=== PATIENT | female | born 1935 | race Caucasian/White ===

== ENCOUNTER 2022-03-03 18:57 | Observation (INO) | payer MEDICARE, SELFPAY ==
[2022-03-03 18:59] VITALS: BP 127/86; PULSE 115; RESP 20; TEMP 36.6; O2SAT 90; BMI 29.0
--- NOTE | 2022-03-03 19:19 | XRR_ITS ---
PROCEDURE INFORMATION: Exam: XR Chest Exam date and time: 03/03/2022 7:25 PM Age: 86 years old Clinical indication: Shortness of breath; Prior surgery; Surgery date: 6+ months; Surgery type: Open heart; Additional info: SOB TECHNIQUE: Imaging protocol: Radiologic exam of the chest. Views: 1 view. COMPARISON: No relevant prior studies available. FINDINGS: Lungs: Mild left basilar atelectasis and/or pneumonia which could be atelectasis from left eventration.. Mildly hyperaerated lungs consistent with deep inspiratory effort vs reactive airway disease vs mild COPD . Pleural spaces: Unremarkable. No pleural effusion. No pneumothorax. Heart/Mediastinum: Unremarkable. No cardiomegaly. Vasculature: Calcification of the thoracic aorta and/or great vessels consistent with atherosclerotic vessel disease. Diaphragm: Elevation of the left hemidiaphragm consistent with eventration. Bones/joints: Previous sternotomy. Other findings: Patient rotation to the left. XR/XR chest 1V portable [id number] IMPRESSION: 1. Previous sternotomy. 2. Elevation of the left hemidiaphragm consistent with eventration. 3. Mild left basilar atelectasis and/or pneumonia which could be atelectasis from left eventration.. 4. Mildly hyperaerated lungs consistent with deep inspiratory effort vs reactive airway disease vs mild COPD .
--- NOTE | 2022-03-03 19:19 | CTR_ITS ---
PROCEDURE INFORMATION: Exam: CT Head Without Contrast Exam date and time: 03/03/2022 7:43 PM Age: 86 years old Clinical indication: Other: Confusion secondary to UTI; Additional info: AMS TECHNIQUE: Imaging protocol: Computed tomography of the head without contrast. Radiation optimization: All CT scans at this facility use at least one of these dose optimization techniques: automated exposure control; mA and/or kV adjustment per patient size (includes targeted exams where dose is matched to clinical indication); or iterative reconstruction. COMPARISON: No relevant prior studies available. RADIATION DOSE METRICS: Total DLP (mGy-cm): 995.38 FINDINGS: Brain: Severe calcified intracranial atherosclerotic vessel disease. Mild to moderate cerebral atrophy and ischemic leukoencephalopathy. Cerebral ventricles: No ventriculomegaly. Paranasal sinuses: Moderate right maxillary sinus disease. Mastoid air cells: Visualized mastoid air cells are well aerated. Bones/joints: Unremarkable. No acute fracture. Soft tissues: Unremarkable. CT/CT head wo con* [id number] IMPRESSION: 1. Moderate right maxillary sinus disease. 2. No acute intracranial findings.
--- NOTE | 2022-03-03 19:20 | ECG_ITS ---
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 Measurements Intervals [place] Rate: 115 P: 33 [place]: 167 QRS: 14 QRSD: 90 T: 88 QT: 272 QTc: 377 Interpretive Statements SINUS TACHYCARDIA POSSIBLE LEFT ATRIAL ENLARGEMENT [-0.1mV P-WAVE IN V1/V2] SEPTAL MYOCARDIAL INFARCTION , PROBABLY OLD [40+ ms Q WAVE IN V1/V2] No previous ECG available for comparison Electronically Signed On 03-04-2022 19:03:50 LEACH TANK TENDER by Hailey Gilbert M.D. [id number]
--- NOTE | 2022-03-03 19:38 | ED_ITS ---
HPI - Altered Mental Status General: Chief Complaint: Altered Mental Status Stated Complaint: AMS Time Seen by Provider: 03/03/22 19:21 Source: EMS Mode of arrival: EMS Limitations: altered mental status History of Present Illness: 86-year-old female is here by EMS history is from EMS and daughter as she is altered here per daughter patient lives alone usually takes care of her self but states that over the last 2 days she has had some cough congestion and increasing confusion she states that today she has been very confused does not know where she is at patient's here able to answer minimal questions due to her confusion daughter states she is got like this in the past when she has infections. Review of Systems General: Reports: ROS unobtainable due to mental status PFSH ED PFSH: Social History (Updated 03/03/22 @ 19:39 by Lashaun Burnett MD) Substance/Drug Use: never Physical Exam Const: COMMON NORMALS: negative for patient oriented x3 EXAM LIMITATIONS: altered mental status HENMT: COMMON NORMALS: normocephalic and atraumatic HEAD & SCALP: normocephalic and atraumatic Eye: COMMON NORMALS: conjunctivae normal CONJUNCTIVA: Yes conjunctivae normal Neck/C-Spine: COMMON NORMALS: supple Chest: COMMONS NORMALS: normal inspection of the chest Resp: COMMON NORMALS: normal respiratory effort and clear to auscultation bilaterally AUSCULTATION: clear to auscultation bilaterally Cardio: COMMON NORMALS: regular rate and regular rhythm RATE: regular rate RHYTHM: regular rhythm GI: COMMON NORMALS: Normal to inspection, nondistended, normoactive bowel sounds present and non-tender INSPECTION: Yes normal to inspection Extremity: COMMON NORMALS: normal to inspection Neuro: COMMON NORMALS: negative for patient oriented x3 Psych: COMMON NORMALS: negative for mental status grossly normal Skin: COMMON NORMALS: no rashes or lesions noted GENERAL SKIN EXAM: no rashes or lesions noted Course Vital Signs: Vital signs: Vital Signs Temperature 97.8 F 03/03/22 18:59 Pulse Rate 113 H 03/03/22 20:18 Respiratory Rate 16 03/03/22 20:18 Blood Pressure 114/69 03/03/22 20:18 Pulse Oximetry 97 03/03/22 20:18 Oxygen Delivery Me thod 03/03/22 20:18 MDM - Altered Mental Status Medical Decision Making Patient presents with altered mental status along with generalized weakness her blood work here is normal she is no signs of infection she has had cough and congestion which could be viral in origin we will admit her for observation due to her altered no status and weakness Lab Data 03/03/22 20:15 03/03/22 20:15 Radiology Impressions Chest X-Ray 03/03/22 19:19 IMPRESSION: 1. Previous sternotomy. 2. Elevation of the left hemidiaphragm consistent with eventration. 3. Mild left basilar atelectasis and/or pneumonia which could be atelectasis from left eventration.. 4. Mildly hyperaerated lungs consistent with deep inspiratory effort vs reactive airway disease vs mild COPD . Head CT 03/03/22 19:19 IMPRESSION: 1. Moderate right maxillary sinus disease. 2. No acute intracranial findings. Laboratory Results WBC 8.7 10^3/uL (4.0-10.0) 03/03/22 20:15 RBC 4.24 10^6/uL (4.1-5.3) 03/03/22 20:15 Hgb 12.6 g/dL (11.5-15.3) 03/03/22 20:15 Hct 40.3 % (37.0-47.0) 03/03/22 20:15 MCV 95.0 fl (81-99) 03/03/22 20:15 MCH 29.7 pg (28.0-34.0) 03/03/22 20:15 MCHC 31.3 g/dL (30.0-36.0) 03/03/22 20:15 RDW 12.4 % (12.1-15.1) 03/03/22 20:15 Plt Count 177 10^3/cmm (130-400) 03/03/22 20:15 MPV 10.1 fL (7.4-10.4) 03/03/22 20:15 Neut % (Auto) 88.7 % 03/03/22 20:15 Lymph % (Auto) 3.7 % 03/03/22 20:15 [place] % (Auto) 6.7 % 03/03/22 20:15 Eos % (Auto) 0.1 % 03/03/22 20:15 Baso % (Auto) 0.5 % 03/03/22 20:15 Neut # (Auto) 7.69 10^3/uL (1.8-7.7) 03/03/22 20:15 Lymph # (Auto) 0.3 10^3/uL (0.8-4.8) L 03/03/22 20:15 [place] # (Auto) 0.6 10^3/uL (0.2-0.9) 03/03/22 20:15 Eos # (Auto) 0.0 10^3/uL (0.0-0.8) 03/03/22 20:15 Baso # (Auto) 0.0 10^3/uL (0.0-0.1) 03/03/22 20:15 Nucleated RBC % (auto) 0 % 03/03/22 20:15 Nucleated RBCs # 0.0 /100WBC 03/03/22 20:15 PT 14.10 SECONDS (12.1-14.9) 03/03/22 20:15 INR 1.06 (0.8-1.2) 03/03/22 20:15 Sodium 137 mmol/L (136-145) 03/03/22 20:15 Potassium 4.0 mmol/L (3.5-5.1) 03/03/22 20:15 Chloride 98 mmol/L (98-107) 03/03/22 20:15 Carbon Dioxide 29 mmol/L (22-29) 03/03/22 20:15 Anion Gap 14.0 (5-19) 03/03/22 20:15 BUN 16 mg/dL (8-23) 03/03/22 20:15 Creatinine 1.1 mg/dL (0.5-0.9) H 03/03/22 20:15 GFR Calculation Not Reportable 03/03/22 20:15 Glucose 117 mg/dL (65-115) H 03/03/22 20:15 Calculated Osmolality 286 mOsm/kg (285-295) 03/03/22 20:15 Calcium 10.1 mg/dL (8.5-10.5) 03/03/22 20:15 Magnesium 1.7 mg/dL (1.7-2.3) 03/03/22 20:15 Total Bilirubin 0.2 mg/dL (0.15-1.2) 03/03/22 20:15 AST 15 U/L (0-32) 03/03/22 20:15 ALT 10 U/L (0-33) 03/03/22 20:15 Alkaline Phosphatase 84 U/L (35-105) 03/03/22 20:15 Troponin T Baseline 42 ng/L (0-10) H 03/03/22 20:15 Troponin T 120 Minute 37.46 ng/L (0-10) H 03/03/22 22:15 Delta Troponin T -4.54 ABS# (0-10) L 03/03/22 22:15 Total Protein 7.1 g/dL (6.6-8.7) 03/03/22 20:15 Albumin 3.8 g/dL (3.5-5.2) 03/03/22 20:15 Globulin 3.3 g/dL (1.3-4.6) 03/03/22 20:15 Lipase 8 U/L (13-60) L 03/03/22 20:15 Urine Color Yellow (Yellow) 03/03/22 22:23 Urine Appearance Clear (CLEAR) 03/03/22 22:23 Urine pH 5 (5-7) 03/03/22 22:23 Ur Specific [place] 1.020 (1.005-1.030) 03/03/22 22:23 Urine Protein Neg (Negative) 03/03/22 22:23 Urine Glucose (UA) Norm (Normal) 03/03/22 22:23 Urine Ketones Negative (Negative) 03/03/22 22:23 Urine Blood Neg (Negative) 03/03/22 22:23 Urine Nitrate Negative (Negative) 03/03/22 22:23 Urine Bilirubin Neg (Negative) 03/03/22 22:23 Urine Urobilinogen Norm mg/dL (Negative) 03/03/22 22:23 Ur Leukocyte Esterase Negative (Negative) 03/03/22 22:23 Influenza Type A Ag negative (Negative) 03/03/22 20:21 Influenza Type B Ag negative (Negative) 03/03/22 20:21 SARS-CoV-2 Ag (Rapid) negative (Negative) 03/03/22 20:21 Discharge Plan Discharge Patient Disposition: Admitted As Inpatient Clinical Impression: Altered mental status, Weakness Coding Level of Care Code ED Certified Histologic Technician for Chg Fwd Exam Comprehensive
[2022-03-03 20:18] VITALS: BP 114/69; PULSE 113; RESP 16; O2SAT 97
[2022-03-03] MEDS: sodium chloride 0.9% 500 ML 999 ML IV (20:18)
[2022-03-03 20:22] LABS: Basophils % 0.5 %; Eosinophils % 0.1 %; Hematocrit 40.3 % (37.0-47.0); Hemoglobin 12.6 g/dL (11.5-15.3); Lymphocytes # 0.3 10^3/uL (0.8-4.8); Lymphocytes % 3.7 %; Mean Corpuscular HGB Conc 31.3 g/dL (30.0-36.0); Mean Corpuscular Hemoglobin 29.7 pg (28.0-34.0); Mean Platelet Volume 10.1 fL (7.4-10.4); Monocytes # 0.6 10^3/uL (0.2-0.9); Monocytes % 6.7 %; Neutrophils # 7.69 10^3/uL (1.8-7.7); Neutrophils % 88.7 %; Nucleated Red Blood Cells % 0 %; Platelet Count 177 10^3/cmm (130-400); Red Blood Count 4.24 10^6/uL (4.1-5.3); Red Cell Distribution Width 12.4 % (12.1-15.1); White Blood Count 8.7 10^3/uL (4.0-10.0)
[2022-03-03 20:39] LABS: INR 1.06 (0.8-1.2)
[2022-03-03 20:48] LABS: Alanine Aminotransferase 10 U/L (0-33); Albumin Level 3.8 g/dL (3.5-5.2); Alkaline Phosphatase 84 U/L (35-105); Aspartate Amino Transferase 15 U/L (0-32); Blood Urea Nitrogen 16 mg/dL (8-23); Calcium 10.1 mg/dL (8.5-10.5); Carbon Dioxide 29 mmol/L (22-29); Chloride 98 mmol/L (98-107); Globulin 3.3 g/dL (1.3-4.6); Glucose 117 mg/dL (65-115); Lipase 8 U/L (13-60); Magnesium 1.7 mg/dL (1.7-2.3); Osmolality Calculated 286 mOsm/kg (285-295); Sodium 137 mmol/L (136-145); Total Bilirubin 0.2 mg/dL (0.15-1.2); Total Protein 7.1 g/dL (6.6-8.7); Troponin(5th) Baseline 42 ng/L (0-10)
[2022-03-03 20:48] LABS: Influenza A by IFA negative (Negative); Influenza B by IFA negative (Negative); SARS Covid-2 Antigen negative (Negative)
--- NOTE | 2022-03-03 21:20 | ECG_ITS ---
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 Measurements Intervals [place] Rate: 115 P: 47 [place]: 158 QRS: 20 QRSD: 92 T: 88 QT: 244 QTc: 339 Interpretive Statements SINUS TACHYCARDIA POSSIBLE LEFT ATRIAL ENLARGEMENT [-0.1mV P-WAVE IN V1/V2] LOW QRS VOLTAGE IN PRECORDIAL LEADS [QRS DEFLECTION < 1.0 mV IN CHEST LEADS] NONSPECIFIC ST & T-WAVE ABNORMALITY ABNORMAL RHYTHM ECG Compared to ECG 03/03/2022 20:00:09 Low QRS voltage now present T-wave abnormality now present Myocardial infarct finding no longer present Electronically Signed On 03-04-2022 19:20:52 EXAM PROCTOR by Hailey Gilbert M.D. [id number]
[2022-03-03 22:37] LABS: Add Urine Microscopic? NO; Charge for UA Resulting for Rev
[2022-03-03 22:39] LABS: Bilirubin Urine Neg (Negative); Blood Urine Neg (Negative); Glucose Urine UA Norm (Normal); Ketones Urine Negative (Negative); Leukocyte Esterase Urine Negative (Negative); Nitrate Urine Negative (Negative); Protein Urine Neg (Negative); Urine Appearance Clear (CLEAR); Urine Color Yellow (Yellow); Urobilinogen Urine Norm (Negative); pH Urine 5 (5-7)
[2022-03-03 22:43] LABS: Troponin 5 2HR 37.46 ng/L (0-10)
[2022-03-03 22:44] LABS: Troponin 5 2HR Delta -4.54 ABS# (0-10)
--- NOTE | 2022-03-03 23:39 | P.HP_ITS ---
Providers/Chief Complaint Chief Complaint: AMS History of Present Illness Wicho Bermeo is a 86 year old female with history of TAVR 2 years ago, dementia, lives with her sister presented with chief complaint of lethargy fatigue and altered mental status. Her daughter brought her here because of extreme fatigue which she noticed around 4 PM. Daughter stating that she was with her today and left her around afternoon after lunch and when she came back to check on her around 4 PM she was doing lethargic and fatigued, she was not able to open her eyes she thought she probably has UTI and brought her to the ER. No fever, nausea, vomiting or diarrhea. Daughter stating that for last few days she has been experiencing dry hacking cough to the point where she would gag sometimes because of excessive coughing bouts. Runny nose and runny eyes. Nonproductive cough. Daughter stating that recently her levothyroxine dose has been increased to 88 mics, she is not sure about all of her medications. In the ER COVID-negative influenza negative, looks slightly dehydrated, heart rate improved with IV fluid hydration, patient is able to answer simple questions No signs of stroke CT head, chest x-ray unremarkable Review of Systems Const: Reports: chills and fatigue Eyes: Denies: change in vision ENMT: Denies: throat pain Card: Denies: chest pain Resp: Reports: dyspnea GI: Denies: abdominal pain : Denies: flank pain or oliguria Musc: Denies: neck pain Skin/Breast: Denies: rash Neuro: Denies: headache(s) Psych: Reports: anxiety Endo: Denies: polyuria Alex/Lymph: Denies: easy bruising All/Imm: Denies: urticaria Medications/Allergies Allergies Allergy/AdvReac Type Severity Reaction Status Date / Time No Known Allergies Allergy Verified 03/03/22 19:04 PFSH Acute PFSH: Medical History Aortic stenosis Hypertension Hypothyroidism Surgical History History of hip surgery S/P TAVR (transcatheter aortic valve replacement) Family History Denies family history of CAD (coronary artery disease) Social History Substance/Drug Use: never Vitals/I&O/Wt Last Vital Signs Temp 97.8 F 03/03/22 18:59 Pulse 113 H 03/03/22 20:18 Resp 16 03/03/22 20:18 BP 114/69 03/03/22 20:18 Pulse Ox 97 03/03/22 20:18 O2 Del Method 03/03/22 20:18 03/03/22 03/03/22 03/04/22 14:59 22:59 06:59 Intake Total 500 / 500 Balance 500 / 500 Weight last 48 hrs Weight 81.647 kg Physical Exam Narrative: Patient is laying supine No signs of stroke Clinically looks dehydrated Sinus tachycardia Blood pressure stable Able to answer simple questions Able to move her extremities Able to follow commands Oriented to place and person but not time Currently doing well on 2 L of nasal cannula Abdomen soft S1, S2 loud S2 Clinically weak and dehydrated, lethargic Data 03/03/22 20:15 03/03/22 20:15 A&P Assessment and plan (1) Altered mental status: (2) Weakness: Plan Metabolic encephalopathy Acute delirium likely related to dehydration Continue IV fluids Check TSH B12 mag and phosphorus level Patient seems to have dementia I will start her on IV fluids We will give her azithromycin for upper airway infection For sinus tachycardia we will request D-dimer to rule out PE 2 years ago she had TAVR done, lives with her sister, recently her levothyroxine dose has been increased to 88 mics, We will request records from [facility] Please follow-up with her pharmacy in the morning to get all of her medications Patient is DNR/DNI as per her daughter Cardiac diet Attestations Medical Necessity Statement*: Anticipating discharge within 48 hours Time Spent in Patient Care: 40 Coding Level of Care Code Acute Research Associate Quality Control Qc for Chg Fwd Diagnoses Altered mental status R41.82 Weakness R53.1
[2022-03-04] VITALS (7 sets, daily range): BP systolic 120–148; BP diastolic 61–79; PULSE 84–110; RESP 16–24; TEMP 36.3–36.9; O2SAT 94–96
[2022-03-04 00:22] LABS: Procalcitonin 0.12 ng/mL (0-0.5)
[2022-03-04] MEDS: sodium chloride 0.9% 500 ML 999 ML IV (01:04)
[2022-03-04 01:09] LABS: D Dimer 5.23 ug/mIFEU (0-0.59)
[2022-03-04 02:07] LABS: Basophils % 0.3 %; Hematocrit 36.3 % (37.0-47.0); Hemoglobin 11.3 g/dL (11.5-15.3); Lymphocytes # 0.3 10^3/uL (0.8-4.8); Lymphocytes % 5.3 %; Mean Corpuscular HGB Conc 31.1 g/dL (30.0-36.0); Mean Corpuscular Hemoglobin 29.9 pg (28.0-34.0); Mean Platelet Volume 10.5 fL (7.4-10.4); Monocytes # 0.4 10^3/uL (0.2-0.9); Monocytes % 5.9 %; Neutrophils # 5.67 10^3/uL (1.8-7.7); Nucleated Red Blood Cells % 0 %; Platelet Count 150 10^3/cmm (130-400); Red Blood Count 3.78 10^6/uL (4.1-5.3); Red Cell Distribution Width 12.5 % (12.1-15.1); White Blood Count 6.4 10^3/uL (4.0-10.0)
[2022-03-04] MEDS: sodium chloride 0.9% 1,000 ML 75 ML IV (02:12)
[2022-03-04 02:28] LABS: Anion Gap 11.7 (5-19); Blood Urea Nitrogen 15 mg/dL (8-23); C Reactive Protein 106.4 mg/L (0.0-4.9); Calcium 8.9 mg/dL (8.5-10.5); Carbon Dioxide 29 mmol/L (22-29); Chloride 101 mmol/L (98-107); Glucose 110 mg/dL (65-115); Magnesium 1.7 mg/dL (1.7-2.3); Osmolality Calculated 287 mOsm/kg (285-295); Phosphorus 3.4 mg/dL (2.5-4.5); Potassium 3.7 mmol/L (3.5-5.1); Sodium 138 mmol/L (136-145)
[2022-03-04 02:31] LABS: Troponin 5 6HR 45.47 ng/L (0-10)
[2022-03-04 02:33] LABS: Troponin 5 6HR Delta 3.47 ng/L (0-12)
[2022-03-04 02:34] LABS: Thyroid Stimulating Hormone 2.52 uIU/mL (0.27-4.20)
[2022-03-04 02:37] LABS: Estmated Average Glucose 85; Hemoglobin A1C 4.6 % (4.0-6.0)
[2022-03-04 03:12] LABS: Vitamin B12 304 pg/mL (232-1245)
[2022-03-04] MEDS: enoxaparin 40 mg/0.4 mL Syringe SUBCUT (05:00)
--- NOTE | 2022-03-04 05:50 | ECG_ITS ---
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 Measurements Intervals [place] Rate: 104 P: 31 [place]: 156 QRS: 43 QRSD: 89 T: 90 QT: 247 QTc: 325 Interpretive Statements SINUS TACHYCARDIA LOW QRS VOLTAGE IN PRECORDIAL LEADS [QRS DEFLECTION < 1.0 mV IN CHEST LEADS] SEPTAL MYOCARDIAL INFARCTION , PROBABLY OLD [40+ ms Q WAVE IN V1/V2] Compared to ECG 03/03/2022 21:15:59 Myocardial infarct finding now present T-wave abnormality no longer present Electronically Signed On 03-04-2022 19:12:50 SHEET WRITER by Hailey Gilbert M.D. [email or web address].[employer]/store/OM/[id number]/[id number]
--- NOTE | 2022-03-04 07:47 | PC.PHAR ---
called pts sister raffy [phone] no answer-medications entered are meds that ext med history shows has been filled at [facility]-notes are made in the pharmacy comments with last fill dates
[2022-03-04] MEDS: sennosides-docusate Tablet 1 TAB PO (09:08)
[2022-03-04] MEDS: ipratropium-albuterol 3 mL Neb INHALATION (09:16)
[2022-03-04] MEDS: azithromycin 250 mg Tablet 500 MG PO (10:35)
--- NOTE | 2022-03-04 11:12 | PM.DCS ---
Discharge Providers Date of Admission: 03/04/22 00:00 Date of Discharge: March 04, 2022 Attending Provider at Admission: Ruel Galvez MD Attending Provider at Discharge: Abner Shultz MD Diagnoses at Discharge Discharge Diagnosis (1) Altered mental status: Status: Acute (2) Weakness: Status: Acute Reason for Visit Reason for Visit: [facility] Hospital Course Hospital Course 86 year old female with history of TAVR 2 years ago, dementia, lives with her sister presented with chief complaint of lethargy fatigue, dry hacking cough for few day , and altered mental status since yesterday, she was admitted for the management of acute metabolic encephalopathy secondary to recent upper respiratory tract infection as well as dehydration, she was kept on IV hydration, azithromycin, CT head without contrast was negative, x-ray chest: Showed no infiltrates, UA was clean, serum B12 was normal, TSH was normal, At the time of discharge, patient was progressing to her baseline mentation she was alert awake oriented, knew her name place, denied any chest pain shortness of breath abdominal pain nausea vomiting, she was afebrile hemodynamically stable, influenza and COVID was negative.She was discharged home in stable condition, she will continue to follow her PCP as outpatient. Physical Exam Narrative: Alert awake,not in acute distress Resp: COMMON NORMALS: normal respiratory effort, No retractions, No use of accessory muscles and clear to auscultation bilaterally EFFORT & INSPECTION: Yes symmetric chest movement AUSCULTATION: clear to auscultation bilaterally Cardio: COMMON NORMALS: regular rate, regular rhythm, S1 normal heart sound present, S2 normal heart sound present, No gallops present (Cardio), No murmurs present (Cardio), No rub (Cardio) and Peripheral pulses 2+ throughout RATE: regular rate RHYTHM: regular rhythm HEART SOUNDS: S1 normal heart sound present and S2 normal heart sound present PERIPHERAL PULSES: Peripheral pulses 2+ throughout GI: COMMON NORMALS: Normal to inspection, nondistended, normoactive bowel sounds present, Soft to palpation, non-tender, No hepatosplenomegaly present and no masses AUSCULTATION: Yes normoactive bowel sounds PALPATION: Yes Soft to palpation and Yes No hepatosplenomegaly present RECTAL EXAM: deferred Extremity: COMMON NORMALS: no clubbing, cyanosis or edema and no pedal edema Discharge Data Studies Completed and Pending Completed Studies During Hospitalization Category Date Time Status CT head wo con* [id number] Stat Cat Scan 03/03/22 19:19 Completed XR chest 1V portable [id number] Stat Exams 03/03/22 19:19 Completed Pending at discharge Category Date Time Status Blood Culture Stat Lab 03/03/22 00:06 Results Radiology Impressions Chest X-Ray 03/03/22 19:19 IMPRESSION: 1. Previous sternotomy. 2. Elevation of the left hemidiaphragm consistent with eventration. 3. Mild left basilar atelectasis and/or pneumonia which could be atelectasis from left eventration.. 4. Mildly hyperaerated lungs consistent with deep inspiratory effort vs reactive airway disease vs mild COPD . Head CT 03/03/22 19:19 IMPRESSION: 1. Moderate right maxillary sinus disease. 2. No acute intracranial findings. Laboratory Results WBC 6.4 10^3/uL (4.0-10.0) 03/04/22 01:48 RBC 3.78 10^6/uL (4.1-5.3) L 03/04/22 01:48 Hgb 11.3 g/dL (11.5-15.3) L 03/04/22 01:48 Hct 36.3 % (37.0-47.0) L 03/04/22 01:48 MCV 96.0 fl (81-99) 03/04/22 01:48 MCH 29.9 pg (28.0-34.0) 03/04/22 01:48 MCHC 31.1 g/dL (30.0-36.0) 03/04/22 01:48 RDW 12.5 % (12.1-15.1) 03/04/22 01:48 Plt Count 150 10^3/cmm (130-400) 03/04/22 01:48 MPV 10.5 fL (7.4-10.4) H 03/04/22 01:48 Neut % (Auto) 88.0 % 03/04/22 01:48 Lymph % (Auto) 5.3 % 03/04/22 01:48 [place] % (Auto) 5.9 % 03/04/22 01:48 Eos % (Auto) 0.0 % 03/04/22 01:48 Baso % (Auto) 0.3 % 03/04/22 01:48 Neut # (Auto) 5.67 10^3/uL (1.8-7.7) 03/04/22 01:48 Lymph # (Auto) 0.3 10^3/uL (0.8-4.8) L 03/04/22 01:48 [place] # (Auto) 0.4 10^3/uL (0.2-0.9) 03/04/22 01:48 Eos # (Auto) 0.0 10^3/uL (0.0-0.8) 03/04/22 01:48 Baso # (Auto) 0.0 10^3/uL (0.0-0.1) 03/04/22 01:48 Nucleated RBC % (auto) 0 % 03/04/22 01:48 Nucleated RBCs # 0.0 /100WBC 03/04/22 01:48 PT 14.10 SECONDS (12.1-14.9) 03/03/22 20:15 INR 1.06 (0.8-1.2) 03/03/22 20:15 D-Dimer 5.23 ug/mIFEU (0-0.59) H 03/03/22 20:15 Sodium 138 mmol/L (136-145) 03/04/22 01:48 Potassium 3.7 mmol/L (3.5-5.1) 03/04/22 01:48 Chloride 101 mmol/L (98-107) 03/04/22 01:48 Carbon Dioxide 29 mmol/L (22-29) 03/04/22 01:48 Anion Gap 11.7 (5-19) 03/04/22 01:48 BUN 15 mg/dL (8-23) 03/04/22 01:48 Creatinine 1.0 mg/dL (0.5-0.9) H 03/04/22 01:48 GFR Calculation Not Reportable 03/04/22 01:48 Glucose 110 mg/dL (65-115) 03/04/22 01:48 Estimat Average Glucose 85 03/04/22 01:48 Hemoglobin A1c 4.6 % (4.0-6.0) 03/04/22 01:48 Calculated Osmolality 287 mOsm/kg (285-295) 03/04/22 01:48 Calcium 8.9 mg/dL (8.5-10.5) 03/04/22 01:48 Phosphorus 3.4 mg/dL (2.5-4.5) 03/04/22 01:48 Magnesium 1.7 mg/dL (1.7-2.3) 03/04/22 01:48 Total Bilirubin 0.2 mg/dL (0.15-1.2) 03/03/22 20:15 AST 15 U/L (0-32) 03/03/22 20:15 ALT 10 U/L (0-33) 03/03/22 20:15 Alkaline Phosphatase 84 U/L (35-105) 03/03/22 20:15 Troponin T Baseline 42 ng/L (0-10) H 03/03/22 20:15 Troponin T 120 Minute 37.46 ng/L (0-10) H 03/03/22 22:15 Delta Troponin T -4.54 ABS# (0-10) L 03/03/22 22:15 Troponin T Hi Sens 6Hr 45.47 ng/L (0-10) H 03/04/22 01:48 Troponin T Hi Sens 6Hr Delta 3.47 ng/L (0-12) 03/04/22 01:48 C-Reactive Protein 106.4 mg/L (0.0-4.9) H 03/04/22 01:48 Total Protein 7.1 g/dL (6.6-8.7) 03/03/22 20:15 Albumin 3.8 g/dL (3.5-5.2) 03/03/22 20:15 Globulin 3.3 g/dL (1.3-4.6) 03/03/22 20:15 Lipase 8 U/L (13-60) L 03/03/22 20:15 Vitamin B12 304 pg/mL (232-1245) 03/04/22 01:48 Procalcitonin 0.12 ng/mL (0-0.5) 03/03/22 20:15 TSH 2.52 uIU/mL (0.27-4.20) 03/04/22 01:48 Urine Color Yellow (Yellow) 03/03/22 22:23 Urine Appearance Clear (CLEAR) 03/03/22 22:23 Urine pH 5 (5-7) 03/03/22 22:23 Ur Specific [place] 1.020 (1.005-1.030) 03/03/22 22:23 Urine Protein Neg (Negative) 03/03/22 22:23 Urine Glucose (UA) Norm (Normal) 03/03/22 22:23 Urine Ketones Negative (Negative) 03/03/22 22:23 Urine Blood Neg (Negative) 03/03/22 22:23 Urine Nitrate Negative (Negative) 03/03/22 22:23 Urine Bilirubin Neg (Negative) 03/03/22 22:23 Urine Urobilinogen Norm mg/dL (Negative) 03/03/22 22:23 Ur Leukocyte Esterase Negative (Negative) 03/03/22 22:23 Influenza Type A Ag negative (Negative) 03/03/22 20:21 Influenza Type B Ag negative (Negative) 03/03/22 20:21 SARS-CoV-2 Ag (Rapid) negative (Negative) 03/03/22 20:21 Vitals Last Vital Signs Temp 97.3 F L 03/04/22 08:00 Pulse 92 03/04/22 09:16 Resp 18 03/04/22 09:16 BP 124/61 03/04/22 08:00 Pulse Ox 95 03/04/22 09:16 O2 Del Method 03/04/22 09:16 O2 Flow Rate 2 03/04/22 09:16 Discharge Plan Discharge Patient Disposition: Home Condition: Stable Prescriptions: New azithromycin 250 mg tablet 250 mg PO DAILY 5 Days Qty: 5 0RF Continued furosemide 40 mg tablet 40 mg PO BID Rx Instructions: take 7 hours apart ropinirole 1 mg tablet 1 mg PO BEDTIME hydrocodone-acetaminophen 5-325 mg tablet 1 tab PO Q4H MDD 6 tabs PRN (Reason: Pain) clopidogrel 75 mg tablet 75 mg PO DAILY amitriptyline 50 mg tablet 50 mg PO BEDTIME Euthyrox 88 mcg tablet 88 mcg PO QAM citalopram 20 mg tablet 20 mg PO BEDTIME Nitrostat 0.4 mg Tablet, Sublingual 0.4 mg SUBLINGUAL Q5M PRN (Reason: Chest Pain) Rx Instructions: do not exceed 3 doses per episode gabapentin 300 mg capsule 300 mg PO QPM buspirone 7.5 mg tablet 7.5 mg PO BID albuterol sulfate 90 mcg/actuation HFA aerosol inhaler 2 puff INHALATION Q6H PRN (Reason: Shortness Of Breath) ondansetron 4 mg tablet,disintegrating 4 mg PO Q8H PRN (Reason: Nausea And Vomiting) ibandronate 150 mg tablet 150 mg PO Q30D Myrbetriq 25 mg tablet extended release 24 hr 25 mg PO DAILY Nurtec ODT 75 mg tablet,disintegrating 75 mg PO DAILY PRN (Reason: Migraine Headache) Klor-Con M20 20 mEq tablet,ER particles/crystals 20 meq PO QAM Discharge Orders: Discharge Order (Routine); Ordered 03/04/22 Ordered By: Abner Shultz Patient Instructions: Opioid Safety Discharge Attestations Time Spent in Discharge Care*: less than 30 min Quality Metrics Clinical Quality Measures [ No reported AMI, CVA or VTE this stay] Coding Level of Care Code Acute Chg FW DC note Diagnoses Altered mental status R41.82 Weakness R53.1
== END 2022-03-04 12:25 | disposition home or self-care (01) ==
LOC: ER 23:49 → MEDSURG 03-04 00:09
PROVIDERS: Admitting Provider Internal Medicine; Emergency Provider Emergency Medicine; Visit Provider Internal Medicine
DX: R41.82 Altered mental status, unspecified (principal); R53.1 Weakness; F03.90 Unspecified dementia, unspecified severity, without behavioral disturbance, psychotic disturbance, mood disturbance, and anxiety; G93.41 Metabolic encephalopathy; J22 Unspecified acute lower respiratory infection; E86.0 Dehydration; E03.9 Hypothyroidism, unspecified; I10 Essential (primary) hypertension; R00.0 Tachycardia, unspecified
CPT/HCPCS: 36415; 70450; 71045; 80048; 80053; 81003; 82607; 83036; 83690; 83735; 84100; 84145; 84443; 84484; 85025; 85378; 85610; 86140; 87040; 87426; 87804; 93005; 94640; 96372; 99285; G0378; J1650; J7030; J7040; Q0144

== ENCOUNTER 2024-08-11 15:55 | Inpatient (IN) | payer MEDICARE, SELFPAY ==
--- NOTE | 2024-08-11 15:58 | XRR_ITS ---
PROCEDURE INFORMATION: Exam: XR Left Hip Exam date and time: 08/11/2024 4:11 PM Age: 88 years old Clinical indication: Injury or trauma; Fall; Blunt trauma (contusions or hematomas); Left; Prior surgery; Surgery date: 6+ months; Surgery type: RT hip TECHNIQUE: Imaging protocol: Radiologic exam of the left hip. Views: 2 or 3 views hip with pelvis when performed. COMPARISON: No relevant prior studies available. FINDINGS: Bones/joints: Impacted and angulated left femoral neck fracture. 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 There is no sacroiliac or pubic symphyseal widening. No dislocation. Moderate degenerative changes of the left hip joint. Soft tissues: Unremarkable. Intraperitoneal space: The visualized pelvis appears intact. XR/XR hip LT 2-3V wo/w pel* [id number] IMPRESSION: As above.
--- NOTE | 2024-08-11 15:58 | XRR_ITS ---
PROCEDURE INFORMATION: Exam: XR Chest Exam date and time: 08/11/2024 4:11 PM Age: 88 years old Clinical indication: Injury or trauma; Fall; Blunt trauma (contusions or hematomas) TECHNIQUE: Imaging protocol: Radiologic exam of the chest. Views: 1 view. COMPARISON: CR XR chest 1V portable [id number] 03/03/2022 7:25 PM FINDINGS: Lungs: Nonspecific prominence of the pulmonary interstitium bilaterally. Left basilar lung atelectasis and/or scarring. Remaining lungs are clear. Pleural spaces: No sizable pleural effusion or pneumothorax. Heart/Mediastinum: Unremarkable. No cardiomegaly. Diaphragm: Eventration of the left hemidiaphragm. Bones/joints: Median sternotomy wires. XR/XR chest 1V portable [id number] IMPRESSION: As above.
[2024-08-11 16:01] VITALS: BP 170/86; PULSE 94; RESP 16; TEMP 36.3; O2SAT 90
--- NOTE | 2024-08-11 16:07 | W.ED.EXTPRO ---
HPI - Extremity Problem General: Chief complaint: Extremity Injury, Lower Stated complaint: left hip pain s/p fall Time Seen by Provider: 08/11/24 15:58 Source: patient and EMS Mode of arrival: EMS Limitations: no limitations History of Present Illness: 88-year-old female is here with EMS after a fall she states she had slipped and fell at home and has left hip pain. She states to me she does not believe she hit her head denies any headache denies any neck pain all of her pain is in her left hip. Denies any other injuries Associated symptoms: Deny chest pain, fever(s) or rash Related Data Home Medications ?Medication ?Instructions ?Recorded ?Confirmed albuterol sulfate 90 mcg/actuation 2 puff inhalation Q6H PRN 03/04/22 08/11/24 aerosol inhaler Shortness Of Breath amitriptyline 50 mg tablet 50 mg PO BEDTIME 03/04/22 08/11/24 buspirone 7.5 mg tablet 7.5 mg PO BID 03/04/22 08/11/24 citalopram 20 mg tablet 20 mg PO BEDTIME 03/04/22 08/11/24 clopidogrel 75 mg tablet 75 mg PO DAILY 03/04/22 08/11/24 furosemide 40 mg tablet 40 mg PO BID 03/04/22 08/11/24 gabapentin 300 mg capsule 300 mg PO QPM 03/04/22 08/11/24 hydrocodone 5 mg-acetaminophen 325 1 tab PO Q4H PRN Pain 03/04/22 08/11/24 mg tablet ibandronate 150 mg tablet 150 mg PO Q30D 03/04/22 08/11/24 levothyroxine 88 mcg tablet 88 mcg PO QAM 03/04/22 08/11/24 (Euthyrox) mirabegron 25 mg tablet,extended 25 mg PO QPM 03/04/22 08/11/24 release 24 hr (Myrbetriq) nitroglycerin 0.4 mg sublingual 0.4 mg sublingual Q5M PRN Chest 03/04/22 08/11/24 tablet (Nitrostat) Pain ondansetron 4 mg disintegrating 4 mg PO Q8H PRN Nausea And Vomiting 03/04/22 08/11/24 tablet potassium chloride 20 mEq 20 meq PO QAM 03/04/22 08/11/24 tablet,extended release(part/cryst) (Klor-Con M) rimegepant 75 mg disintegrating 75 mg PO DAILY PRN Migraine 03/04/22 08/11/24 tablet (Nurtec ODT) Headache ropinirole 1 mg tablet 1 mg PO BEDTIME PRN nerve pain 03/04/22 08/11/24 Lactobacillus acidophilus 100 mg PO DAILY 08/11/24 08/11/24 (Acidophilus capsule) cholecalciferol (vitamin D3) 1,250 50,000 unit PO Q7D 08/11/24 08/11/24 mcg (50,000 unit) capsule donepezil 5 mg tablet 5 mg PO BEDTIME 08/11/24 08/11/24 erenumab-aooe 140 mg/mL 140 mg SUBCUT .Q30D 08/11/24 08/11/24 subcutaneous auto-injector (Aimovig Autoinjector) ferrous sulfate 325 mg (65 mg 325 mg PO BEDTIME 08/11/24 08/11/24 iron) tablet fexofenadine 180 mg tablet 180 mg PO DAILY 08/11/24 08/11/24 magnesium 250 mg tablet 250 mg PO DAILY 08/11/24 08/11/24 selenium 200 mcg tablet 200 mcg PO DAILY 08/11/24 08/11/24 thiamine HCl (vitamin B1) 50 mg 50 mg PO DAILY 08/11/24 08/11/24 tablet (Vitamin B-1) tizanidine 2 mg tablet 2 mg PO Q12H PRN Muscle Spasm 08/11/24 08/11/24 zinc sulfate 50 mg zinc (220 mg) 50 mg PO BEDTIME 08/11/24 08/11/24 tablet Allergies Allergy/AdvReac Type Severity Reaction Status Date / Time No Known Allergies Allergy Verified 03/03/22 19:04 Review of Systems Const: Denies: fever(s), chills, body aches or change in appetite ENMT: Denies: throat pain or dental pain Card: Denies: chest pain Resp: Denies: dyspnea GI: Denies: abdominal pain, nausea, vomiting or diarrhea Musc: Reports: extremity pain; Denies: neck pain or back pain Skin/Breast: Denies: rash Neuro: Denies: headache(s) PFSH ED PFSH: Medical History Hypothyroidism Hypertension Aortic stenosis Surgical History History of hip surgery S/P TAVR (transcatheter aortic valve replacement) Family History Denies family history of CAD (coronary artery disease) Social History Substance/Drug Use: never Physical Exam Const: COMMON NORMALS: no acute distress, patient oriented x3 and healthy appearing HENMT: COMMON NORMALS: normocephalic and atraumatic HEAD & SCALP: normocephalic and atraumatic Eye: COMMON NORMALS: conjunctivae normal CONJUNCTIVA: Yes conjunctivae normal Neck/C-Spine: COMMON NORMALS: full ROM and supple Chest: COMMONS NORMALS: normal inspection of the chest Resp: COMMON NORMALS: normal respiratory effort Cardio: COMMON NORMALS: regular rate, regular rhythm and No murmurs present (Cardio) RATE: regular rate RHYTHM: regular rhythm Extremity: NARRATIVE EXTREMITY EXAM: Tenderness noted to left hip distal pulses sensation intact Neuro: COMMON NORMALS: patient oriented x3, moves all extremities and no focal motor deficits Psych: COMMON NORMALS: mental status grossly normal, Normal thought process present and cooperative THOUGHT PROCESS: Normal thought process present Skin: COMMON NORMALS: no rashes or lesions noted and no wounds GENERAL SKIN EXAM: no rashes or lesions noted Course Vital Signs: Vital signs: Vital Signs Temperature 97.4 F L 08/11/24 16:01 Pulse Rate 88 08/11/24 17:29 Respiratory Rate 16 08/11/24 16:01 Blood Pressure 178/88 08/11/24 17:29 Pulse Oximetry 95 08/11/24 17:29 Oxygen Delivery Me thod Nasal Cannula 08/11/24 17:29 Oxygen Flow Rate 2 08/11/24 17:29 MDM - Extremity (Nontraumatic) Medical Decision Making Patient presents here with left hip fracture from a fall no other injuries noted spoke to orthopedist on the hospitalist will admit Medical Records I reviewed the patient's medical records. Lab Data I reviewed the patient's lab results. 08/11/24 17:09 08/11/24 17:09 Radiology Impressions Chest X-Ray 08/11/24 15:58 IMPRESSION: As above. Hip/Pelvis X-Ray 08/11/24 15:58 IMPRESSION: As above. Laboratory Results WBC 16.22 10^3/uL (3.29-11.43) H 08/11/24 17:09 RBC 4.64 10^6/uL (3.85-5.65) 08/11/24 17:09 Hgb 14.40 g/dL (11.27-16.99) 08/11/24 17:09 Hct 46.7 % (36-47) 08/11/24 17:09 MCV 100.6 fl (85-98) H 08/11/24 17:09 MCH 31.0 pg (27-33) 08/11/24 17:09 MCHC 30.8 g/dL (30-55) 08/11/24 17:09 RDW 14.1 % (12.1-15.1) 08/11/24 17:09 Plt Count 224 10^3/cmm (157-399) 08/11/24 17:09 MPV 9.3 fL (7.4-10.4) 08/11/24 17:09 Neut % (Auto) 88.6 % 08/11/24 17:09 Lymph % (Auto) 4.1 % 08/11/24 17:09 [place] % (Auto) 5.9 % 08/11/24 17:09 Eos % (Auto) 0.4 % 08/11/24 17:09 Baso % (Auto) 0.3 % 08/11/24 17:09 Neut # (Auto) 14.36 10^3/uL (1.8-7.7) H 08/11/24 17:09 Lymph # (Auto) 0.7 10^3/uL (0.8-4.8) L 08/11/24 17:09 [place] # (Auto) 1.0 10^3/uL (0.2-0.9) H 08/11/24 17:09 Eos # (Auto) 0.1 10^3/uL (0.0-0.8) 08/11/24 17:09 Baso # (Auto) 0.1 10^3/uL (0.0-0.1) 08/11/24 17:09 Nucleated RBC % (auto) 0 % 08/11/24 17:09 Nucleated RBCs # 0.0 /100WBC 08/11/24 17:09 PT 13.20 SECONDS (12.1-14.9) 08/11/24 17:09 INR 0.94 (0.8-1.2) 08/11/24 17:09 Sodium 138 mmol/L (136-145) 08/11/24 17:09 Potassium 4.0 mmol/L (3.5-5.1) 08/11/24 17:09 Chloride 100 mmol/L (98-107) 08/11/24 17:09 Carbon Dioxide 24 mmol/L (22-29) 08/11/24 17:09 Anion Gap 18.0 (5-19) 08/11/24 17:09 BUN 18 mg/dL (8-23) 08/11/24 17:09 Creatinine 1.0 mg/dL (0.5-0.9) H 08/11/24 17:09 GFR Calculation Not Reportable 08/11/24 17:09 Glucose 110 mg/dL (65-115) 08/11/24 17:09 Calculated Osmolality 289 mOsm/kg (285-295) 08/11/24 17:09 Calcium 9.5 mg/dL (8.5-10.5) 08/11/24 17:09 Total Bilirubin 0.6 mg/dL (0.15-1.2) 08/11/24 17:09 AST 32 U/L (0-32) 08/11/24 17:09 ALT 43 U/L (0-33) H 08/11/24 17:09 Alkaline Phosphatase 92 U/L (35-105) 08/11/24 17:09 Total Protein 7.1 g/dL (6.6-8.7) 08/11/24 17:09 Albumin 4.0 g/dL (3.5-5.2) 08/11/24 17:09 Globulin 3.1 g/dL (1.3-4.6) 08/11/24 17:09 All radiology interpretation(s) finalized by discharge ED provider radiology interpretation(s): nsr hr [address] or t wave abnormalities qrs 93 qtc 410 Discharge Plan Discharge Condition: Stable Prescriptions: No Action furosemide 40 mg tablet 40 mg PO BID Rx Instructions: take 7 hours apart ropinirole 1 mg tablet 1 mg PO BEDTIME PRN (Reason: nerve pain) hydrocodone-acetaminophen 5-325 mg tablet 1 tab PO Q4H MDD 6 tabs PRN (Reason: Pain) clopidogrel 75 mg tablet 75 mg PO DAILY amitriptyline 50 mg tablet 50 mg PO BEDTIME levothyroxine [Euthyrox] 88 mcg tablet 88 mcg PO QAM citalopram 20 mg tablet 20 mg PO BEDTIME nitroglycerin [Nitrostat] 0.4 mg Tablet, Sublingual 0.4 mg SUBLINGUAL Q5M PRN (Reason: Chest Pain) Rx Instructions: do not exceed 3 doses per episode gabapentin 300 mg capsule 300 mg PO QPM buspirone 7.5 mg tablet 7.5 mg PO BID albuterol sulfate 90 mcg/actuation HFA aerosol inhaler 2 puff INHALATION Q6H PRN (Reason: Shortness Of Breath) ondansetron 4 mg tablet,disintegrating 4 mg PO Q8H PRN (Reason: Nausea And Vomiting) ibandronate 150 mg tablet 150 mg PO Q30D mirabegron [Myrbetriq] 25 mg tablet extended release 24 hr 25 mg PO QPM Nurtec ODT 75 mg tablet,disintegrating 75 mg PO DAILY PRN (Reason: Migraine Headache) potassium chloride [Klor-Con M20] 20 mEq tablet,ER particles/crystals 20 meq PO QAM donepezil 5 mg tablet 5 mg PO BEDTIME tizanidine 2 mg tablet 2 mg PO Q12H PRN (Reason: Muscle Spasm) fexofenadine 180 mg tablet 180 mg PO DAILY cholecalciferol (vitamin D3) 1,250 mcg (50,000 unit) capsule 50,000 unit PO Q7D Aimovig Autoinjector 140 mg/mL auto-injector 140 mg SUBCUT .Q30D selenium 200 mcg Tablet 200 mcg PO DAILY zinc sulfate 50 mg zinc (220 mg) Tablet 50 mg PO BEDTIME ferrous sulfate 325 mg (65 mg iron) Tablet 325 mg PO BEDTIME magnesium 250 mg Tablet 250 mg PO DAILY Acidophilus Capsule 100 mg PO DAILY thiamine HCl (vitamin B1) [Vitamin B-1] 50 mg Tablet 50 mg PO DAILY Print Language: Cymro Coding Level of Care Code 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
--- NOTE | 2024-08-11 16:08 | ECG_ITS ---
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
[2024-08-11 17:14] LABS: Basophils # 0.1 10^3/uL (0.0-0.1); Basophils % 0.3 %; Eosinophils # 0.1 10^3/uL (0.0-0.8); Eosinophils % 0.4 %; Hematocrit 46.7 % (36-47); Lymphocytes # 0.7 10^3/uL (0.8-4.8); Lymphocytes % 4.1 %; Mean Corpuscular HGB Conc 30.8 g/dL (30-55); Mean Corpuscular Volume 100.6 fl (85-98); Mean Platelet Volume 9.3 fL (7.4-10.4); Monocytes % 5.9 %; Neutrophils # 14.36 10^3/uL (1.8-7.7); Neutrophils % 88.6 %; Nucleated Red Blood Cells % 0 %; Platelet Count 224 10^3/cmm (157-399); Red Blood Count 4.64 10^6/uL (3.85-5.65); Red Cell Distribution Width 14.1 % (12.1-15.1); White Blood Count 16.22 10^3/uL (3.29-11.43)
[2024-08-11 17:27] LABS: INR 0.94 (0.8-1.2)
--- NOTE | 2024-08-11 17:27 | PC.NURSE ---
upon pt arrival to ER room, pt O2 sat was 87% on RA. Pt placed on 2 L NC.
[2024-08-11 17:29] VITALS: BP 178/88; PULSE 88; O2SAT 95
[2024-08-11 17:38] LABS: Alanine Aminotransferase 43 U/L (0-33); Alkaline Phosphatase 92 U/L (35-105); Aspartate Amino Transferase 32 U/L (0-32); Blood Urea Nitrogen 18 mg/dL (8-23); Calcium 9.5 mg/dL (8.5-10.5); Carbon Dioxide 24 mmol/L (22-29); Chloride 100 mmol/L (98-107); Globulin 3.1 g/dL (1.3-4.6); Glucose 110 mg/dL (65-115); Osmolality Calculated 289 mOsm/kg (285-295); Sodium 138 mmol/L (136-145); Total Bilirubin 0.6 mg/dL (0.15-1.2); Total Protein 7.1 g/dL (6.6-8.7)
--- NOTE | 2024-08-11 17:58 | PM.HP ---
Providers/Chief Complaint Chief Complaint: left hip pain s/p fall History of Present Illness Wicho Bermeo is a 88 year old female with a past medical history of TAVR, hypertension, hypothyroidism, hyperlipidemia, who presents [facility] for follow-up. Patient tells me that she lives at home with her daughter, she was trying to get into her wheelchair when she bent forward and fell forward, falling towards the ground, she did hit her head, denies passing out, no preceding chest pain or palpitations or lightheadedness or dizziness, or strokelike symptoms or seizure-like symptoms, no focal weakness, no visual deficits, she did take her Plavix this morning she is not on any blood other thinners, denies any chest pain, no history of CAD, no history of stroke Review of Systems Const: Denies: fever(s) or chills Card: Denies: chest pain Resp: Denies: dyspnea Medications/Allergies Home Medications ?Medication ?Instructions ?Recorded ?Confirmed ?Last Taken ?Type albuterol sulfate 90 mcg/actuation 2 puff inhalation Q6H PRN 03/04/22 08/11/24 Unknown History aerosol inhaler Shortness Of Breath amitriptyline 50 mg tablet 50 mg PO BEDTIME 03/04/22 08/11/24 08/10/24 History buspirone 7.5 mg tablet 7.5 mg PO BID 03/04/22 08/11/24 08/11/24 History citalopram 20 mg tablet 20 mg PO BEDTIME 03/04/22 08/11/24 08/10/24 History clopidogrel 75 mg tablet 75 mg PO DAILY 03/04/22 08/11/24 08/11/24 History furosemide 40 mg tablet 40 mg PO BID 03/04/22 08/11/24 08/11/24 History gabapentin 300 mg capsule 300 mg PO QPM 03/04/22 08/11/24 08/10/24 History hydrocodone 5 mg-acetaminophen 325 1 tab PO Q4H PRN Pain 03/04/22 08/11/24 Unknown History mg tablet ibandronate 150 mg tablet 150 mg PO Q30D 03/04/22 08/11/24 08/02/24 History levothyroxine 88 mcg tablet 88 mcg PO QAM 03/04/22 08/11/24 08/11/24 History (Euthyrox) mirabegron 25 mg tablet,extended 25 mg PO QPM 03/04/22 08/11/24 08/10/24 History release 24 hr (Myrbetriq) nitroglycerin 0.4 mg sublingual 0.4 mg sublingual Q5M PRN Chest 03/04/22 08/11/24 Unknown History tablet (Nitrostat) Pain ondansetron 4 mg disintegrating 4 mg PO Q8H PRN Nausea And Vomiting 03/04/22 08/11/24 Unknown History tablet potassium chloride 20 mEq 20 meq PO QAM 03/04/22 08/11/24 08/11/24 History tablet,extended release(part/cryst) (Klor-Con M) rimegepant 75 mg disintegrating 75 mg PO DAILY PRN Migraine 03/04/22 08/11/24 Unknown History tablet (Nurtec ODT) Headache ropinirole 1 mg tablet 1 mg PO BEDTIME PRN nerve pain 03/04/22 08/11/24 Unknown History Lactobacillus acidophilus 100 mg PO DAILY 08/11/24 08/11/24 08/11/24 History (Acidophilus capsule) cholecalciferol (vitamin D3) 1,250 50,000 unit PO Q7D 08/11/24 08/11/24 08/07/24 History mcg (50,000 unit) capsule donepezil 5 mg tablet 5 mg PO BEDTIME 08/11/24 08/11/24 08/10/24 History erenumab-aooe 140 mg/mL 140 mg SUBCUT .Q30D 08/11/24 08/11/24 08/01/24 History subcutaneous auto-injector (Aimovig Autoinjector) ferrous sulfate 325 mg (65 mg 325 mg PO BEDTIME 08/11/24 08/11/24 08/10/24 History iron) tablet fexofenadine 180 mg tablet 180 mg PO DAILY 08/11/24 08/11/24 08/11/24 History magnesium 250 mg tablet 250 mg PO DAILY 08/11/24 08/11/24 08/11/24 History selenium 200 mcg tablet 200 mcg PO DAILY 08/11/24 08/11/24 08/11/24 History thiamine HCl (vitamin B1) 50 mg 50 mg PO DAILY 08/11/24 08/11/24 08/11/24 History tablet (Vitamin B-1) tizanidine 2 mg tablet 2 mg PO Q12H PRN Muscle Spasm 08/11/24 08/11/24 Unknown History zinc sulfate 50 mg zinc (220 mg) 50 mg PO BEDTIME 08/11/24 08/11/24 08/10/24 History tablet Allergies Allergy/AdvReac Type Severity Reaction Status Date / Time No Known Allergies Allergy Verified 03/03/22 19:04 PFSH Acute PFSH: Medical History Hypothyroidism Hypertension Aortic stenosis Surgical History History of hip surgery S/P TAVR (transcatheter aortic valve replacement) Family History Denies family history of CAD (coronary artery disease) Social History Substance/Drug Use: never Vitals/I&O/Wt Last Vital Signs Temp 97.4 F L 08/11/24 16:01 Pulse 88 08/11/24 17:29 Resp 16 08/11/24 16:01 BP 178/88 08/11/24 17:29 Pulse Ox 95 08/11/24 17:29 O2 Del Method Nasal Cannula 08/11/24 17:29 O2 Flow Rate 2 08/11/24 17:29 Weight last 48 hrs Weight 62.142 kg Physical Exam Const: COMMON NORMALS: no acute distress and patient oriented x3 OTHER: Head atraumatic HENMT: COMMON NORMALS: normocephalic HEAD & SCALP: normocephalic Eye: COMMON NORMALS: Equal, round and reactive pupils present Lymph: LYMPHATIC: no lymphadenopathy noted Resp: COMMON NORMALS: normal respiratory effort, No retractions, No use of accessory muscles and clear to auscultation bilaterally AUSCULTATION: clear to auscultation bilaterally Cardio: COMMON NORMALS: regular rate, regular rhythm, S1 normal heart sound present and S2 normal heart sound present RATE: regular rate RHYTHM: regular rhythm HEART SOUNDS: S1 normal heart sound present and S2 normal heart sound present GI: COMMON NORMALS: Normal to inspection, nondistended, normoactive bowel sounds present, Soft to palpation and non-tender Extremity: COMMON NORMALS: no calf tenderness and no pedal edema Neuro: COMMON NORMALS: patient oriented x3, CN's II-XII intact bilaterally and moves all extremities OTHER: Left hip pain with any motion, left hip shortening, externally rotated Psych: COMMON NORMALS: mental status grossly normal Data 08/11/24 17:09 08/11/24 17:09 A&P Assessment and plan (1) Closed left hip fracture: Plan Left hip fracture - Will hold Plavix in preparation for surgical intervention - Hold Lovenox for DVT prophylaxis as plans on surgery's SCDs for now - Morphine for pain control - Zofran for nausea - Orthopedic service has been consulted Will do a head CT as she reports that she did hit her head, did not lose consciousness Leukocytosis, will await urinalysis PDMP PDMP Reviewed: Not Reviewed Attestations Medical Necessity Statement*: Patient requires hospitalization, inpatient, greater than 2 midnights for left hip fracture Diagnoses Closed left hip fracture S72.002A
--- NOTE | 2024-08-11 17:59 | CTR_ITS ---
PROCEDURE INFORMATION: Exam: CT Head Without Contrast Exam date and time: 08/11/2024 6:21 PM Age: 88 years old Clinical indication: Injury or trauma; Blunt trauma (contusions or hematomas); EMS arrival for fall. Patient unsure if hitting head. Denies head pain. Not anticoagulated. TECHNIQUE: Imaging protocol: Computed tomography of the head without contrast. Radiation optimization: All CT scans at this facility use at least one of these dose optimization techniques: automated exposure control; mA and/or kV adjustment per patient size (includes targeted exams where dose is matched to clinical indication); or iterative reconstruction. COMPARISON: CT head wo con* [id number] 03/03/2022 7:43 PM RADIATION DOSE METRICS: Total DLP (mGy-cm): 1046.1 FINDINGS: Brain: There is moderate cerebral atrophy. There are [id number] deep white matter microangiopathic ischemic changes. No acute hemorrhage is identified. No mass or mass effect is identified. Cerebral ventricles: Moderately dilated ventricles secondary to atrophy. Paranasal sinuses: The paranasal sinuses are clear. Mastoid air cells: The mastoid air cells are clear. Bones: No acute osseous abnormalities are seen. Soft tissues: The soft tissues are within normal limits. CT/CT head wo con* [id number] IMPRESSION: 1. No acute intracranial pathology. 2. Senescent changes.
[2024-08-11] MEDS: ondansetron 2 mg/ML SDV 2 mL 4 MG IVP (18:06)
[2024-08-11 18:09] VITALS: RESP 16; O2SAT 96
[2024-08-11] MEDS: morphine 4 mg/mL SDV 1 mL IVP (18:09)
[2024-08-11] MEDS: pantoprazole 40 mg SDV IVP (18:10)
[2024-08-11] MEDS: enoxaparin 40 mg/0.4 mL Syringe SUBCUT (18:10)
[2024-08-11 18:15] LABS: Lactic Sepsis W/Reflex 1.1 mmol/L (0.5-2.2)
[2024-08-11 18:23] LABS: Bilirubin Urine Negative (Negative); Blood Urine Negative (Negative); Glucose Urine UA Negative (Normal); Ketones Urine Negative (Negative); Leukocyte Esterase Urine Negative (Negative); Nitrate Urine Negative (Negative); Protein Urine Negative (Negative); Specific Gravity, Urine 1.011 (1.005-1.030); Urine Appearance Clear (CLEAR); Urine Color Yellow (Yellow); Urobilinogen Urine 0.2 mg/dL (Negative); pH Urine 5.5 (5-7)
[2024-08-11 18:25] LABS: Cholesterol 168 mg/dL (0-200); HDL Cholesterol 70 mg/dL (60-100); LDL Cholesterol Calculated 82 mg/dL (50-129); LDL HDL Ratio 1.17 RATIO (0.00-3.22); Thyroid Stimulating Hormone 13.71 uIU/mL (0.27-4.20); Triglycerides 80 mg/dL (0-150)
[2024-08-11 18:31] LABS: Add Urine Microscopic? YES; Bacteria Urine None Seen /hpf; RBC Urine 0-2 /hpf (0-2); Squamous Epithelial Cell Urine 0-5 /hpf (0-5); WBC Urine 0-5 /hpf (0-5)
[2024-08-11 18:38] LABS: UA Slide Review UA Slide Review Perf
[2024-08-11 19:17] VITALS: BP 171/89; PULSE 87; RESP 18; O2SAT 99
[2024-08-11 20:50] LABS: Estmated Average Glucose 94; Hemoglobin A1C 4.9 % (4.0-6.0)
[2024-08-11 21:00] VITALS: BP 165/84; PULSE 76; RESP 18; O2SAT 96
--- NOTE | 2024-08-11 21:38 | PM.CONSULT ---
Providers/Reason For Consult Consulting Physician/Specialty*: Jay Rubin DO/orthopedic surgery Reason for Consult*: Left hip femoral neck fracture displaced Requesting Physician: Dr. Burnett?emergency department Attending Physician: Rodo Mendoza MD History of Present Illness History of Present Illness Wicho Bermeo is a 88 year old female who sustained a ground-level fall today landing onto her left hip. She was trying to get out of her wheelchair for transfer as she utilizes wheelchair and walker at baseline and subsequently sustained a fall onto her left hip was found to have displaced left hip femoral neck fracture emergency department hospitalist admitted patient orthopedics was consulted for treatment recommendations denies any preceding events denies any loss of consciousness. She does take Plavix and took it this morning denies being on any other blood thinners denies any chest pain. Patient lives with her daughter at baseline. According to daughter at bedside she did have history of a right hip hemiarthroplasty on the right side as well as a long plate and screw ORIF of the femur due to distal femur fracture in the past. H&P from hospitalist listed below for detailed medical history: Wicho Bermeo is a 88 year old female with a past medical history of TAVR, hypertension, hypothyroidism, hyperlipidemia, who presents [facility] for follow-up. Patient tells me that she lives at home with her daughter, she was trying to get into her wheelchair when she bent forward and fell forward, falling towards the ground, she did hit her head, denies passing out, no preceding chest pain or palpitations or lightheadedness or dizziness, or strokelike symptoms or seizure-like symptoms, no focal weakness, no visual deficits, she did take her Plavix this morning she is not on any blood other thinners, denies any chest pain, no history of CAD, no history of stroke Review of Systems General: Reports: 10 or more systems reviewed and unremarkable except in HPI and below Medications/Allergies Home Medications ?Medication ?Instructions ?Recorded ?Confirmed ?Last Taken ?Type albuterol sulfate 90 mcg/actuation 2 puff inhalation Q6H PRN 03/04/22 08/11/24 Unknown History aerosol inhaler Shortness Of Breath amitriptyline 50 mg tablet 50 mg PO BEDTIME 03/04/22 08/11/24 08/10/24 History buspirone 7.5 mg tablet 7.5 mg PO BID 03/04/22 08/11/24 08/11/24 History citalopram 20 mg tablet 20 mg PO BEDTIME 03/04/22 08/11/24 08/10/24 History clopidogrel 75 mg tablet 75 mg PO DAILY 03/04/22 08/11/24 08/11/24 07:30 History furosemide 40 mg tablet 40 mg PO BID 03/04/22 08/11/24 08/11/24 History gabapentin 300 mg capsule 300 mg PO QPM 03/04/22 08/11/24 08/10/24 History hydrocodone 5 mg-acetaminophen 325 1 tab PO Q4H PRN Pain 03/04/22 08/11/24 Unknown History mg tablet ibandronate 150 mg tablet 150 mg PO Q30D 03/04/22 08/11/24 08/02/24 History levothyroxine 88 mcg tablet 88 mcg PO QAM 03/04/22 08/11/24 08/11/24 History (Euthyrox) mirabegron 25 mg tablet,extended 25 mg PO QPM 03/04/22 08/11/24 08/10/24 History release 24 hr (Myrbetriq) nitroglycerin 0.4 mg sublingual 0.4 mg sublingual Q5M PRN Chest 03/04/22 08/11/24 Unknown History tablet (Nitrostat) Pain ondansetron 4 mg disintegrating 4 mg PO Q8H PRN Nausea And Vomiting 03/04/22 08/11/24 Unknown History tablet potassium chloride 20 mEq 20 meq PO QAM 03/04/22 08/11/24 08/11/24 History tablet,extended release(part/cryst) (Klor-Con M) rimegepant 75 mg disintegrating 75 mg PO DAILY PRN Migraine 03/04/22 08/11/24 Unknown History tablet (Nurtec ODT) Headache ropinirole 1 mg tablet 1 mg PO BEDTIME PRN nerve pain 03/04/22 08/11/24 Unknown History Lactobacillus acidophilus 100 mg PO DAILY 08/11/24 08/11/24 08/11/24 History (Acidophilus capsule) cholecalciferol (vitamin D3) 1,250 50,000 unit PO Q7D 08/11/24 08/11/24 08/07/24 History mcg (50,000 unit) capsule donepezil 5 mg tablet 5 mg PO BEDTIME 08/11/24 08/11/24 08/10/24 History erenumab-aooe 140 mg/mL 140 mg SUBCUT .Q30D 08/11/24 08/11/24 08/01/24 History subcutaneous auto-injector (Aimovig Autoinjector) ferrous sulfate 325 mg (65 mg 325 mg PO BEDTIME 08/11/24 08/11/24 08/10/24 History iron) tablet fexofenadine 180 mg tablet 180 mg PO DAILY 08/11/24 08/11/24 08/11/24 History magnesium 250 mg tablet 250 mg PO DAILY 08/11/24 08/11/24 08/11/24 History selenium 200 mcg tablet 200 mcg PO DAILY 08/11/24 08/11/24 08/11/24 History thiamine HCl (vitamin B1) 50 mg 50 mg PO DAILY 08/11/24 08/11/24 08/11/24 History tablet (Vitamin B-1) tizanidine 2 mg tablet 2 mg PO Q12H PRN Muscle Spasm 08/11/24 08/11/24 Unknown History zinc sulfate 50 mg zinc (220 mg) 50 mg PO BEDTIME 08/11/24 08/11/24 08/10/24 History tablet Allergies Allergy/AdvReac Type Severity Reaction Status Date / Time Penicillins Allergy Intermediate ADR-Confusi Verified 08/11/24 21:31 on codeine Allergy ADR-Nausea Verified 08/11/24 21:31 tramadol Allergy ADR-Nausea Verified 08/11/24 21:31 Current Medications Generic Name Dose Route Start Last Admin Trade Name Freq PRN Reason Stop Dose Admin Enoxaparin Sodium 40 mg 08/11/24 18:00 08/11/24 18:10 Enoxaparin 40 Mg/0.4 Ml Syringe SUBCUT 40 mg Q24H TARYN Administration Pantoprazole Sodium 40 mg 08/11/24 18:00 08/11/24 18:10 Pantoprazole 40 Mg Sdv IVP 40 mg Q24H TARYN Administration PFSH Acute PFSH: Medical History Hypothyroidism Hypertension Aortic stenosis Surgical History History of hip surgery S/P TAVR (transcatheter aortic valve replacement) Family History Denies family history of CAD (coronary artery disease) Social History Substance/Drug Use: never Vitals/I&O/Wt Last Vital Signs Temp 97.4 F L 08/11/24 16:01 Pulse 76 08/11/24 21:00 Resp 18 08/11/24 21:00 BP 165/84 08/11/24 21:00 Pulse Ox 96 08/11/24 21:00 O2 Del Method Nasal Cannula 08/11/24 21:13 O2 Flow Rate 2 08/11/24 19:17 Weight last 48 hrs Weight 137 lb Physical Exam Narrative: Patient is able to to follow commands and perform a standard examination.?? Examination left lower extremity: Examination of the left lower extremity demonstrates patient has tenderness palpation of the left?hip?as well as the left lower extremity is shortened and externally rotated pt has positive logroll on examination unable to perform Stinchfield's secondary to pain and discomfort.? Patient is able to wiggle toes plantarflex and dorsiflex ankle sensations intact to light touch distally.? Distal pulses are palpable left lower extremity is warm and well-perfused.? Mild swelling noted about the left?hip.?? Secondary survey examination unremarkable For any acute pathology to the bilateral upper extremities or contralateral lower extremity.? pt? has no tenderness to palpation to the bilateral upper extremities joints and no noticeable deformities.? ?gross motor and sensory is intact to the bilateral upper extremities.? Contralateral lower extremity has tenderness to the?hip?knee or ankle with no appreciable deformities and is able to plantarflex and dorsiflex ankle sensations intact to light touch distally as well as wiggle toes.? Distal pulses palpable.? Negative pelvic compression test, no tenderness palpation of the spine. Urinary Catheter Management: Calvo: Cath Placed During This Visit: yes Urinary Catheter Date of Insertion: 08/11/24 Data 08/11/24 17:09 08/11/24 17:09 Xray Ortho: Radiologist's impression: Ordering Provider/Ordering MD: Lashaun Burnett MD Date of Service: 08/11/24 Procedure(s): XR hip LT 2-3V wo/w pel* [id number] Accession Number(s): [id number] Report Number: [id number] PROCEDURE INFORMATION: Exam: XR Left Hip Exam date and time: 08/11/2024 4:11 PM Age: 88 years old Clinical indication: Injury or trauma; Fall; Blunt trauma (contusions or hematomas); Left; Prior surgery; Surgery date: 6+ months; Surgery type: RT hip TECHNIQUE: Imaging protocol: Radiologic exam of the left hip. Views: 2 or 3 views hip with pelvis when performed. COMPARISON: No relevant prior studies available. FINDINGS: Bones/joints: Impacted and angulated left femoral neck fracture. 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 There is no sacroiliac or pubic symphyseal widening. No dislocation. Moderate degenerative changes of the left hip joint. Soft tissues: Unremarkable. Intraperitoneal space: The visualized pelvis appears intact. XR/XR hip LT 2-3V wo/w pel* [id number] IMPRESSION: As above. A&P Assessment and plan (1) Closed left hip fracture: Plan Orthopedics consulted Hospitalist admitted patient is primary Imaging reviewed?displaced left?hip?femoral neck fracture Labs reviewed Pain control Nonweightbearing left lower extremity May have a diet today Hold anticoagulation N.p.o. at midnight Plan to add on for surgery tomorrow for a left?hip?hemiarthroplasty, cemented posterior approach MDM: Patient sedated 88-year-old female who sustained a ground-level fall and has a displaced left?hip?femoral neck fracture.? She was seen eval in the emergency department admitted and found to have this fracture.? Orthopedics was consulted.? Patient utilizes walker as well as wheelchair for mobility at baseline lives at home with her daughter. Was transferring today and sustained a fall and has displaced left hip femoral neck fracture. At this point time she is accompanied with her daughters today in the emergency department I explained patient's diagnosis which they are familiar with as she has had a right hip hemiarthroplasty on the right side as well as a distal femur fracture in the past as well. At this point in time given the displacement of the fracture I would recommend surgical intervention for left hip hemiarthroplasty plan would be to have the benefits of this being for pain control as well as earlier mobilization. We did review that she did take her Plavix this morning we talked about goals of timing and treatment I do feel as though given her current hemoglobin and coagulation numbers she would benefit from weight for 24 hours which would be tomorrow morning with goals of also get this fixed before 48 hours to better optimize her treatment and early mobilization she is willing to receive blood products if necessary which they do understand she could be at risk of postoperative anemia just due to her being on thinners but I do feel as though this would be greene to wait for 5 days to get Plavix out of her system as this will I think definitely have effects on her if she lays in her bed for longer than that time. At this point in time we did review the risk benefits complication alternatives with nonoperative versus operative intervention. Operative intervention would be for left hip hemiarthroplasty cemented through posterior approach. Understanding the ins and outs of the procedure the risk benefits complication alternatives with surgery. ? Risk of surgery include but are not limited to make it better make it worse injury to nerves vessels or tendons blood clot, heart attack, stroke, on the table, infection,?hip?instability, periprosthetic fracture.? Understanding risk of surgery patient and family understands and agrees with current plan.? All questions have been answered at this time.? Through shared decision-making elects to proceed with surgical intervention for a left?hip?hemiarthroplasty tomorrow. All questions asked at this time. PDMP PDMP Reviewed: Not Reviewed Coding Level of Care Code Acute Code for Chg Fwd Diagnoses Closed left hip fracture S72.002A Time Spent (min) 45
--- NOTE | 2024-08-11 21:45 | XRR_ITS ---
PROCEDURE INFORMATION: Exam: XR Left Femur Exam date and time: 08/11/2024 11:13 PM Age: 88 years old Clinical indication: Injury or trauma; Fall; Fracture, traumatic; Displaced; Femur; Pre op planning for left femoral neck fracture. ; Additional info: Left hip femoral neck fracture, preop planning TECHNIQUE: Imaging protocol: Radiologic exam of the left femur. Views: 2 views. COMPARISON: CR (PELVIS, ) 08/11/2024 4:11 PM FINDINGS: Bones/joints: Subcapital impacted displaced hip fracture. Soft tissues: Unremarkable. XR/XR femur LT min 2V* [id number] IMPRESSION: Subcapital impacted displaced hip fracture. Consider further evaluation with a CT.
[2024-08-11] MEDS: amitriptyline 25 mg Tablet 50 MG PO (22:08)
[2024-08-11] MEDS: citalopram 20 mg Tablet PO (22:08)
[2024-08-11] MEDS: donepezil 5 MG Tablet PO (22:08)
[2024-08-11] MEDS: gabapentin 300 mg Capsule PO (22:08)
[2024-08-11] MEDS: ferrous sulfate EC 325 mg Tablet PO (22:09)
[2024-08-11] MEDS: HYDROcodone-acetaminophen 5-325 mg Tablet 1 TAB PO (22:09)
[2024-08-11] MEDS: dextrose 5%-sod chloride 0.9% 1,000 ML 75 ML IV (22:10)
[2024-08-12] VITALS (23 sets, daily range): BP systolic 85–127; BP diastolic 45–79; PULSE 90–108; RESP 14–18; TEMP 36.4–37.5; O2SAT 91–100
[2024-08-12 01:58] LABS: Basophils # 0.1 10^3/uL (0.0-0.1); Basophils % 0.4 %; Eosinophils # 0.1 10^3/uL (0.0-0.8); Eosinophils % 0.4 %; Hematocrit 39.6 % (36-47); Lymphocytes # 0.4 10^3/uL (0.8-4.8); Lymphocytes % 3.1 %; Mean Corpuscular HGB Conc 31.6 g/dL (30-55); Mean Corpuscular Hemoglobin 30.7 pg (27-33); Mean Corpuscular Volume 97.3 fl (85-98); Mean Platelet Volume 9.6 fL (7.4-10.4); Monocytes # 0.7 10^3/uL (0.2-0.9); Monocytes % 4.9 %; Neutrophils # 12.49 10^3/uL (1.8-7.7); Neutrophils % 90.8 %; Nucleated Red Blood Cells % 0 %; Platelet Count 217 10^3/cmm (157-399); Red Blood Count 4.07 10^6/uL (3.85-5.65); White Blood Count 13.74 10^3/uL (3.29-11.43)
[2024-08-12 02:18] LABS: Alanine Aminotransferase 53 U/L (0-33); Albumin Level 3.6 g/dL (3.5-5.2); Alkaline Phosphatase 88 U/L (35-105); Anion Gap 11.8 (5-19); Aspartate Amino Transferase 53 U/L (0-32); Blood Urea Nitrogen 18 mg/dL (8-23); Calcium 8.9 mg/dL (8.5-10.5); Carbon Dioxide 31 mmol/L (22-29); Chloride 101 mmol/L (98-107); Creatinine Clr Calc Pharmacy 34.3772; Globulin 2.7 g/dL (1.3-4.6); Glucose 144 mg/dL (65-115); Osmolality Calculated 292 mOsm/kg (285-295); Phosphorus 3.6 mg/dL (2.5-4.5); Potassium 4.8 mmol/L (3.5-5.1); Sodium 139 mmol/L (136-145); Total Bilirubin 0.7 mg/dL (0.15-1.2); Total Protein 6.3 g/dL (6.6-8.7)
--- NOTE | 2024-08-12 09:11 | P.HPUD_ITS ---
Surgery/Procedure H&P Update DATE OF PROCEDURE: August 12, 2024 DATE H&P PERFORMED: 08/11/24 H&P UPDATE INFORMATION: I have reviewed H&P completed within last 30 days, I have examined patient prior to procedure and No changes to prior documentation CHANGES TO PREVIOUS DOCUMENTATION: Consent was reviewed and did a verbal consent with the patient's daughter over the phone as she had confusion this morning. Patient daughter understands the i ns outs of procedure the risk benefits complication alternatives surgery and through shared decision make elects proceed with surgical invention. All questions at this time. Will proceed with a left hip hemiarthroplasty cemented through posterior approach. All questions answered. PREOP DIAGNOSIS: Left hip femoral neck fracture PRIMARY INDICATION FOR PROCEDURE: Left hip displaced femoral neck fracture. PLANNED PROCEDURE: Operation Date: 08/12/24 09:35 Proposed Procedures p Cemented(Left) - Jay Rubin DO
[2024-08-12] MEDS: clindamycin 600 MG/50 ML PREMIX 100 MG IV (09:16)
--- NOTE | 2024-08-12 09:22 | P.PN_ITS ---
Subjective 2 Subjective: Patient was seen this morning, currently alert oriented x 3, no commands, denies any fevers, chills, no cough Vitals/I&O/Wt Last Vital Signs Temp 99.5 F 08/12/24 07:23 Pulse 108 H 08/12/24 08:40 Resp 18 08/12/24 08:40 BP 112/48 08/12/24 08:40 Pulse Ox 95 08/12/24 08:40 O2 Del Method Nasal Cannula 08/12/24 08:40 O2 Flow Rate 3 08/12/24 08:40 08/11/24 08/12/24 08/12/24 22:59 06:59 14:59 Intake Total 480 / 480 Balance 480 / 480 Weight last 48 hrs Weight 62.142 kg Weight 62.142 kg Physical Exam 2 Const: COMMON NORMALS: no acute distress and patient oriented x3 Resp: COMMON NORMALS: normal respiratory effort, No retractions, No use of accessory muscles and clear to auscultation bilaterally AUSCULTATION: clear to auscultation bilaterally Cardio: COMMON NORMALS: regular rate, regular rhythm, S1 normal heart sound present and S2 normal heart sound present RATE: regular rate RHYTHM: r egular rhythm HEART SOUNDS: S1 normal heart sound present and S2 normal heart sound present GI: COMMON NORMALS: Normal to inspection, nondistended, normoactive bowel sounds present and non-tender Extremity: COMMON NORMALS: no pedal edema Neuro: COMMON NORMALS: patient oriented x3 Psych: COMMON NORMALS: mental status grossly normal Urinary Catheter Management: Calvo: Cath Placed During This Visit: yes Urinary Catheter Date of Insertion: 08/11/24 Data 08/12/24 01:37 08/12/24 01:37 A&P Assessment and plan (1) Closed left hip fracture: Plan Left hip fracture - Will hold Plavix in preparation for surgical intervention, depending on surgery today we will decide if we should resume it tonight or tomorrow morning based on clinical progress - Hold Lovenox for DVT prophylaxis as plans on surgery's SCDs for now - Morphine for pain control - Zofran for nausea - Orthopedic service has been consulted, n.p.o., plan on surgical intervention today Head CT within normal limits Leukocytosis, urinalysis within normal limits Elevated TSH, check T3, check T4, is on levothyroxine 88 mcg daily PDMP PDMP Reviewed: Not Reviewed Attestations 2 Medical Necessity Statement*: Patient requires hospitalization for left hip fracture Diagnoses Closed left hip fracture S72.002A
[2024-08-12] MEDS: tranexamic acid 1,000 mg/10mL SDV 1000 MG (09:40)
[2024-08-12] MEDS: VANCOMYCIN ADD-Vantage 1,000 MG VIAL 1000 MG INTRA-ARTI (10:05)
[2024-08-12 10:12] LABS: Free T4 Free Thyroxine 1.06 ng/dL (0.82-1.77); T3 Free 1.9 PG/ML (2.0-4.4)
--- NOTE | 2024-08-12 11:02 | W.PM.BPON ---
Date of Procedure: 08/12/2024 Surgeon: Jay Rubin DO Journal Entry Audit Clerk(s): Valerio Rubin PA-C Procedure(s) performed: Left hip hemiarthroplasty, cemented (posterior approach) Findings of the procedure(s): Patient found to have a displaced left hip femoral neck fracture underwent procedure as planned without issues or complications. Estimated blood loss: 150 mL Specimen(s) removed: Femoral head removed Post-operative diagnosis: Left hip displaced femoral neck fracture
--- NOTE | 2024-08-12 11:03 | P.OP_ITS ---
Operative Report Date of procedure: August 12, 2024 Surgeon: Jay Rubin DO Cost Control Specialist: Valerio Rubin PA-C: PA was necessary for assistance in this case with leg positioning, hip reductions, retraction and protection of neurovascular structures as well as assistance in implantation wound closure and dressing application. Procedure: Post-op diagnosis: Same Procedure done: Left?hip?hemiarthroplasty, cemented Implants: Silverio Accolade C 132 degree femoral stem size 2 Bipolar head 46 mm Femoral head +0 mm offset 8mm distal cement spacer Surgeon: Jay Rubin DO Estimated blood loss: 150 mL IV fluids: See anesthesia record Urine output: See anesthesia record Complications: None Findings: See operative report Condition: stable Disposition: floor Brief History: Patient was seen in the emergency department and subsequently admitted after fall.? Patient sustained a Left displaced femoral neck fracture.? Patient was subsequently admitted by the hospitalist team for medical management and medical optimization and the orthopedic surgery team was consulted for evaluation and treatment recommendations.? At that point time discussed with patient and family treatment options.? We talked about nonoperative versus operative intervention talked about the risk benefits complication alternatives to surgical nonsurgical treatment options.? Risks of surgery were discussed and patient/family understands and agrees to proceed with procedure.? At this point time would recommend a Left?hip?hemiarthroplasty.? This will offer patient pain control as well as early weightbearing.? Patient was medically optimized by the primary team she was then taken to the OR.? Patient understands risk benefits complication alternatives with surgical nonsurgical treatment options.? At this point time elects to proceed with Left?hip?hemiarthroplasty.? All questions answered.? Patient and family understands agrees with current plan.? All questions answered. Consent was reviewed and verbally signed over the phone with patient's daughter due to her confusion. Procedure: Patient seen evaluated the preoperative holding area.? Consent was reviewed and signed with patient daughter over the phone with nurse witness.? ?Pt was seen evaluated by the anesthesia department.? Once cleared for surgery patient patient was taken back to the operative suite.? Patient was then transported onto the OR table.? pt underwent anesthesia per the anesthesia department.? Once appropriately anesthetized patient was then positioned in lateral decubitus position with the Left?hip?up.? Patient was placed on a pegboard appropriately secured to the bed all bony prominences well-padded.? Next the Left lower extremity was then prepped and draped in sterile orthopedic fashion.? Final timeout performed.? Patient received appropriate preoperative antibiotics. A standard posterolateral approach was then made over the lateral aspect of the?hip.? Sharp scalpel incision was made through skin and subcutaneous tissue I then utilized a Matamoros elevator to mobilize over the fascia.? The fascia was then split longitudinally with electrocautery.? Next a bursectomy was then performed .? I then placed Hohmann underneath the abductors.? The?hip?was placed under tension with internal rotation.? I then utilizing electrocautery performed a full-thickness release of the short external rotators and capsule in 1 full thick sleeve for lateral repair.? This was then taken down to the lesser trochanter.? Immediately on capsulotomy hematoma was noticed and displaced femoral neck fracture appreciated.? I then placed a Hohmann above and below the neck.? I then utilized an oscillating saw to freshen the cut this was roughly half of a fingerbreadth above the lesser as patient did fracture slightly lower on the neck.? Once this was performed this access was removed with rongeur.? ?I then utilized a corkscrew to remove the head.? This was then subsequently sized and measured to be a 46 mm head size.? I then thoroughly irrigated the acetabulum.? A Hohmann was placed anteriorly and thorough inspection of the acetabulum no significant arthritic changes were noted.? I then utilized a rongeur and Bovie to remove the pulvinar.? Once this was performed I then subsequently took my trial 46 mm head and trialed this which had excellent fit and appropriate suction fit noted.? This was then subsequently removed. Once this was performed I irrigated the socket and then turned my attention towards the femoral preparation. Patient had extremely thin cortices and plan was for cementation.? I utilized Bovie and rongeur to remove the soft tissue off of the saddle.? Once this was done a box osteotome followed by a canal finder and? lateralizing rattail rasp was used to appropriately lateralized in the canal.? Next I then subsequently broached to a size 2 Accolade C. [place] femoral stem which had appropriate fixation.? Given her thin bone there was no fixation with a size 2 stem and the size 3 was too tight as a result unable to trial plan will be to cement and trial off of the cemented stem. subsequently proceeded with standard cementation technique.? Cement was mixed on the back table the final implant was opened and appropriately measurement on distal cement plug to accommodate the cement mantle and femoral stem.? The initial impactor device did have some residual cement from previous case this did touch the original implant both of these were removed and discarded. At this point in time we utilized a new impactor as well as opened a new final size 2 Accolade C stem. This was set and impacted in place to appropriate depth.? Next I utilized the cement brush thoroughly irrigated the canal and then dry the canal tampon.? Once cement was appropriately mixed and ready for cementation informed anesthesia and they optimize patient's oxygenation cement was then impacted using cement gun and then was subsequently pressurized.?? The femoral stem size 2 was then impacted in place with appropriate anteversion and held into place and all excess cement was removed and allowed to cure once cured I then trialed a standard size head which at that point there was which had excellent leg lengths as well as appropriate shuck, and excellent stability in all planes of motion with no evidence of instability.? At this point this was determined to being my final femoral head size.? This was subsequently dislocated the trial head was then removed the final implant of bipolar head 46 mm with a +0 mm offset was then opened.? The trunnion was then cleaned and dried and this was impacted in place with excellent fixation.? I then reduced the?hip?this had excellent stability and appropriate leg lengths.? The wound bed was then thoroughly irrigated.? I then utilizing #5 Ethibond suture performed my repair of the capsule and short external rotators through bone tunnels.? ?Wound bed was then thoroughly irrigated,1 gram vanco powder placed in wound bed.? IT band was closed with strata fix suture and the deep subcutaneous and subcutaneous layers were closed with 0 strata fix and 2-0 strata fix.? Skin was then closed reapproximated with abigail.? Silverlon dressing applied.? Patient placed in abduction pillow posterior?hip?precautions.? pt? was awakened from anesthesia and taken to PACU in stable condition Disposition: Patient taken to PACU in stable condition will receive appropriate discharge directions as well as pain medication DVT prophylaxis postoperatively.? Patient? will return to the floor postoperatively.? Patient will be weightbearing as tolerated to the Left lower extremity.? Posterior?hip?precautions. Abduction pillow in place.? DVT prophylaxis, pain medication, postoperative antibiotics and TXA.? Patient will work with PT/OT and discharge services for discharge planning.? Patient understands agrees with current plan.? All questions answered.? ?patient will? see me in the office in 2 weeks.
--- NOTE | 2024-08-12 11:11 | XRR_ITS ---
PROCEDURE INFORMATION: Exam: XR Left Hip Exam date and time: 08/12/2024 11:20 AM Age: 88 years old Clinical indication: Hip pain; Left hip; Prior surgery; Surgery date: Post-operative (0-2 days); Surgery type: Post op; Additional info: Post op left hip lynda, do in pacu TECHNIQUE: Imaging protocol: Radiologic exam of the left hip. Views: 2 or 3 views hip with pelvis when performed. COMPARISON: CR (PELVIS, ) 08/11/2024 4:11 PM FINDINGS: Bones/joints: A left hip prosthesis is well seated and well aligned. Soft tissues: Soft tissue air is noted along with overlying skin abigail. XR/XR hip LT 2-3V wo/w pel* [id number] IMPRESSION: Intact postoperative hip prosthesis
[2024-08-12] MEDS: albuterol 2.5 MG/0.5 ML NEB (11:18)
--- NOTE | 2024-08-12 11:40 | SUR.PHASEI ---
Pt taken back to [facility] with stable v/s per Dr. Hopson.
[2024-08-12] MEDS: albuterol 2.5 mg/3 mL Neb INHALATION ×3 (11:58→12:31)
--- NOTE | 2024-08-12 12:31 | ANES.PREANE2 ---
Pre-Anesthetic Assessment Height/Weight: Height 1.68 m Weight 62.142 kg Temp Pulse Resp BP Pulse Ox O2 Del Method O2 Flow Rate 97.5 F L 102 H 18 96/52 92 Nasal Cannula 2 08/12/24 11:46 08/12/24 12:26 08/12/24 12:26 08/12/24 11:46 08/12/24 12:26 08/12/24 12:26 08/12/24 12:26 Preop Diagnosis: Left hip femoral neck fracture Operation Date: 08/12/24 09:35 Proposed Procedures p Cemented(Left) - Jay Caryn, DO Last intake: Intake Last Liquid Date 08/11/24 Last Liquid Time 23:59 Last Solid Date 08/11/24 Last Solid Time 17:00 Social Tobacco (previous) and No alcohol Exam alert, oriented x 3, clear to auscultation bilaterally and regular rate & rhythm (rapid (90-110/min)) Airway Submandibular: within normal limits Cervical ROM: within normal limits Mallampati: Class II Pulmonary Asthma and Chronic Obstructive Pulmonary Disease CV/HEM Coronary Artery Disease and Congestive Heart Failure Metabolic Thyroid Disease Neuropsych Cerebrovascular Accident (left hemiparesis ) and Dementia Anesthetic Plan ASA status: 3E Anesthesia: General Medications/Allergies Home Medications ?Medication ?Instructions ?Recorded ?Confirmed ?Last Taken ?Type albuterol sulfate 90 mcg/actuation 2 puff inhalation Q6H PRN 03/04/22 08/11/24 Unknown History aerosol inhaler Shortness Of Breath amitriptyline 50 mg tablet 50 mg PO BEDTIME 03/04/22 08/11/24 08/10/24 History buspirone 7.5 mg tablet 7.5 mg PO BID 03/04/22 08/11/24 08/11/24 History citalopram 20 mg tablet 20 mg PO BEDTIME 03/04/22 08/11/24 08/10/24 History clopidogrel 75 mg tablet 75 mg PO DAILY 03/04/22 08/11/24 08/11/24 07:30 History furosemide 40 mg tablet 40 mg PO BID 03/04/22 08/11/24 08/11/24 History gabapentin 300 mg capsule 300 mg PO QPM 03/04/22 08/11/24 08/10/24 History hydrocodone 5 mg-acetaminophen 325 1 tab PO Q4H PRN Pain 03/04/22 08/11/24 Unknown History mg tablet ibandronate 150 mg tablet 150 mg PO Q30D 03/04/22 08/11/24 08/02/24 History levothyroxine 88 mcg tablet 88 mcg PO QAM 03/04/22 08/11/24 08/11/24 History (Euthyrox) mirabegron 25 mg tablet,extended 25 mg PO QPM 03/04/22 08/11/24 08/10/24 History release 24 hr (Myrbetriq) nitroglycerin 0.4 mg sublingual 0.4 mg sublingual Q5M PRN Chest 03/04/22 08/11/24 Unknown History tablet (Nitrostat) Pain ondansetron 4 mg disintegrating 4 mg PO Q8H PRN Nausea And Vomiting 03/04/22 08/11/24 Unknown History tablet potassium chloride 20 mEq 20 meq PO QAM 03/04/22 08/11/24 08/11/24 History tablet,extended release(part/cryst) (Klor-Con M) rimegepant 75 mg disintegrating 75 mg PO DAILY PRN Migraine 03/04/22 08/11/24 Unknown History tablet (Nurtec ODT) Headache ropinirole 1 mg tablet 1 mg PO BEDTIME PRN nerve pain 03/04/22 08/11/24 Unknown History Lactobacillus acidophilus 100 mg PO DAILY 08/11/24 08/11/24 08/11/24 History (Acidophilus capsule) cholecalciferol (vitamin D3) 1,250 50,000 unit PO Q7D 08/11/24 08/11/24 08/07/24 History mcg (50,000 unit) capsule donepezil 5 mg tablet 5 mg PO BEDTIME 08/11/24 08/11/24 08/10/24 History erenumab-aooe 140 mg/mL 140 mg SUBCUT .Q30D 08/11/24 08/11/24 08/01/24 History subcutaneous auto-injector (Aimovig Autoinjector) ferrous sulfate 325 mg (65 mg 325 mg PO BEDTIME 08/11/24 08/11/24 08/10/24 History iron) tablet fexofenadine 180 mg tablet 180 mg PO DAILY 08/11/24 08/11/24 08/11/24 History magnesium 250 mg tablet 250 mg PO DAILY 08/11/24 08/11/24 08/11/24 History selenium 200 mcg tablet 200 mcg PO DAILY 08/11/24 08/11/24 08/11/24 History thiamine HCl (vitamin B1) 50 mg 50 mg PO DAILY 08/11/24 08/11/24 08/11/24 History tablet (Vitamin B-1) tizanidine 2 mg tablet 2 mg PO Q12H PRN Muscle Spasm 08/11/24 08/11/24 Unknown History zinc sulfate 50 mg zinc (220 mg) 50 mg PO BEDTIME 08/11/24 08/11/24 08/10/24 History tablet Allergies Allergy/AdvReac Type Severity Reaction Status Date / Time Penicillins Allergy Intermediate ADR-Confusi Verified 08/11/24 21:31 on codeine Allergy ADR-Nausea Verified 08/11/24 21:31 tramadol Allergy ADR-Nausea Verified 08/11/24 21:31 Current Medications Generic Name Dose Route Start Last Admin Trade Name Freq PRN Reason Stop Dose Admin Hydrocodone Bitart/Acetaminophen 1 tab 08/11/24 21:12 08/11/24 22:09 Hydrocodone-Acetaminophen 5-325 Mg Tablet PO 1 tab Q4H PRN Administration PAIN Amitriptyline HCl 50 mg 08/11/24 21:30 08/11/24 22:08 Amitriptyline 25 Mg Tablet PO 50 mg BEDTIME TARYN Administration Citalopram Hydrobromide 20 mg 08/11/24 21:30 08/11/24 22:08 Citalopram 20 Mg Tablet PO 20 mg BEDTIME TARYN Administration Donepezil HCl 5 mg 08/11/24 21:30 08/11/24 22:08 Donepezil 5 Mg Tablet PO 5 mg BEDTIME TARYN Administration Enoxaparin Sodium 40 mg 08/11/24 18:00 08/11/24 18:10 Enoxaparin 40 Mg/0.4 Ml Syringe SUBCUT 40 mg Q24H TARYN Administration Ferrous Sulfate 325 mg 08/11/24 21:30 08/11/24 22:09 Ferrous Sulfate Ec 325 Mg Tablet PO 325 mg BEDTIME TARYN Administration Gabapentin 300 mg 08/11/24 21:30 08/11/24 22:08 Gabapentin 300 Mg Capsule PO 300 mg QPM TARYN Administration Dextrose/Sodium Chloride 1,000 mls @ 75 mls/hr 08/11/24 18:00 08/11/24 22:10 Dextrose 5%-Sod Chloride 0.9% IV 75 mls/hr .[id number] TARYN Administration Levothyroxine Sodium 88 mcg 08/12/24 06:00 08/12/24 05:18 Levothyroxine 88 Mcg Tablet PO Not Given QAM TARYN Pantoprazole Sodium 40 mg 08/11/24 18:00 08/11/24 18:10 Pantoprazole 40 Mg Sdv IVP 40 mg Q24H TARYN Administration PFSH Anesthesia Medical History Hypothyroidism Hypertension Aortic stenosis Surgical History History of hip surgery S/P TAVR (transcatheter aortic valve replacement) Family History Denies family history of CAD (coronary artery disease) Social History Substance/Drug Use: never Data Anesthesia 08/12/24 01:37 08/12/24 01:37 Short CBC 08/11/24 08/12/24 Range/Units 17:09 01:37 WBC 16.22 H 13.74 H (3.29-11.43) 10^3/uL Hgb 14.40 12.50 (11.27-16.99) g/dL Hct 46.7 39.6 (36-47) % MCV 100.6 H 97.3 (85-98) fl Plt Count 224 217 (157-399) 10^3/cmm Neut % (Auto) 88.6 90.8 % Neut # (Auto) 14.36 H 12.49 H (1.8-7.7) 10^3/uL BMP 08/11/24 08/12/24 17:09 01:37 Sodium 138 139 Potassium 4.0 4.8 Chloride 100 101 Carbon Dioxide 24 31 H BUN 18 18 Creatinine 1.0 H 1.1 H Glucose 110 144 H Calcium 9.5 8.9 Liver Function 08/11/24 08/12/24 Range/Units 17:09 01:37 Total Bilirubin 0.6 0.7 (0.15-1.2) mg/dL AST 32 53 H (0-32) U/L ALT 43 H 53 H (0-33) U/L Alkaline Phosphatase 92 88 (35-105) U/L Albumin 4.0 3.6 (3.5-5.2) g/dL Urine 08/11/24 Range/Units 17:25 Urine Color Yellow (Yellow) Urine Appearance Clear (CLEAR) Urine pH 5.5 (5-7) Ur Specific [place] 1.011 (1.005-1.030) Urine Protein Negative (Negative) Urine Glucose (UA) Negative (Normal) Urine Ketones Negative (Negative) Urine Nitrate Negative (Negative) Urine Bilirubin Negative (Negative) Ur Leukocyte Esterase Negative (Negative) Urine RBC 0-2 (0-2) /hpf Urine WBC 0-5 (0-5) /hpf Blood Bank 08/12/24 01:37 Blood Type O Positive Rho(D) Type Rh positive Antibody Screen Negative Coa 08/11/24 17:09 PT 13.20 INR 0.94
--- NOTE | 2024-08-12 12:33 | ANE.PACU2 ---
Inpatient post-anesthesia follow up: Airway intact: Yes Vital signs: Temperature 97.5 F Pulse Rate 102 Respiratory Rate 18 Blood Pressure 96/52 Pulse Oximetry 92 Oxygen Delivery Me thod Nasal Cannula Oxygen Flow Rate 2 Fraction of Inspir ed Oxygen Hydration adequate: Yes Nausea and vomiting: No Pain level: controlled Mental status: Baseline
[2024-08-12] MEDS: sodium chloride 0.9% 250 ML IV (13:17)
[2024-08-12] MEDS: dextrose 5%-sod chloride 0.9% 1,000 ML 75 ML IV (14:12)
[2024-08-12] MEDS: cyclobenzaprine 10 mg Tablet 5 MG PO (15:13)
[2024-08-12] MEDS: sodium chloride 0.9% 500 ML IV (15:18)
[2024-08-12 15:48] LABS: Basophils # 0.1 10^3/uL (0.0-0.1); Basophils % 0.2 %; Hematocrit 34.5 % (36-47); Lymphocytes # 0.2 10^3/uL (0.8-4.8); Mean Corpuscular HGB Conc 30.4 g/dL (30-55); Mean Corpuscular Hemoglobin 30.9 pg (27-33); Mean Corpuscular Volume 101.5 fl (85-98); Mean Platelet Volume 9.6 fL (7.4-10.4); Monocytes # 0.8 10^3/uL (0.2-0.9); Monocytes % 3.8 %; Neutrophils # 19.73 10^3/uL (1.8-7.7); Neutrophils % 94.1 %; Nucleated Red Blood Cells % 0 %; Platelet Count 211 10^3/cmm (157-399); Red Cell Distribution Width 14.3 % (12.1-15.1); White Blood Count 20.97 10^3/uL (3.29-11.43)
[2024-08-12 16:05] LABS: Lactate (Lactic Acid level) 3.9 mmol/L (0.5-2.2)
[2024-08-12] MEDS: acetaminophen 325 mg Tablet 650 MG PO (17:37)
[2024-08-12] MEDS: calcium carb-vit d 600mg/400unit 1 Tablet 1 EACH PO (17:37)
[2024-08-12] MEDS: sennosides-docusate Tablet 2 TAB PO (17:37)
[2024-08-12] MEDS: gabapentin 300 mg Capsule PO (17:37)
[2024-08-12] MEDS: clindamycin 900 MG/50 ML PREMIX 100 MG IV (17:38)
[2024-08-12] MEDS: pantoprazole 40 mg SDV IVP (17:39)
[2024-08-12] MEDS: enoxaparin 40 mg/0.4 mL Syringe SUBCUT (17:39)
[2024-08-12] MEDS: chlorhexidine gluconate 0.12% Btl 473 mL 30 ML MUCOUS MEM ×2 (17:51→20:29)
--- NOTE | 2024-08-12 18:11 | CTR_ITS ---
PROCEDURE INFORMATION: Exam: CT Chest Without Contrast; Diagnostic Exam date and time: 08/13/2024 4:30 AM Age: 88 years old Clinical indication: Abnormal findings; Abnormal lab test; Elevated liver enzymes and elevated wbc; Other: Hypotension/anemia; Prior surgery; Surgery date: Post-operative (0-2 days); Surgery type: Left marely 08/12/2024. Tavr. Kyphoplasty. Right marely. Hypotension with anemia. Elevated wbc and liver enzymes. Patient one day post op for left marely. ; Additional info: Possible aspiration pneumonia, no iv TECHNIQUE: Imaging protocol: Diagnostic computed tomography of the chest without contrast. Radiation optimization: All CT scans at this facility use at least one of these dose optimization techniques: automated exposure control; mA and/or kV adjustment per patient size (includes targeted exams where dose is matched to clinical indication); or iterative reconstruction. COMPARISON: CR (CHEST, ) 08/12/2024 7:59 PM RADIATION DOSE METRICS: Total DLP (mGy-cm): 621.6 FINDINGS: Lungs: Unremarkable. No consolidation. No masses. Pleural spaces: Small right pleural effusion. Heart: Severe mitral valve calcifications. Coronary arteries: stents are present in the coronary arteries. Lymph nodes: Unremarkable. No enlarged lymph nodes. Vasculature: There is severe atherosclerotic disease. Bones/joints: There has been a median sternotomy. Soft tissues: Unremarkable. PROCEDURE INFORMATION: Exam: CT Abdomen And Pelvis Without Contrast Exam date and time: 08/13/2024 4:30 AM Age: 88 years old Clinical indication: Abnormal findings; Abnormal lab test; Elevated liver enzymes and elevated wbc; Other: Hypotension/anemia; Prior surgery; Surgery date: Post-operative (0-2 days); Surgery type: Left marely 08/12/2024. Tavr. Kyphoplasty. Right marely. Hypotension with anemia. Elevated wbc and liver enzymes. Patient one day post op for left marely. ; Additional info: Possible aspiration pneumonia, no iv TECHNIQUE: Imaging protocol: Computed tomography of the abdomen and pelvis without contrast. Radiation optimization: All CT scans at this facility use at least one of these dose optimization techniques: automated exposure control; mA and/or kV adjustment per patient size (includes targeted exams where dose is matched to clinical indication); or iterative reconstruction. COMPARISON: CR (PELVIS, ) 08/12/2024 11:20 AM RADIATION DOSE METRICS: Total DLP (mGy-cm): 621.6 FINDINGS: Tubes, catheters and devices: There is a Calvo catheter with the balloon present in the urinary bladder. Lungs: See concurrent chest CT for lung findings. Liver: 18 mm left lobe hepatic cyst. Gallbladder and biliary ducts: There has been a cholecystectomy. Pancreas: Normal. No ductal dilation. Spleen: Normal. No splenomegaly. Adrenal glands: Normal. No mass. Kidneys and ureters: Normal. No hydronephrosis. Stomach and bowel: Unremarkable. No obstruction. No mucosal thickening. Appendix: No evidence of appendicitis. Intraperitoneal space: Unremarkable. No free air. No significant fluid collection. Vasculature: Unremarkable. No abdominal aortic aneurysm. Lymph nodes: Unremarkable. No enlarged lymph nodes. Urinary bladder: Unremarkable as visualized. Reproductive: Unremarkable as visualized. Bones/joints: Right hip arthroplasty is in place. No evidence of loosening. There are changes of recent right total hip arthroplasty with soft tissue gas present. Soft tissues: Skin abigail overlie the left hip. CT/[place] [id number] IMPRESSION: 1. No evidence of aspiration pneumonia. 2. Small right pleural effusion. IMPRESSION: No cause for acute pain is identified.
--- NOTE | 2024-08-12 18:14 | XRR_ITS ---
PROCEDURE INFORMATION: Exam: XR Chest Exam date and time: 08/12/2024 7:59 PM Age: 88 years old Clinical indication: Fever; Additional info: Aspiration pneumonia TECHNIQUE: Imaging protocol: Radiologic exam of the chest. Views: 1 view. COMPARISON: CR (CHEST, ) 08/11/2024 4:11 PM FINDINGS: Tubes, catheters and devices: Overlying monitor leads and oxygen tubing. Lungs: Minimal chronic left basilar atelectasis/scarring. No infiltrate or consolidation. Pleural spaces: No pleural effusion or pneumothorax is seen. Heart/Mediastinum: No cardiomegaly. Aortic valve replacement. Diaphragm: Mild chronic eventration left hemidiaphragm with prior exam. Bones/joints: Postsurgical changes of sternotomy. Soft tissues: Soft tissue fold overlies a portion of the lateral right chest. XR/XR chest 1V portable [id number] IMPRESSION: No infiltrate identified.
[2024-08-12] MEDS: midodrine 5 mg TABLET 10 MG PO (19:24)
[2024-08-12] MEDS: mupirocin oint 22 gm 1 APPLIC NASAL (19:24)
[2024-08-12] MEDS: sodium chloride 0.9% 1,000 ML 100 ML IV (19:24)
[2024-08-12] MEDS: cefTRIAXone 1,000 mg SDV 1000 MG IVP (19:24)
[2024-08-12] MEDS: donepezil 5 MG Tablet PO (20:28)
[2024-08-12] MEDS: citalopram 20 mg Tablet PO (20:28)
[2024-08-12] MEDS: ferrous sulfate EC 325 mg Tablet PO (20:29)
[2024-08-13] VITALS (10 sets, daily range): BP systolic 93–133; BP diastolic 49–66; PULSE 94–123; RESP 15–19; TEMP 36.3–36.8; O2SAT 92–100
[2024-08-13] MEDS: clindamycin 900 MG/50 ML PREMIX 100 MG IV ×2 (00:24→10:29)
[2024-08-13 03:42] LABS: Basophils % 0.4 %; Eosinophils % 0.1 %; Hematocrit 27.7 % (36-47); Lymphocytes # 0.4 10^3/uL (0.8-4.8); Lymphocytes % 3.1 %; Mean Corpuscular HGB Conc 28.5 g/dL (30-55); Mean Corpuscular Hemoglobin 31.3 pg (27-33); Mean Corpuscular Volume 109.9 fl (85-98); Monocytes % 8.5 %; Neutrophils # 9.76 10^3/uL (1.8-7.7); Neutrophils % 87.5 %; Nucleated Red Blood Cells % 0 %; Platelet Count 142 10^3/cmm (157-399); Red Blood Count 2.52 10^6/uL (3.85-5.65); Red Cell Distribution Width 14.2 % (12.1-15.1); White Blood Count 11.16 10^3/uL (3.29-11.43)
[2024-08-13] MEDS: sodium chloride 0.9% 1,000 ML 100 ML IV (05:30)
[2024-08-13] MEDS: midodrine 5 mg TABLET 10 MG PO (05:32)
[2024-08-13] MEDS: levothyroxine 88 mcg Tablet PO (05:32)
[2024-08-13] MEDS: acetaminophen 325 mg Tablet 650 MG PO (08:09)
[2024-08-13] MEDS: sennosides-docusate Tablet 2 TAB PO ×2 (08:09→17:39)
[2024-08-13] MEDS: calcium carb-vit d 600mg/400unit 1 Tablet 1 EACH PO ×2 (08:09→17:39)
[2024-08-13] MEDS: cyclobenzaprine 10 mg Tablet 5 MG PO (08:09)
[2024-08-13] MEDS: thiamine 100 mg Tablet 50 MG PO (08:09)
[2024-08-13] MEDS: multivitamin therapeutic Tablet 1 TAB PO (08:09)
[2024-08-13] MEDS: lactobacillus 1 Tablet 1 TAB PO (08:09)
[2024-08-13] MEDS: mupirocin oint 22 gm 1 APPLIC NASAL (08:10)
[2024-08-13 08:20] LABS: Albumin Level 2.9 g/dL (3.5-5.2); Alkaline Phosphatase 62 U/L (35-105); Blood Urea Nitrogen 19 mg/dL (8-23); Carbon Dioxide 22 mmol/L (22-29); Chloride 105 mmol/L (98-107); Creatinine Clr Calc Pharmacy 38.6552; Globulin 2.6 g/dL (1.3-4.6); Glucose 105 mg/dL (65-115); Magnesium 1.7 mg/dL (1.7-2.3); Osmolality Calculated 289 mOsm/kg (285-295); Phosphorus 2.9 mg/dL (2.5-4.5); Sodium 138 mmol/L (136-145); Total Bilirubin 0.4 mg/dL (0.15-1.2); Total Protein 5.5 g/dL (6.6-8.7)
[2024-08-13 08:28] LABS: Alanine Aminotransferase 38 U/L (0-33); Anion Gap 15.7 (5-19); Aspartate Amino Transferase 40 U/L (0-32); Potassium 4.7 mmol/L (3.5-5.1)
--- NOTE | 2024-08-13 09:11 | PC.CHAP ---
Pastoral Care Encounter/Spiritual Assessment Type of Contact [] Declined practice or student teacher visit [] Patient/Family/Request visit [] Outpatient visit [] Follow-up visit [] Physician referral [] Code/Alert [x] Routine visit [] Staff referral [] Actively dying [] Patient sleeping [] Family support [] [] Out of room [] Palliative care [] [x] Receiving care in room [] Pre-surgical visit [] Trauma [] Long length of stay [] ICU visit [] Other: Relational/Emotional Strength [] Patient feels connected with others/family/visitors/staff [] Distress [] Loneliness/isolation [] Abandonment Spirituality of Patient [] Person of [place] [] Attends Yazdanism of their [place] [] Believes in Prayer [] Reads Bible or Restoration materials [] There are Spiritual issues to be addressed Outbound Telemarketer Interventions [x] Prayer [] Active listening [] Non-anxious presence [] Spiritual/emotional support [] Crisis/trauma care [] Spiritual counseling [] Bereavement support [] Provided bereavement packet [] Provided Bible/devotional materials [] Provided toy/stuffed animal, coloring book to patient or family member [] Provided Communion [] Anointing/[place] [] Salvation [] Completed spiritual assessment [] Other: Impact on Illness or Injury [] Angry [] Fearful [] Anxious [] Often cries [] Exhaustion [] Unable to work [] Unable to attend sikhism [] Unable to walk/stand [] Unable to read [] Unable to drive [] Unable to eat/drink [] Unable to sleep [] Unable to be with family [] Patient intubated [] Other: Summary Time spent with patient
[2024-08-13] MEDS: midodrine 5 mg TABLET PO ×2 (12:45→17:40)
[2024-08-13] MEDS: chlorhexidine gluconate 0.12% Btl 473 mL 30 ML MUCOUS MEM (13:00)
[2024-08-13] MEDS: AUTO INJECTOR SUBCUT (13:10)
[2024-08-13] MEDS: ERENUMAB AOOE 140 MG/ML SUBCUT (13:10)
--- NOTE | 2024-08-13 13:14 | PC.SOCIAL ---
IMM Update pg 2 of IMM Updated and reviewed w/ patients daughter. Copy provided and copy dated, initialed and placed in chart.
[2024-08-13 13:23] LABS: Iron 89 ug/dL (37-145); Percent Saturation 26.7 % (20-50); Total Iron Binding Capacity 333 mcg/dl; Unsaturated Iron Binding 244 ug/dL (112-347)
[2024-08-13 13:39] LABS: Vitamin B12 437 pg/mL (232-1245)
[2024-08-13 14:21] LABS: Estmated Average Glucose 88; Hemoglobin A1C 4.7 % (4.0-6.0)
--- NOTE | 2024-08-13 14:26 | P.PN_ITS ---
Subjective 2 Subjective: Hospital course, labs appreciated. Underwent ORIF yesterday. Postoperatively patient was hypotensive requiring fluid and was started on oral midodrine. Seen with daughter at bedside. Patient awake but slightly confused. Alert to self, being in the hospital. Systolic blood pressure maintained in mid 90s, heart rate trending up to 100 210 bpm. Patient on 2 L of oxygen supplementation. Vitals/I&O/Wt Last Vital Signs Temp 97.4 F L 08/13/24 14:17 Pulse 114 H 08/13/24 14:17 Resp 18 08/13/24 12:00 BP 96/66 08/13/24 14:17 Pulse Ox 96 08/13/24 14:17 O2 Del Method Nasal Cannula 08/13/24 10:20 O2 Flow Rate 2 08/13/24 10:20 08/12/24 08/13/24 08/13/24 22:59 06:59 14:59 Intake Total 1130 / 2430 1753.75 / 4183.75 520 / 520 Output Total 200 / 425 0 / 425 Balance / 2004 1753.75 / 3758.75 520 / 520 Weight last 48 hrs Weight 65.499 kg Weight 62.142 kg Weight 62.142 kg Physical Exam 2 Const: COMMON NORMALS: no acute distress and patient oriented x3 OTHER: Head atraumatic HENMT: COMMON NORMALS: normocephalic HEAD & SCALP: normocephalic Eye: COMMON NORMALS: Equal, round and reactive pupils present PUPIL: Yes Equal, round and reactive pupils present Lymph: LYMPHATIC: no lymphadenopathy noted Resp: COMMON NORMALS: normal respiratory effort, No retractions, No use of accessory muscles and clear to auscultation bilaterally AUSCULTATION: clear to auscultation bilaterally Cardio: COMMON NORMALS: regular rate, regular rhythm, S1 normal heart sound present and S2 normal heart sound present RATE: regular rate RHYTHM: r egular rhythm HEART SOUNDS: S1 normal heart sound present and S2 normal heart sound present GI: COMMON NORMALS: Normal to inspection, nondistended, normoactive bowel sounds present, Soft to palpation and non-tender PALPATION: Yes Soft to palpation Extremity: COMMON NORMALS: no calf tenderness and no pedal edema Neuro: COMMON NORMALS: patient oriented x3, CN's II-XII intact bilaterally and moves all extremities Psych: COMMON NORMALS: mental status grossly normal Urinary Catheter Management: Calvo: Cath Placed During This Visit: yes Urinary Catheter Date of Insertion: 08/11/24 Data 08/13/24 02:59 08/13/24 07:47 A&P Assessment and plan (1) Postoperative hemorrhagic shock: Hemoglobin down to 7.9 from 14 preoperatively. Patient systolic blood pressure mostly in mid 90s on 10 mg of oral midodrine started on 08/12 postoperatively. High concerns of postoperative hemorrhagic shock. Maintain mean artery pressure 65. For now continue with midodrine but decrease dose to 5 mg 3 times daily. 2 unit of blood transfusion. (2) Anemia: Target hemoglobin more than 8 or hemodynamic stability. 2 unit of blood transfusion as above. Check iron panel, vitamin B12 and folate levels. Patient does have a history of lower GI bleed recently for which she underwent colonoscopy recently with the last 6 months at [facility]. Will request documents. (3) Closed left hip fracture: Post-ORIF. For now keep Calvo catheter given hypotension to monitor urine output. Hold off on cyclobenzaprine given history of recent GI bleed. Physical therapy. (4) History of lower GI bleeding: Protonix 40 twice daily. If hemoglobin continues to trend down will plan for stool for occult blood. (5) Dementia: Continue recently at home medications including Celexa, Aricept Plan Leukocytosis: Most likely postoperatively. Resolved today. For now continue with IV ceftriaxone. Hold off on vancomycin. Check MRSA swab. If spikes fever will check blood culture. Elevated TSH, check T3, check T4, is on levothyroxine 88 mcg daily. Full code Regular diet Protonix will be sufficient to PUD prophylaxis SCD for DVT prophylaxis. Discontinue Lovenox. PDMP PDMP Reviewed: Not Reviewed Attestations 2 Medical Necessity Statement*: Requires further hospitalization for management of postoperative hemorrhagic shock requiring blood transfusion, post-ORIF Diagnoses Postoperative hemorrhagic shock T81.19XA Anemia D64.9 Closed left hip fracture S72.002A History of lower GI bleeding Z87.19 Dementia F03.90
--- NOTE | 2024-08-13 14:40 | P.PN_ITS ---
Subjective 2 Subjective: Patient seen and examined this afternoon. Dressings on in place clean dry and intact to the left hip. Daughter at bedside. Patient confused today. Is responsive for some simple commands. Vitals/I&O/Wt Last Vital Signs Temp 97.4 F L 08/13/24 14:17 Pulse 114 H 08/13/24 14:17 Resp 18 08/13/24 12:00 BP 96/66 08/13/24 14:17 Pulse Ox 96 08/13/24 14:17 O2 Del Method Nasal Cannula 08/13/24 10:20 O2 Flow Rate 2 08/13/24 10:20 08/12/24 08/13/24 08/13/24 22:59 06:59 14:59 Intake Total 1130 / 2430 1753.75 / 4183.75 520 / 520 Output Total 200 / 425 0 / 425 Balance 930 / 2004 1753.75 / 3758.75 520 / 520 Weight last 48 hrs Weight 144 lb 6.4 oz Weight 137 lb Weight 137 lb Physical Exam 2 Narrative: Left hip examination: Examination limited secondary to patient's baseline dementia, patient can follow simple commands Dressing on in place, clean dry and intact. No evidence of saturation. Patient has normal postoperative swelling and tenderness to palpation to the hip. Compartments are soft compressible,'s calf soft and nontender. Sensations intact to light touch distally. Distal pulses are palpable. Patient is able to wiggle toes as well as plantarflex and dorsiflex ankle. Urinary Catheter Management: Calvo: Cath Placed During This Visit: yes Urinary Catheter Date of Insertion: 08/11/24 Data 08/13/24 02:59 08/13/24 07:47 Xray Ortho: Radiologist's impression: Ordering Provider/Ordering MD: Jay Rubin Date of Service: 08/12/24 Procedure(s): XR hip LT 2-3V wo/w pel* [id number] Accession Number(s): [id number] Report Number: [id number] PROCEDURE INFORMATION: Exam: XR Left Hip Exam date and time: 08/12/2024 11:20 AM Age: 88 years old Clinical indication: Hip pain; Left hip; Prior surgery; Surgery date: Post-operative (0-2 days); Surgery type: Post op; Additional info: Post op left hip lynda, do in pacu TECHNIQUE: Imaging protocol: Radiologic exam of the left hip. Views: 2 or 3 views hip with pelvis when performed. COMPARISON: CR (PELVIS, ) 08/11/2024 4:11 PM FINDINGS: Bones/joints: A left hip prosthesis is well seated and well aligned. Soft tissues: Soft tissue air is noted along with overlying skin abigail. XR/XR hip LT 2-3V wo/w pel* [id number] IMPRESSION: Intact postoperative hip prosthesis A&P Assessment and plan (1) Status post hemiarthroplasty of left hip: Plan Postop day 1 left hip hemiarthroplasty Internal medicine on board as primary weight-bear as tolerated left lower extremity X-rays reviewed Labs reviewed 7.9 hemoglobin receiving 1 unit PRBC today Posterior precautions PT/OT Resume diet DVT prophylaxis Complete postoperative antibiotics Pain control Change dressing as needed Orthopedics will continue to follow PDMP PDMP Reviewed: Not Reviewed Attestations 2 Medical Necessity Statement*: Ongoing care status post left hip hemiarthroplasty Coding Level of Care Code Acute Code for Chg Fwd Diagnoses Status post hemiarthroplasty of left hip Z96.642 Time Spent (min) 10
--- NOTE | 2024-08-13 14:48 | USCV_ITS ---
Wicho Bermeo Age: 88 Gender: F : 1935 Exam Date: 08/13/2024 23:21 Ordering Phys: Homero Felix MD Technologist: AGUSTO [place] [facility] [place]: shock following LT hip ORIF BP: 98 / 55 HR: 101 Rhythm: Sinus Technical Quality: Adequate MEASUREMENTS (Male / Female) Normal Values 2D ECHO LV Diastolic Diameter PLAX 3.5 cm 4.2 - 5.9 / 3.9 - 5.3 cm IVS Diastolic Thickness 1.5 cm 0.6 - 1.0 / 0.6 - 0.9 cm IVS Systolic Thickness 1.5 cm LVPW Diastolic Thickness 1.2 cm 0.6 - 1.0 / 0.6 - 0.9 cm LVPW Systolic Thickness 1.2 cm LVOT Diameter 1.7 cm LV Ejection Fraction 2D Teich 57.6 % LV Ejection Fraction MOD 4C 71.9 % LV Ejection Fraction MOD 2C 66.8 % LV Ejection Fraction 2C AL 71.5 % LA Diameter 4.1 cm Aorta at Sinotubular Diameter 1.8 cm IVC Diameter 0.9 cm M-MODE LA Ao Ratio MM 2.0 AV Cusp Separation MM 1.4 cm DOPPLER AV Peak Velocity 146.0 cm/s LVOT Peak Velocity 79.0 cm/s AV Area Cont Eq vti 1.5 cm squared AV Area Cont Eq pk 1.2 cm squared MV Peak Velocity 201.0 cm/s MV Area PHT 3.6 cm squared Mitral E to A Ratio 0.7 TV Peak Velocity 266.7 cm/s TR Peak Velocity 296.0 cm/s TR Peak Gradient 35.0 mmHg TV Peak E Velocity 42.0 cm/s PV Peak Velocity 92.0 cm/s FINDINGS Left Ventricle Normal left ventricular size, systolic function and wall thickness, with no regional wall motion abnormalities. Left ventricular ejection fraction is estimated at 60 %. Grade I/IV diastolic dysfunction (abnormal relaxation filling pattern), normal to mildly elevated filling pressures. Right Ventricle The right ventricle is normal in size and function. Right Atrium The right atrium is normal in size. Left Atrium Mildly increased left atrial size. Mitral Valve Moderately thickened mitral valve. Moderate mitral annular calcification. No mitral valve stenosis. Moderate mitral valve regurgitation. Aortic Valve Bioprosthetic aortic valve sitting in a normal position without any stenosis or regurgitation Tricuspid Valve Mild tricuspid valve regurgitation. Pulmonic Valve Mild pulmonary valve regurgitation. Pericardium Normal pericardium without effusion. Aorta Normal ascending aorta dimension. IVC The inferior vena cava appears normal. CONCLUSIONS Normal left ventricular size, systolic function and wall thickness, with no regional wall motion abnormalities. Left ventricular ejection fraction is estimated at 60 %. Grade I/IV diastolic dysfunction (abnormal relaxation filling pattern), normal to mildly elevated filling pressures. Mildly increased left atrial size. Moderately thickened mitral valve. Moderate mitral annular calcification. No mitral valve stenosis. Moderate mitral valve regurgitation. Bioprosthetic aortic valve sitting in a normal position without any stenosis or regurgitation Mild tricuspid valve regurgitation. Mild pulmonary valve regurgitation. There is no pericardial effusion. Right atrial pressure is around 10 mm of mercury. Ruel Hay MD (Electronically Signed) Final Date: 14 Aug 2024 18:34 S
[2024-08-13] MEDS: BuSPIRONE 10 mg Tablet 7.5 MG PO (17:39)
[2024-08-13] MEDS: gabapentin 300 mg Capsule PO (17:40)
--- NOTE | 2024-08-13 17:40 | PC.NURSE ---
pt is getting more and more confused as afternoon goes down removed her IV catheter, IVP protonix on hold until IV access is started, awaiting for a sitter 1:[address] notified on her confusion.
[2024-08-13 19:57] LABS: MRSA PCR OZH (swab) NOT DETECTED (Not Detecte)
[2024-08-13] MEDS: HYDROcodone-acetaminophen 5-325 mg Tablet 1 TAB PO (20:21)
[2024-08-13] MEDS: amitriptyline 25 mg Tablet 50 MG PO (20:21)
[2024-08-13] MEDS: donepezil 5 MG Tablet PO (20:21)
[2024-08-13] MEDS: ferrous sulfate EC 325 mg Tablet PO (20:21)
[2024-08-13] MEDS: cefTRIAXone 1,000 mg SDV 1000 MG IVP (21:38)
[2024-08-14] VITALS (10 sets, daily range): BP systolic 98–133; BP diastolic 61–80; PULSE 79–113; RESP 15–18; TEMP 36.4–37; O2SAT 91–99
[2024-08-14] MEDS: morphine 4 mg/mL SDV 1 mL 2 MG IVP (03:41)
[2024-08-14] MEDS: pantoprazole 40 mg SDV IVP ×2 (05:36→16:34)
[2024-08-14] MEDS: midodrine 5 mg TABLET PO ×2 (05:36→16:43)
[2024-08-14] MEDS: levothyroxine 88 mcg Tablet PO (05:36)
[2024-08-14] MEDS: BuSPIRONE 10 mg Tablet 7.5 MG PO ×2 (08:36→17:23)
[2024-08-14] MEDS: multivitamin therapeutic Tablet 1 TAB PO (08:36)
[2024-08-14] MEDS: lactobacillus 1 Tablet 1 TAB PO (08:36)
[2024-08-14] MEDS: calcium carb-vit d 600mg/400unit 1 Tablet 1 EACH PO ×2 (08:37→17:23)
[2024-08-14] MEDS: magnesium oxide 400 mg tablet 200 MG PO (08:37)
[2024-08-14] MEDS: thiamine 100 mg Tablet 50 MG PO (08:37)
[2024-08-14] MEDS: sennosides-docusate Tablet 2 TAB PO ×2 (08:38→17:22)
[2024-08-14] MEDS: chlorhexidine gluconate 0.12% Btl 473 mL 30 ML MUCOUS MEM ×4 (08:38→22:03)
[2024-08-14] MEDS: mupirocin oint 22 gm 1 APPLIC NASAL ×2 (08:38→17:23)
[2024-08-14] MEDS: citalopram 20 mg Tablet PO (08:38)
[2024-08-14] MEDS: HYDROcodone-acetaminophen 5-325 mg Tablet 1 TAB PO ×2 (08:45→13:31)
[2024-08-14 10:12] LABS: Basophils % 0.4 %; Eosinophils # 0.2 10^3/uL (0.0-0.8); Eosinophils % 2.3 %; Hematocrit 33.4 % (36-47); Lymphocytes # 0.3 10^3/uL (0.8-4.8); Lymphocytes % 2.7 %; Mean Corpuscular HGB Conc 31.4 g/dL (30-55); Mean Corpuscular Hemoglobin 30.3 pg (27-33); Mean Corpuscular Volume 96.3 fl (85-98); Mean Platelet Volume 10.4 fL (7.4-10.4); Monocytes # 0.7 10^3/uL (0.2-0.9); Monocytes % 7.8 %; Neutrophils % 86.3 %; Nucleated Red Blood Cells % 0 %; Platelet Count 135 10^3/cmm (157-399); Red Blood Count 3.47 10^6/uL (3.85-5.65); White Blood Count 9.16 10^3/uL (3.29-11.43)
[2024-08-14 10:34] LABS: Alanine Aminotransferase 29 U/L (0-33); Albumin Level 3.1 g/dL (3.5-5.2); Alkaline Phosphatase 77 U/L (35-105); Anion Gap 13.6 (5-19); Aspartate Amino Transferase 24 U/L (0-32); Blood Urea Nitrogen 15 mg/dL (8-23); Calcium 9.1 mg/dL (8.5-10.5); Carbon Dioxide 24 mmol/L (22-29); Chloride 104 mmol/L (98-107); Globulin 2.6 g/dL (1.3-4.6); Glucose 116 mg/dL (65-115); Magnesium 1.7 mg/dL (1.7-2.3); Osmolality Calculated 286 mOsm/kg (285-295); Potassium 4.6 mmol/L (3.5-5.1); Sodium 137 mmol/L (136-145); Total Bilirubin 0.4 mg/dL (0.15-1.2); Total Protein 5.7 g/dL (6.6-8.7)
[2024-08-14 10:53] LABS: Folate Level > 20.0 ng/mL (4.8-37.3)
--- NOTE | 2024-08-14 11:46 | PC.CHAP ---
Pastoral Care Encounter/Spiritual Assessment Type of Contact [] Declined crisis therapist visit [] Patient/Family/Request visit [] Outpatient visit [] Follow-up visit [] Physician referral [] Code/Alert [x] Routine visit [] Staff referral [] Actively dying [] Patient sleeping [x] Family support [] [] Out of room [] Palliative care [] [] Receiving care in room [] Pre-surgical visit [] Trauma [] Long length of stay [] ICU visit [] Other: Relational/Emotional Strength [x] Patient feels connected with others/family/visitors/staff [] Distress [] Loneliness/isolation [] Abandonment Spirituality of Patient [x] Person of Marly [x] Attends Buddhism of their [place] [x] Believes in Prayer [x] Reads Bible or Rastafari materials [] There are Spiritual issues to be addressed Edi Specialist Interventions [x] Prayer [x] Active listening [x] Non-anxious presence [x] Spiritual/emotional support [] Crisis/trauma care [] Spiritual counseling [] Bereavement support [] Provided bereavement packet [x] Provided Bible/devotional materials [] Provided toy/stuffed animal, coloring book to patient or family member [] Provided Communion [] Anointing/[place] [] Salvation [x] Completed spiritual assessment [] Other: Impact on Illness or Injury [] Angry [] Fearful [] Anxious [] Often cries [] Exhaustion [] Unable to work [] Unable to attend judaism [] Unable to walk/stand [] Unable to read [] Unable to drive [] Unable to eat/drink [] Unable to sleep [] Unable to be with family [] Patient intubated [] Other: Summary Time spent with patient 15 min
--- NOTE | 2024-08-14 12:33 | P.PN_ITS ---
Subjective 2 Subjective: Patient seen and examined today, daughter at bedside. Planning on discharge to rehab facility. Vitals/I&O/Wt Last Vital Signs Temp 98.1 F 08/14/24 11:39 Pulse 106 H 08/14/24 11:39 Resp 18 08/14/24 11:39 BP 113/61 08/14/24 11:39 Pulse Ox 96 08/14/24 11:39 O2 Del Method Nasal Cannula 08/14/24 11:39 O2 Flow Rate 2 08/14/24 11:39 08/13/24 08/14/24 08/14/24 22:59 06:59 14:59 Intake Total 400 / 1920 240 / 2160 40 / 40 Output Total 300 / 300 2400 / 2700 Balance 100 / 1620 -2160 / -540 40 / 40 Weight last 48 hrs Weight 144 lb Weight 144 lb 6.4 oz Physical Exam 2 Narrative: Left hip examination: Examination limited secondary to patient's baseline dementia, patient can follow simple commands Dressing on in place, clean dry and intact. No evidence of saturation. Patient has normal postoperative swelling and tenderness to palpation to the hip. Compartments are soft compressible,'s calf soft and nontender. Sensations intact to light touch distally. Distal pulses are palpable. Patient is able to wiggle toes as well as plantarflex and dorsiflex ankle. Urinary Catheter Management: Calvo: Cath Placed During This Visit: yes Urinary Catheter Date of Insertion: 08/11/24 Data 08/15/24 08:39 08/15/24 03:53 Other Labs: AM labs 08/14/2024 WBC 9.16 Hemoglobin 10.5 Creatinine 0.7 A&P Assessment and plan (1) Status post hemiarthroplasty of left hip: Plan Postop day 2 left hip hemiarthroplasty Internal medicine on board as primary weight-bear as tolerated left lower extremity X-rays reviewed Labs reviewed 10.5 hemoglobin receiving 1 unit PRBC yesterday Posterior precautions PT/OT Resume diet DVT prophylaxis-per primary Pain control Change dressing as needed Patient stable at this point in time from orthopedic standpoint orthopedic surgery team will sign off patient at this time follow peripherally. If there is any questions pertaining patient's care feel free to contact orthopedist on- call appropriate discharge instructions will be in placed in patient's chart will defer to primary team for DVT prophylaxis as patient does have a recent history of a GI bleed this has been educated to the patients daughter. At this point time orthopedics will follow up with patient in 2 weeks all questions have been answered at this time. PDMP PDMP Reviewed: Not Reviewed Attestations 2 Medical Necessity Statement*: Ongoing care status post left hip hemiarthroplasty requiring 1 unit PRBC stable hemoglobin today planning on discharge to rehab facility Coding Level of Care Code Acute Code for Chg Fwd Diagnoses Status post hemiarthroplasty of left hip Z96.642 Time Spent (min) 15
--- NOTE | 2024-08-14 13:31 | P.PN_ITS ---
Subjective 2 Subjective: No acute events overnight. Patient has remained hemodynamically stable and afebrile. Seen sitting comfortably in chair today. Daughter at bedside. Patient is awake and alert but still slightly confused. As per daughter patient is more irritable than usual. Vitals/I&O/Wt Last Vital Signs Temp 98.1 F 08/14/24 11:39 Pulse 106 H 08/14/24 11:39 Resp 18 08/14/24 11:39 BP 113/61 08/14/24 11:39 Pulse Ox 96 08/14/24 11:39 O2 Del Method Nasal Cannula 08/14/24 11:39 O2 Flow Rate 2 08/14/24 11:39 08/13/24 08/14/24 08/14/24 22:59 06:59 14:59 Intake Total 400 / 1920 240 / 2160 40 / 40 Output Total 300 / 300 2400 / 2700 Balance 100 / 1620 -2160 / -540 40 / 40 Weight last 48 hrs Weight 65.317 kg Weight 65.499 kg Physical Exam 2 Const: COMMON NORMALS: no acute distress and patient oriented x3 OTHER: Head atraumatic HENMT: COMMON NORMALS: normocephalic HEAD & SCALP: normocephalic Eye: COMMON NORMALS: Equal, round and reactive pupils present PUPIL: Yes Equal, round and reactive pupils present Lymph: LYMPHATIC: no lymphadenopathy noted Resp: COMMON NORMALS: normal respiratory effort, No retractions, No use of accessory muscles and clear to auscultation bilaterally AUSCULTATION: clear to auscultation bilaterally Cardio: COMMON NORMALS: regular rate, regular rhythm, S1 normal heart sound present and S2 normal heart sound present RATE: regular rate RHYTHM: r egular rhythm HEART SOUNDS: S1 normal heart sound present and S2 normal heart sound present GI: COMMON NORMALS: Normal to inspection, nondistended, normoactive bowel sounds present, Soft to palpation and non-tender PALPATION: Yes Soft to palpation Extremity: COMMON NORMALS: no calf tenderness and no pedal edema Neuro: COMMON NORMALS: patient oriented x3, CN's II-XII intact bilaterally and moves all extremities Psych: COMMON NORMALS: mental status grossly normal Urinary Catheter Management: Calvo: Cath Placed During This Visit: yes Urinary Catheter Date of Insertion: 08/11/24 Data 08/14/24 09:57 08/14/24 09:57 A&P Assessment and plan (1) Postoperative hemorrhagic shock: Hemoglobin down to 7.9 from 14 preoperatively. Patient systolic blood pressure mostly in mid 90s on 10 mg of oral midodrine started on 08/12 postoperatively. High concerns of postoperative hemorrhagic shock. Maintain mean artery pressure 65. For now continue with midodrine but decrease dose to 5 mg 3 times daily. 2 unit of blood transfusion. (2) Anemia: Target hemoglobin more than 8 or hemodynamic stability. 2 unit of blood transfusion as above. Check iron panel, vitamin B12 and folate levels. Patient does have a history of lower GI bleed recently for which she underwent colonoscopy recently with the last 6 months at [facility]. Will request documents. (3) Closed left hip fracture: Post-ORIF. For now keep Calvo catheter given hypotension to monitor urine output. Hold off on cyclobenzaprine given history of recent GI bleed. Physical therapy. (4) History of lower GI bleeding: Protonix 40 twice daily. If hemoglobin continues to trend down will plan for stool for occult blood. (5) Dementia: Continue recently at home medications including Celexa, Aricept Plan Leukocytosis: Most likely postoperatively. Resolved today. For now continue with IV ceftriaxone. Hold off on vancomycin. Check MRSA swab. If spikes fever will check blood culture. Elevated TSH, check T3, check T4, is on levothyroxine 88 mcg daily. Full code Regular diet Protonix will be sufficient to PUD prophylaxis SCD for DVT prophylaxis. Discontinue Lovenox. Plan for the day: Post 2 unit of blood transfusion on 08/13. Hemoglobin stable. Continue to monitor daily for now. Blood pressures improving. Change midodrine to as needed for systolic of less than 100 mmHg. Continue with Protonix twice daily, if needed will add Carafate. Out of bed to chair. Physical therapy. Continue with current medications for dementia. Celexa changed to a.m. Low concerns for infection. Continue with IV ceftriaxone 1 g daily for now. Continue the chronic medication. Discharge plan: Plan to discharge to SNF once accepted for the next 24 to 48 hours if hemoglobin remained stable. PDMP PDMP Reviewed: Not Reviewed Attestations 2 Medical Necessity Statement*: Requires further hospitalization for management of post ORIF hemorrhagic shock requiring blood transfusion while safe discharge planning is sought Diagnoses Postoperative hemorrhagic shock T81.19XA Anemia D64.9 Closed left hip fracture S72.002A History of lower GI bleeding Z87.19 Dementia F03.90
[2024-08-14] MEDS: acetaminophen 325 mg Tablet 650 MG PO (16:43)
[2024-08-14] MEDS: gabapentin 300 mg Capsule PO (17:22)
[2024-08-14] MEDS: cefTRIAXone 1,000 mg SDV 1000 MG IVP (18:37)
[2024-08-14] MEDS: donepezil 5 MG Tablet PO (22:02)
[2024-08-14] MEDS: amitriptyline 25 mg Tablet 50 MG PO (22:02)
[2024-08-14] MEDS: ferrous sulfate EC 325 mg Tablet PO (22:02)
[2024-08-15] VITALS (11 sets, daily range): BP systolic 114–143; BP diastolic 64–87; PULSE 78–121; RESP 15–98; TEMP 36.5–36.8; O2SAT 90–98
[2024-08-15] MEDS: HYDROcodone-acetaminophen 5-325 mg Tablet 1 TAB PO ×3 (01:29→15:15)
[2024-08-15 04:19] LABS: Basophils % 0.3 %; Eosinophils # 0.3 10^3/uL (0.0-0.8); Eosinophils % 4.5 %; Hematocrit 29.3 % (36-47); Lymphocytes # 0.4 10^3/uL (0.8-4.8); Mean Corpuscular HGB Conc 31.7 g/dL (30-55); Mean Corpuscular Hemoglobin 30.2 pg (27-33); Mean Corpuscular Volume 95.1 fl (85-98); Mean Platelet Volume 10.3 fL (7.4-10.4); Monocytes # 0.6 10^3/uL (0.2-0.9); Neutrophils # 6.06 10^3/uL (1.8-7.7); Neutrophils % 81.7 %; Nucleated Red Blood Cells % 0 %; Platelet Count 143 10^3/cmm (157-399); Red Blood Count 3.08 10^6/uL (3.85-5.65); Red Cell Distribution Width 15.3 % (12.1-15.1); White Blood Count 7.41 10^3/uL (3.29-11.43)
[2024-08-15 04:35] LABS: Alanine Aminotransferase 22 U/L (0-33); Albumin Level 2.7 g/dL (3.5-5.2); Alkaline Phosphatase 76 U/L (35-105); Anion Gap 12.6 (5-19); Aspartate Amino Transferase 18 U/L (0-32); Blood Urea Nitrogen 13 mg/dL (8-23); Calcium 8.7 mg/dL (8.5-10.5); Carbon Dioxide 26 mmol/L (22-29); Chloride 104 mmol/L (98-107); Globulin 2.6 g/dL (1.3-4.6); Glucose 109 mg/dL (65-115); Osmolality Calculated 287 mOsm/kg (285-295); Potassium 4.6 mmol/L (3.5-5.1); Sodium 138 mmol/L (136-145); Total Bilirubin 0.4 mg/dL (0.15-1.2); Total Protein 5.3 g/dL (6.6-8.7)
[2024-08-15 04:37] LABS: Magnesium 1.7 mg/dL (1.7-2.3)
[2024-08-15] MEDS: pantoprazole 40 mg SDV IVP (05:55)
[2024-08-15] MEDS: levothyroxine 88 mcg Tablet PO (05:55)
[2024-08-15 08:48] LABS: Hematocrit 32.5 % (36-47)
[2024-08-15] MEDS: magnesium oxide 400 mg tablet 200 MG PO (08:51)
[2024-08-15] MEDS: lactobacillus 1 Tablet 1 TAB PO (08:51)
[2024-08-15] MEDS: thiamine 100 mg Tablet 50 MG PO (08:51)
--- NOTE | 2024-08-15 08:51 | P.DS_ITS ---
Discharge Providers Date of Admission: 08/11/24 16:43 Date of Discharge: August 15, 2024 Attending Provider at Admission: Rodo Mendoza MD Attending Provider at Discharge: Homero Felix MD Consults: Orthopedics: Dr. Rubin Diagnoses at Discharge Discharge Diagnosis (1) Postoperative hemorrhagic shock: Status: Acute (2) Anemia: Status: Acute (3) Closed left hip fracture: Status: Acute (4) History of lower GI bleeding: Status: Acute (5) Dementia: Status: Acute Reason for Visit Reason for Visit: left hip pain s/p fall Brief History: Wicho Bermeo is a 88 year old female with a past medical history of TAVR, hypertension, hypothyroidism, hyperlipidemia, recent history of lower GI bleed requiring colonoscopy and intervention who presents [facility] for follow-up. Patient tells me that she lives at home with her daughter, she was trying to get into her wheelchair when she bent forward and fell forward, falling towards the ground, she did hit her head, denies passing out, no preceding chest pain or palpitations or lightheadedness or dizziness, or strokelike symptoms or seizure-like symptoms, no focal weakness, no visual deficits, she did take her Plavix this morning she is not on any blood other thinners, denies any chest pain, no history of CAD, no history of stroke. Hospital Course Hospital Course She was admitted to the hospital further evaluation and management of left closed hip fracture. Orthopedics was consulted and she underwent ORIF on 08/12. Her postoperative stay was complicated by her developing hemorrhagic postoperative shock for which she required 2 units of blood transfusion. Post- transfusion her hemoglobin has been stable and her vitals are stabilized. She is able to work with physical therapy. Her hospital stay was also complicated by her developing mild confusion given her baseline dementia. Patient continues to work with physical therapy. She has been discharged in medically stable condition on oral iron supplementation. Her dose of Lasix has been made as needed. She is to hold her Plavix for next 1 week. Safe discharge planning for definitive with the patient and patient daughter at bedside and they both requested patient to be transition to SNF for further rehabitation. She has been discharged in medically stable condition. Physical Exam Const: COMMON NORMALS: no acute distress and patient oriented x3 OTHER: Head atraumatic HENMT: COMMON NORMALS: normocephalic HEAD & SCALP: normocephalic Eye: COMMON NORMALS: Equal, round and reactive pupils present PUPIL: Yes Equal, round and reactive pupils present Lymph: LYMPHATIC: no lymphadenopathy noted Resp: COMMON NORMALS: normal respiratory effort, No retractions, No use of accessory muscles and clear to auscultation bilaterally AUSCULTATION: clear to auscultation bilaterally Cardio: COMMON NORMALS: regular rate, regular rhythm, S1 normal heart sound present and S2 normal heart sound present RATE: regular rate RHYTHM: regular rhythm HEART SOUNDS: S1 normal heart sound present and S2 normal heart sound present GI: COMMON NORMALS: Normal to inspection, nondistended, normoactive bowel sounds present, Soft to palpation and non-tender PALPATION: Yes Soft to palpation Extremity: COMMON NORMALS: no calf tenderness and no pedal edema Neuro: COMMON NORMALS: patient oriented x3, CN's II-XII intact bilaterally and moves all extremities Psych: COMMON NORMALS: mental status grossly normal Urinary Catheter Management: [place]: Cath Placed During This Visit: yes, but has since been removed by the nurse Reason for Continuing Indwelling Catheter: Decision to DC Catheter Urinary Catheter Date of Insertion: 08/11/24 Date Urinary Catheter Removed: 08/14/24 Time Urinary Catheter Discontinued: 16:52 Discharge Data Studies Completed and Pending Completed Studies During Hospitalization Category Date Time Status CT chest abdomen pelvis [[place] [id number] Cat Scan 08/12/24 18:11 Completed ] Urgent CT head wo con* [id number] Stat Cat Scan 08/11/24 17:59 Completed CXRP [XR chest 1V portable [id number]] Stat Exams 08/11/24 15:58 Completed XR chest 1V portable [id number] Stat Exams 08/12/24 18:14 Completed XR femur LT min 2V* [id number] Routine Exams 08/11/24 21:45 Completed XR hip LT 2-3V wo/w pel* [id number] Routine Exams 08/12/24 11:11 Completed XR hip LT 2-3V wo/w pel* [id number] Stat Exams 08/11/24 15:58 Completed CV. echo complete* [id number] Routine Ultrasound 08/13/24 14:48 Completed Pending at discharge Category Date Time Status MAG [Magnesium] AM LABS Lab 08/16/24 04:00 Ordered Radiology Impressions Head CT 08/11/24 17:59 IMPRESSION: 1. No acute intracranial pathology. 2. Senescent changes. Femur X-Ray 08/11/24 21:45 IMPRESSION: Subcapital impacted displaced hip fracture. Consider further evaluation with a CT. Hip/Pelvis X-Ray 08/12/24 11:11 IMPRESSION: Intact postoperative hip prosthesis Chest/Abdomen/Pelvis CT 08/12/24 18:11 IMPRESSION: 1. No evidence of aspiration pneumonia. 2. Small right pleural effusion. IMPRESSION: No cause for acute pain is identified. Chest X-Ray 08/12/24 18:14 IMPRESSION: No infiltrate identified. Laboratory Results WBC 7.41 10^3/uL (3.29-11.43) 08/15/24 03:53 RBC 3.08 10^6/uL (3.85-5.65) L 08/15/24 03:53 Hgb 10.30 g/dL (11.27-16.99) L 08/15/24 08:39 Hct 32.5 % (36-47) L 08/15/24 08:39 MCV 95.1 fl (85-98) 08/15/24 03:53 MCH 30.2 pg (27-33) 08/15/24 03:53 MCHC 31.7 g/dL (30-55) 08/15/24 03:53 RDW 15.3 % (12.1-15.1) H 08/15/24 03:53 Plt Count 143 10^3/cmm (157-399) L 08/15/24 03:53 MPV 10.3 fL (7.4-10.4) 08/15/24 03:53 Neut % (Auto) 81.7 % 08/15/24 03:53 Lymph % (Auto) 5.0 % 08/15/24 03:53 [place] % (Auto) 8.0 % 08/15/24 03:53 Eos % (Auto) 4.5 % 08/15/24 03:53 Baso % (Auto) 0.3 % 08/15/24 03:53 Neut # (Auto) 6.06 10^3/uL (1.8-7.7) 08/15/24 03:53 Lymph # (Auto) 0.4 10^3/uL (0.8-4.8) L 08/15/24 03:53 [place] # (Auto) 0.6 10^3/uL (0.2-0.9) 08/15/24 03:53 Eos # (Auto) 0.3 10^3/uL (0.0-0.8) 08/15/24 03:53 Baso # (Auto) 0.0 10^3/uL (0.0-0.1) 08/15/24 03:53 Nucleated RBC % (auto) 0 % 08/15/24 03:53 Nucleated RBCs # 0.0 /100WBC 08/15/24 03:53 PT 13.20 SECONDS (12.1-14.9) 08/11/24 17:09 INR 0.94 (0.8-1.2) 08/11/24 17:09 Sodium 138 mmol/L (136-145) 08/15/24 03:53 Potassium 4.6 mmol/L (3.5-5.1) 08/15/24 03:53 Chloride 104 mmol/L (98-107) 08/15/24 03:53 Carbon Dioxide 26 mmol/L (22-29) 08/15/24 03:53 Anion Gap 12.6 (5-19) 08/15/24 03:53 BUN 13 mg/dL (8-23) 08/15/24 03:53 Creatinine 0.6 mg/dL (0.5-0.9) 08/15/24 03:53 GFR Calculation Not Reportable 08/15/24 03:53 Glucose 109 mg/dL (65-115) 08/15/24 03:53 Estimat Average Glucose 88 08/13/24 10:18 Hemoglobin A1c 4.7 % (4.0-6.0) 08/13/24 10:18 Calculated Osmolality 287 mOsm/kg (285-295) 08/15/24 03:53 Lactic Acid 1.1 mmol/L (0.5-2.2) 08/11/24 17:09 Lactate 3.9 mmol/L (0.5-2.2) H 08/12/24 15:27 Calcium 8.7 mg/dL (8.5-10.5) 08/15/24 03:53 Phosphorus 2.0 mg/dL (2.5-4.5) L 08/14/24 09:57 Magnesium 1.7 mg/dL (1.7-2.3) 08/15/24 03:53 Iron Cancelled 08/13/24 02:59 TIBC Cancelled 08/13/24 02:59 % Saturation Cancelled 08/13/24 02:59 Unsat Iron Binding Cancelled 08/13/24 02:59 Total Bilirubin 0.4 mg/dL (0.15-1.2) 08/15/24 03:53 AST 18 U/L (0-32) 08/15/24 03:53 ALT 22 U/L (0-33) 08/15/24 03:53 Alkaline Phosphatase 76 U/L (35-105) 08/15/24 03:53 Total Protein 5.3 g/dL (6.6-8.7) L 08/15/24 03:53 Albumin 2.7 g/dL (3.5-5.2) L 08/15/24 03:53 Globulin 2.6 g/dL (1.3-4.6) 08/15/24 03:53 Triglycerides 80 mg/dL (0-150) 08/11/24 17:09 Cholesterol 168 mg/dL (0-200) 08/11/24 17:09 LDL Cholesterol, Calc 82 mg/dL (50-129) 08/11/24 17:09 HDL Cholesterol 70 mg/dL (60-100) 08/11/24 17:09 LDL/HDL Ratio 1.17 RATIO (0.00-3.22) 08/11/24 17:09 Cholesterol/HDL Ratio 2.40 mg/dL (0.0-4.40) 08/11/24 17:09 Vitamin B12 Cancelled 08/13/24 02:59 Folate > 20.0 ng/mL (4.8-37.3) 08/14/24 09:57 TSH 13.71 uIU/mL (0.27-4.20) H 08/11/24 17:09 Free T4 1.06 ng/dL (0.82-1.77) 08/12/24 01:37 Free T3 1.9 PG/ML (2.0-4.4) L 08/12/24 01:37 Urine Color Yellow (Yellow) 08/11/24 17:25 Urine Appearance Clear (CLEAR) 08/11/24 17:25 Urine pH 5.5 (5-7) 08/11/24 17:25 Ur Specific [place] 1.011 (1.005-1.030) 08/11/24 17:25 Urine Protein Negative (Negative) 08/11/24 17:25 Urine Glucose (UA) Negative (Normal) 08/11/24 17:25 Urine Ketones Negative (Negative) 08/11/24 17: Urine Blood Negative (Negative) 08/11/24 17: Urine Nitrate Negative (Negative) 08/11/24 17: Urine Bilirubin Negative (Negative) 08/11/24 17: Urine Urobilinogen 0.2 mg/dL (Negative) 08/11/24 17:25 Ur Leukocyte Esterase Negative (Negative) 08/11/24 17: Urine RBC 0-2 /hpf (0-2) 08/11/24 17:25 Urine WBC 0-5 /hpf (0-5) 08/11/24 17:25 Ur Squamous Epith Cells 0-5 /hpf (0-5) 08/11/24 17: Amorphous Sediment Not Reportable 08/11/24 17:25 Urine Bacteria None seen /hpf (NONE) 08/11/24 17: Hyaline Casts 3-5 /lpf 08/11/24 17:25 Nasal MRSA (PCR) Not detected (Not Detecte) 08/13/24 18:30 Blood Type O Positive 08/12/24 01:37 Rho(D) Type Rh positive 08/12/24 01:37 Antibody Screen Negative 08/12/24 01:37 Crossmatch See Detail 08/12/24 01:37 Vitals Last Vital Signs Temp 97.8 F 08/15/24 07:32 Pulse 103 H 08/15/24 08:20 Resp 18 08/15/24 08:20 BP 129/71 08/15/24 07:32 Pulse Ox 95 08/15/24 08:20 O2 Del Method Room Air 08/15/24 08:20 O2 Flow Rate 2 08/15/24 07:32 Discharge Plan Discharge Patient Disposition: Home Condition: Stable Prescriptions: New enoxaparin 30 mg/0.3 mL syringe 30 mg SUBCUT DAILY 35 Days Qty: 10.5 0RF ondansetron 4 mg tablet,disintegrating 4 mg PO Q8H PRN (Reason: nausea and vomiting) 3 Days Qty: 9 0RF pantoprazole [Protonix] 40 mg tablet,delayed release (DR/EC) 40 mg PO QAM Qty: 60 0RF Rx Instructions: Twice daily for next 2 weeks followed by once daily Continued ropinirole 1 mg tablet 1 mg PO BEDTIME PRN (Reason: nerve pain) hydrocodone-acetaminophen 5-325 mg tablet 1 tab PO Q4H MDD 6 tabs PRN (Reason: Pain) amitriptyline 50 mg tablet 50 mg PO BEDTIME levothyroxine [Euthyrox] 88 mcg tablet 88 mcg PO QAM nitroglycerin [Nitrostat] 0.4 mg Tablet, Sublingual 0.4 mg SUBLINGUAL Q5M PRN (Reason: Chest Pain) Rx Instructions: do not exceed 3 doses per episode gabapentin 300 mg capsule 300 mg PO QPM buspirone 7.5 mg tablet 7.5 mg PO BID albuterol sulfate 90 mcg/actuation HFA aerosol inhaler 2 puff INHALATION Q6H PRN (Reason: Shortness Of Breath) ondansetron 4 mg tablet,disintegrating 4 mg PO Q8H PRN (Reason: Nausea And Vomiting) ibandronate 150 mg tablet 150 mg PO Q30D mirabegron [Myrbetriq] 25 mg tablet extended release 24 hr 25 mg PO QPM Nurtec ODT 75 mg tablet,disintegrating 75 mg PO DAILY PRN (Reason: Migraine Headache) potassium chloride [Klor-Con M20] 20 mEq tablet,ER particles/crystals 20 meq PO QAM donepezil 5 mg tablet 5 mg PO BEDTIME tizanidine 2 mg tablet 2 mg PO Q12H PRN (Reason: Muscle Spasm) fexofenadine 180 mg tablet 180 mg PO DAILY cholecalciferol (vitamin D3) 1,250 mcg (50,000 unit) capsule 50,000 unit PO Q7D Aimovig Autoinjector 140 mg/mL auto-injector 140 mg SUBCUT .Q30D selenium 200 mcg Tablet 200 mcg PO DAILY zinc sulfate 50 mg zinc (220 mg) Tablet 50 mg PO BEDTIME ferrous sulfate 325 mg (65 mg iron) Tablet 325 mg PO BEDTIME magnesium 250 mg Tablet 250 mg PO DAILY Acidophilus Capsule 100 mg PO DAILY thiamine HCl (vitamin B1) [Vitamin B-1] 50 mg Tablet 50 mg PO DAILY Aimovig Autoinjector 140 mg/mL auto-injector 140 mg SUBCUT PRN PRN (Reason: Migraine Headache) Changed citalopram 20 mg tablet 20 mg PO QAM Qty: 2 0RF furosemide 40 mg tablet 40 mg PO BID PRN (Reason: Swelling) Qty: 2 0RF Rx Instructions: take 7 hours apart Held clopidogrel 75 mg tablet 75 mg PO DAILY Hold Instructions: Resume on 08/22/24. Discharge Orders: Discharge Order (Routine); Ordered 08/15/24 Ordered By: Homero Felix Referrals: Valerio Rubin PA [Physician [facility], Orthopedics] - 08/29/24 8:30 am Charles Cartwright DO [Referring] - 7-10 days Discharge Diet: Regular Discharge Activity: Limit activity as instructed Patient Instructions: Acute Wound Care (DC), Opioid Safety, Post Anesthesia Care Activity Restrictions/Additional Instructions: Orthopedic discharge instructions: Patient may weight-bear as tolerated to the operative lower extremity Posterior hip precautions (avoid excess excessive hip flexion past 90 degrees and internal rotation) Take DVT prophylaxis (blood thinner) as prescribed ) Take pain medication as prescribed Take antinausea medication as needed Supplement with Citracal vitamin D for bone health and healing Ice as needed for pain and swelling Leave Silverlon bandage dressing on for 7 days after that may remove, rinse incision with warm soapy water/shower pat dry keep clean dry and intact and redress with a clean dry dressing. No baths or soap May supplement for pain with Tylenol [id number] as needed(1000 mg every 8 hours-do not exceed more than 3000mg in 24-hour period) Follow-up in the orthopedic office in 2 weeks from date of surgery Contact the office for any questions or concerns per (fevers, increased drainage or redness around the incision site etc.) Should have a repeat CBC in 1 week. Continue Protonix twice daily for next 1 week. Restart Plavix in 1 week. Discharge Attestations Time Spent in Discharge Care*: greater than 30 min Specific Discharge Activities: educating patient, educating and/or supporting family/caregiver, discussing with pcp/other providers, discussing with continuous pillowcase cutter/social workers/dc planners, documenting/other paperwork and evaluating patient/reviewing data Status at Discharge: Cognitive status at discharge: mildly impaired cognition , Behavioral status at discharge: cooperative , Functional status at discharge: uses cane/walker , Overall status at discharge: patient is progressing back to baseline Quality Metrics Clinical Quality Measures [ No reported AMI, CVA or VTE this stay] Coding Level of Care Code 75081 Total time (in minutes) for Discharge: 60 Diagnoses Postoperative hemorrhagic shock T81.19XA Anemia D64.9 Closed left hip fracture S72.002A History of lower GI bleeding Z87.19 Dementia F03.90
[2024-08-15] MEDS: BuSPIRONE 10 mg Tablet 7.5 MG PO ×2 (08:52→17:36)
[2024-08-15] MEDS: citalopram 20 mg Tablet PO (08:52)
[2024-08-15] MEDS: sennosides-docusate Tablet 2 TAB PO ×2 (08:52→17:37)
[2024-08-15] MEDS: calcium carb-vit d 600mg/400unit 1 Tablet 1 EACH PO ×2 (08:52→17:36)
[2024-08-15] MEDS: multivitamin therapeutic Tablet 1 TAB PO (08:52)
[2024-08-15] MEDS: chlorhexidine gluconate 0.12% Btl 473 mL 30 ML MUCOUS MEM ×2 (08:52→12:21)
[2024-08-15] MEDS: mupirocin oint 22 gm 1 APPLIC NASAL ×2 (08:53→17:36)
--- NOTE | 2024-08-15 12:03 | PC.SOCIAL ---
IMM Update pg 2 of IMM Updated and reviewed w/ patients daughter. Copy dated and initialed and copy placed in chart.
[2024-08-15] MEDS: acetaminophen 325 mg Tablet 650 MG PO ×2 (12:20→19:24)
[2024-08-15] MEDS: ropinirole 1 mg Tablet PO (12:22)
[2024-08-15 13:13] LABS: SARS Covid-2 Antigen Negative (Negative)
--- NOTE | 2024-08-15 15:07 | PC.NURSE ---
Report called to Melody at [facility]
[2024-08-15] MEDS: gabapentin 300 mg Capsule PO (17:36)
--- NOTE | 2024-08-15 20:25 | PC.NURSE ---
Patient left for [facility] via EMS at 2014.
== END 2024-08-15 20:27 | disposition skilled nursing facility (03) | DRG 521 ==
LOC: ER 19:15 → MEDSURG 19:55
PROVIDERS: Student in an Organized Health Care Education/Training Program; Admitting Provider Family Medicine; Emergency Provider Emergency Medicine; Visit Provider Student in an Organized Health Care Education/Training Program
DX: S72.002A Fracture of unspecified part of neck of left femur, initial encounter for closed fracture (principal); T81.19XA Other postprocedural shock, initial encounter; W19.XXXA Unspecified fall, initial encounter; Z79.899 Other long term (current) drug therapy; Z79.890 Hormone replacement therapy; E03.9 Hypothyroidism, unspecified; I10 Essential (primary) hypertension; E78.5 Hyperlipidemia, unspecified; Z95.2 Presence of prosthetic heart valve; F03.90 Unspecified dementia, unspecified severity, without behavioral disturbance, psychotic disturbance, mood disturbance, and anxiety
CPT/HCPCS: 36415; 36430; 51702; 70450; 71045; 71250; 73502; 73552; 74176; 80053; 80061; 81001; 82607; 82746; 83036; 83540; 83550; 83605; 83735; 84100; 84439; 84443; 84481; 85014; 85018; 85025; 85610; 86850; 86900; 86920; 87426; 93005; 93306; 94640; 96372; 96374; 96375; 97110; 97161; 97167; 97530; 97535; 99285; C1713; C1776; J0330; J0696; J1100; J1650; J2270; J2371; J2405; J2470; J2704; J3010; J3370; J3490; J7030; J7040; J7042; J7050; J7611; J7613; J9999; L8699; P9016

== ENCOUNTER 2024-08-23 22:34 | Emergency (ER) | payer MEDICARE, SELFPAY ==
[2024-08-23 22:50] VITALS: BP 100/59; PULSE 87; RESP 18; TEMP 36.6; BMI 26.2
[2024-08-23 23:30] VITALS: BP 100/59; PULSE 76; RESP 18; O2SAT 99
[2024-08-24 00:07] LABS: Basophils % 0.6 %; Eosinophils # 0.3 10^3/uL (0.0-0.8); Eosinophils % 3.9 %; Hematocrit 36.7 % (36-47); Lymphocytes # 0.8 10^3/uL (0.8-4.8); Lymphocytes % 11.7 %; Mean Corpuscular HGB Conc 30.5 g/dL (30-55); Mean Corpuscular Hemoglobin 29.9 pg (27-33); Mean Corpuscular Volume 97.9 fl (85-98); Mean Platelet Volume 9.3 fL (7.4-10.4); Monocytes # 0.6 10^3/uL (0.2-0.9); Monocytes % 9.1 %; Neutrophils # 5.18 10^3/uL (1.8-7.7); Nucleated Red Blood Cells % 0 %; Platelet Count 365 10^3/cmm (157-399); Red Blood Count 3.75 10^6/uL (3.85-5.65); Red Cell Distribution Width 14.9 % (12.1-15.1)
[2024-08-24 00:21] LABS: Anion Gap 10.2 (5-19); Blood Urea Nitrogen 21 mg/dL (8-23); Calcium 8.8 mg/dL (8.5-10.5); Carbon Dioxide 35 mmol/L (22-29); Chloride 98 mmol/L (98-107); Creatinine Clr Calc Pharmacy 38.2584; Glucose 100 mg/dL (65-115); Osmolality Calculated 291 mOsm/kg (285-295); Potassium 4.2 mmol/L (3.5-5.1); Sodium 139 mmol/L (136-145)
--- NOTE | 2024-08-24 00:44 | W.ED.SYNCOPE ---
HPI - Syncope General: Chief Complaint: Syncope Stated Complaint: Unresponsive Time Seen by Provider: 08/23/24 22:37 History of Present Illness: The patient, an elderly female with a recent hip surgery, presents with ongoing headaches described as migraines and post-surgical hip pain. She recently underwent hip surgery, which involved the placement of 24 abigail. The patient reports persistent headaches, which she or her daughter refers to as migraines. No further details about the headache characteristics are provided. Regarding her recent hip surgery, the patient expresses dissatisfaction with the outcome, stating, It's supposed to be fixed and It hurts. She mentions having 24 abigail placed during the procedure. The patient is currently taking hydrocodone for pain management. The patient appears to be experiencing some confusion, which may be related to her recent surgery, pain medication, or change in environment. Her daughter reports that the patient has been more confused since the surgery and change in surroundings. Related Data Home Medications ?Medication ?Instructions ?Recorded ?Confirmed albuterol sulfate 90 mcg/actuation 2 puff inhalation Q6H PRN 03/04/22 08/11/24 aerosol inhaler Shortness Of Breath amitriptyline 50 mg tablet 50 mg PO BEDTIME 03/04/22 08/11/24 buspirone 7.5 mg tablet 7.5 mg PO BID 03/04/22 08/11/24 clopidogrel 75 mg tablet 75 mg PO DAILY 03/04/22 08/11/24 Held on 08/15/24. Instructions: Resume on 08/22/24. gabapentin 300 mg capsule 300 mg PO QPM 03/04/22 08/11/24 hydrocodone 5 mg-acetaminophen 325 1 tab PO Q4H PRN Pain 03/04/22 08/11/24 mg tablet ibandronate 150 mg tablet 150 mg PO Q30D 03/04/22 08/11/24 levothyroxine 88 mcg tablet 88 mcg PO QAM 03/04/22 08/11/24 (Euthyrox) mirabegron 25 mg tablet,extended 25 mg PO QPM 03/04/22 08/11/24 release 24 hr (Myrbetriq) nitroglycerin 0.4 mg sublingual 0.4 mg sublingual Q5M PRN Chest 03/04/22 08/11/24 tablet (Nitrostat) Pain ondansetron 4 mg disintegrating 4 mg PO Q8H PRN Nausea And Vomiting 03/04/22 08/11/24 tablet potassium chloride 20 mEq 20 meq PO QAM 03/04/22 08/11/24 tablet,extended release(part/cryst) (Klor-Con M) rimegepant 75 mg disintegrating 75 mg PO DAILY PRN Migraine 03/04/22 08/11/24 tablet (Nurtec ODT) Headache ropinirole 1 mg tablet 1 mg PO BEDTIME PRN nerve pain 03/04/22 08/11/24 Lactobacillus acidophilus 100 mg PO DAILY 08/11/24 08/11/24 (Acidophilus capsule) cholecalciferol (vitamin D3) 1,250 50,000 unit PO Q7D 08/11/24 08/11/24 mcg (50,000 unit) capsule donepezil 5 mg tablet 5 mg PO BEDTIME 08/11/24 08/11/24 erenumab-aooe 140 mg/mL 140 mg SUBCUT .Q30D 08/11/24 08/11/24 subcutaneous auto-injector (Aimovig Autoinjector) ferrous sulfate 325 mg (65 mg 325 mg PO BEDTIME 08/11/24 08/11/24 iron) tablet fexofenadine 180 mg tablet 180 mg PO DAILY 08/11/24 08/11/24 magnesium 250 mg tablet 250 mg PO DAILY 08/11/24 08/11/24 selenium 200 mcg tablet 200 mcg PO DAILY 08/11/24 08/11/24 thiamine HCl (vitamin B1) 50 mg 50 mg PO DAILY 08/11/24 08/11/24 tablet (Vitamin B-1) tizanidine 2 mg tablet 2 mg PO Q12H PRN Muscle Spasm 08/11/24 08/11/24 zinc sulfate 50 mg zinc (220 mg) 50 mg PO BEDTIME 08/11/24 08/11/24 tablet erenumab-aooe 140 mg/mL 140 mg SUBCUT PRN PRN Migraine 08/13/24 08/13/24 subcutaneous auto-injector Headache (Aimovig Autoinjector) Previous Rx's ?Medication ?Instructions ?Recorded citalopram 20 mg tablet 20 mg PO QAM #2 tabs 08/15/24 furosemide 40 mg tablet 40 mg PO BID PRN Swelling #2 tabs 08/15/24 pantoprazole 40 mg tablet,delayed 40 mg PO QAM #60 tabs 08/15/24 release (Protonix) Allergies Allergy/AdvReac Type Severity Reaction Status Date / Time Penicillins Allergy Intermediate ADR-Confusi Verified 08/11/24 21:31 on codeine Allergy ADR-Nausea Verified 08/11/24 21:31 tramadol Allergy ADR-Nausea Verified 08/11/24 21:31 Review of Systems General: Reports: 10 or more systems reviewed and unremarkable except in HPI and below PFSH ED PFSH: Medical History (Updated 08/24/24 @ 00:45 by Mode Agrawal DO) Dementia History of lower GI bleeding Hypothyroidism Hypertension Aortic stenosis Surgical History (Updated 08/13/24 @ 14:42 by Jay Rubin DO) History of hip surgery S/P TAVR (transcatheter aortic valve replacement) Family History Denies family history of CAD (coronary artery disease) Social History Substance/Drug Use: never Physical Exam Const: COMMON NORMALS: no acute distress, patient oriented x3, healthy appearing, alert and well nourished HENMT: COMMON NORMALS: normocephalic HEAD & SCALP: normocephalic Eye: COMMON NORMALS: EOMs intact bilaterally Neck/C-Spine: COMMON NORMALS: full ROM and supple Resp: COMMON NORMALS: normal respiratory effort, No retractions and clear to auscultation bilaterally AUSCULTATION: clear to auscultation bilaterally Cardio: COMMON NORMALS: regular rate, regular rhythm, No gallops present (Cardio) and No murmurs present (Cardio) RATE: regular rate RHYTHM: regular rhythm GI: COMMON NORMALS: Soft to palpation and non-tender PALPATION: Yes Soft to palpation Extremity: GENERAL: Yes normal exam except as noted Neuro: COMMON NORMALS: patient oriented x3 SENSORIUM/ORIENTATION: Yes alert CRANIAL NERVES: Yes CN normal except as noted COORDINATION/BALANCE: [id number] test normal SPEECH: speech normal MOTOR EXAM: 5/5 motor strength present throughout COORDINATION: [id number] test normal PUPIL EXAM: Normal pupillary reactivity/response: bilateral Skin: COMMON NORMALS: no rashes or lesions noted GENERAL SKIN EXAM: no rashes or lesions noted Course Vital Signs: Vital signs: Vital Signs Temperature 98 F 08/23/24 22:50 Pulse Rate 78 08/24/24 02:16 Respiratory Rate 16 08/24/24 02:16 Blood Pressure 100/59 08/24/24 02:16 Pulse Oximetry 98 08/24/24 02:16 Oxygen Delivery Me thod Room Air 08/23/24 23:30 MDM - Syncope Medical Decision Making 88-year-old female presents to the emergency department for evaluation of altered mental status. Patient's daughter and son-in-law are in the room. They report that she is back at her baseline. Patient has had a recent surgery and is on narcotic pain medication. She does not have an elevated white count, her anemia is baseline, electrolytes are within normal limits, increase in creatinine(chart review demonstrates a history of a creatinine of 1), patient did not provide a urine. Discussed with the patient and family about discharge back to the retirement and all were in agreement with this plan. Return precautions were discussed. Lab Data 08/23/24 23:50 08/23/24 23:50 Laboratory Results WBC 7.00 10^3/uL (3.29-11.43) 08/23/24 23:50 RBC 3.75 10^6/uL (3.85-5.65) L 08/23/24 23:50 Hgb 11.20 g/dL (11.27-16.99) L 08/23/24 23:50 Hct 36.7 % (36-47) 08/23/24 23:50 MCV 97.9 fl (85-98) 08/23/24 23:50 MCH 29.9 pg (27-33) 08/23/24 23:50 MCHC 30.5 g/dL (30-55) 08/23/24 23:50 RDW 14.9 % (12.1-15.1) 08/23/24 23:50 Plt Count 365 10^3/cmm (157-399) 08/23/24 23:50 MPV 9.3 fL (7.4-10.4) 08/23/24 23:50 Neut % (Auto) 74.0 % 08/23/24 23:50 Lymph % (Auto) 11.7 % 08/23/24 23:50 Mcpherson % (Auto) 9.1 % 08/23/24 23:50 Eos % (Auto) 3.9 % 08/23/24 23:50 Baso % (Auto) 0.6 % 08/23/24 23:50 Neut # (Auto) 5.18 10^3/uL (1.8-7.7) 08/23/24 23:50 Lymph # (Auto) 0.8 10^3/uL (0.8-4.8) 08/23/24 23:50 Mcpherson # (Auto) 0.6 10^3/uL (0.2-0.9) 08/23/24 23:50 Eos # (Auto) 0.3 10^3/uL (0.0-0.8) 08/23/24 23:50 Baso # (Auto) 0.0 10^3/uL (0.0-0.1) 08/23/24 23:50 Nucleated RBC % (auto) 0 % 08/23/24 23:50 Nucleated RBCs # 0.0 /100WBC 08/23/24 23:50 Sodium 139 mmol/L (136-145) 08/23/24 23:50 Potassium 4.2 mmol/L (3.5-5.1) 08/23/24 23:50 Chloride 98 mmol/L (98-107) 08/23/24 23:50 Carbon Dioxide 35 mmol/L (22-29) H 08/23/24 23:50 Anion Gap 10.2 (5-19) 08/23/24 23:50 BUN 21 mg/dL (8-23) 08/23/24 23:50 Creatinine 1.1 mg/dL (0.5-0.9) H 08/23/24 23:50 GFR Calculation Not Reportable 08/23/24 23:50 Glucose 100 mg/dL (65-115) 08/23/24 23:50 Calculated Osmolality 291 mOsm/kg (285-295) 08/23/24 23:50 Calcium 8.8 mg/dL (8.5-10.5) 08/23/24 23:50 No radiology studies performed this visit Discharge Plan Discharge Patient Disposition: Home Clinical Impression: Dementia Qualifiers: Dementia type: unspecified type Dementia severity: unspecified severity Dementia behavioral or psychological symptom: without behavioral, psychotic, or mood disturbance or anxiety Qualified Code(s): F03.90 - Unspecified dementia, unspecified severity, without behavioral disturbance, psychotic disturbance, mood disturbance, and anxiety Condition: Stable Prescriptions: No Action ropinirole 1 mg tablet 1 mg PO BEDTIME PRN (Reason: nerve pain) hydrocodone-acetaminophen 5-325 mg tablet 1 tab PO Q4H MDD 6 tabs PRN (Reason: Pain) clopidogrel 75 mg tablet 75 mg PO DAILY amitriptyline 50 mg tablet 50 mg PO BEDTIME levothyroxine [Euthyrox] 88 mcg tablet 88 mcg PO QAM nitroglycerin [Nitrostat] 0.4 mg Tablet, Sublingual 0.4 mg SUBLINGUAL Q5M PRN (Reason: Chest Pain) Rx Instructions: do not exceed 3 doses per episode gabapentin 300 mg capsule 300 mg PO QPM buspirone 7.5 mg tablet 7.5 mg PO BID albuterol sulfate 90 mcg/actuation HFA aerosol inhaler 2 puff INHALATION Q6H PRN (Reason: Shortness Of Breath) ondansetron 4 mg tablet,disintegrating 4 mg PO Q8H PRN (Reason: Nausea And Vomiting) ibandronate 150 mg tablet 150 mg PO Q30D mirabegron [Myrbetriq] 25 mg tablet extended release 24 hr 25 mg PO QPM Nurtec ODT 75 mg tablet,disintegrating 75 mg PO DAILY PRN (Reason: Migraine Headache) potassium chloride [Klor-Con M20] 20 mEq tablet,ER particles/crystals 20 meq PO QAM donepezil 5 mg tablet 5 mg PO BEDTIME tizanidine 2 mg tablet 2 mg PO Q12H PRN (Reason: Muscle Spasm) fexofenadine 180 mg tablet 180 mg PO DAILY cholecalciferol (vitamin D3) 1,250 mcg (50,000 unit) capsule 50,000 unit PO Q7D Aimovig Autoinjector 140 mg/mL auto-injector 140 mg SUBCUT .Q30D selenium 200 mcg Tablet 200 mcg PO DAILY zinc sulfate 50 mg zinc (220 mg) Tablet 50 mg PO BEDTIME ferrous sulfate 325 mg (65 mg iron) Tablet 325 mg PO BEDTIME magnesium 250 mg Tablet 250 mg PO DAILY Acidophilus Capsule 100 mg PO DAILY thiamine HCl (vitamin B1) [Vitamin B-1] 50 mg Tablet 50 mg PO DAILY Aimovig Autoinjector 140 mg/mL auto-injector 140 mg SUBCUT PRN PRN (Reason: Migraine Headache) pantoprazole [Protonix] 40 mg tablet,delayed release (DR/EC) 40 mg PO QAM Qty: 60 0RF Rx Instructions: Twice daily for next 2 weeks followed by once daily furosemide 40 mg tablet 40 mg PO BID PRN (Reason: Swelling) Qty: 2 0RF Rx Instructions: take 7 hours apart citalopram 20 mg tablet 20 mg PO QAM Qty: 2 0RF Discharge Orders: Discharge ED (Routine); Ordered 08/24/24 Ordered By: Mode Law Discharge Diet: Advance as tolerated Discharge Activity: Resume usual activity Patient Instructions: Opioid Safety, Pain Management Activity Restrictions/Additional Instructions: Your confusion is likely secondary to delirium from a combination of surgery, opiates, and change in environment. Monitor for signs of worsening confusion. Please return to the emergency department with any new or worsening symptoms Print Language: Setswana Coding Level of Care Code ED [employer] Inspector for Clark Shepherd
[2024-08-24 02:16] VITALS: BP 100/59; PULSE 78; RESP 16; O2SAT 98
== END 2024-08-24 02:20 | disposition home or self-care (01) ==
PROVIDERS: Emergency Provider General Practice
DX: R41.82 Altered mental status, unspecified (principal); F03.90 Unspecified dementia, unspecified severity, without behavioral disturbance, psychotic disturbance, mood disturbance, and anxiety; R55 Syncope and collapse; G43.909 Migraine, unspecified, not intractable, without status migrainosus; I10 Essential (primary) hypertension; E03.9 Hypothyroidism, unspecified; G89.18 Other acute postprocedural pain; Z79.899 Other long term (current) drug therapy; Z79.02 Long term (current) use of antithrombotics/antiplatelets; Z79.890 Hormone replacement therapy; Z88.5 Allergy status to narcotic agent; Z88.0 Allergy status to penicillin
CPT/HCPCS: 36415; 80048; 85025; 99283

== ENCOUNTER → 2024-08-29 08:55 | Outpatient (BNVA) | payer MEDICARE, SELFPAY | PROVIDERS: Visit Provider Physician Assistant | DX: Z98.890 Other specified postprocedural states (principal); Z96.642 Presence of left artificial hip joint | CPT/HCPCS: 73502; 99024 ==

== ENCOUNTER 2024-08-30 15:05 | Emergency (ER) | payer MEDICARE, SELFPAY ==
[2024-08-30 15:05] VITALS: BP 150/85; PULSE 124; RESP 16; TEMP 36.6; O2SAT 98; BMI 24.5
[2024-08-30 15:20] VITALS: BP 150/85; PULSE 116; O2SAT 98
[2024-08-30] MEDS: ondansetron hcl ODT 4 mg Tab PO (16:18)
[2024-08-30 16:22] LABS: Basophils % 0.4 %; Eosinophils % 0.3 %; Hematocrit 37.1 % (36-47); Lymphocytes # 0.7 10^3/uL (0.8-4.8); Lymphocytes % 6.1 %; Mean Corpuscular HGB Conc 30.5 g/dL (30-55); Mean Corpuscular Hemoglobin 29.5 pg (27-33); Mean Corpuscular Volume 96.9 fl (85-98); Mean Platelet Volume 9.2 fL (7.4-10.4); Monocytes # 0.8 10^3/uL (0.2-0.9); Monocytes % 6.8 %; Neutrophils # 9.54 10^3/uL (1.8-7.7); Neutrophils % 85.9 %; Nucleated Red Blood Cells % 0 %; Platelet Count 503 10^3/cmm (157-399); Red Blood Count 3.83 10^6/uL (3.85-5.65); Red Cell Distribution Width 14.9 % (12.1-15.1); White Blood Count 11.11 10^3/uL (3.29-11.43)
[2024-08-30] MEDS: tranexamic acid 1,000 mg/10mL SDV 1000 MG XX (17:05)
--- NOTE | 2024-08-30 17:36 | W.ED.EPISTAX ---
HPI - Epistaxis General: Chief complaint: Epistaxis Stated complaint: epitaxis x 3 hours Time Seen by Provider: 08/30/24 15:21 Source: patient and family Mode of arrival: ambulatory Limitations: no limitations History of Present Illness: 88yo female presents via EMS for evaluation of a nosebleed that has been ongoing since 0930 this morning. States they thought it had stopped, but it had been running down the back of her throat. Reports that she does take Plavix and has had several episodes of nosebleeding recently. Family does report the patient had to have a blood transfusion after her hip surgery. Associated symptoms: Deny fever(s), headache(s) or vomiting Related Data Home Medications ?Medication ?Instructions ?Recorded ?Confirmed albuterol sulfate 90 mcg/actuation 2 puff inhalation Q6H PRN 03/04/22 08/29/24 aerosol inhaler Shortness Of Breath amitriptyline 50 mg tablet 50 mg PO BEDTIME 03/04/22 08/29/24 buspirone 7.5 mg tablet 7.5 mg PO BID 03/04/22 08/29/24 clopidogrel 75 mg tablet 75 mg PO DAILY 03/04/22 08/29/24 Held on 08/15/24. Instructions: Resume on 08/22/24. gabapentin 300 mg capsule 300 mg PO QPM 03/04/22 08/29/24 hydrocodone 5 mg-acetaminophen 325 1 tab PO Q4H PRN Pain 03/04/22 08/29/24 mg tablet ibandronate 150 mg tablet 150 mg PO Q30D 03/04/22 08/29/24 levothyroxine 88 mcg tablet 88 mcg PO QAM 03/04/22 08/29/24 (Euthyrox) mirabegron 25 mg tablet,extended 25 mg PO QPM 03/04/22 08/29/24 release 24 hr (Myrbetriq) nitroglycerin 0.4 mg sublingual 0.4 mg sublingual Q5M PRN Chest 03/04/22 08/29/24 tablet (Nitrostat) Pain ondansetron 4 mg disintegrating 4 mg PO Q8H PRN Nausea And Vomiting 03/04/22 08/29/24 tablet potassium chloride 20 mEq 20 meq PO QAM 03/04/22 08/29/24 tablet,extended release(part/cryst) (Klor-Con M) rimegepant 75 mg disintegrating 75 mg PO DAILY PRN Migraine 03/04/22 08/29/24 tablet (Nurtec ODT) Headache ropinirole 1 mg tablet 1 mg PO BEDTIME PRN nerve pain 03/04/22 08/29/24 Lactobacillus acidophilus 100 mg PO DAILY 08/11/24 08/29/24 (Acidophilus capsule) cholecalciferol (vitamin D3) 1,250 50,000 unit PO Q7D 08/11/24 08/29/24 mcg (50,000 unit) capsule donepezil 5 mg tablet 5 mg PO BEDTIME 08/11/24 08/29/24 erenumab-aooe 140 mg/mL 140 mg SUBCUT .Q30D 08/11/24 08/29/24 subcutaneous auto-injector (Aimovig Autoinjector) ferrous sulfate 325 mg (65 mg 325 mg PO BEDTIME 08/11/24 08/29/24 iron) tablet fexofenadine 180 mg tablet 180 mg PO DAILY 08/11/24 08/29/24 magnesium 250 mg tablet 250 mg PO DAILY 08/11/24 08/29/24 selenium 200 mcg tablet 200 mcg PO DAILY 08/11/24 08/29/24 thiamine HCl (vitamin B1) 50 mg 50 mg PO DAILY 08/11/24 08/29/24 tablet (Vitamin B-1) tizanidine 2 mg tablet 2 mg PO Q12H PRN Muscle Spasm 08/11/24 08/29/24 zinc sulfate 50 mg zinc (220 mg) 50 mg PO BEDTIME 08/11/24 08/29/24 tablet erenumab-aooe 140 mg/mL 140 mg SUBCUT PRN PRN Migraine 08/13/24 08/29/24 subcutaneous auto-injector Headache (Aimovig Autoinjector) Previous Rx's ?Medication ?Instructions ?Recorded citalopram 20 mg tablet 20 mg PO QAM #2 tabs 08/15/24 furosemide 40 mg tablet 40 mg PO BID PRN Swelling #2 tabs 08/15/24 pantoprazole 40 mg tablet,delayed 40 mg PO QAM #60 tabs 08/15/24 release (Protonix) Allergies Allergy/AdvReac Type Severity Reaction Status Date / Time Penicillins Allergy Intermediate ADR-Confusi Verified 08/29/24 08:24 on codeine Allergy ADR-Nausea Verified 08/29/24 08:24 tramadol Allergy ADR-Nausea Verified 08/29/24 08:24 Review of Systems Const: Denies: fever(s) or chills ENMT: Reports: epistaxis Card: Denies: chest pain Resp: Denies: dyspnea GI: Denies: vomiting Neuro: Denies: headache(s) PFSH ED PFSH: Medical History Dementia History of lower GI bleeding Hypothyroidism Hypertension Aortic stenosis Surgical History History of hip surgery S/P TAVR (transcatheter aortic valve replacement) Family History Denies family history of CAD (coronary artery disease) Social History Smoking and tobacco/nicotine status: never used tobacco/nicotine Substance/Drug Use: never Physical Exam Const: COMMON NORMALS: no acute distress, patient oriented x3, healthy appearing and alert GENERAL APPEARANCE: cooperative OTHER: Patient is sitting upright on the stretcher with a nasal clamp in place in no acute distress. She is able to give history with assistance from family member. She is interactive with exam appropriately. Daughter is at bedside HENMT: COMMON NORMALS: normocephalic and atraumatic HEAD & SCALP: normocephalic and atraumatic NOSE: Epistaxis present on the left active bleeding and source not visualized Neck/C-Spine: COMMON NORMALS: full ROM Chest: CHEST: Yes Symmetrical chest wall rise Resp: COMMON NORMALS: normal respiratory effort EFFORT & INSPECTION: Yes able to speak in complete sentences Neuro: COMMON NORMALS: patient oriented x3 SENSORIUM/ORIENTATION: Yes alert Psych: COMMON NORMALS: cooperative Procedures Epistaxis Control Nostril: left Nose Prepped With: other Direct Inspection: unable to visualize Clots Removed by: suction Device Inserted: hemostatic balloon Device Size: 8 Patient Tolerated Procedure: well Course Vital Signs: Vital signs: Vital Signs Temperature 97.9 F 08/30/24 15:05 Pulse Rate 110 H 08/30/24 19:17 Respiratory Rate 16 08/30/24 19:17 Blood Pressure 118/73 08/30/24 19:17 Pulse Oximetry 92 08/30/24 19:17 Oxygen Delivery Me thod Room Air 08/30/24 17:37 MDM - Epistaxis Medical Decision Making 88yo female presents via EMS for evaluation of a nosebleed that has been ongoing since 09 this morning. Patient does take Plavix. She has had nosebleeds recently. She denies any other injury or concern at this time. Patient is nontoxic in appearance. Vital signs are stable. Labs obtained due to length of time of bleeding. Hemoglobin is noted to be 11.3. Platelet are 503. Clot noted to the posterior oropharynx, patient was able to remove by coughing. Unsuccessful Merocel placements, successful Rhino Rocket placement. Patient was observed for greater than 30 minutes with no further bleeding. Advised that the packing would need to stay in place for minimum of 48 hours. A referral was placed to ENT. Advised to follow-up with primary care by calling tomorrow with an update and to discuss a recheck. Return precautions provided. Patient and family state understanding and have no further questions or concerns at this time. Medical Records I reviewed the patient's medical records. Lab Data I reviewed the patient's lab results. 08/30/24 16:13 Laboratory Results WBC 11.11 10^3/uL (3.29-11.43) 08/30/24 16:13 RBC 3.83 10^6/uL (3.85-5.65) L 08/30/24 16:13 Hgb 11.30 g/dL (11.27-16.99) 08/30/24 16:13 Hct 37.1 % (36-47) 08/30/24 16:13 MCV 96.9 fl (85-98) 08/30/24 16:13 MCH 29.5 pg (27-33) 08/30/24 16:13 MCHC 30.5 g/dL (30-55) 08/30/24 16:13 RDW 14.9 % (12.1-15.1) 08/30/24 16:13 Plt Count 503 10^3/cmm (157-399) H 08/30/24 16:13 MPV 9.2 fL (7.4-10.4) 08/30/24 16:13 Neut % (Auto) 85.9 % 08/30/24 16:13 Lymph % (Auto) 6.1 % 08/30/24 16:13 Grant % (Auto) 6.8 % 08/30/24 16:13 Eos % (Auto) 0.3 % 08/30/24 16:13 Baso % (Auto) 0.4 % 08/30/24 16:13 Neut # (Auto) 9.54 10^3/uL (1.8-7.7) H 08/30/24 16:13 Lymph # (Auto) 0.7 10^3/uL (0.8-4.8) L 08/30/24 16:13 Grant # (Auto) 0.8 10^3/uL (0.2-0.9) 08/30/24 16:13 Eos # (Auto) 0.0 10^3/uL (0.0-0.8) 08/30/24 16:13 Baso # (Auto) 0.0 10^3/uL (0.0-0.1) 08/30/24 16:13 Nucleated RBC % (auto) 0 % 08/30/24 16:13 Nucleated RBCs # 0.0 /100WBC 08/30/24 16:13 Blood Type O Positive 08/30/24 16:13 Rho(D) Type Rh positive 08/30/24 16:13 Antibody Screen Negative 08/30/24 16:13 No radiology studies performed this visit Discharge Plan Discharge Patient Disposition: Home Clinical Impression: Epistaxis Condition: Stable Prescriptions: No Action ropinirole 1 mg tablet 1 mg PO BEDTIME PRN (Reason: nerve pain) hydrocodone-acetaminophen 5-325 mg tablet 1 tab PO Q4H MDD 6 tabs PRN (Reason: Pain) clopidogrel 75 mg tablet 75 mg PO DAILY amitriptyline 50 mg tablet 50 mg PO BEDTIME levothyroxine [Euthyrox] 88 mcg tablet 88 mcg PO QAM nitroglycerin [Nitrostat] 0.4 mg Tablet, Sublingual 0.4 mg SUBLINGUAL Q5M PRN (Reason: Chest Pain) Rx Instructions: do not exceed 3 doses per episode gabapentin 300 mg capsule 300 mg PO QPM buspirone 7.5 mg tablet 7.5 mg PO BID albuterol sulfate 90 mcg/actuation HFA aerosol inhaler 2 puff INHALATION Q6H PRN (Reason: Shortness Of Breath) ondansetron 4 mg tablet,disintegrating 4 mg PO Q8H PRN (Reason: Nausea And Vomiting) ibandronate 150 mg tablet 150 mg PO Q30D mirabegron [Myrbetriq] 25 mg tablet extended release 24 hr 25 mg PO QPM Nurtec ODT 75 mg tablet,disintegrating 75 mg PO DAILY PRN (Reason: Migraine Headache) potassium chloride [Klor-Con M20] 20 mEq tablet,ER particles/crystals 20 meq PO QAM donepezil 5 mg tablet 5 mg PO BEDTIME tizanidine 2 mg tablet 2 mg PO Q12H PRN (Reason: Muscle Spasm) fexofenadine 180 mg tablet 180 mg PO DAILY cholecalciferol (vitamin D3) 1,250 mcg (50,000 unit) capsule 50,000 unit PO Q7D Aimovig Autoinjector 140 mg/mL auto-injector 140 mg SUBCUT .Q30D selenium 200 mcg Tablet 200 mcg PO DAILY zinc sulfate 50 mg zinc (220 mg) Tablet 50 mg PO BEDTIME ferrous sulfate 325 mg (65 mg iron) Tablet 325 mg PO BEDTIME magnesium 250 mg Tablet 250 mg PO DAILY Acidophilus Capsule 100 mg PO DAILY thiamine HCl (vitamin B1) [Vitamin B-1] 50 mg Tablet 50 mg PO DAILY Aimovig Autoinjector 140 mg/mL auto-injector 140 mg SUBCUT PRN PRN (Reason: Migraine Headache) pantoprazole [Protonix] 40 mg tablet,delayed release (DR/EC) 40 mg PO QAM Qty: 60 0RF Rx Instructions: Twice daily for next 2 weeks followed by once daily furosemide 40 mg tablet 40 mg PO BID PRN (Reason: Swelling) Qty: 2 0RF Rx Instructions: take 7 hours apart citalopram 20 mg tablet 20 mg PO QAM Qty: 2 0RF Discharge Orders: Discharge ED (Routine); Ordered 08/30/24 Ordered By: Sukhwinder Dunn Discharge Diet: Usual diet Discharge Activity: Resume usual activity Patient Instructions: Epistaxis - Adult, Pain Management Activity Restrictions/Additional Instructions: A Rhino Rocket was placed in the left naris to control the nosebleed. Please leave the packing in place for at least 48 hours. There is a possibility of rebleeding after packing is removed Please see provided handout with information about nosebleeds Follow-up with primary care, call tomorrow with an update of packing basement and to discuss recheck Return to the emergency department if any rapid worsening symptoms and as needed Print Language: Romanian Coding Level of Care Code ED Education Paraprofessional for Clark Shepherd
[2024-08-30 17:37] VITALS: BP 131/74; PULSE 113; O2SAT 90
[2024-08-30 19:17] VITALS: BP 118/73; PULSE 110; RESP 16; O2SAT 92
--- NOTE | 2024-08-31 07:05 | DCPLANNER ---
faxed ent referral to yunior cee
== END 2024-08-30 19:18 | disposition home or self-care (01) ==
PROVIDERS: Emergency Provider Nurse Practitioner
DX: R04.0 Epistaxis (principal); Z79.02 Long term (current) use of antithrombotics/antiplatelets; I10 Essential (primary) hypertension
CPT/HCPCS: 36415; 85025; 86850; 86900; 99284; J9999; Q0162

== ENCOUNTER → 2024-10-10 10:41 | Outpatient (BNVA) | payer MEDICARE, SELFPAY | PROVIDERS: PCP Family Medicine; Visit Provider Student in an Organized Health Care Education/Training Program | DX: Z96.642 Presence of left artificial hip joint (principal) | CPT/HCPCS: 73502; 99024 ==

== ENCOUNTER → 2024-10-31 14:50 | Outpatient (BNVA) | payer MEDICARE, SELFPAY | PROVIDERS: PCP Family Medicine; Visit Provider Physician Assistant | DX: M17.12 Unilateral primary osteoarthritis, left knee (principal); Z46.89 Encounter for fitting and adjustment of other specified devices | CPT/HCPCS: 73560; 73565 ==

== ENCOUNTER 2024-10-31 15:54 | Outpatient (CLI) | payer MEDICARE, SELFPAY | END 2024-10-31 15:55 | disposition home or self-care (01) | LOC: SPT 15:55 | PROVIDERS: PCP Family Medicine; Visit Provider Physician Assistant | DX: Z46.89 Encounter for fitting and adjustment of other specified devices (principal); M17.12 Unilateral primary osteoarthritis, left knee | CPT/HCPCS: L1851 ==

== ENCOUNTER → 2024-12-05 11:10 | Outpatient (BNVA) | payer MEDICARE, SELFPAY | PROVIDERS: PCP Family Medicine; Visit Provider Physician Assistant | DX: M17.12 Unilateral primary osteoarthritis, left knee (principal) | CPT/HCPCS: 20610; 99213; J7318 ==

== ENCOUNTER 2024-12-15 22:42 | Emergency (ER) | payer MEDICARE, SELFPAY ==
--- OUTSIDE RECORDS SUMMARY | 2024-12-15 22:50 | XMS_ITS | Encounter Summary ---
Author Organization [facility] Address [address] [place] [address] Care Team Providers Care Pipe Assembly Worker Name Role Phone Yvan Cartwright MD Primary Care Provider [phone] Encounter Details Date Type Department Care Team (Latest Contact Info) Description 05/14/2002 Outpatient Historical HIS [facility] Cornelius Presley MD NO ADDRESS ON FILE Enthesopathy of hip (Primary Dx) Social History Tobacco Use Types Packs/Day Years Used Date Smoking Tobacco: Never Assessed Comments Unknown Sex and Gender Information Value Date Recorded Sex Assigned at Not on file 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
--- OUTSIDE RECORDS SUMMARY | 2024-12-15 22:50 | XMS_ITS | Encounter Summary ---
Author Organization [facility] Address [address] [place] [address] Care Team Providers Care Manager Transfer Name Role Phone Yvan Cartwright MD Primary Care Provider [phone] Encounter Details Date Type Department Care Team (Latest Contact Info) Description 02/27/2008 Outpatient [facility] [address] [id number] Denis Baer Postlaminectomy Syndrome, Lumbar Region Social History Tobacco Use Types Packs/Day Years Used Date Smoking Tobacco: Never Assessed Comments No Sex and Gender Information Value Date Recorded Sex Assigned at Not on file 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
--- OUTSIDE RECORDS SUMMARY | 2024-12-15 22:50 | XMS_ITS | Encounter Summary ---
Author Organization [facility] Address [address] [place] [address] Care Team Providers Care Plumber Pipe Fitting Name Role Phone Yvan Cartwright MD Primary Care Provider [phone] Encounter Details Date Type Department Care Team (Latest Contact Info) Description 08/12/2000 Outpatient Historical [facility] Medicine [place] [address] [place] [address] Tim Garcia MD [address] [place] [address] Pneumonia, organism unspecified(486) (Primary Dx); Headache(784.0) Social History Tobacco Use Types Packs/Day Years Used Date Smoking Tobacco: Never Assessed Comments Unknown Sex and Gender Information Value Date Recorded Sex Assigned at Not on file 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
--- OUTSIDE RECORDS SUMMARY | 2024-12-15 22:50 | XMS_ITS | Encounter Summary ---
Author Organization [facility] Address [address] [place] [address] Care Team Providers Care Construction Executive Name Role Phone Yvan Cartwright MD Primary Care Provider [phone] Encounter Details Date Type Department Care Team (Late st Contact Info) Description 03/12/2008 Outpatient Historical [facility] [address] [place] [phone] Denis Baer Social History Tobacco Use Types Packs/Day Years Used Date Smoking Tobacco: Never Assessed Comments No Sex and Gender Information Value Date Recorded Sex Assigned at Not on file Legal Sex Female 3:51 AM SHINGLE SAWYER Gender Identity Not on file Sexual Orientation Not on file documented as of this encounter Plan of Treatment Not on file documented as of this encounter Visit Diagnoses Not on filedocumented in this encounter Care Teams Construction Executive Relationship Specialty Start Date End Date Yvan Cartwright MD [address] [address] PCP - General Family Practice 09/25/14 documented as of this encounter
--- OUTSIDE RECORDS SUMMARY | 2024-12-15 22:50 | XMS_ITS | Encounter Summary ---
Author Organization [facility] Address [address] [place] [address] Care Team Providers Care Perfect Binder Feeder Offbearer Name Role Phone Yvan Cartwright MD Primary Care Provider [phone] Encounter Details Date Type Department Care Team (Late st Contact Info) Description 02/12/2008 Outpatient Historical [facility] Pain Management Procedures [address] [place] [phone] Denis Baer Social History Tobacco Use Types Packs/Day Years Used Date Smoking Tobacco: Never Assessed Comments No Sex and Gender Information Value Date Recorded Sex Assigned at Not on file Legal Sex Female 3:51 AM TELEPHONE DIRECTORY DELIVERER Gender Identity Not on file Sexual Orientation Not on file documented as of this encounter Plan of Treatment Not on file documented as of this encounter Procedures Procedure Name Priority Date/Time Associated Diagnosis Comments XR FLUORO GREATER THAN 1 HOUR Routine 02/14/2008 12:45 PM TELEPHONE DIRECTORY DELIVERER documented in this encounter Results * XR FLUORO > 1 HOUR (02/14/2008 12:45 PM TELEPHONE DIRECTORY DELIVERER) Anatomical Region Laterality Modality Other 02/14/2008 12:4 5 PM TELEPHONE DIRECTORY DELIVERER Narrative 02/14/2008 12:46 PM TELEPHONE DIRECTORY DELIVERER Finalized by interface [employer] utility. No report expected. Procedure Note 04/14/2008 Finalized by interface [employer] utility. No report expected. us Denis Baer DIAGNOSTIC IMAGING ORDERABLES Fi nal Result documented in this encounter Visit Diagnoses Not on filedocumented in this encounter Care Teams Perfect Binder Feeder Offbearer Relationship Specialty Start Date End Date Yvan Cartwright MD [address] [place] [address] PCP - General Family Practice 09/25/14 documented as of this encounter
--- OUTSIDE RECORDS SUMMARY | 2024-12-15 22:50 | XMS_ITS | Encounter Summary ---
Author Organization [facility] Address [address] [place] [address] Care Team Providers Care End Finder Twisting Department Name Role Phone Yvan Cartwright MD Primary Care Provider [phone] Encounter Details Date Type Department Care Team (Latest Contact Info) Description 05/07/2002 Outpatient Historical [facility] Medicine [place] [address] [place] [address] Tim Garcia MD [address] [place] [address] FX NECK OF FEMUR NOS-OPEN (CMS/HCC) (Primary Dx) Social History Tobacco Use Types Packs/Day Years Used Date Smoking Tobacco: Never Assessed Comments Unknown Sex and Gender Information Value Date Recorded Sex Assigned at Not on file 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
--- OUTSIDE RECORDS SUMMARY | 2024-12-15 22:50 | XMS_ITS | Encounter Summary ---
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
--- OUTSIDE RECORDS SUMMARY | 2024-12-15 22:50 | XMS_ITS | Encounter Summary ---
Author Organization [facility] Address [address] [place] [address] Care Team Providers Care Manager Employee Relations Name Role Phone Yvan Cartwright MD Primary Care Provider Encounter Details Date Type Department Care Team (Latest Contact Info) Description 02/16/2002 Outpatient Historical [facility] Urology- [address]trance [address], 3rd [place] [address] Theodore Narayan MD NO ADDRESS ON FILE URGE & STRESS MIXED INCONTINENCE (Primary Dx) Social History Tobacco Use Types Packs/Day Years Used Date Smoking Tobacco: Never Assessed Comments Unknown Sex and Gender Information Value Date Recorded Sex Assigned at Not on file 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
--- OUTSIDE RECORDS SUMMARY | 2024-12-15 22:50 | XMS_ITS | Encounter Summary ---
Author Organization [facility] Address [address] [place] [address] Care Team Providers Care Corporate Director Of Pharmacy Name Role Phone Yvan Cartwright MD Primary Care Provider [phone] Reason for Referral * Outpatient Services (Routine) - Closed Specialty Diagnoses / Procedures Referred By Last vasques Referred To Contact Diagnoses Lumbar radiculopathy Procedures XR FLUORO NEEDLE GUIDANCE Kassie Jaramillo PA-C [address] [place] [address] Phone: tel: Referral ID Status Reason Start Date Expiration Date Visits Re quested Visits Authorized [id number] Closed 10/28/2010 10/28/2011 1 1 Encounter Details Date Type Department Care Team (Late st Contact Info) Description 10/28/2010 Ancillary Orders [facility] Pain Management Procedures [place] [address] [place] [phone] Kassie Jaramillo PA-C [address] [place] [address] Lumbar radiculopathy Social History Tobacco Use Types Packs/Day Years Used Date Smoking Tobacco: Former Cigarettes 2.5 30 0 04/04/1965 - 04/04/1995 Smokeless Tobacco: Never Alcohol Use Standard Drinks/Week Comments No 0 (1 standard drink = 0.6 oz pur e alcohol) Comments No Sex and Gender Information Value Date Recorded Sex Assigned at Not on file Legal Sex Female 3:51 AM GENERAL MATCHER Gender Identity Not on file Sexual Orientation Not on file documented as of this encounter Plan of Treatment Not on file documented as of this encounter Results * XR FLUORO NEEDLE GUIDANCE (10/28/2010 2:58 PM CDT) Anatomical Region Laterality Modality Computed Radiogr aphy Narrative 10/28/2010 2:58 PM CDT Order information only. Exam was auto-finalized. Procedure Note Louise Moreau, RT - 10/28/2010 Order information only. Exam was auto-finalized. Kassie Jaramillo PA-C DIAGNOSTIC IMAGING ORDERAB LES Final Result documented in this encounter Visit Diagnoses Diagnosis Lumbar radiculopathy Thoracic or lumbosacral neuritis or radiculitis, unspecified Lumbar radiculopathy Thoracic or lumbosacral neuritis or radiculitis, unspecified documented in this encounter Care Teams Corporate Director Of Pharmacy Relationship Specialty Start Date End Date Yvan Cartwright MD [address] [place] [phone] PCP - General Family Practice 09/25/14 documented as of this encounter
--- OUTSIDE RECORDS SUMMARY | 2024-12-15 22:50 | XMS_ITS | Encounter Summary ---
Author Organization [facility] Address [address] [place] [address] Care Team Providers Care Camp Guard Name Role Phone Yvan Cartwright MD Primary Care Provider Encounter Details Date Type Department Care Team (Latest Contact Info) Description 04/17/2003 Outpatient Historical [facility] [address] [place] [phone] Tim Garcia MD [address] [address] URTICARIA NOS (Primary Dx); DERMATITIS NOS Social History Tobacco Use Types Packs/Day Years Used Date Smoking Tobacco: Never Assessed Comments Unknown Sex and Gender Information Value Date Recorded Sex Assigned at Not on file Legal Sex Female 3:51 AM FILLER FEEDER Gender Identity Not on file Sexual Orientation Not on file documented as of this encounter Plan of Treatment Not on file documented as of this encounter Visit Diagnoses Diagnosis Urticaria, unspecified- Primary Contact dermatitis and other eczema, due to unspecified cause documented in this encounter Care Teams Camp Guard Relationship Specialty Start Date End Date Yvan Cartwright MD [address] [place] [phone] PCP - General Family Practice 09/25/14 documented as of this encounter
--- OUTSIDE RECORDS SUMMARY | 2024-12-15 22:50 | XMS_ITS | Encounter Summary ---
Author Organization [facility] Address [address] [place] [address] Care Team Providers Care Cash Accountant Name Role Phone Yvan Cartwright MD Primary Care Provider [phone] Encounter Details Date Type Department Care Team (Latest Contact Info) Description 06/18/2003 Outpatient Historical [facility] [address] 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
--- OUTSIDE RECORDS SUMMARY | 2024-12-15 22:50 | XMS_ITS | Encounter Summary ---
Author Organization [facility] Address [address] [place] [address] Care Team Providers Care Chief Warden Name Role Phone Yvan Cartwright MD Primary Care Provider Encounter Details Date Type Department Care Team (Late st Contact Info) Description 02/13/2009 [facility] [address] [place] [phone] Denis Baer Radiculitis, Lumbosacral Social History Tobacco Use Types Packs/Day Years Used Date Smoking Tobacco: Former Cigarettes Q uit: 04/04/1995 Alcohol Use Standard Drinks/Week Comments No 0 (1 standard drink = 0.6 oz pur e alcohol) Comments No Sex and Gender Information Value Date Recorded Sex Assigned at Not on file Legal Sex Female 3:51 AM CENTERLESS GRINDING MACHINE ADJUSTER Gender Identity Not on file Sexual Orientation Not on file documented as of this encounter Plan of Treatment Not on file documented as of this encounter Results * XR FLUORO NEEDLE GUIDANCE (02/13/2009 12:54 PM CENTERLESS GRINDING MACHINE ADJUSTER) Anatomical Region Laterality Modality Computed Radiogr aphy Denis Baer DIAGNOSTIC IMAGING ORDERABLES Fi nal Result documented in this encounter Visit Diagnoses Diagnosis Radiculitis, lumbosacral Thoracic or lumbosacral neuritis or radiculitis, unspecified documented in this encounter Care Teams Chief Warden Relationship Specialty Start Date End Date Yvan Cartwright MD [address] [place] [address] PCP - General Family Practice 09/25/14 documented as of this encounter
--- OUTSIDE RECORDS SUMMARY | 2024-12-15 22:50 | XMS_ITS | Encounter Summary ---
Author Organization [facility] Address [address] [facility] Attn: Epic Prelude ADT AMY CORONEL [address] Care Team Providers Care Cellophane Bath Mixer Name Role Phone Yvan Cartwright MD Primary Care Provider [phone] Encounter Details Date Type Department Care Team (Late st Contact Info) Description 12/14/2001 Outpatient Historical Theodore Narayan MD NO ADDRESS ON FILE Social History Tobacco Use Types Packs/Day Years Used Date Smoking Tobacco: Never Assessed Comments Unknown Sex and Gender Information Value Date Recorded Sex Assigned at Not on file Legal Sex Female 3:51 AM 911 EMERGENCY DISPATCHER Gender Identity Not on file Sexual Orientation Not on file documented as of this encounter Plan of Treatment Not on file documented as of this encounter Visit Diagnoses Not on filedocumented in this encounter Care Teams Cellophane Bath Mixer Relationship Specialty Start Date End Date Yvan Cartwright MD [address], [place] [address] PCP - General Family Practice 09/25/14 documented as of this encounter
--- OUTSIDE RECORDS SUMMARY | 2024-12-15 22:50 | XMS_ITS | Encounter Summary ---
Author Organization [facility] Address [address] [place] [address] Care Team Providers Care Forensic Psychiatrist Name Role Phone Yvan Cartwrihgt MD Primary Care Provider [phone] Encounter Details Date Type Department Care Team (Latest Contact Info) Description 02/01/2008 Outpatient Historical [facility] Pain Management Procedures [address] [place] [phone] Denis Baer Personal History of Allergy to Penicillin; Personal History of Allergy to Sulfonamides Social History Tobacco Use Types Packs/Day Years Used Date Smoking Tobacco: Never Assessed Comments No Sex and Gender Information Value Date Recorded Sex Assigned at Not on file Legal Sex Female 3:51 AM SOCIAL SERVICE LIAISON Gender Identity Not on file Sexual Orientation Not on file documented as of this encounter Plan of Treatment Not on file documented as of this encounter Procedures Procedure Name Priority Date/Time Associated Diagnosis Comments XR FLUORO GREATER THAN 1 HOUR Routine 02/02/2008 10:08 AM CDT documented in this encounter Results * XR FLUORO > 1 HOUR (02/02/2008 10:08 AM CDT) Anatomical Region Laterality Modality Other 02/02/2008 10:0 8 AM CDT Narrative 02/02/2008 10:08 AM CDT Finalized by interface [employer] utility. No report expected. Procedure Note 04/14/2008 Finalized by interface [employer] utility. No report expected. us Denis Baer DIAGNOSTIC IMAGING ORDERABLES Fi nal Result documented in this encounter Visit Diagnoses Diagnosis Personal history of allergy to penicillin Personal history of allergy to sulfonamides documented in this encounter Care Teams Forensic Psychiatrist Relationship Specialty Start Date End Date Yvan Cartwright MD [address], [place] [address] PCP - General Family Practice 09/25/14 documented as of this encounter
--- OUTSIDE RECORDS SUMMARY | 2024-12-15 22:50 | XMS_ITS | Encounter Summary ---
Author Organization [facility] Address [address] [place] [address] Care Team Providers Care Terrazzo Grinder Name Role Phone Yvan Cartwright MD Primary Care Provider Encounter Details Date Type Department Care Team (Latest Contact Info) Description 11/06/[address] 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
--- OUTSIDE RECORDS SUMMARY | 2024-12-15 22:50 | XMS_ITS | Encounter Summary ---
Author Organization [facility] Address [address] [place] [address] Care Team Providers Care Boiler Service Technician Name Role Phone Yvan Cartwright MD Primary Care Provider [phone] Encounter Details Date Type Department Care Team (Latest Contact Info) Description 01/20/2005 Outpatient Historical 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
--- OUTSIDE RECORDS SUMMARY | 2024-12-15 22:50 | XMS_ITS | Encounter Summary ---
Author Organization [facility] Address [address] [place] [address] Care Team Providers Care Rehanger Name Role Phone Yvan Cartwright MD Primary Care Provider [phone] Encounter Details Date Type Department Care Team (Latest Contact Info) Description 03/26/2003 Outpatient [facility] Breast Center [facility] [address] [place] [address] Christopher Whitley, LANDFILL GRADER [address] [place] [address] SCREENING MAMM-MAILG NEOPL-OTHER (Primary Dx) Social History Tobacco Use Types Packs/Day Years Used Date Smoking Tobacco: Never Assessed Comments Unknown Sex and Gender Information Value Date Recorded Sex Assigned at Not on file Legal Sex Female 3:51 AM FLOUR BROKER Gender Identity Not on file Sexual Orientation Not on file documented as of this encounter Plan of Treatment Not on file documented as of this encounter Visit Diagnoses Diagnosis Other screening mammogram- Primary documented in this encounter Care Teams Rehanger Relationship Specialty Start Date End Date Yvan Cartwright MD [address] [place] [address] PCP - General Family Practice 09/25/14 documented as of this encounter
--- OUTSIDE RECORDS SUMMARY | 2024-12-15 22:50 | XMS_ITS | Encounter Summary ---
Author Organization [facility] Address [address] [place] [address] Care Team Providers Care Work Order Clerk Name Role Phone Yvan Cartwright MD Primary Care Provider [phone] Encounter Details Date Type Department Care Team (Latest Contact Info) Description 09/07/2000 Outpatient Historical [facility] Medicine [place] [address] [place] [address] Tim Garcia MD [address], [place] [address] Osteoarthrosis, unspecified whether generalized or localized, other specified sites (Primary Dx); Unspecified hypothyroidism Social History Tobacco Use Types Packs/Day Years Used Date Smoking Tobacco: Never Assessed Comments Unknown Sex and Gender Information Value Date Recorded Sex Assigned at Not on file Legal Sex Female 3:51 AM AMBULANCE ATTENDANT Gender Identity Not on file Sexual Orientation Not on file documented as of this encounter Plan of Treatment Not on file documented as of this encounter Visit Diagnoses Diagnosis Osteoarthrosis, unspecified whether generalized or localized, other specified sites- Primary Unspecified hypothyroidism documented in this encounter Care Teams Work Order Clerk Relationship Specialty Start Date End Date Yvan Cartwright MD [address] [place] [phone] PCP - General Family Practice 09/25/14 documented as of this encounter
--- OUTSIDE RECORDS SUMMARY | 2024-12-15 22:50 | XMS_ITS | Encounter Summary ---
Author Organization [facility] Address [address] [place] [address] Care Team Providers Care Kettle Hand Name Role Phone Yvan Cartwright MD Primary Care Provider [phone] Encounter Details Date Type Department Care Team (Latest Contact Info) Description 03/23/2002 Outpatient [facility] [address] [place] [address] Tim Garcia MD [address] [place] [phone] SCREENING MAMM-MAILG NEOPL-OTHER (Primary Dx) Social History Tobacco Use Types Packs/Day Years Used Date Smoking Tobacco: Never Assessed Comments Unknown Sex and Gender Information Value Date Recorded Sex Assigned at Not on file Legal Sex Female 3:51 AM SILO MAN Gender Identity Not on file Sexual Orientation Not on file documented as of this encounter Plan of Treatment Not on file documented as of this encounter Visit Diagnoses Diagnosis Other screening mammogram- Primary documented in this encounter Care Teams Kettle Hand Relationship Specialty Start Date End Date Yvan Cartwright MD [address] [place] [phone] PCP - General Family Practice 09/25/14 documented as of this encounter
--- OUTSIDE RECORDS SUMMARY | 2024-12-15 22:50 | XMS_ITS | Encounter Summary ---
Author Organization [facility] Address [address] [place] [address] Care Team Providers Care Roller Engraver Name Role Phone Yvan Cartwright MD Primary Care Provider [phone] Encounter Details Date Type Department Care Team (Latest Contact Info) Description 01/12/2005 Outpatient Historical [facility] Medicine [place] [address] [place] [phone] Tim Garcia MD [address] [place] [address] Vaccine for influenza (Primary Dx) Social History Tobacco Use Types Packs/Day Years Used Date Smoking Tobacco: Never Assessed Comments Unknown Sex and Gender Information Value Date Recorded Sex Assigned at Not on file Legal Sex Female 3:51 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
--- OUTSIDE RECORDS SUMMARY | 2024-12-15 22:50 | XMS_ITS | Encounter Summary ---
Author Organization [facility] Address [address] [place] [address] Care Team Providers Care Client Services Specialist Name Role Phone Yvan Cartwright MD Primary Care Provider [phone] Encounter Details Date Type Department Care Team (Latest Contact Info) Description 01/26/2002 Outpatient Historical [facility] Medicine [place] [address] [place] [phone] Tim Garcia MD [address] [place] [phone] OSTEOPOROSIS NOS (Primary Dx); VACCINE FOR INFLUENZA Social History Tobacco Use Types Packs/Day Years Used Date Smoking Tobacco: Never Assessed Comments Unknown Sex and Gender Information Value Date Recorded Sex Assigned at Not on file 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 Sex Female 3:51 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
--- OUTSIDE RECORDS SUMMARY | 2024-12-15 22:50 | XMS_ITS | Encounter Summary ---
Author Organization [facility] Address [address] [place] [address] Care Team Providers Care Chemotherapist Name Role Phone Yvan Cartwright MD Primary Care Provider Encounter Details Date Type Department Care Team (Latest Contact Info) Description 08/08/2000 Outpatient Historical [facility] Medicine [place] [address] [place] [phone] Tim Garcia MD [address] [place] [address] Pneumonia, organism unspecified(486) (Primary Dx); Chest pain, unspecified Social History Tobacco Use Types Packs/Day Years Used Date Smoking Tobacco: Never Assessed Comments Unknown Sex and Gender Information Value Date Recorded Sex Assigned at Not on file Legal Sex Female 3:51 AM HAND I 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
--- OUTSIDE RECORDS SUMMARY | 2024-12-15 22:50 | XMS_ITS | Encounter Summary ---
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
--- OUTSIDE RECORDS SUMMARY | 2024-12-15 22:50 | XMS_ITS | Encounter Summary ---
Author Organization [facility] Address [address] [place] [address] Care Team Providers Care Policy Issue Clerk Name Role Phone Yvan Cartwright MD Primary Care Provider [phone] Encounter Details Date Type Department Care Team (Latest Contact Info) Description 01/25/2003 Outpatient Historical [facility] Medicine [place] [address] [place] [phone] Argentina Cifuentes MD [address] [place] [address] Vaccine for influenza (Primary Dx) Social History Tobacco Use Types Packs/Day Years Used Date Smoking Tobacco: Never Assessed Comments Unknown Sex and Gender Information Value Date Recorded Sex Assigned at Not on file 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
--- OUTSIDE RECORDS SUMMARY | 2024-12-15 22:50 | XMS_ITS | Encounter Summary ---
Author Organization [facility] Address [address] [place] [address] Care Team Providers Care Table Attendant Name Role Phone Yvan Cartwrihgt MD Primary Care Provider [phone] Encounter Details Date Type Department Care Team (Late st Contact Info) Description 02/08/2008 Outpatient Historical [facility] DEFAULT DEPARTMENT Shailesh Abbasi MD [address] [place] [address] Social History Tobacco Use Types Packs/Day Years Used Date Smoking Tobacco: Never Assessed Comments No Sex and Gender Information Value Date Recorded Sex Assigned at Not on file Legal Sex Female 3:51 AM PRESIDENT & FOUNDER Gender Identity Not on file Sexual Orientation Not on file documented as of this encounter Plan of Treatment Not on file documented as of this encounter Visit Diagnoses Not on filedocumented in this encounter Care Teams Table Attendant Relationship Specialty Start Date End Date Yvan Cartwright MD [address] [place] [phone] PCP - General Family Practice 09/25/14 documented as of this encounter
--- OUTSIDE RECORDS SUMMARY | 2024-12-15 22:50 | XMS_ITS | Encounter Summary ---
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; Congenital Spondylolisthesis Social History Tobacco Use Types Packs/Day Years Used Date Smoking Tobacco: Never Assessed Comments No Sex and Gender Information Value Date Recorded Sex Assigned at Not on file Legal Sex Female 3:51 AM RADIOLOGIC TECHNICIAN Gender Identity Not on file Sexual Orientation Not on file documented as of this encounter Plan of Treatment Not on file documented as of this encounter Visit Diagnoses Diagnosis Pain in limb Congenital spondylolisthesis documented in this encounter Care Teams Store Custodian Relationship Specialty Start Date End Date Yvan Cartwright MD [address] [place] [address] PCP - General Family Practice 09/25/14 documented as of this encounter
--- OUTSIDE RECORDS SUMMARY | 2024-12-15 22:50 | XMS_ITS | Encounter Summary ---
Author Organization [facility] Address [address] [place] [address] Care Team Providers Care Toolroom Machinist Name Role Phone Yvan Cartwright MD Primary Care Provider [phone] Encounter Details Date Type Department Care Team (Latest Contact Info) Description 02/01/2001 Outpatient Historical [facility] Medicine [place] [address] [place] [phone] Tim Garcia MD [address] [place] [phone] VACCINE FOR INFLUENZA (Primary Dx) Social History Tobacco Use Types Packs/Day Years Used Date Smoking Tobacco: Never Assessed Comments Unknown Sex and Gender Information Value Date Recorded Sex Assigned at Not on file 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
--- OUTSIDE RECORDS SUMMARY | 2024-12-15 22:50 | XMS_ITS | Encounter Summary ---
Author Organization [facility] Address [address] Nolann: Epic Prelude ADT [place] [address] Care Team Providers Care Tribal Delegate Name Role Phone Yvan Cartwright MD Primary Care Provider [phone] Encounter Details Date Type Department Care Team (Late st Contact Info) Description 02/08/2001 Outpatient Historical Christopher Whitley, SECRETARY RECEPTIONIST [address] [place] [address] Social History Tobacco Use Types Packs/Day Years Used Date Smoking Tobacco: Never Assessed Comments Unknown Sex and Gender Information Value Date Recorded Sex Assigned at Not on file Legal Sex Female 3:51 AM PHARMACY BILLING ADJUDICATOR Gender Identity Not on file Sexual Orientation Not on file documented as of this encounter Plan of Treatment Not on file documented as of this encounter Visit Diagnoses Not on filedocumented in this encounter Care Teams Tribal Delegate Relationship Specialty Start Date End Date Yvan Cartwright MD [address], [place] [address] PCP - General Family Practice 09/25/14 documented as of this encounter
--- OUTSIDE RECORDS SUMMARY | 2024-12-15 22:50 | XMS_ITS | Encounter Summary ---
Author Organization [facility] Address [address] [place] [address] Care Team Providers Care Mold Yard Supervisor Name Role Phone Yvan Cartwright MD Primary Care Provider [phone] Encounter Details Date Type Department Care Team (Late st Contact Info) Description 04/12/2008 Ancillary Orders [facility] [address] [facility] [address] [place] [address] Argentina Cifuentes MD [address] [place] [phone] Screening Mammogram Social History Tobacco Use Types Packs/Day Years Used Date Smoking Tobacco: Never Assessed Comments No Sex and Gender Information Value Date Recorded Sex Assigned at Not on file Legal Sex Female 3:51 AM 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
--- OUTSIDE RECORDS SUMMARY | 2024-12-15 22:50 | XMS_ITS | Encounter Summary ---
Author Organization [facility] Address [address] [place] [address] Care Team Providers Care Automotive General Sales Manager Name Role Phone Yvan Cartwright MD Primary Care Provider Encounter Details Date Type Department Care Team (Late st Contact Info) Description 06/18/2003 Emergency [facility] Emergency Department [address] [place] [phone] Garry Armijo MD NO ADDRESS ON FILE CONTUSION FACE/SCALP/NCK (Primary Dx) Social History Tobacco Use Types Packs/Day Years Used Date Smoking Tobacco: Never Assessed Comments Unknown Sex and Gender Information Value Date Recorded Sex Assigned at Not on file Legal Sex Female 3:51 AM TELECOM NETWORK MANAGER Gender Identity Not on file Sexual Orientation Not on file documented as of this encounter Plan of Treatment Not on file documented as of this encounter Visit Diagnoses Diagnosis Contusion of face, scalp, and neck except eye(s)- Primary documented in this encounter Care Teams Automotive General Sales Manager Relationship Specialty Start Date End Date Yvan Cartwright MD [address] [place] [phone] PCP - General Family Practice 09/25/14 documented as of this encounter
--- OUTSIDE RECORDS SUMMARY | 2024-12-15 22:50 | XMS_ITS | Clinical Summary ---
Author Organization [facility] tone Address [address] 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 Name Role Phone Yvan Cartwright MD Primary Care Provider [phone] Allergies Active Allergy Reactions Criticality Noted Date Comments Aspirin-Dipyridamole Nausea and Vomiting Low 2019 Ciprofloxacin Rash Low 01/11/2008 Codeine Itching,Dizziness Low 01/11/2008 Heparin Nausea and Vomiting High 05/04/2019 Per pt's daughter Naproxen Nausea and Vomiting Low 01/11/2008 Penicillins Nausea and Vomiting Low 01/11/2008 Sulfa (Sulfonamide Antibiotics) Rash Low 01/11/2008 Tramadol Nausea and Vomiting,Other (See Comments) High 07/18/2019 Patients daughter states she gets very sleepy and nauseaous Medications nitroglycerin (NITROSTAT) 0.4 mg Tablet, Sublingual Place 1 Tablet (0.4 mg) under tongue every 5 minutes as needed for Chest Pain. 100 Tablet 05/26/19 19 Active Back BraceIndications :DDD (degenerative disc disease), lumbar For daily use to support lower back and reduce pain.. 1 Each 11/02/19 19 Active methocarbamol (ROBAXIN) 500 mg tablet TAKE 1 TABLET FOUR TIMES A DAY NEEDED FOR SPASM 120 Tablet 12 02/14/20 19 Active ondansetron (ZOFRAN) 4 mg Tablet Take 1 Tablet (4 mg) by mouth every 12 hours as needed for Nausea/Emesis. 30 Tablet 03/20/20 19 Active Lidocaine 4 % Adhesive Patch, Medicated Apply only once for up to 24 hours within a 24 hour period. Patches may be cut into smaller sizes with scissors prior to the removal of the release liner. Clothing may be worn over the area of application. For more information use the [employer] ADMINISTRATION link. 10 Patch 05/06/19 20 Active Saccharomyces boulardii (FLORASTOR) 250 mg Capsule Take 1 Capsule (250 mg) by mouth 2 times daily. 60 Capsule 05/06/19 20 Active aspirin (ECOTRIN EC) 81 mg Tablet, Delayed Release (E.C.) Take 1 Tablet (81 mg) by mouth 2 times daily with meals. 05/07/19 20 Active MYRBETRIQ 25 mg Extended Release 24 hour tablet Take 1 Tablet (25 mg) by mouth daily. 90 Tablet 3 07/26/19 20 Active OTHER VITAMINS AND SUPPLEMENTS Active ferrous fumarate (FERRETTS) 325 mg (106 mg iron) Tablet Take 325 mg by mouth daily. Active guaiFENesin (Mucinex) Tablet Extended Release 12hr Take 1 Tablet (1,200 mg) by mouth every 12 hours. 60 Tablet 11/15/19 20 Active sennosides-docus ate sodium (SENNA-S) 8.6-50 mg tablet Take 1 Tablet by mouth 2 times daily. 60 Tablet 11/15/19 20 Active polyethylene glycol (MIRALAX) 17 gram Powder in Packet Take 1 Packet (17 Grams) by mouth 1 time daily as needed for Constipation. 10 Packet 11/15/19 20 Active magnesium hydroxide (milk of magnesia) 400 mg/5 mL suspension Take 30 mL by mouth 1 time daily as needed for Constipation. Active bisacodyL (DULCOLAX) 5 mg Delayed Release tablet Take 20 mg by mouth 1 time daily as needed for Constipation. Active bisacodyL (DULCOLAX) 10 mg Suppository Insert 10 mg by rectum 1 time daily as needed for Constipation. Active magnesium citrate solution Take 148 mL by mouth one time as needed for Constipation. Active calcium carb/magnesium hydrox (MYLANTA ORAL) Take 30 mL by mouth every 2 hours as needed for Other (See Comment) (indigestion). Active albuterol HFA 90 mcg inhaler Take 2 Puffs by inhalation every 6 hours as needed for Shortness of Breath. Active cholecalciferol, vitamin D3, (D3-2000 ORAL) Take by mouth. Active omeprazole (PriLOSEC) 20 mg Capsule, Delayed Release(E.C.) Take 20 mg by mouth daily. Active ibandronate (BONIVA) 150 mg tabletIndication s:Age related osteoporosis, unspecified pathological fracture presence TAKE 1 TABLET EVERY 30 DAYS 3 Tablet 3 12/19/19 20 Active clopidogreL (PLAVIX) 75 mg Tablet Take 1 Tablet (75 mg) by mouth daily. 90 Tablet 1 01/18/20 20 Active primidone (MYSOLINE) 50 mg tabletIndication s:Benign essential tremor TAKE 2 TABLETS BY MOUTH TWICE DAILY FOR TREMORS 120 Tablet 5 04/05/19 21 Active atorvastatin (LIPITOR) 10 mg tablet TAKE 1 TABLET BY MOUTH ONCE DAILY WITH SUPPER 90 Tablet 3 04/03/20 20 Active citalopram (CeleXA) 20 mg tablet TAKE 1 TABLET BY MOUTH ONCE DAILY AT BEDTIME 90 Tablet 1 07/05/19 21 Active furosemide (LASIX) 20 mg tablet Take 1 tablet by mouth once daily 90 Tablet 1 07/05/19 21 Active amitriptyline (ELAVIL) 50 mg tablet TAKE 1 TABLET BY MOUTH ONCE DAILY AT BEDTIME 90 Tablet 1 07/05/19 21 Active LEVOTHYROXINE 75 mcg tabletIndication s:Hypothyroidism , unspecified type Take 1 tablet by mouth once daily 90 Tablet 1 07/05/19 21 Active acetaminophen (TYLENOL) 500 mg tablet Take 2 Tablets (1,000 mg) by mouth every 8 hours. 07/15/19 21 Active oxyCODONE (ROXICODONE) 5 mg tabletIndication s:Closed fracture of right distal femur (CMS/HCC) Take 1 Tablet (5 mg) by mouth every 6 hours as needed for Pain. Max Daily Amount: 20 mg 20 Tablet 07/15/19 21 Active overnight pulse oximetry Overnight pulse oximetry: One time overnight pulse oximetry test on room air FAX ORDER TO [facility] 1 Each 08/26/19 21 Active oxygen home deliveryIndicati ons:Panlobular emphysema (CMS/HCC),Noctur nal hypoxemia FAX TO [facility] Home Oxygen Concentrator yes at 0 L/M Rest, 0 L/M Activity, 2 L/M Sleep, Delivery Device: Nasal Cannula Portability: no, 0 L/M Rest, 0 L/M Activity, May provide device best for patient needs (E system,home fill, conserving device) Length of Need: 99 months SPO2 86% overnight on home oxygen study 1 Each 09/16/19 Active gabapentin (NEURONTIN) 300 mg capsule TAKE ONE CAPSULE BY MOUTH LATE IN THE DAY 90 Capsule 09/17/19 21 Active rOPINIRole (REQUIP) 1 mg tablet TAKE 1 TABLET BY MOUTH ONCE DAILY AT BEDTIME FOR RESTLESS LEGS 30 Tablet 5 09/18/19 21 Active busPIRone (BUSPAR) 7.5 mg Tablet TAKE 1 TABLET BY MOUTH TWICE DAILY FOR ANXIETY PREVENTION 180 Tablet 09/17/19 21 Active Active Problems Problem Noted Date Diagnosed Date Nocturnal hypoxemia 09/15/2020 Chronic congestive heart failure 07/12/2020 Simple chronic bronchitis 07/12/2020 Closed nondisplaced peripros thetic fracture of right distal femur 07/11/2020 Overview (07/12/2020): Added automatically from request for surgery [id number] S/P total knee arthroplasty, right 11/10/2019 Dyslipidemia 10/26/2019 Anxiety 10/26/2019 Primary osteoarthritis of right knee 10/26/2019 History of postoperative nausea and vomiting Hyponatremia 10/25/2019 Traumatic arthritis of right knee 08/22/2019 Protein-calorie malnutrition, moderate 0 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 03/07/2019 History of aortic stenosis 11/21/2018 Status post insertion of bola g-eluting stent into left anterior descending (LAD) artery 04/201811/21/2018 Chronic neck pain 10/18/2018 Chronic anemia 07/20/2018 Diastolic congestive heart failure 05/23/2018 Status post transcatheter ao rtic valve replacement (TAVR) using bioprosthesis 04/29/2018 Mitral valve regurgitation 04/25/2018 Hx of non-ST elevation myocardial infarction (NS ANNE) 04/18/2018 Panlobular emphysema 04/18/2018 Benign essential tremor 03/01/2017 Vitamin D deficiency 10/03/2015 History of vertigo 10/03/2015 Primary hypothyroidism 12/09/2014 Osteopenia 01/09/2013 Lumbosacral spondylosis without myelopathy 04/25 Stenosis, spinal, lumbar 04/25/2012 Sacroiliac joint pain 04/25/2012 Mixed stress and urge urinary incontinence 12/26 History of anemia 07/10/2009 Lumbar radicular pain 02/13/2009 Allergic rhinitis 08/28/2008 Disorder of sacrum 06/12/2008 DDD (degenerative disc disease), lumbar 01/11/20 08 Restless leg syndrome 01/11/2008 GERD (gastroesophageal reflux disease) 8 Migraine 01/11/2008 ASHD (arteriosclerotic heart disease) Preoperative general physical examination Resolved Problems Problem Noted Date Diagnosed Date Resolved Date Closed fracture of lateral p ortion of right tibial plateau, DOI 05/03/2019 05/04/2019 02/21/2020 Aortic valve regurgitation 04/25/2018 0 05/23/2018 Overview (04/30/2018): Surgical bioprosthetic valve failure, severe. Trifecta Pleural effusion on right 04/24/2018 Pleural effusion, bilateral 04/24/2018 05/23/2018 Acute on chronic diastolic heart failure 04/23/2018 02/26/2020 Failure to thrive in adult 04/19/2018 0 05/23/2018 Pulmonary cachexia due to COPD 04/19/2018 05/23/2018 Weight loss 04/19/2018 05/23/2018 Moderate protein-calorie malnutrition 04/19/2018 05/23/2018 Acute on chronic respiratory failure with hypoxia 04/18/2018 02/26/2020 Pneumonia due to infectious organism likely gram negative bacterial pneumonia 04/18/20182018 S/P TAVR (transcatheter aort ic valve replacement) 01/16/2018 11/21/2018 Chronic diarrhea 11/24/2017 05/23/2018 Hypokalemia 10/02/2015 05/23/2018 Fall at home 10/02/2015 05/23/2018 Closed fracture of neck of right femur 10/02/2015 05/23/2018 Urinary frequency 07/12/2012 05/23/2018 Aortic stenosis, severe 08/25/201105/05 Diarrhea 12/11/2009 05/23/2018 Weight loss, unintentional 12/11/2009 0 05/23/2018 Acute congestive heart failure 05/23/2018 Aortic prosthetic valve regurgitation 05/23/2018 Immunizations Immunization Administration Dates Next Due (PNEUMOVAX 23)(50 YRS UP) PN EUMOCOCCAL POLYSACCHARIDE (PPV23) 0.5 ML, IM 01/07/2014,01/25/2007 (PREVNAR 13)(6 WKS UP) PNEUM OCOCCAL CONJUGATE (PCV13) 0.5 ML, IM 04/19/2018 INFLUENZA VACCINE HIGH DOSE QUADRIVALENT 65 YR UP PF IM 12/19/2019 INFLUENZA VACCINE QUADRIVALE NT 3 YR UP PF IM 01/10/2015 Influenza Seasonal Unspecifi ed Formulation IM 12/04/2015,01/11/2008,01/18/2007,02/28,01/12/2005,01/22/2004,01/25/2003 ,01/26/2002,02/01/2001 Influenza Vaccine High Dose 65+ Yrs IM 9,01/10/2019,03/07/2018 Influenza Vaccine Quad Split 3+ Yrs Im 4 Influenza Vaccine Quad Split 6-35 Mo Pf Im 01/07/2014 Influenza Vaccine Split 3+ Yrs IM 01/06/2011,08/2008,01/11/2008 Influenza Vaccine Tri Split 4+ Im 12/04/2015 Zoster Vaccine Live SQ Patie nt Supplied 01/13/2009 Family History Medical History Relation Name Comments Healthy Brother Respiratory Disease Daughter 1 Healthy Daughter 2 Healthy Daughter 3 Heart Disease Father Arthritis-osteo Mother Other Mother Diabetes Sister Healthy Son 1 Healthy Son 2 Breast Cancer Neg Hx Colon Cancer Neg Hx Relation Name Status Comments Brother Alive Daughter 1 Alive Daughter 2 Alive Daughter 3 Alive Father Mother Sister Son 1 Alive Son 2 Alive Social History Tobacco Use Types Packs/Day Years Used Date Smoking Tobacco: Former Cigarettes 2.5 30 0 04/04/1965 - 04/04/1995 Smokeless Tobacco: Never Tobacco Cessation:Counseling Given: No Alcohol Use Standard Drinks/Week Comments Yes 0 (1 standard drink = 0.6 oz pure alcohol) 1 glass of wine every 2 or 3 weeks Social Connections Answer Date Recorded In a typical week, how many times do you talk on the phone with family, friends, or neighbors? More than three times a week 02/21/2020 How often do you get togethe r with friends or relatives? More than three times a week 02/21/2020 How often do you attend [facility] or [facility] services? Never 02/21/2020 Do you belong to any clubs o r organizations such as jain groups, unions, fraternal or athletic groups, or school groups? Yes 02/21/2020 Attends Club or Organization Meetings Not on kristin e 02/21/2020 Marital Status Not on file 02/21/2020 Financial Resource Strain Answer Date R ecorded How hard is it for you to pa y for the very basics like food, housing, medical care, and heating? Not hard at all 02/21/2020 Food Insecurity Answer Date Recorded Within the past 12 months, y ou worried that your food would run out before you got the money to buy more. Never true 02/21/20 20 Within the past 12 months, t he food you bought just didn't last and you didn't have money to get more. Never true 02/21/2020 Transportation Needs Answer Date Record ed In the past 12 months, has l ack of transportation kept you from medical appointments or from getting medications? No 02/02 In the past 12 months, has l ack of transportation kept you from meetings, work, or from getting things needed for daily living? No 02/21/2020 Education Answer Date Recorded What is the highest level of school you have completed or the highest degree you have received? High school graduate 02/21/2020 Comments No Sex and Gender Information Value Date Recorded Sex Assigned at Not on file Legal Sex Female 3:51 AM IP LITIGATION PARALEGAL Gender Identity Not on file Sexual Orientation Not on file Occupation Industry Job Start Date Job End Date Not on file Not on file Not on file Not on file Last Filed Vital Signs Vital Sign Reading Time Taken Comments Blood Pressure 124/88 09/04/2020 1:14 PM CDT Pulse 93 08/04/2020 2:13 PM CDT Temperature 36 C (96.8 F) 08/04/2020 2:13 PM CDT Respiratory Rate 16 07/15/2020 7:28 AM CDT Oxygen Saturation 95% 08/04/2020 2:13 PM CDT Inhaled Oxygen Concentration - - Weight 59.9 kg (132 lb) 09/04/2020 1:14 PM CDT Height 165.1 cm (5' 5 ) 09/04/2020 1:14 PM CDT Body Mass Index 21.97 09/04/2020 1:14 PM CDT Plan of Treatment Health Maintenance Due Date Last Done Comments DTAP/TDAP/TD VACCINES (1 - Tdap) 12/09/1954 ZOSTER VACCINE (2 of 3) 03/10/2009 01/13/2009 RSV VACCINE (60+ or ) (1 - 1-dose 75+ series) 12/09/2011 OSTEOPOROSIS SCREENING 05/20/2016 2, 05/20/2011, 11/19/2008 [place] Preventative Visit/Annual Wellness Visit 04/04/2024 01/24/2024, 02/21/2020, 04/07/2018, Additional history exists INFLUENZA VACCINE (#1) 2024 0, 01/10/2019, 01/10/2019, Additional history exists PNEUMOCOCCAL VACCINE 50+ YEARS Completed 0 04/19/2018, 01/07/2014, 01/25/2007 Medical Devices Implanted Type Area Machine Group Leader Device Identifier Shelf Expiration Date Model / Serial / Lot Hafsa S 6215-5-001 - [id number] Implanted:Qty: 1 on 10/03/2015 by Hardik Samuel MD at [facility] Bone Right: Hip BREANNA- Sky FrequencyMEDICA INT INC 08/05/2020 6215-5-001 / / [id number] Cement Simplex Hvisc 6194-1-010 - [id number] Implanted:Qty: 1 on 11/09/2019 by Radha Iraheta MD at [facility] Cement Right: Knee BREANNA- Sky FrequencyMEDICA INT INC [id number] 01/01/2021 6194-1-010 / / [id number] Cement Simplex Hvisc 6194-1-010 - [id number] Implanted:10/2019 by Radha Iraheta MD at [facility] (Quantity not on file) Cement Right: Knee BREANNA- Sky FrequencyMEDICA INT INC [id number] 01/01/2021 6194-1-010 / / [id number] [place] Ptfe Thck 1.6mmx2.5x10.2 cm 667678 - [id number] Implanted:Qty: 1 on 08/25/2011 at [facility] Graft N/A: Heart CR BARD- DEMETRIA VASC INC 03/25/2016 [id number] / / [id number] Description:Pledgetts on hea rt Stem Fem Echo Fx 7mm 967304 - [id number] Implanted:Qty: 1 on 10/03/2015 by Hardik Samuel MD at [facility] Hip Right: Hip BI[employer]ET INC 09/01/2025307 / / [id number] Centralizer Dist 10mm 102804 - [id number] Implanted:Qty: 1 on 10/03/2015 by Hardik Samuel MD at [facility] Hip Right: Hip [employer] INC 09/30/2024 [id number] / / [id number] Liner Acet Bipolar 20b11on [id number] Implanted:Qty: 1 on 10/03/2015 by Hardik Samuel MD at [facility] Hip Right: Hip [employer] 01/02/2019 / / [id number] Head Fem Mod Cocr 28mm +3mm [id number] - [id number] Implanted:Qty: 1 on 10/03/2015 by Hardik Samuel MD at [facility] Hip Right: Hip [employer] INC 10/02/2022 [id number] / / [id number] Comp Tib Attune Rev Sz5 1506-40-005 - [id number] Implanted:Qty: 1 on 11/09/2019 by Radha Iraheta MD at [facility] Knee Right: Knee J&J- [employer] [id number] 03/03/2027 [id number] / / [id number] Comp Tib Attune Rev 00g24eg 1512-14-050 - [id number] Implanted:Qty: 1 on 11/09/2019 by Radha Iraheta MD at [facility] Knee Right: Knee J[employer]J- [employer] [id number] 03/03/2028 [id number] / / [id number] Plate Fem Lat/Dis/Loc 4.5mm 0201-6605 - [id number] Implanted:Qty: 1 on 07/12/2020 by Jayjay Cornejo MD at [facility] Plate Right: Femur DOMINGUEZ NEPHEW ORTHO [id number] / / Screw Jacob T25 St 4.5x40mm 6635-0848 - [id number] Implanted:Qty: 1 on 07/12/2020 by Jayjay Cornejo MD at [facility] Screw Right: Femur [employer]ING[employer]Z [employer]PHEW [employer]O [id number] / / Screw T25 St Loc 4.5x70mm 3539-6416 - [id number] Implanted:Qty: 1 on 07/12/2020 by Jayjay Cornejo MD at [facility] Screw Right: Femur DOMINGUEZ NEPHEW ORTHO [id number] / / Screw Jacob T25 St 4.5x36mm 6523-9838 - [id number] Implanted:Qty: 1 on 07/12/2020 by Jayjay Cornejo MD at [facility] Screw Right: Femur DOMINGUEZ [employer]PHEW [employer]O [id number] / / Screw T25 St Loc 4.5x68mm 2553-2681 - [id number] Implanted:Qty: 1 on 07/12/2020 by Jayjay Cornejo MD at [facility] Screw Right: Femur [employer]Z [employer]W [employer]O [id number] / / Screw T25 St Loc 4.5x22mm 6282-7860 - [id number] Implanted:Qty: 1 on 07/12/2020 by Jayjay Cornejo MD at [facility] Screw Right: Femur DOMINGUEZ [employer]PHEW [employer]O [id number] / / Screw T25 St Loc 4.5x74mm 3895-8937 - [id number] Implanted:Qty: 1 on 07/12/2020 by Jayjay Cornejo MD at [facility] Screw Right: Femur [employer]PHE[employer]O [id number] / / Screw Jacob T25 St 4.5x30mm 9329-8268 - [id number] Implanted:Qty: 1 on 07/12/2020 by Jayjay Cornejo MD at [facility] Screw Right: Femur [employer]O [id number] / / Screw Jacob T25 St 4.5x32mm 7675-7646 - [id number] Implanted:Qty: 1 on 07/12/2020 by Jayjay Cornejo MD at [facility] Screw Right: Femur DOMINGUEZ [employer]PHEW [employer]THO [id number] / / [id number]- 9 Implanted:Qty: 1 on 05/01/2018 by James Dominguez MD Stent [employer] [id number] 01/02/2020 / / [id number] Valve Aortic Trifecta 23mm Tf-23a - [id number] Implanted:Qty: 1 on 08/24/2011 by Yeyo Munroe MD at [facility] Valve N/A: Aorta ST [employer] INC 11/10/2012 TF-23A / [id number] / Attune Patella 32mm Implanted:Qty: 1 on 11/09/2019 by Radha Iraheta MD at [facility] Right: Knee 06/01/2024 DEPUY - 1518-10-032 / / [id number] Femoral Posterior Stabilized Narrow Implanted:Qty: 1 on 11/09/2019 by Radha Iraheta MD at [facility] Right: Knee 10/01/2029 DEPUY - 1504-10-225 / / [id number] Tib Insert Fixed Posterior Size5-8mm Implanted:Qty: 1 on 11/09/2019 by Radha Iraheta MD at [facility] Right: Knee 11/02/2023 DEPUY - 1516-40-508 / / [id number] Explanted Type Area Machine Group Leader Device Identifier Shelf Expiration Date Model / Serial / Lot Mix Kyphon Cx01b - [id number] Explanted:Qty: 1 on 03/07/2019 at [facility] Cement MEDTRONIC - SPINAL fka KYPHON CX01B / / [id number] Description:the implant is t he kyphon bone cement REF CX01A Lot [id number] exp 08/01/2021 Cmnt Crtrdg Kyphon Balln Kyphoplasty Cc02a - Csc - Sna Explanted:Qty: 1 on 03/07/2019 at [facility] Integral MEDTRONIC - SPINAL fka KYPHON CC02A / NA / [id number] Description:this is not an i mplant documented in this section per Lynne Milligan Director of Surgical Services. Cement Kyphon Gun Sz3 Cds3a - Sna Explanted:Qty: 1 on 03/07/2019 at [facility] Integral MEDTRON[employer] - SPINAL fka KYPHON 09/15/2019 CDS3A / NA / [id number] Description:This is not an i mplant documented in this section Per Lynne Milligan Director of Surgical Services Screw Jacob T25 St 4.5x28mm 4610-1099 - [id number] Explanted:Qty: 1 on 07/12/2020 by Jayjay Cornejo MD at [facility] Screw Right: Femur DOMINGUEZ NEPHEW ORTHO [id number] / / Screw Jacob T25 St 4.5x76mm 7694-0190 - [id number] Explanted:Qty: 1 on 07/12/2020 by Jayjay Cornejo MD at [facility] Screw Right: Femur DOMINGUEZ NEPHEW ORTHO [id number] / / Screw Jacob T25 St 4.5x56mm 0794-8540 - [id number] Explanted:Qty: 1 on 07/12/2020 by Jayjay Cornejo MD at [facility] Screw Right: Femur DOMINGUEZ NEPHEW ORTHO [id number] / / Procedures Procedure Name Priority Date/Time Associated Diagnosis Comments XR DEXA BONE DENSITY AXIAL 1 OR MORE SITES Routine 05/20/2011 12:22 PM IP LITIGATION PARALEGAL Osteopenia from Last 3 Months or Most Recently Relevant to Health Maintenance Results * XR DEXA BONE DENSITY AXIAL 1 OR MORE SITES (05/20/2011 12:22 PM IP LITIGATION PARALEGAL) Anatomical Region Laterality Modality Nuclear Medicine 05/20/2011 12:0 4 PM IP LITIGATION PARALEGAL Impressions 05/21/2011 9:25 AM IP LITIGATION PARALEGAL Impression: The patient does not have osteoporosis at this time, however, she does have potentially significant osteopenia of the left hip. This puts her at an increased risk for fragility fracture this region. Therapeutic measures might be continued in an effort to prevent further bone mineral loss. Consideration might also be given to repeating this examination in approximately two years. Narrative 05/21/2011 9:25 AM IP LITIGATION PARALEGAL DEXA Evaluation of the Lumbar Spine and Left Proximal Femur: Reason for Consultation: History of osteopenia. Fosamax therapy. Evaluation of bone mineral density. The following absorptiometry data were obtained. The overall technical quality of the study is good. Serial measurement number one. L1 Through L4 BMD (g/cm2): 1.079 Young adult %: 91 Adult T-score: -0.8 Adult Z-score: 1.1 Left Femoral Neck BMD (g/cm2): 0.771 Young adult %: 74 Adult T-score: -1.9 Adult Z-score: 0.1 Left Total Hip BMD (g/cm2): 0.776 Young adult %: 77 Adult T-score: -1.8 Adult Z-score: 0.0 The patient demonstrates normal bone mineral density of the trabecular bone of the lumbar spine. The amount of mineral is equivalent to a young normal, age 20 to 40. The patient demonstrates moderate osteopenia of the neck and total hip regions of the left hip. Procedure Note Qamar Ovalle MD - 05/21/2011 DEXA Evaluation of the Lumbar Spine and Left Proximal Femur: Reason for Consultation: History of osteopenia. Fosamax therapy. Evaluation of bone mineral density. The following absorptiometry data were obtained. The overall technical quality of the study is good. Serial measurement number one. L1 Through L4 BMD (g/cm2): 1.079 Young adult %: 91 Adult T-score: -0.8 Adult Z-score: 1.1 Left Femoral Neck BMD (g/cm2): 0.771 Young adult %: 74 Adult T-score: -1.9 Adult Z-score: 0.1 Left Total Hip BMD (g/cm2): 0.776 Young adult %: 77 Adult T-score: -1.8 Adult Z-score: 0.0 The patient demonstrates normal bone mineral density of the trabecular bone of the lumbar spine. The amount of mineral is equivalent to a young normal, age 20 to 40. The patient demonstrates moderate osteopenia of the neck and total hip regions of the left hip. IMPRESSION Impression: The patient does not have osteoporosis at this time, however, she does have potentially significant osteopenia of the left hip. This puts her at an increased risk for fragility fracture this region. Therapeutic measures might be continued in an effort to prevent further bone mineral loss. Consideration might also be given to repeating this examination in approximately two years. 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 Advance Directive POA 03/05/2019 10:00 AM Advance Directive POA 08/23/2011 3:22 PM A dvance Directive POA Advance Directive Living Will 08/23/2011 * Full Code (Latest Code Status on File) Date Activated Date Inactivated Comments 07/11/2020 9:13 PM 07/15/2020 3:33 PM * Full Code Date Activated Date Inactivated Comments 11/09/2019 10:03 AM 11/09/2019 3:28 PM * Full Code Date Activated Date Inactivated Comments 05/03/2019 10:42 PM 05/07/2019 6:38 PM * Full Code Date Activated Date Inactivated Comments 03/07/2019 8:53 AM 03/07/2019 4:13 PM * Full Code Date Activated Date Inactivated Comments 04/28/2018 2:58 PM 05/04/2018 8:23 PM Care Teams Seed Yeast Operator Relationship Specialty Start Date End Date Yvan Cartwright MD [address] [place] [phone] PCP - General Family Practice 09/25/14
--- OUTSIDE RECORDS SUMMARY | 2024-12-15 22:50 | XMS_ITS | Encounter Summary ---
Author Organization [facility] Address [address] [place] [address] Care Team Providers Care Celery Cutter Name Role Phone Yvan Cartwright MD Primary Care Provider [phone] Encounter Details Date Type Department Care Team (Late st Contact Info) Description 04/19/2005 Outpatient [facility] [address] [facility] [address] [place] [phone] Coleen Aguilera MD NO ADDRESS ON FILE SCREENING MAMM-MAILG NEOPL NEC (Primary Dx) Social History Tobacco Use Types Packs/Day Years Used Date Smoking Tobacco: Never Assessed Comments Unknown Sex and Gender Information Value Date Recorded Sex Assigned at Not on file 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
--- OUTSIDE RECORDS SUMMARY | 2024-12-15 22:50 | XMS_ITS | Encounter Summary ---
Author Organization [facility] Address [address] [place] [address] Care Team Providers Care Principal Statistical Programmer Name Role Phone Yvan Cartwright MD Primary Care Provider [phone] Encounter Details Date Type Department Care Team (Latest Contact Info) Description 01/05/2002 Outpatient Historical [facility]- [address] Entrance B, 3rd [place] [address] Theodore Narayan MD NO ADDRESS ON FILE URGE & STRESS MIXED INCONTINENCE (Primary Dx) Social History Tobacco Use Types Packs/Day Years Used Date Smoking Tobacco: Never Assessed Comments Unknown Sex and Gender Information Value Date Recorded Sex Assigned at Not on file Legal Sex Female 3:51 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
--- OUTSIDE RECORDS SUMMARY | 2024-12-15 22:50 | XMS_ITS | Encounter Summary ---
Author Organization [facility] Address [address] [place] [address] Care Team Providers Care Scheduler Conveyor Name Role Phone Yvan Cartwright MD Primary Care Provider [phone] Encounter Details Date Type Department Care Team (Late st Contact Info) Description 04/07/2004 Outpatient Historical [facility] [address] [facility] [address] [place] [phone] Coleen Aguilera MD NO ADDRESS ON FILE SCREENING MAMM-MAILG NEOPL-OTHER (Primary Dx) Social History Tobacco Use Types Packs/Day Years Used Date Smoking Tobacco: Never Assessed Comments Unknown Sex and Gender Information Value Date Recorded Sex Assigned at Not on file 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
--- OUTSIDE RECORDS SUMMARY | 2024-12-15 22:50 | XMS_ITS | Encounter Summary ---
Author Organization [facility] Address [address] [place] [address] Care Team Providers Care Occupational Health Nursing Director Name Role Phone Yvan Cartwright MD Primary Care Provider [phone] Encounter Details Date Type Department Care Team (Latest Contact Info) Description 04/24/2002 Outpatient Historical [facility] [address] [place] [phone] Tim Garcia MD [address] [place] [phone] HYPOTHYROIDISM NOS (Primary Dx) Social History Tobacco Use Types Packs/Day Years Used Date Smoking Tobacco: Never Assessed Comments Unknown Sex and Gender Information Value Date Recorded Sex Assigned at Not on file 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
--- OUTSIDE RECORDS SUMMARY | 2024-12-15 22:50 | XMS_ITS | Encounter Summary ---
Author Organization [facility] Address [address] [place] [address] Care Team Providers Care Barrel Drainer Name Role Phone Yvan Cartwright MD Primary Care Provider Encounter Details Date Type Department Care Team (Latest Contact Info) Description 01/09/2001 Outpatient Historical [facility] Medicine [place] [address] [place] [phone] Tim Garcia MD [address] [place] [address] Acute upper respiratory infections of unspecified site (Primary Dx) Social History Tobacco Use Types Packs/Day Years Used Date Smoking Tobacco: Never Assessed Comments Unknown Sex and Gender Information Value Date Recorded Sex Assigned at Not on file 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
--- OUTSIDE RECORDS SUMMARY | 2024-12-15 22:50 | XMS_ITS | Encounter Summary ---
Author Organization [facility] Address [address] [place] [address] Care Team Providers Care Spanner Operator Name Role Phone Yvan Cartwright MD Primary Care Provider Encounter Details Date Type Department Care Team (Latest Contact Info) Description 03/06/2001 Outpatient Historical [facility] Medicine [place] [address] [place] [phone] Tim Garcia MD [address] [place] [address] ABDOMINAL PAIN UNSPEC SITE (Primary Dx); GI SYSTEM SYMPTOMS OTHER Social History Tobacco Use Types Packs/Day Years Used Date Smoking Tobacco: Never Assessed Comments Unknown Sex and Gender Information Value Date Recorded Sex Assigned at Not on file 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
--- OUTSIDE RECORDS SUMMARY | 2024-12-15 22:50 | XMS_ITS | Encounter Summary ---
Author Organization [facility] Address [address] [place] [address] Care Team Providers Care Financial Economist Name Role Phone Charles Cartwright DO Primary Care Provider [phone] Encounter Details Date Type Department Care Team (Late Contact Info) Description 12/11/2024 External Device Data [facility] ABSTRACTION Provider, Abstract NO ADDRESS ON FILE Social History Tobacco Use Types Packs/Day Years Used Date Smoking Tobacco: Former Cigarettes Q uit: 04/04/1995 Passive Smoke Exposure: Past Smokeless Tobacco: Never Alcohol Use Standard Drinks/Week Comments Not Currently 0 (1 standard drink = 0.6 oz pur e alcohol) Feeling Safe Answer Date Recorded Are you in a relationship wi th someone who hurts you emotionally and/or physically? No 11/07/2023 Comments No Sex and Gender Information Value Date Recorded Sex Assigned at Not on file Legal Sex Female 2:30 AM GENERATOR MECHANIC Gender Identity Not on file Sexual Orientation Not on file documented as of this encounter Plan of Treatment Upcoming Encounters Date Type Department Care Team (Late st Contact Info) Description 02/08/2025 1:20 PM GENERATOR MECHANIC Office Visit [facility] [address] [place] [phone] Charles Cartwright DO [address] [place] [phone] documented as of this encounter Visit Diagnoses Not on filedocumented in this encounter Care Teams Financial Economist Relationship Specialty Start Date End Date Charles Cartwright DO [address] [place] [address] PCP - General Family Practice 04/09/21 documented as of this encounter
--- OUTSIDE RECORDS SUMMARY | 2024-12-15 22:50 | XMS_ITS | Encounter Summary ---
Author Organization [facility] Address [address] [place] [address] Care Team Providers Care Internal Security Manager Name Role Phone Yvan Cartwright MD Primary Care Provider [phone] Encounter Details Date Type Department Care Team (Latest Contact Info) Description 04/07/2004 Outpatient [facility] [address] [place] [address] Tim Garcia MD [address] [place] [phone] SCREENING MAMM-MAILG NEOPL-OTHER (Primary Dx) Social History Tobacco Use Types Packs/Day Years Used Date Smoking Tobacco: Never Assessed Comments Unknown Sex and Gender Information Value Date Recorded Sex Assigned at Not on file Legal Sex Female 3:51 AM QUARRY SUPERVISOR Gender Identity Not on file Sexual Orientation Not on file documented as of this encounter Plan of Treatment Not on file documented as of this encounter Visit Diagnoses Diagnosis Other screening mammogram- Primary documented in this encounter Care Teams Internal Security Manager Relationship Specialty Start Date End Date Yvan Cartwright MD [address] [place] [address] PCP - General Family Practice 09/25/14 documented as of this encounter
--- OUTSIDE RECORDS SUMMARY | 2024-12-15 22:50 | XMS_ITS | Encounter Summary ---
Author Organization [facility] Address [address] [place] [address] Care Team Providers Care Gerentological Physiotherapist Name Role Phone Yvan Cartwright MD Primary Care Provider [phone] Encounter Details Date Type Department Care Team (Late st Contact Info) Description 03/26/2003 Outpatient Historical [facility] [address] [facility] [address] [place] [phone] Coleen Aguilera MD NO ADDRESS ON FILE SCREENING MAMM-MAILG NEOPL-OTHER (Primary Dx) Social History Tobacco Use Types Packs/Day Years Used Date Smoking Tobacco: Never Assessed Comments Unknown Sex and Gender Information Value Date Recorded Sex Assigned at Not on file 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
--- OUTSIDE RECORDS SUMMARY | 2024-12-15 22:50 | XMS_ITS | Encounter Summary ---
Author Organization [facility] Address [address] [place] [address] Care Team Providers Care Multilith Operator Name Role Phone Yvan Cartwright MD Primary Care Provider [phone] Encounter Details Date Type Department Care Team (Latest Contact Info) Description 11/20/2003 Outpatient Historical [facility] [place] [address] [place] [phone] Argentina Cifuentes MD [address] [place] [address] ADV EFFECT MED/BIOL SUB NOS (Primary Dx); JOINT PAIN-SHLDER Social History Tobacco Use Types Packs/Day Years Used Date Smoking Tobacco: Never Assessed Comments Unknown Sex and Gender Information Value Date Recorded Sex Assigned at Not on file 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
--- OUTSIDE RECORDS SUMMARY | 2024-12-15 22:50 | XMS_ITS | Encounter Summary ---
Author Organization [facility] Address [address] [place] [address] Care Team Providers Care Freelance Writer Name Role Phone Yvan Cartwright MD Primary Care Provider [phone] Encounter Details Date Type Department Care Team (Latest Contact Info) Description 04/13/2013 Ancillary Orders [facility] Pre-Registration [place] CALL TO MAKE APPOINTMENT ONLY [address] [place] [address] Tim Garcia MD [address] [place] [address] Other screening mammogram (Primary Dx) Social History Tobacco Use Types Packs/Day Years Used Date Smoking Tobacco: Former Cigarettes 2.5 30 0 04/04/1965 - 04/04/1995 Smokeless Tobacco: Never Alcohol Use Standard Drinks/Week Comments No 0 (1 standard drink = 0.6 oz pur e alcohol) Comments No Sex and Gender Information Value Date Recorded Sex Assigned at Not on file 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
--- OUTSIDE RECORDS SUMMARY | 2024-12-15 22:50 | XMS_ITS | Encounter Summary ---
Author Organization [facility] Address [address] [place] [address] Care Team Providers Care Burr Bench Operator Name Role Phone Yvan Cartwright MD Primary Care Provider [phone] Reason for Referral * Outpatient Services (Routine) - Closed Specialty Diagnoses / Procedures Referred By Last vasques Referred To Contact Radiology Diagnoses Other screening mammogram Procedures MAMMO DIGITAL SCREEN BILAT Rose Mary Barrera FNP [address] [place] [address] Phone: tel: fax: [facility] [address] [address] Phone: tel: fax: Referral ID Status Reason Start Date Expiration Date Visits Re quested Visits Authorized [id number] Closed 01/19/2012 01/18/2013 1 1 Encounter Details Date Type Department Care Team (Latest Contact Info) Description 01/19/[address] [facility] Pre-Registration [place] CALL TO MAKE APPOINTMENT ONLY [address] [place] [address] Rose Mary Barrera FNP [address] [place] [address] Other screening mammogram Social History Tobacco Use Types Packs/Day Years Used Date Smoking Tobacco: Former Cigarettes 2.5 30 0 04/04/1965 - 04/04/1995 Smokeless Tobacco: Never Alcohol Use Standard Drinks/Week Comments No 0 (1 standard drink = 0.6 oz pur e alcohol) Comments No Sex and Gender Information Value Date Recorded Sex Assigned at Not on file Legal Sex Female 3:51 AM LEATHER CUTTER Gender Identity Not on file Sexual Orientation Not on file Occupation Industry Job Start Date Job End Date Not on file Not on file Not on file Not on file documented as of this encounter Plan of Treatment Not on file documented as of this encounter Results * MAMMO DIGITAL SCREEN BILAT (02/28/2012 12:30 PM LEATHER CUTTER) Anatomical Region Laterality Modality Breast Bilateral Mammography Narrative 02/29/2012 12:30 PM LEATHER CUTTER Bilateral Mammogram Reason for Exam: Screening Comparison: Comparison is made with the prior exam(s) dated 04.07.04 2 5.11 Findings: Bilateral CC and MLO views were obtained. This examination was reviewed with the aid of a computer-aided detection system(CAD). The breast tissue density is average. No significant new findings since the prior mammogram(s). Procedure Note Tawnya Forman MD - 02/29/2012 Bilateral Mammogram Reason for Exam: Screening Comparison: Comparison is made with the prior exam(s) dated .7 510.11 Findings: Bilateral CC and MLO views were obtained. This examination was reviewed with the aid of a computer-aided detectionsystem(CAD). The breast tissue density is average. No significant new findings since the prior mammogram(s). Rose Mary Barrera OUTSIDE CUTTER HAND MAMMO ORDERABLES Final Result documented in this encounter Visit Diagnoses Diagnosis Other screening mammogram Other screening mammogram documented in this encounter Care Teams Burr Bench Operator Relationship Specialty Start Date End Date Yvan Cartwright MD [address] [place] [phone] PCP - General Family Practice 09/25/14 documented as of this encounter
--- OUTSIDE RECORDS SUMMARY | 2024-12-15 22:50 | XMS_ITS | Encounter Summary ---
Author Organization [facility] Address [address] [place] [address] Care Team Providers Care Commercial Or Institutional Cleaner Name Role Phone Yvan Cartwright MD Primary Care Provider [phone] Encounter Details Date Type Department Care Team (Latest Contact Info) Description 11/26/2003 Outpatient Historical [facility] Imaging Services [place] [address] [place] [phone] Argentina Cifuentes MD [address] [place] [address] ROTATOR CUFF SYND NOS (Primary Dx) Social History Tobacco Use Types Packs/Day Years Used Date Smoking Tobacco: Never Assessed Comments Unknown Sex and Gender Information Value Date Recorded Sex Assigned at Not on file Legal Sex Female 3:51 AM COMMUNITY ENGAGEMENT COORDINATOR Gender Identity Not on file Sexual Orientation Not on file documented as of this encounter Plan of Treatment Not on file documented as of this encounter Visit Diagnoses Diagnosis Disorders of bursae and tendons in shoulder region, unspecified- Primary documented in this encounter Care Teams Commercial Or Institutional Cleaner Relationship Specialty Start Date End Date Yvan Cartwright MD [address] [place] [address] PCP - General Family Practice 09/25/14 documented as of this encounter
--- OUTSIDE RECORDS SUMMARY | 2024-12-15 22:50 | XMS_ITS | Encounter Summary ---
Author Organization [facility] Address [address] [place] [address] Care Team Providers Care Patient Portal Concierge Name Role Phone Yvan Cartwright MD Primary Care Provider [phone] Encounter Details Date Type Department Care Team (Latest Contact Info) Description 04/19/2005 Outpatient [facility] [address] [place] [address] Argentina Cifuentes MD [address] [place] [phone] SCREENING MAMM-MAILG NEOPL NEC (Primary Dx) Social History Tobacco Use Types Packs/Day Years Used Date Smoking Tobacco: Never Assessed Comments Unknown Sex and Gender Information Value Date Recorded Sex Assigned at Not on file 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
--- OUTSIDE RECORDS SUMMARY | 2024-12-15 22:50 | XMS_ITS | Encounter Summary ---
Author Organization [facility] Address [address] [place] [address] Care Team Providers Care Kennel Staff Member Name Role Phone Yvan Cartwright MD Primary Care Provider [phone] Encounter Details Date Type Department Care Team (Latest Contact Info) Description 04/24/2002 Outpatient Historical [facility] [address] [place] [phone] Christopher Whitley, GRANITE INSTALLER [address] [place], [place] [phone] ACQUIRED HYPOTHYROID NEC (Primary Dx) Social History Tobacco Use Types Packs/Day Years Used Date Smoking Tobacco: Never Assessed Comments Unknown Sex and Gender Information Value Date Recorded Sex Assigned at Not on file 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
--- OUTSIDE RECORDS SUMMARY | 2024-12-15 22:50 | XMS_ITS | Encounter Summary ---
Author Organization [facility] Address [address] [place] [address] Care Team Providers Care Wheelchair Van Operator First Responder Name Role Phone Yvan Cartwright MD Primary Care Provider Encounter Details Date Type Department Care Team (Late st Contact Info) Description 07/25/2020 Lab Requisition [facility] [address] [place] [address] Valerio Roman MD [address] [place] [address] Social History Tobacco Use Types Packs/Day Years Used Date Smoking Tobacco: Former Cigarettes 2.5 30 0 04/04/1965 - 04/04/1995 Smokeless Tobacco: Never Alcohol Use Standard Drinks/Week Comments Yes 0 [...] week 02/21/2020 How often do you attend chur ch or mormon services? Never 02/21/2020 Do you belong to any clubs o r organizations such as adventism groups, unions, fraternal or athletic groups, or [...] on file Legal Sex Female 3:51 AM MOTOR POWER CONNECTOR Gender Identity Not on file Sexual Orientation Not on file Occupation Industry Job Start Date Job End Date Not on file Not on file Not on file Not on file COVID-19 Exposure Response Date Recorded In the last month, have you been in contact with someone who was confirmed or suspected to have Coronavirus / COVID-19? No / Unsure 07/28/2020 11:00 AM CDT documented as of this encounter Plan of Treatment Not on file documented as of this encounter Procedures Procedure Name Priority Date/Time Associated Diagnosis Comments BRAIN NATRIURETIC PEPTIDE, BNP OR PROBNP Routine 07/25/2020 4:00 AM CDT documented in this encounter Results * (ABNORMAL) BRAIN NATRIURETIC PEPTIDE, BNP OR PROBNP (07/25/2020 4:00 AM CDT) PROBNP, N TERMINAL 757(H) 0 - 450 pg/mL 07/25/2020 4:56 PM CDT [facility] Blood Collection / Unknown 07/25/2020 4:00 AM CDT 07/25/2020 4:22 PM CDT us Valerio Roman MD CHEMISTRY ORDERABLES Final Res ult Performing Organization Address City/State/[facility] Co de Phone Number [facility] [place] [id number] [place] [address] documented in this encounter Visit Diagnoses Not on filedocumented in this encounter Care Teams Wheelchair Van Operator First Responder Relationship Specialty Start Date End Date Yvan Cartwright MD [address] [place] [address] PCP - General Family Practice 09/25/14 documented as of this encounter
--- OUTSIDE RECORDS SUMMARY | 2024-12-15 22:51 | XMS_ITS | Encounter Summary ---
Author Organization [facility] Address [address] [place] [address] Care Team Providers Care Health Editor Name Role Phone Yvan Cartwright MD Primary Care Provider [phone] Encounter Details Date Type Department Care Team (Latest Contact Info) Description 10/21/[address] 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
--- OUTSIDE RECORDS SUMMARY | 2024-12-15 22:51 | XMS_ITS | Encounter Summary ---
Author Organization [facility] Address [address] [place] [address] Care Team Providers Care Graduate Intern Name Role Phone Yvan Cartwright MD Primary Care Provider [phone] Encounter Details Date Type Department Care Team (Latest Contact Info) Description 01/18/2007 Outpatient Historical [facility] Medicine [place] [address] [place] [phone] Argentina Cifuentes MD [address] [place] [address] Vaccine for Influenza (Primary Dx) Social History Tobacco Use Types Packs/Day Years Used Date Smoking Tobacco: Never Assessed Comments Unknown Sex and Gender Information Value Date Recorded Sex Assigned at Not on file Legal Sex Female 3:51 AM INTERVENTIONAL CARDIOLOGIST Gender Identity Not on file Sexual Orientation Not on file documented as of this encounter Plan of Treatment Not on file documented as of this encounter Visit Diagnoses Diagnosis Vaccine for influenza- Primary Need for prophylactic vaccination and inoculation against influenza documented in this encounter Care Teams Graduate Intern Relationship Specialty Start Date End Date Yvan Cartwright MD [address] [place] [phone] PCP - General Family Practice 09/25/14 documented as of this encounter
--- OUTSIDE RECORDS SUMMARY | 2024-12-15 22:51 | XMS_ITS | Encounter Summary ---
Author Organization [facility] Address [address] [place] [address] Care Team Providers Care Flush Tester Name Role Phone Yvan Cartwright MD Primary Care Provider Encounter Details Date Type Department Care Team (Late st Contact Info) Description 05/03/2007 Outpatient Historical [facility] Medicine [address] [phone] Christopher Whitley, TRANSITIONAL KINDERGARTEN TEACHER [address] [place], [place] [phone] Social History Tobacco Use Types Packs/Day Years Used Date Smoking Tobacco: Never Assessed Comments Unknown Sex and Gender Information Value Date Recorded Sex Assigned at Not on file 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 Nurses documentation noted. Review of systems, social history and chart review performed on health questionnaire. OBJECTIVE: HEENT: Head is normocephalic. TMs are clear and lucent bilaterally. Nasal passages are patent. Intraoral exam is pink and moist. Posterior oropharynx is within normal limits. NECK: Supple. Thyroid is not palpated. No cervical lymphadenopathy is noted. HEART: Regular rate and rhythm with no murmur. LUNGS: Clear to auscultation bilaterally. ABDOMEN: Soft, rounded and nontender to palpation. Bowel sounds are present. EXTREMITIES: She has tenderness upon palpation of the hips. Without defect. ASSESSMENT: Osteoarthritis. PLAN: The pain came back after she stopped the Mobic, so we are going to restart the Mobic and alsoplace her Zantac 150 one tab b.i.d. to help protect from getting an ulcer or stomach upset. If thatworks we will keep with it, if it does not she needs to follow back up. Christopher Whitley RN, DISULFURIZER TENDER Argentina Cifuentes M.D. [facility] Electronically Signed by Christopher Whitley RN 05/29/2007 12:26 , 5:28 P P, 525 Document #: [id number] cc: PLASTIC BULLET MAKER PLASTIC BULLET MAKER documented in this encounter Plan of Treatment Not on file documented as of this encounter Visit Diagnoses Not on filedocumented in this encounter Care Teams Flush Tester Relationship Specialty Start Date End Date Yvan Cartwright MD [address] [place] [phone] PCP - General Family Practice 09/25/14 documented as of this encounter
--- OUTSIDE RECORDS SUMMARY | 2024-12-15 22:51 | XMS_ITS | Encounter Summary ---
Author Organization 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
--- OUTSIDE RECORDS SUMMARY | 2024-12-15 22:51 | XMS_ITS | Encounter Summary ---
Author Organization [facility] Address [address] [place] [address] Care Team Providers Care Breastfeeding Educator Name Role Phone Yvan Cartwright MD Primary Care Provider [phone] Encounter Details Date Type Department Care Team (Late st Contact Info) Description 01/25/2007 Outpatient Historical [facility] Medicine [address] [phone] Social History Tobacco Use Types Packs/Day Years Used Date Smoking Tobacco: Never Assessed Comments Unknown Sex and Gender Information Value Date Recorded Sex Assigned at Not on file Legal Sex Female 3:51 AM CELL TUBER HAND Gender Identity Not on file Sexual Orientation Not on file documented as of this encounter Plan of Treatment Not on file documented as of this encounter Visit Diagnoses Not on filedocumented in this encounter Care Teams Breastfeeding Educator Relationship Specialty Start Date End Date Yvan Cartwright MD [address] [phone] PCP - General Family Practice 09/25/14 documented as of this encounter
--- OUTSIDE RECORDS SUMMARY | 2024-12-15 22:51 | XMS_ITS | Encounter Summary ---
Author Organization [facility] Address [address] [place] [address] Care Team Providers Care Women Nurse Name Role Phone Yvan Cartwright MD Primary Care Provider [phone] Encounter Details Date Type Department Care Team (Latest Contact Info) Description 05/05/2005 Outpatient Historical [facility] Argentina Cifuentes MD [address] [place] [phone] OT ABNORMAL RADIOLOG EXAM BREAST (Primary Dx) Social History Tobacco Use Types Packs/Day Years Used Date Smoking Tobacco: Never Assessed Comments Unknown Sex and Gender Information Value Date Recorded Sex Assigned at Not on file 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
--- OUTSIDE RECORDS SUMMARY | 2024-12-15 22:51 | XMS_ITS | Encounter Summary ---
Author Organization [facility] Address [address] [place] [address] Care Team Providers Care Laboratory Veterinarian Name Role Phone Yvan Cartwright MD Primary Care Provider [phone] Encounter Details Date Type Department Care Team (Latest Contact Info) Description 12/19/2006 Outpatient Historical [facility] [address] [place] [phone] Christopher Whitley, BUTCHER MEAT [address] [place] [address] Unspecified Hypothyroidism (Primary Dx) Social History Tobacco Use Types Packs/Day Years Used Date Smoking Tobacco: Never Assessed Comments Unknown Sex and Gender Information Value Date Recorded Sex Assigned at Not on file 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
--- OUTSIDE RECORDS SUMMARY | 2024-12-15 22:51 | XMS_ITS | Encounter Summary ---
Author Organization [facility] Address [address] [place] [address] Care Team Providers Care Fish Header Name Role Phone Yvan Cartwright MD Primary Care Provider Encounter Details Date Type Department Care Team (Latest Contact Info) Description 09/22/2005 Outpatient [facility] [address] [place] [address] Denis Mooney MD [address] [address] Unspecified Peripheral Vertigo (Primary Dx); Unspecified Sensorineural Hearing Loss; Benign Paroxysmal Positional Vertigo Social History Tobacco Use Types Packs/Day Years Used Date Smoking Tobacco: Never Assessed Comments Unknown Sex and Gender Information Value Date Recorded Sex Assigned at Not on file Legal Sex Female 3:51 AM ROTARY PUMP OPERATOR Gender Identity Not on file Sexual Orientation Not on file documented as of this encounter Plan of Treatment Not on file documented as of this encounter Visit Diagnoses Diagnosis Peripheral vertigo, unspecified- Primary Sensorineural hearing loss, unspecified Benign paroxysmal positional vertigo documented in this encounter Care Teams Fish Header Relationship Specialty Start Date End Date Yvan Cartwright MD [address] [place] [phone] PCP - General Family Practice 09/25/14 documented as of this encounter
--- OUTSIDE RECORDS SUMMARY | 2024-12-15 22:51 | XMS_ITS | Encounter Summary ---
Author Organization [facility] Address [address] [place] [address] Care Team Providers Care Valet Parking Attendant Name Role Phone Yvan Cartwright MD Primary Care Provider Encounter Details Date Type Department Care Team (Latest Contact Info) Description 02/28/2006 Outpatient Historical [facility] Medicine [place] [address] [place] [address] [phone] Tim Garcia MD [address] [place] [address] Vaccine for influenza (Primary Dx) Social History Tobacco Use Types Packs/Day Years Used Date Smoking Tobacco: Never Assessed Comments Unknown Sex and Gender Information Value Date Recorded Sex Assigned at Not on file 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
--- OUTSIDE RECORDS SUMMARY | 2024-12-15 22:51 | XMS_ITS | Encounter Summary ---
Author Organization [facility] Address [address] [place] [address] Care Team Providers Care Automobile Club Membership Sales Agent Name Role Phone Yvan Cartwright MD Primary Care Provider [phone] Encounter Details Date Type Department Care Team (Latest Contact Info) Description 05/10/2006 Outpatient Historical [facility] [address] [facility] [address] [place] [phone] Tawnya Forman MD NO ADDRESS ON FILE Other Sign and Symptom in Breast (Primary Dx) Social History Tobacco Use Types Packs/Day Years Used Date Smoking Tobacco: Never Assessed Comments Unknown Sex and Gender Information Value Date Recorded Sex Assigned at Not on file 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
--- OUTSIDE RECORDS SUMMARY | 2024-12-15 22:51 | XMS_ITS | Encounter Summary ---
Author Organization [facility] Address [address] [place] [address] Care Team Providers Care Mixing Technician Name Role Phone Yvan Cartwright MD Primary Care Provider Encounter Details Date Type Department Care Team (Late st Contact Info) Description 07/03/2007 Outpatient Historical [facility] [place] [address] 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' MODEL Gender Identity Not on file Sexual Orientation Not on file documented as of this encounter Plan of Treatment Not on file documented as of this encounter Procedures Procedure Name Priority Date/Time Associated Diagnosis Comments MRI HIP WO CONTRAST LEFT Routine 07/06/2007 11:33 AM CDT MRI LUMBAR WO CONTRAST Routine 07/06/2007 11:07 AM CDT documented in this encounter Results * MRI HIP WO CONTRAST LEFT (07/06/2007 11:33 AM CDT) Anatomical Region Laterality Modality Lower Extremity Other 07/06/2007 11:3 3 AM CDT Narrative 07/06/2007 12:02 PM CDT Exam: MRI - Hip LT w/o Date/Time of Exam: Jul 06, 2007 11:33:38 AM History: LBP/LT HIP PAIN. Technique: MRI of the left hip was performed utilizing a 1.5 Tuyet magnet. Findings: There is minimal degenerative change noted of the hip joints. No evidence of joint effusion. There is no evidence of fracture or avascular necrosis. Bone marrow signal is within normal limits. Degenerative changes are noted in the lower lumbar spine; see MRI report for description. There is an area of focal signal abnormality in subchondral aspect of the right sacrum at the sacroiliac joint (series 104 image 14, series 107 image 12). This lesion measured approximately 1.4 cm. There is a tiny amount of free pelvic fluid. The patient is status post hysterectomy. No adnexal pathology evident. The urinary bladder is nondistended. 1.2 cm focal rounded area of signal abnormality in the left buttock subcutaneous fat is nonspecific but probably benign and possibly representing lymph node or injection granuloma. Impression: No significant hip pathology. Nonspecific focal right sacral lesion, probably benign in absence of history of malignancy. See lumbar spine MRI report for other findings. - Dictated By: Drew Gonzalez M.D. Electronically Signed By: Drew Gonzalez M.D. Date Signed: 07/07/07 [facility] Procedure Note Drew Gonzalez E - 07/07/2007 Exam: MRI - Hip LT w/o Date/Time of Exam: Jul 06, 2007 11:33:38 AM History: LBP/LT HIP PAIN. Technique: MRI of the left hip was performed utilizing a 1.5 Teslamagnet. Findings: There is minimal degenerative change noted of the hip joints. Noevidence of joint effusion. There is no evidence of fracture or avascular necrosis. Bone marrow signalis within normal limits. Degenerative changes are noted in the lower lumbar spine; see MRI reportfor description. There is an area of focal signal abnormality in subchondral aspect of the right sacrumat the sacroiliac joint (series 104 image 14, series 107 image 12). This lesion measuredapproximately 1.4 cm. There is a tiny amount of free pelvic fluid. The patient is status post hysterectomy. Noadnexal pathology evident. The urinary bladder is nondistended. 1.2 cm focal rounded area of signalabnormality in the left buttock subcutaneous fat is nonspecific but probably benign and possiblyrepresenting lymph node or injection granuloma. Impression: No significant hip pathology. Nonspecific focal right sacrallesion, probably benign in absence of history of malignancy. See lumbar spine MRI report for otherfindings. - Dictated By: Drew Gonzalez M.D. Electronically Signed By: Drew Gonzalez M.D. Date Signed: 07/07/07 [facility] us Argentina Cifuentes MD MR ORDERABLES Final Result * MRI LUMBAR WO CONTRAST (07/06/2007 11:07 AM CDT) Anatomical Region Laterality Modality Spine Other 07/06/2007 11:0 7 AM CDT Narrative 07/06/2007 11:28 AM CDT MRI lumbar spine without contrast: Date: 07/06/2007. History: 71-year-old female - low back pain. Technique: Multiplanar, multisequence MR images were obtained without contrast. Findings: Lumbar alignment shows a relative hyperlordosis. This is seen with moderate age-appropriate discogenic degeneration. Prominent facet and interspinous arthropathy over the mid and distal levels with a low-grade degenerative anterolisthesis of L4 on L5 and prominent spinal stenosis over this level with synovial cysts contributing. No compression fracture. Marrow signal is within normal limits. The conus normal. Axial images show moderate annular bulging at L1-L2, L2-L3 and L3-L4 flattening the ventral thecal sac with mild subarticular narrowing. Neural foramina patent over these levels. At L4-L5, moderate annular bulging and bulky hypertrophic facet arthropathy/flaval thickening with medially projecting synovial cyst formation results in relatively high-grade spinal stenosis over this level likely neural compressive. Spinal stenosis extends both above and below the disc margin at this level predominantly due to facet hypertrophic change and synovial cyst formation. At L5-S1, mild annular bulging and moderate facet arthropathy present without spinal stenosis. Neural foramina over the L4-L5 and L5-S1 levels appear patent. 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 Findings are most significant at L4-L5 where advanced facet arthropathy with bulky hypertrophic change and multifocal synovial cysts in association with degenerative anterolisthesis and spondylotic disc bulging result in high-grade central canal stenosis extending both above and below the disc margin. - Dictated By: Guero Mcdaniel D.O. Electronically Signed By: Guero Mcdaniel D.O. Date Signed: 07/06/07 Procedure Note Guero Mcdaniel - 07/06/2007 MRI lumbar spine without contrast: Date: 07/06/2007. History: 71-year-old female - low back pain. Technique: Multiplanar, multisequence MR images were obtained withoutcontrast. Findings: Lumbar alignment shows a relative hyperlordosis. This is seenwith moderate age-appropriate discogenic degeneration. Prominent facet and interspinous arthropathy overthe mid and distal levels with a low-grade degenerative anterolisthesis of L4 on L5 and prominent spinalstenosis over this level with synovial cysts contributing. No compression fracture. Marrow signal iswithin normal limits. The conus normal. Axial images show moderate annular bulging at L1-L2, L2-L3 and L3-U4mwynkjzfer the ventral thecal sac with mild subarticular narrowing. Neural foramina patent over theselevels. At L4-L5, moderate annular bulging and bulky hypertrophic facetarthropathy/flaval thickening with medially projecting synovial cyst formation results in relativelyhigh-grade spinal stenosis over this level likely neural compressive. Spinal stenosis extends both above andbelow the disc margin at this level predominantly due to facet hypertrophic change and synovial cystformation. At L5-S1, mild annular bulging and moderate facet arthropathy presentwithout spinal stenosis. Neural foramina over the L4-L5 and L5-S1 levels appear patent. Impression: Moderate age appropriate lumbar discogenic degeneration andrelative hyperlordosis. Findings are most significant at L4-L5 where advanced facet arthropathy with bulkyhypertrophic change and multifocal synovial cysts in association with degenerativeanterolisthesis and spondylotic disc bulging result in high-grade central canal stenosis extending both above and belowthe disc margin. - Dictated By: Guero Mcdaniel D.O. Electronically Signed By: Guero Mcdaniel D.O. Date Signed: 07/06/07 us [place] Cifuentes MD MR ORDERABLES Final Result documented in this encounter Visit Diagnoses Not on filedocumented in this encounter Care Teams Mixing Technician Relationship Specialty Start Date End Date Yvan Cartwright MD [address] [place] [address] PCP - General Family Practice 09/25/14 documented as of this encounter
--- OUTSIDE RECORDS SUMMARY | 2024-12-15 22:51 | XMS_ITS | Encounter Summary ---
Author Organization [facility] Address [address] [place] [address] Care Team Providers Care Cooler Tender Name Role Phone Yvan Cartwright MD Primary Care Provider [phone] Encounter Details Date Type Department Care Team (Late st Contact Info) Description 05/11/2007 Outpatient Historical [facility] [address] [facility] [address] [place] [phone] Social History Tobacco Use Types Packs/Day Years Used Date Smoking Tobacco: Never Assessed Comments Unknown Sex and Gender Information Value Date Recorded Sex Assigned at Not on file Legal Sex Female 3:51 AM DIRECTOR TITLE Gender Identity Not on file Sexual Orientation Not on file documented as of this encounter Plan of Treatment Not on file documented as of this encounter Visit Diagnoses Not on filedocumented in this encounter Care Teams Cooler Tender Relationship Specialty Start Date End Date Yvan Cartwright MD [address] [place] [address] PCP - General Family Practice 09/25/14 documented as of this encounter
--- OUTSIDE RECORDS SUMMARY | 2024-12-15 22:51 | XMS_ITS | Encounter Summary ---
Author Organization [facility] Address [address] [place] [address] Care Team Providers Care Cross Country Truck Driver Name Role Phone Yvan Cartwright MD Primary Care Provider Encounter Details Date Type Department Care Team (Latest Contact Info) Description 07/10/2003 Outpatient Historical [facility] [address] [address] Ynes Garcia MD [address] [place] [address], [id number] DIZZINESS AND GIDDINESS (Primary Dx); HEADACHE; CERVICALGIA Social History Tobacco Use Types Packs/Day Years Used Date Smoking Tobacco: Never Assessed Comments Unknown Sex and Gender Information Value Date Recorded Sex Assigned at Not on file Legal Sex Female 3:51 AM PROJECT CONTROL ANALYST Gender Identity Not on file Sexual Orientation Not on file documented as of this encounter Plan of Treatment Not on file documented as of this encounter Visit Diagnoses Diagnosis Dizziness and giddiness- Primary Headache(784.0) Headache Cervicalgia documented in this encounter Care Teams Cross Country Truck Driver Relationship Specialty Start Date End Date Yvan Cartwright MD [address] [address] PCP - General Family Practice 09/25/14 documented as of this encounter
--- OUTSIDE RECORDS SUMMARY | 2024-12-15 22:51 | XMS_ITS | Encounter Summary ---
Author Organization [facility] Address [address] [place] [address] Care Team Providers Care Harbor Tug Captain Name Role Phone Yvan Cartwright MD Primary Care Provider [phone] Encounter Details Date Type Department Care Team (Latest Contact Info) Description 09/22/2005 Outpatient [facility] 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
--- OUTSIDE RECORDS SUMMARY | 2024-12-15 22:51 | XMS_ITS | Encounter Summary ---
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
--- OUTSIDE RECORDS SUMMARY | 2024-12-15 22:51 | XMS_ITS | Encounter Summary ---
Author Organization [facility] Address [address] [place] [address] Care Team Providers Care Patent Legal Assistant Name Role Phone Yvan Cartwright MD Primary Care Provider [phone] Encounter Details Date Type Department Care Team (Latest Contact Info) Description 03/01/2007 Outpatient Historical [facility] [address] [place] [phone] Urinary Tract Infection, Site not Specified (Primary Dx) Social History Tobacco Use Types Packs/Day Years Used Date Smoking Tobacco: Never Assessed Comments Unknown Sex and Gender Information Value Date Recorded Sex Assigned at Not on file 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
--- OUTSIDE RECORDS SUMMARY | 2024-12-15 22:51 | XMS_ITS | Clinical Summary ---
Author Organization [facility] [place] Address [address] [place] [address] Care Team Providers Care Retail Inventory Control Clerk Name Role Phone Charles Catrwright Primary Care Provider [phone] Allergies Active Allergy Reactions Criticality Noted Date Comments Aspirin-Dipyridamole Nausea and Vomiting Low 2019 Ciprofloxacin Rash Low 01/11/2008 Codeine Itching,Dizziness Low 01/11/2008 Heparin Nausea and Vomiting High 05/04/2019 Per pt's daughter Naproxen Nausea and Vomiting Low 01/11/2008 Nitrofurantoin Monohyd/M-Cryst Unknown 09/21/2021 Penicillins Nausea and Vomiting Low 01/11/2008 Sulfa (Sulfonamide Antibiotics) Rash Low 01/11/2008 Tramadol Nausea and Vomiting,Other (See Comments) High 07/18/2019 Patients daughter states she gets very sleepy and nauseaous Medications ferrous fumarate (FERRETTS) 325 mg (106 mg iron) Tablet Take 325 mg by mouth daily. 020 Active guaiFENesin (Mucinex) Tablet Extended Release 12hr Take 1 Tablet (1,200 mg) by mouth every 12 hours. 60 Tablet 0 020 Active polyethylene glycol (MIRALAX) 17 gram Powder in Packet Take 1 Packet (17 Grams) by mouth 1 time daily as needed for Constipation. 10 Packet 0 020 Active magnesium citrate solution Take 148 mL by mouth one time as needed for Constipation. 020 Active bisacodyL (DULCOLAX) 10 mg Suppository Insert 10 mg by rectum 1 time daily as needed for Constipation. 020 Active Back BraceIndications: DDD (degenerative disc disease), lumbar For daily use to support lower back and reduce pain.. 1 Each 0 019 Active acetaminophen (TYLENOL) 500 mg tablet Take 2 Tablets (1,000 mg) by mouth every 8 hours. 021 Active Saccharomyces boulardii (FLORASTOR) 250 mg Capsule Take by mouth late in the day. Active oxygen home deliveryIndicatio ns:Panlobular emphysema (CMS/HCC),Nocturn al hypoxemia Home Oxygen Concentrator yes at 3 L/M Rest, 5 L/M Activity, 4 L/M Sleep, Delivery Device: Nasal Cannula or Mask Portability: yes, 3 L/M Rest, 5 L/M Activity, May provide device best for patient needs(E system,home fill, conserving device) Length of Need: 99 months 1 Each 022 Active benzonatate (TESSALON) 200 mg capsuleIndication s:Cough Take 1 Capsule (200 mg) by mouth 3 times daily as needed for Cough. 30 Capsule 1 023 Active loperamide (IMODIUM) 2 mg capsuleIndication s:Acute diarrhea TAKE 1 CAPSULE BY MOUTH EVERY 3 HOURS NEEDED FOR DIARRHEA OR LOOSE STOOLS 30 Capsule 024 Active rOPINIRole (REQUIP) 1 mg tabletIndications :Restless leg syndrome TAKE 1 TABLET BY MOUTH TWICE DAILY NEEDED FOR RESTLESS LEGS 60 Tablet 11 024 Active cholecalciferol 1,250 mcg (50,000 unit) Capsule Take 1 Capsule (50,000 Units) by mouth every 7 days. 12 Capsule 3 024 Active OTHERIndications: S/P total knee arthroplasty, right Pediatric front wheeled walker 1 Each 024 Active ibandronate (BONIVA) 150 mg tabletIndications :Age related osteoporosis, unspecified pathological fracture presence Take 1 Tablet (150 mg) by mouth every 30 days. TAKE 1 TABLET BY MOUTH ONCE EVERY MONTH 3 Tablet 3 024 Active amitriptyline (ELAVIL) 50 mg tabletIndications :Chronic migraine with aura and with status migrainosus, not intractable,Anxie ty,Degeneration of intervertebral disc of lumbar region with discogenic back pain,Chronic neck pain TAKE 1 TABLET BY MOUTH ONCE DAILY AT BEDTIME 90 Tablet 3 024 Active gabapentin (NEURONTIN) 300 mg capsuleIndication s:Restless leg syndrome Take 1 Capsule (300 mg) by mouth late in the day. 100 Capsule 3 024 Active nitroglycerin (NITROSTAT) 0.4 mg Tablet, SublingualIndicat ions:ASHD (arteriosclerotic heart disease),Hx of non-ST elevation myocardial infarction (NSTEMI) Place 1 Tablet (0.4 mg) under tongue every 5 minutes as needed for Chest Pain. 20 Tablet 11 025 Active HYDROcodone-aceta minophen (NORCO) 5-325 mg tabletIndications :Other chronic pain,Sacroiliac joint pain,DDD (degenerative disc disease), lumbar,Lumbar radicular pain,Primary osteoarthritis of right knee Take 1 Tablet by mouth every 4 hours as needed (every 4 hours prn). Max Daily Amount: 6 Tablets 30 Tablet 025 Active albuterol sulfate HFA 90 mcg/actuation aerosol inhalerIndication s:Chronic obstructive pulmonary disease, unspecified COPD type (CMS/HCC),Panlobu lar emphysema (CMS/HCC) INHALE 2 PUFFS BY MOUTH EVERY 6 HOURS NEEDED FOR SHORTNESS OF BREATH, WHEEZING OR COUGH 9 Gram 11 025 Active donepeziL (ARICEPT) 5 mg tabletIndications :Moderate late onset Alzheimer's dementia without behavioral disturbance, psychotic disturbance, mood disturbance, or anxiety (CMS/HCC) TAKE 1 TABLET BY MOUTH ONCE DAILY AT BEDTIME 90 Tablet 1 025 Active fexofenadine (JAROCHO) 180 mg tabletIndications :Seasonal allergic rhinitis, unspecified trigger Take 1 tablet by mouth once daily 90 Tablet 1 025 Active potassium CHLORIDE (Klor-Con M20) 20 mEq Extended Release tabletIndications :Chronic diastolic congestive heart failure (CMS/HCC) Take 1 Tablet (20 mEq) by mouth daily with breakfast. 100 Tablet 3 025 Active citalopram (CeleXA) 20 mg tabletIndications :Anxiety TAKE 1 TABLET BY MOUTH ONCE DAILY AT BEDTIME 90 Tablet 1 025 Active clopidogreL (PLAVIX) 75 mg Tablet Take 1 tablet by mouth once daily 100 Tablet 3 025 Active furosemide (LASIX) 40 mg tabletIndications :Chronic diastolic congestive heart failure (CMS/HCC) TAKE 1 TABLET BY MOUTH TWICE DAILY AT LEAST 7 HOURS APART 60 Tablet 5 025 Active erenumab-aooe (Aimovig Autoinjector) 140 mg/mL Auto-InjectorIndi cations:Chronic migraine with aura and with status migrainosus, not intractable INJECT 1 ML SUBCUTANEOUSLY ONE TIME ONLY FOR 1 DOSE 1 mL 5 025 Active ondansetron (ZOFRAN ODT) 4 mg Tablet, Rapid DissolveIndicatio ns:Nausea DISSOLVE 1 TABLET IN MOUTH EVERY 8 HOURS NEEDED FOR NAUSEA AND VOMITING 20 Tablet 025 Active rimegepant (Nurtec ODT) 75 mg Tablet, Rapid DissolveIndicatio ns:Intractable migraine with aura without status migrainosus DISSOLVE 1 TABLET BY MOUTH ONCE DAILY NEEDED FOR MIGRAINE HEADACHE. 30 DAY FILL 8 Tablet 1 025 Active levothyroxine 100 mcg tabletIndications :Primary hypothyroidism Take 1 Tablet (100 mcg) by mouth daily in the morning. 90 Tablet 1 025 Active Myrbetriq 25 mg Extended Release 24 hour tabletIndications :Urine frequency,Overact fidencio bladder Take 1 tablet by mouth once daily 90 Tablet 1 025 Active busPIRone (BUSPAR) 7.5 mg TabletIndications :Anxiety TAKE 1 TABLET BY MOUTH TWICE DAILY FOR ANXIETY PREVENTION 180 Tablet 1 025 Active tiZANidine (ZANAFLEX) 2 mg Tablet TAKE 1 TABLET BY MOUTH EVERY 12 HOURS FOR MUSCLE SPASM 60 Tablet 025 Active pantoprazole (PROTONIX) 20 mg Tablet, Delayed Release (E.C.)Indications :Chronic gastritis with bleeding, unspecified gastritis type Take 1 tablet by mouth once daily 90 Tablet 3 025 Active pantoprazole (PROTONIX) 20 mg Tablet, Delayed Release (E.C.)Indications :Chronic gastritis with bleeding, unspecified gastritis type TAKE 1 TABLET BY MOUTH ONCE DAILY 90 Tablet 1 024 2024 Discontinued Active Problems Problem Noted Date Diagnosed Date S/P total left hip arthroplasty 09/10/2024 Overview (09/10/2024): Left hip fracture and ORIF 08/11/24, discharged to SNF for rehab. S/P total right hip arthroplasty 09/10/2024 Chronic pain of left knee 05/02/2024 CKD stage 3b, GFR 30-44 ml/min 12/07/2021 COVID-19 virus detected 04/29/2021 Nocturnal hypoxemia 09/15/2020 Simple chronic bronchitis 07/12/2020 S/P total knee arthroplasty, right 11/10/2019 Dyslipidemia 10/26/2019 Anxiety 10/26/2019 History of postoperative nausea and vomiting Primary osteoarthritis of right knee 10/26/2019 Protein-calorie malnutrition, moderate 0 History of aortic stenosis 11/21/2018 Status post insertion of bola g-eluting stent into left anterior descending (LAD) artery 04/201811/21/2018 Chronic neck pain 10/18/2018 Chronic anemia 07/20/2018 Chronic diastolic congestive heart failure 05/23 Status post transcatheter ao rtic valve replacement (TAVR) using bioprosthesis 04/29/2018 Mitral valve regurgitation 04/25/2018 Hx of non-ST elevation myocardial infarction (NS ANNE) 04/18/2018 Panlobular emphysema 04/18/2018 Benign essential tremor 03/01/2017 Vitamin D deficiency 10/03/2015 History of vertigo 10/03/2015 Primary hypothyroidism 12/09/2014 Age-related osteoporosis wit hout current pathological fracture 01/09/2013 Stenosis, spinal, lumbar 04/25/2012 Sacroiliac joint pain 04/25/2012 Lumbosacral spondylosis without myelopathy 04/25 Mixed stress and urge urinary incontinence 12/26 Lumbar radicular pain 02/13/2009 Allergic rhinitis 08/28/2008 Disorder of sacrum 06/12/2008 Restless leg syndrome 01/11/2008 Migraine 01/11/2008 DDD (degenerative disc disease), lumbar 01/11/20 08 GERD (gastroesophageal reflux disease) 8 ASHD (arteriosclerotic heart disease) Preoperative general physical examination Hypotension Resolved Problems Problem Noted Date Diagnosed Date Resolved Date Ileus 09/27/2021 12/28/2023 Acute urinary retention 09/26/202104/05 C. difficile colitis 01/31/2021 025 Severe sepsis with septic shock 01/22/2021 08/23/2021 Shock circulatory 01/20/2021 08/23/2021 Acute hypoxemic respiratory failure 01/20/2021 08/23/2021 Acute metabolic encephalopathy 01/20/2021 05/02/2024 Closed nondisplaced peripros thetic fracture of right distal femur 07/11/2020 08/23/2021 Overview (08/01/2020): Added automatically from request for surgery [id number] Hyponatremia 10/25/2019 05/02/2024 Traumatic arthritis of right knee 08/22/2019 09/10/2024 Closed fracture of lateral p ortion of right tibial plateau, DOI 05/03/2019 05/04/2019 02/21/2020 Aortic valve regurgitation 04/25/2018 0 05/23/2018 Overview (07/30/2020): Surgical bioprosthetic valve failure, severe. Trifecta Pleural effusion on right 04/24/2018 Pleural effusion, bilateral 04/24/2018 05/23/2018 Acute on chronic diastolic c ongestive heart failure 04/23/2018 12/13/2023 Failure to thrive in adult 04/19/2018 0 05/23/2018 Weight loss 04/19/2018 05/23/2018 Pulmonary cachexia due to COPD 04/19/2018 05/23/2018 Moderate protein-calorie malnutrition 04/19/2018 05/23/2018 Community acquired bacterial pneumonia 04/18/2018 05/02/2024 Acute respiratory failure with hypoxia 04/18/2018 12/13/2023 S/P TAVR (transcatheter aort ic valve replacement) 01/16/2018 11/21/2018 Chronic diarrhea 11/24/2017 05/23/2018 Fall at home 10/02/2015 05/23/2018 Closed fracture of neck of right femur 10/02/2015 05/23/2018 Hypokalemia 10/02/2015 05/02/2024 Urinary frequency 07/12/2012 05/23/2018 Aortic stenosis, severe 08/25/201105/05 Diarrhea 12/11/2009 05/23/2018 Weight loss, unintentional 12/11/2009 0 05/23/2018 History of anemia 07/10/2009 05/02/2024 Acute congestive heart failure 05/23/2018 Aortic prosthetic valve regurgitation 05/23/2018 Altered mental status 2024 MALOU (acute kidney injury) Encounters Date Type Department Care Team Description 12/11/2024 External Device Data ST[facility] ABSTRACTION Provider, Abstract 11/23/[address] [phone] Charles Cartwright DO Chronic gastritis with bleeding, unspecified gastritis type 11/14/2024 Abstract [facility] Ear, Nose and Throat [address] [place] [id number] Gf Amb, Otolaryngology Physician Epistaxis (Primary Dx) 11/11/[address] [phone] Charles Cartwright DO 11/08/[address] [phone] Charles Cartwright DO Provider Call 10/25/[address] [phone] Charles Cartwright DO Urine frequency; Overactive bladder; Anxiety 10/23/2024 External Device Data STL ABSTRACTION Provider, Abstract 10/17/2024 Results Follow-Up [address] [phone] Deborah Childers FNP POC URINALYSIS DIPSTICK AUTOMATED, VITAMIN B12 AND FOLATE, COMPREHENSIVE METABOLIC PANEL, Additional followed-up results: 3 10/16/2024 2:30 PM CDT Office Visit [address] [phone] Deborah Childers FNP Other fatigue (Primary Dx); Vitamin D deficiency; Primary hypothyroidism; Acute cough; Malaise and fatigue; Intractable migraine with aura without status migrainosus 10/16/[address] [phone] Charles Cartwright DO Provider Call 10/15/2024 Nurse Triage [facility] [address] [place] [address] Estrellita Mccloud RN 10/14/[address] [phone] Charles Cartwright DO Intractable migraine with aura without status migrainosus 10/11/[address] [phone] Deborah Childers, SET UP OPERATOR Nausea 10/09/2024 External Device Data STL ABSTRACTION Provider, Abstract 10/09/[address] [phone] Charles Cartwright DO Intractable migraine with aura without status migrainosus 10/05/[address] [phone] Charles Cartwright DO Chronic migraine with aura and with status migrainosus, not intractable 09/29/[address] [phone] Charles Cartwright DO 09/29/[address] [phone] Charles Cartwright DO 09/25/[address] [phone] Charles Cartwright DO Chronic diastolic congestive heart failure (CMS/HCC) 09/24/2024 Results Follow-Up [address] [phone] Charles Cartwright DO POC URINALYSIS DIPSTICK AUTOMATED 09/24/[address] [phone] Charles Cartwright DO Question 09/21/[address] [phone] Charles Cartwright DO Provider Call 09/19/[address] [phone] Charles Cartwright DO Intractable migraine with aura without status migrainosus 09/19/[address] [phone] Abiola Mauricio FNP from Last 3 Months Immunizations Immunization Administration Dates Next Due (PNEUMOVAX 23)(50 YRS UP) PN EUMOCOCCAL POLYSACCHARIDE (PPV23) 0.5 ML, IM 01/07/2014,01/25/2007 (PREVNAR 13)(6 WKS UP) PNEUM OCOCCAL CONJUGATE (PCV13) 0.5 ML, IM 04/19/2018 INFLUENZA VACCINE HIGH DOSE QUADRIVALENT 65 YR UP PF IM 12/23/2022,12/19/2019 INFLUENZA VACCINE HIGH DOSE TRIVALENT SPLIT VIRUS, (65 YR UP), 0.5ML (PF), IM 01/24/2024 INFLUENZA VACCINE QUADRIVALE NT 3 YR UP PF IM 01/10/2015 Influenza Seasonal Unspecifi ed Formulation IM 12/04/2015,01/11/2008,01/18/2007,02/28,01/12/2005,01/22/2004,01/25/2003 ,01/26/2002,02/01/2001 Influenza Vaccine High Dose 65+ Yrs IM 9,01/10/2019,03/07/2018 Influenza Vaccine Quad Split 3+ Yrs Im 4 Influenza Vaccine Quad Split 6-35 Mo Pf Im 01/07/2014 Influenza Vaccine Split 3+ Yrs IM 01/06/2011,08/2008,01/11/2008 Influenza Vaccine Tri Split 4+ Im 12/04/2015 PNEUMOVAX (PPSV23) pneumococ barbara polysaccharide 23-valent Vaccine 01/07/2014 Zoster Vaccine Live SQ Patie nt Supplied [...] Passive Smoke Exposure: Past Smokeless Tobacco: Never Tobacco Cessation:Counseling Given: Not Answered Alcohol Use Standard Drinks/Week Comments Not Currently 0 (1 standard drink = 0.6 oz pur e alcohol) Feeling Safe Answer Date Recorded Are you in a relationship wi th someone who hurts you emotionally and/or physically? 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 Gender Identity Not on file Sexual Orientation Not on file Last Filed Vital Signs Vital Sign Reading Time Taken Comments Blood Pressure 106/62 10/16/2024 2:26 PM CDT Pulse 72 10/16/2024 2:26 PM CDT Temperature 36.4 C (97.6 F) 10/16/2024 2:26 PM CDT Respiratory Rate 20 09/10/2024 11:1 5 AM CDT Oxygen Saturation 91% 10/16/2024 2:2 6 PM CDT Inhaled Oxygen Concentration - - Weight 58.1 kg (128 lb) 10/16/2024 2:26 PM CDT patient reported Height 157.5 cm (5' 2 ) 10/16/2024 2:26 PM CDT Body Mass Index 23.41 10/16/2024 2:26 PM CDT Plan of Treatment Upcoming Encounters Date Type Department Care Team (Late st Contact Info) Description 02/08/2025 1:20 PM FOREST FIRE PREVENTION SPECIALIST Office Visit [address] [phone] Charles Cartwright DO [address] [place] [phone] Health Maintenance Due Date Last Done Comments DTAP/TDAP/TD VACCINES (1 - Tdap) 12/09/1954 ZOSTER VACCINE (2 of 3) 03/10/2009 01/13/2009 RSV VACCINE (60+ or ) (1 - 1-dose 75+ series) 12/09/2011 OSTEOPOROSIS SCREENING 05/20/2016 2, 05/20/2011, 05/20/2011, Additional history exists Medicare Advantage ([place]) Preventative Visit/Annual Wellness Visit 04/04/2024 01/24/2024 INFLUENZA VACCINE (#1) 2024 , 12/23/2022, 12/19/2019, Additional history exists PNEUMOCOCCAL VACCINE 50+ YEARS Completed 0 04/19/2018, 01/07/2014, 01/07/2014, Additional history exists Medical Devices Implanted Type Area International Logistics Analyst Device Identifier Shelf Expiration Date Model / Serial / Lot Artisan S 6215-5-001 - [id number] Implanted:Qty: 1 on 10/03/2015 by Hardik Samuel MD Bone Right: Hip BREANNA- [employer] INT INC 08/05/2020 6215-5-001 / / [id number] Cement Simplex Hvisc 6194-1-010 - [id number] Implanted:Qty: 1 on 11/09/2019 by Radha Iraheta MD Cement Right: Knee BREANNA- [employer] INC [id number] 01/01/2021 6194-1-010 / / [id number] Cement Simplex Hvisc 6194-1-010 - [id number] Implanted:10/2019 by Radha Iraheta MD (Quantity not on file) Cement Right: Knee BREANNA- [employer] INC [id number] 01/01/2021 6194-1-010 / / [id number] [place] Ptfe Thck 1.6mmx2.5x10.2 cm [id number] - [id number] Implanted:Qty: 1 on 08/25/2011 Graft N/A: Heart CR BARD- DEMETRIA VASC INC 03/25/2016 [id number] / / [id number] Description:John walter rt Centralizer Dist 10mm 714268 - [id number] Implanted:Qty: 1 on 10/03/2015 by Hardik Samuel MD Hip Right: Hip [employer] INC 09/30/2024 [id number] / / [id number] Head Fem Mod Cocr 28mm +3mm [id number] - [id number] Implanted:Qty: 1 on 10/03/2015 by Hardik Samuel MD Hip Right: Hip [employer] INC 10/02/2022 [id number] / / [id number] Liner Acet Bipolar 98w22hv 740625 - [id number] Implanted:Qty: 1 on 10/03/2015 by Hardik Samuel MD Hip Right: Hip [employer] 01/02/2019 / / [id number] Stem Fem Echo Fx 7mm [id number] - [id number] Implanted:Qty: 1 on 10/03/2015 by Hardik Samuel MD Hip Right: Hip [employer] INC 09/01/2025 [id number] / / [id number] Comp Tib Attune Rev 34o81uk 1512-14-050 - [id number] Implanted:Qty: 1 on 11/09/2019 by Radha Iraheta MD Knee Right: Knee J&J- [employer] [id number] 03/03/2028 [id number] / / [id number] Comp Tib Attune Rev Sz5 1506-40-005 - [id number] Implanted:Qty: 1 on 11/09/2019 by Radha Iraheta MD Knee Right: Knee J&J- [employer] [id number] 03/03/2027 [id number] / / [id number] Plate Fem Lat/Dis/Loc 4.5mm 9876-7012 - [id number] Implanted:Qty: 1 on 07/12/2020 by Jayjay Cornejo MD Plate Right: Femur DOMINGUEZ NEPHEW ORTHO [id number] / / Screw Jacob T25 St 4.5x30mm 2301-8589 - [id number] Implanted:Qty: 1 on 07/12/2020 by Jayjay Cornejo MD Screw Right: Femur [employer] [id number] / / Screw Jacob T25 St 4.5x32mm 5424-2535 - [id number] Implanted:Qty: 1 on 07/12/2020 by Jayjay Cornejo MD Screw Right: Femur [employer] [id number] / / Screw Jacob T25 St 4.5x36mm 8631-2770 - [id number] Implanted:Qty: 1 on 07/12/2020 by Jayjay Cornejo MD Screw Right: Femur [employer] [id number] / / Screw Jacob T25 St 4.5x40mm 7703-6292 - [id number] Implanted:Qty: 1 on 07/12/2020 by Jayjay Cornejo MD Screw Right: Femur [employer] [id number] / / Screw T25 St Loc 4.5x22mm 2881-7803 - [id number] Implanted:Qty: 1 on 07/12/2020 by Jayjay Cornejo MD Screw Right: Femur [employer] [id number] / / Screw T25 St Loc 4.5x68mm 5022-5862 - [id number] Implanted:Qty: 1 on 07/12/2020 by Jayjay Cornejo MD Screw Right: Femur [employer] [id number] / / Screw T25 St Loc 4.5x70mm 6928-4277 - [id number] Implanted:Qty: 1 on 07/12/2020 by Jayjay Cornejo MD Screw Right: Femur [employer] [id number] / / Screw T25 St Loc 4.5x74mm 6242-6662 - [id number] Implanted:Qty: 1 on 07/12/2020 by Jayjay Cornejo MD Screw Right: Femur [employer]W [employer]O [id number] / / Stent- 9 Implanted:Qty: 1 on 05/01/2018 by James Dominguez MD Stent [employer] [id number] 01/02/2020 / / [id number] Valve Aortic Trifecta 23mm Tf-23a - [id number] Implanted:Qty: 1 on 08/24/2011 by Yeyo Munroe MD Valve N/A: Aorta ST [employer] INC 11/10/2012 TF-23A / [id number] / Attune Patella 32mm Implanted:Qty: 1 on 11/09/2019 by Radah Iraheta MD Right: Knee 06/01/2024 DEPUY - 1518-10-032 / / [id number] Femoral Posterior Stabilized Narrow Implanted:Qty: 1 on 11/09/2019 by Radha Iraheta MD Right: Knee 10/01/2029 DEPUY - 1504-10-225 / / [id number] Tib Insert Fixed Posterior Size5-8mm Implanted:Qty: 1 on 11/09/2019 by Radha Iraheta MD Right: Knee 11/02/2023 DEPUY - 1516-40-508 / / [id number] Explanted Type Area International Logistics Analyst Device Identifier Shelf Expiration Date Model / Serial / Lot Mix Kyphon Cx01b - [id number] Explanted:Qty: 1 on 03/07/2019 Cement MEDTRONIC - SPINAL fka KYPHON CX01B / / [id number] Description:the implant is t he kyphon bone cementREF [id number] 08/01/2021 Cement Kyphon Gun Sz3 Cds3a - Sna Explanted:Qty: 1 on 03/07/2019 Integral [employer] - SPINAL fka KYPHON 09/15/2019 CDS3A / NA / [id number] Description:This is not an i mplant documented in this section Per Lynne Milligan Director of Surgical Services Cmnt Crtrdg Kyphon Balln Kyphoplasty Cc02a - Csc - Sna Explanted:Qty: 1 on 03/07/2019 Integral MEDTR[employer] - SPINAL fka KYPHON CC02A / NA / [id number] Description:this is not an i mplant documented in this section per Lynne Milligan Director of Surgical Services. Screw Jacob T25 St 4.5x28mm 6894-0377 - [id number] Explanted:Qty: 1 on 07/12/2020 by Jayjay Cornejo MD Screw Right: Femur DOMINGUEZ [employer]PHEW [employer]O [id number] / / Screw Jacob T25 St 4.5x56mm 7757-2667 - [id number] Explanted:Qty: 1 on 07/12/2020 by Jayjay Cornejo MD Screw Right: Femur [employer]INGUEZ [employer]HEW [employer]O [id number] / / Screw Jacob T25 St 4.5x76mm 9856-1765 - [id number] Explanted:Qty: 1 on 07/12/2020 by Jayjay Cornejo MD Screw Right: Femur [employer]Z [employer]HEW [employer]O [id number] / / Procedures Procedure Name Priority Date/Time Associated Diagnosis Comments TSH REFLEXIVE Routine 10/16/2024 3:00 PM CDT Other fatigue Primary hypothyroidism VITAMIN D 25 HYDROXY Routine 10/16/2024 3:00 PM CDT Vitamin D deficiency CBC WITH DIFFERENTIAL Routine 10/16/2024 3:00 PM CDT Other fatigue COMPREHENSIVE METABOLIC PANEL Routine 10/16/2024 3:00 PM CDT Other fatigue VITAMIN B12 AND FOLATE Routine 10/16/2024 3:00 PM CDT Other fatigue POC URINALYSIS DIPSTICK AUTOMATED Routine 10/16/2024 2:43 PM CDT Other fatigue URINE CULTURE Routine 09/24/2024 9:51 AM CDT Urinary frequency POC URINALYSIS DIPSTICK AUTOMATED Routine 09/24/2024 9:50 AM CDT Urinary frequency XR DEXA BONE DENSITY AXIAL 1 OR MORE SITES Routine 05/20/2011 12:22 PM FOREST FIRE PREVENTION SPECIALIST Disorder of bone and cartilage from Last 3 Months or Most Recently Relevant to Health Maintenance Results * (ABNORMAL) TSH REFLEXIVE (10/16/2024 3:00 PM CDT) Pathologist [facility] TSH 12.21(H) 0.40 - 4.50 mIU/L [facility] T4 FREE 1.5 0.8 - 1.8 ng/dL [facility] Comment: Test Performed at: [facility] [address] [place] [phone] Eva Marsh MD Blood 10/16/2024 3:00 PM CDT 10/17/2024 1:13 AM CDT Deborah HAJI CHEMISTRY ORDERABLES Final Re sult [facility] [phone] [facility] [address] [place] [phone] * VITAMIN B12 AND FOLATE (10/16/2024 3:00 PM CDT) Pathologist [facility] VITAMIN B12 371 200 - 1100 pg/mL [facility] Comment: Please Note: Although the reference range for vitamin B12 is 200-1100 pg/mL, it has been reported that between 5 and 10% of patients with values between 200 and 400 pg/mL may experience neuropsychiatric and hematologic abnormalities due to occult B12 deficiency; less than 1% of patients with values above 400 pg/mL will have symptoms. FOLATE, SERUM >24.0 ng/mL [facility] Comment: Reference Range Low: <3.4 Borderline: 3.4-5.4 Normal: >5.4 Test Performed at: [facility] [address] [place] [address] Eva Marsh MD Blood 10/16/2024 3:00 PM CDT 10/17/2024 1:13 AM CDT Deborah HAJI CHEMISTRY ORDERABLES Final Re sult [facility] [phone] [facility] [facility] [address] [place] [address] * (ABNORMAL) CBC WITH DIFFERENTIAL (10/16/2024 3:00 PM CDT) WBC 6.0 3.8 - 10.8 Thousand/u L [facility] RBC 3.36(L) 3.80 - 5.10 Million/uL [facility] HEMOGLOBIN 10.0(L) 11.7 - 15.5 g/dL [facility] HEMATOCRIT 32.7(L) 35.0 - 45.0 % [facility] MCV 97.3 80.0 - 100.0 fL [facility] MCH 29.8 27.0 - 33.0 pg [facility] MCHC 30.6(L) 32.0 - 36.0 g/dL [facility] Comment: For adults, a slight decrease in the calculated MCHC value (in the range of 30 to 32 g/dL) is most likely not clinically significant; however, it should be interpreted with caution in correlation with other red cell parameters and the patient's clinical condition. RDW 12.2 11.0 - 15.0 % [facility] PLATELETS 269 140 - 400 Thousand/u L [facility] MPV 10.7 7.5 - 12.5 fL [facility] NEUTROPHIL ABSOLUTE 4,392 1,500 - 7,800 cells/uL [facility] LYMPHOCYTE ABSOLUTE 810(L) 850 - 3,900 cells/uL [facility] MONOCYTE ABSOLUTE 642 200 - 950 cells/uL [facility] EOSINOPHIL ABSOLUTE 108 15 - 500 cells/uL [facility] BASOPHILS ABSOLUTE 48 0 - 200 cells/uL [facility] NEUTROPHIL 73.2 % [facility] LYMPHOCYTES 13.5 % [facility] MONOCYTE 10.7 % [facility] EOSINOPHILS 1.8 % [facility] BASOPHILS 0.8 % [facility] Comment: Test Performed at: [facility] [address] [place] [address] Eva Marsh MD Blood 10/16/2024 3:00 PM CDT 10/17/2024 1:13 AM CDT us Deborah HAJI HEMATOLOGY ORDERABLES Final R esult Performing Organization Address [facility]/ZIP Co de Phone Number [facility] [phone] [facility] [address] [place] [address] * (ABNORMAL) VITAMIN D 25 HYDROXY (10/16/2024 3:00 PM CDT) Pathologist [facility] VITAMIN D, 25 OH, TOTAL 111(H) 30 - 100 ng/mL [facility] Comment: Vitamin D Status 25-OH Vitamin D: Deficiency: <20 ng/mL Insufficiency: 20 - 29 ng/mL Optimal: > or = 30 ng/mL For 25-OH Vitamin D testing on patients on D2-supplementation and patients for whom quantitation of D2 and D3 fractions is required, the QuestAssureD(TM) 25-OH VIT D, (D2,D3), LC/MS/MS is recommended: order code 34332 (patients >2yrs). See Note 1 Note 1 For additional information, please refer to http://education.Shuttersong.Bungolow/faq/KLB093 (This link is being provided for informational/ educational purposes only.) Test Performed at: [facility] [address] [facility] [place] [address] Eva Marsh MD Blood 10/16/2024 3:00 PM CDT 10/17/2024 1:13 AM CDT us Deborah HAJI CHEMISTRY ORDERABLES Final Re sult [facility] [phone] [address] [facility] [place] [address] * (ABNORMAL) COMPREHENSIVE METABOLIC PANEL (10/16/2024 3:00 PM CDT) GLUCOSE 103(H) 65 - 99 mg/dL [facility] Comment: Fasting reference interval For someone without known diabetes, a glucose value between 100 and 125 mg/dL is consistent with prediabetes and should be confirmed with a follow-up test. BUN 25 7 - 25 mg/dL [facility] CREATININE 1.04(H) 0.60 - 0.95 mg/dL [facility] GFR 52(L) > OR = 60 mL/min/1.7 3m2 [facility] BUN/CREAT RATIO 24(H) 6 - 22 (calc) [facility] SODIUM 138 135 - 146 mmol/L [facility] POTASSIUM 4.4 3.5 - 5.3 mmol/L [facility] CHLORIDE 100 98 - 110 mmol/L [facility] CO2 28 20 - 32 mmol/L [facility] CALCIUM 9.4 8.6 - 10.4 mg/dL [facility] TOTAL PROTEIN 6.2 6.1 - 8.1 g/dL [facility] ALBUMIN 3.8 3.6 - 5.1 g/dL [facility] GLOBULIN 2.4 1.9 - 3.7 g/dL (calc) [facility] ALBUMIN/GLOBULIN RATIO 1.6 1.0 - 2.5 (calc) [facility] BILIRUBIN TOTAL 0.3 0.2 - 1.2 mg/dL [facility] ALKALINE PHOSPHATASE 83 37 - 153 U/L [facility] AST 18 10 - 35 U/L [facility] ALT 14 6 - 29 U/L [facility] Comment: Test Performed at: [facility] [address] [place] [address] Eva Marsh MD Blood 10/16/2024 3:00 PM CDT 10/17/2024 1:13 AM CDT us Deborah Childers SET UP OPERATOR CHEMISTRY ORDERABLES Final Re sult [facility] [phone] [facility] [address] [address] [place] [address] * POC URINALYSIS DIPSTICK AUTOMATED (10/16/2024 2:43 PM CDT) Only the most recent of2 resultswithin the time period is included. COLOR UA POC Yellow Pale to Dark Yellow [facility] [place] CLARITY UA POC Clear Clear, Other [facility] [place] GLUCOSE UA POC Negative Negative, Normal [facility] [place] BILIRUBIN UA POC Negative Negative [facility] [place] KETONES UA POC Negative Negative [facility] [place] SPECIFIC GRAVITY UA POC 1.015 1.000 - 1.[address] [facility] [place] BLOOD UA POC Negative Negative [facility] [place] PH UA POC 6.5 5.0 - 8.0 [facility] [place] PROTEIN UA POC Negative Negative [facility] [place] UROBILINOGEN UA POC 0.2 <2.0 mg/dL [facility] [place] NITRITE UA POC Negative Negative [facility] [place] LEUKOCYTE ESTERASE UA POC Negative Negative [facility] [place] KIT LOT NUMBER POC [phone] [facility] [place] KIT EXP DATE POC [id number] [facility] [place] Urine 10/16/2024 2:43 PM CDT us Deborah Childers SET UP OPERATOR POINT OF CARE TESTING Final R esult [facility] [place] CLIA# [id number] [facility] [address] [place] [address] * URINE CULTURE (09/24/2024 9:51 AM CDT) URINE CULTURE SEE NOTE [facility] Comment: CULTURE, URINE, ROUTINE Micro Number: [id number] Test Status: Final Specimen Source: Urine, clean catch Specimen Quality: Adequate Result: Less than 10,000 CFU/mL of single Gram positive organism isolated. No further testing will be performed. If clinically indicated, recollection using a method to minimize contamination, with prompt transfer to Urine Culture Transport Tube, is recommended. Test Performed at: [facility] [address] [place] [address] Eva Marsh MD Urine URINE SPECIMEN OBTAINED BY CLEAN CATCH PROCEDURE / Unknown 09/24/2024 9:51 AM CDT 09/25/2024 2:47 AM CDT Charles Cartwright DO MICROBIOLOGY - GENERAL ORDERA BLES Final Result [facility] [phone] [facility] [address] [place] [address] * XR DEXA BONE DENSITY AXIAL 1 OR MORE SITES (05/20/2011 12:22 PM FOREST FIRE PREVENTION SPECIALIST) Anatomical Region Laterality Modality Other Impressions 05/21/2011 9:25 AM FOREST FIRE PREVENTION SPECIALIST Impression: The patient does not have osteoporosis [...] approximately two years. Narrative 05/21/2011 9:25 AM FOREST FIRE PREVENTION SPECIALIST DEXA Evaluation of the Lumbar Spine and [...] hip. Procedure Note Qamar Ovalle MD - 06/05/2022 DEXA Evaluation of the Lumbar Spine and [...] in approximately two years. Rose Mary Barrera [facility] DIAGNOSTIC IMAGING ORDERABLES Final Result from Last 3 Months or Most Recently Relevant to Health Maintenance Insurance [facility] [id number] * Guarantor: ALAN CHRIS Account Type Relation to Patient Date of Phone Billing Address Personal/Family [address] [place] [address] Advance Directives For more information, please contact: [phone] * Full Code (Latest Code Status on File) Date Activated Date Inactivated Comments 09/28/2021 3:04 PM 09/30/2021 6:47 PM * Default Full Code - Needs Discussion Date Activated Date Inactivated Comments 09/26/2021 11:47 PM 09/28/2021 3:04 PM * Full Code Date Activated Date Inactivated Comments 09/21/2021 7:15 PM 09/24/2021 3:21 PM * Default Full Code - Needs Discussion Date Activated Date Inactivated Comments 09/21/2021 7:14 PM 09/21/2021 7:15 PM * Full Code Date Activated Date Inactivated Comments 01/21/2021 9:53 AM 01/30/2021 3:17 PM Care Teams Retail Inventory Control Clerk Relationship Specialty Start Date End Date Charles Cartwright DO [address] [place] [address] PCP - General Family Practice 04/09/21
--- OUTSIDE RECORDS SUMMARY | 2024-12-15 22:51 | XMS_ITS | Encounter Summary ---
Author Organization [facility] Address [address] [place] [address] Care Team Providers Care Cafe Team Member Name Role Phone Yvan Cartwright MD Primary Care Provider Encounter Details Date Type Department Care Team (Latest Contact Info) Description 11/04/2005 Outpatient [facility] Christopher Whitley, FLAVORING MACHINE OPERATOR [address] [place] [address] Other Abnormal Findings on Radiological Examination of Breast (Primary Dx) Social History Tobacco Use Types Packs/Day Years Used Date Smoking Tobacco: Never Assessed Comments Unknown Sex and Gender Information Value Date Recorded Sex Assigned at Not on file Legal Sex Female 3:51 AM WORD PROCESSING OPERATOR Gender Identity Not on file Sexual Orientation Not on file documented as of this encounter Plan of Treatment Not on file documented as of this encounter Visit Diagnoses Diagnosis Other (abnormal) findings on radiological examination of breast- Primary documented in this encounter Care Teams Cafe Team Member Relationship Specialty Start Date End Date Yvan Cartwright MD [address] [place] [address] PCP - General Family Practice 09/25/14 documented as of this encounter
--- OUTSIDE RECORDS SUMMARY | 2024-12-15 22:51 | XMS_ITS | Encounter Summary ---
Author Organization [facility] Address [address] [place] [address] Care Team Providers Care Equipment Tester Name Role Phone Yvan Cartwright MD Primary Care Provider [phone] Encounter Details Date Type Department Care Team (Late st Contact Info) Description 07/06/2007 Outpatient Historical [facility] Imaging Services [address] [place] [phone] Other, f NO ADDRESS ON FILE Social History Tobacco Use Types Packs/Day Years Used Date Smoking Tobacco: Never Assessed Comments Unknown Sex and Gender Information Value Date Recorded Sex Assigned at Not on file Legal Sex Female 3:51 AM COMMUNICATIONS DEPARTMENT HEAD Gender Identity Not on file Sexual Orientation Not on file documented as of this encounter Plan of Treatment Not on file documented as of this encounter Visit Diagnoses Not on filedocumented in this encounter Care Teams Equipment Tester Relationship Specialty Start Date End Date Yvan Cartwright MD [address] [place] [address] PCP - General Family Practice 09/25/14 documented as of this encounter
--- OUTSIDE RECORDS SUMMARY | 2024-12-15 22:51 | XMS_ITS | Encounter Summary ---
Author Organization [facility] Address [address] [place] [address] Care Team Providers Care Truck Safety Inspector Name Role Phone Yvan Cartwright MD Primary Care Provider [phone] Encounter Details Date Type Department Care Team (Latest Contact Info) Description 01/22/2004 Outpatient Historical [facility] Medicine [place] [address] [place] [address] Argentina Cifuentes MD [address] [place] [address] EXTRAPYRAMIDAL DIS NEC (Primary Dx); JOINT PAIN-SHLDER; Vaccine for influenza Social History Tobacco Use Types Packs/Day Years Used Date Smoking Tobacco: Never Assessed Comments Unknown Sex and Gender Information Value Date Recorded Sex Assigned at Not on file Legal Sex Female 3:51 AM PHARMACY CONSULTANT Gender Identity Not on file Sexual Orientation Not on file documented as of this encounter Plan of Treatment Not on file documented as of this encounter Visit Diagnoses Diagnosis 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
--- OUTSIDE RECORDS SUMMARY | 2024-12-15 22:51 | XMS_ITS | Encounter Summary ---
Author Organization [facility] Address [address] [place] [address] Care Team Providers Care Yard Operator Name Role Phone Yvan Cartwright MD Primary Care Provider Encounter Details Date Type Department Care Team (Latest Contact Info) Description 05/10/2006 Outpatient [facility] [address] [place] [address] Tim Garcia MD [address] [place] [phone] Other Abnormal Findings on Radiological Examination of Breast (Primary Dx) Social History Tobacco Use Types Packs/Day Years Used Date Smoking Tobacco: Never Assessed Comments Unknown Sex and Gender Information Value Date Recorded Sex Assigned at Not on file Legal Sex Female 3:51 AM TONAL REGULATOR Gender Identity Not on file Sexual Orientation Not on file documented as of this encounter Plan of Treatment Not on file documented as of this encounter Visit Diagnoses Diagnosis Other (abnormal) findings on radiological examination of breast- Primary documented in this encounter Care Teams Yard Operator Relationship Specialty Start Date End Date Yvan Cartwright MD [address] [place] [address] PCP - General Family Practice 09/25/14 documented as of this encounter
--- OUTSIDE RECORDS SUMMARY | 2024-12-15 22:51 | XMS_ITS | Encounter Summary ---
Author Organization [facility] Address [address] [place] [address] Care Team Providers Care Handicrafts Teacher Name Role Phone Yvan Cartwright MD Primary Care Provider [phone] Encounter Details Date Type Department Care Team (Latest Contact Info) Description 07/25/2007 Outpatient Historical [facility] Pain Management Procedures [address] [place] [phone] Denis Baer Spinal Stenosis of Lumbar Region; Personal History of Allergy to Penicillin; Personal History of Allergy to Sulfonamides Social History Tobacco Use Types Packs/Day Years Used Date Smoking Tobacco: Never Assessed Comments Unknown Sex and Gender Information Value Date Recorded Sex Assigned at Not on file Legal Sex Female 3:51 AM GROUP CONTRACT ANALYST Gender Identity Not on file Sexual Orientation Not on file documented as of this encounter Plan of Treatment Not on file documented as of this encounter Procedures Procedure Name Priority Date/Time Associated Diagnosis Comments XR FLUORO GREATER THAN 1 HOUR Routine 07/26/2007 1:40 PM CDT documented in this encounter Results * XR FLUORO > 1 HOUR (07/26/2007 1:40 PM CDT) Anatomical Region Laterality Modality Other 07/26/2007 1:40 PM CDT Narrative 07/26/2007 1:40 PM CDT Finalized by interface [employer] utility. No report expected. Procedure Note 04/14/2008 Finalized by interface cleanup utility. No report expected. us Denis Baer DIAGNOSTIC IMAGING ORDERABLES Fi nal Result documented in this encounter Visit Diagnoses Diagnosis Spinal stenosis, lumbar region, without neurogenic claudication Personal history of allergy to penicillin Personal history of allergy to sulfonamides documented in this encounter Care Teams Handicrafts Teacher Relationship Specialty Start Date End Date Yvan Cartwright MD [address] [place] [phone] PCP - General Family Practice 09/25/14 documented as of this encounter
--- OUTSIDE RECORDS SUMMARY | 2024-12-15 22:51 | XMS_ITS | Encounter Summary ---
Author Organization [facility] Address [address] [place] [address] Care Team Providers Care Plaster Helper Name Role Phone Yvan Cartwright MD Primary Care Provider [phone] Encounter Details Date Type Department Care Team (Late st Contact Info) Description 07/20/2007 Outpatient Historical [facility] [address] [place] [address] Shailesh Abbasi MD [address] [place] [address] Social History Tobacco Use Types Packs/Day Years Used Date Smoking Tobacco: Never Assessed Comments Unknown Sex and Gender Information Value Date Recorded Sex Assigned at Not on file Legal Sex Female 3:51 AM REFINERY OPERATOR LIGHT ENDS RECOVERY Gender Identity Not on file Sexual Orientation Not on file documented as of this encounter Plan of Treatment Not on file documented as of this encounter Visit Diagnoses Not on filedocumented in this encounter Care Teams Plaster Helper Relationship Specialty Start Date End Date Yvan Cartwright MD [address] [phone] PCP - General Family Practice 09/25/14 documented as of this encounter
--- OUTSIDE RECORDS SUMMARY | 2024-12-15 22:51 | XMS_ITS | Encounter Summary ---
Author Organization [facility] Address [address] [place] [address] Care Team Providers Care Entry Level Electrician Name Role Phone Yvan Cartwright MD Primary Care Provider [phone] Encounter Details Date Type Department Care Team (Late st Contact Info) Description 05/05/2005 Outpatient Historical [facility] [address] [facility] [address] [place] [address] Coleen Aguilera MD NO ADDRESS ON FILE SYMPTOMS IN BREAST NEC (Primary Dx) Social History Tobacco Use Types Packs/Day Years Used Date Smoking Tobacco: Never Assessed Comments Unknown Sex and Gender Information Value Date Recorded Sex Assigned at Not on file Legal Sex Female 3:51 AM FOREPART RASPER Gender Identity Not on file Sexual Orientation Not on file documented as of this encounter Plan of Treatment Not on file documented as of this encounter Visit Diagnoses Diagnosis Other sign and symptom in breast- Primary documented in this encounter Care Teams Entry Level Electrician Relationship Specialty Start Date End Date Yvan Cartwright MD [address] [place] [address] PCP - General Family Practice 09/25/14 documented as of this encounter
--- OUTSIDE RECORDS SUMMARY | 2024-12-15 22:51 | XMS_ITS | Encounter Summary ---
Author Organization [facility] Address [address] [place] [address] Care Team Providers Care Paste Mixer Name Role Phone Yvan Cartwright MD Primary Care Provider [phone] Encounter Details Date Type Department Care Team (Latest Contact Info) Description 01/27/2006 Outpatient Historical [facility] Medicine [place] [address] [place] [phone] Tim Garcia MD [address] [place] [address] Acute Pharyngitis (Primary Dx); Acute Bronchitis Social History Tobacco Use Types Packs/Day Years Used Date Smoking Tobacco: Never Assessed Comments Unknown Sex and Gender Information Value Date Recorded Sex Assigned at Not on file Legal Sex Female 3:51 AM CREATIVE ARTS THERAPIST Gender Identity Not on file Sexual Orientation Not on file documented as of this encounter Plan of Treatment Not on file documented as of this encounter Visit Diagnoses Diagnosis Acute pharyngitis- Primary Acute bronchitis documented in this encounter Care Teams Paste Mixer Relationship Specialty Start Date End Date Yvan Cartwright MD [address] [place] [phone] PCP - General Family Practice 09/25/14 documented as of this encounter
--- OUTSIDE RECORDS SUMMARY | 2024-12-15 22:51 | XMS_ITS | Encounter Summary ---
Author Organization [facility] Address [address] [place] [address] Care Team Providers Care Machine Compositor Name Role Phone Yvan Cartwright MD Primary Care Provider [phone] Encounter Details Date Type Department Care Team (Late st Contact Info) Description 08/02/2007 Outpatient Historical [facility] [address] [place] [phone] Denis Baer Social History Tobacco Use Types Packs/Day Years Used Date Smoking Tobacco: Never Assessed Comments Unknown Sex and Gender Information Value Date Recorded Sex Assigned at Not on file Legal Sex Female 3:51 AM LOCAL DELIVERY DRIVER Gender Identity Not on file Sexual Orientation Not on file documented as of this encounter Plan of Treatment Not on file documented as of this encounter Visit Diagnoses Not on filedocumented in this encounter Care Teams Machine Compositor Relationship Specialty Start Date End Date Yvan Cartwright MD [address] [address] PCP - General Family Practice 09/25/14 documented as of this encounter
--- OUTSIDE RECORDS SUMMARY | 2024-12-15 22:51 | XMS_ITS | Encounter Summary ---
Author Organization [facility] Address [address] [place] [address] Care Team Providers Care Sample Case Porter Name Role Phone Yvan Cartwright MD Primary Care Provider [phone] Encounter Details Date Type Department Care Team (Latest Contact Info) Description 11/04/[address] [facility] [address] [facility] [address] [place] [phone] Tawnya Forman MD NO ADDRESS ON FILE Other Sign and Symptom in Breast (Primary Dx) Social History Tobacco Use Types Packs/Day Years Used Date Smoking Tobacco: Never Assessed Comments Unknown Sex and Gender Information Value Date Recorded Sex Assigned at Not on file Legal Sex Female 3:51 AM SHOP LABORER Gender Identity Not on file Sexual Orientation Not on file documented as of this encounter Plan of Treatment Not on file documented as of this encounter Visit Diagnoses Diagnosis Other sign and symptom in breast- Primary documented in this encounter Care Teams Sample Case Porter Relationship Specialty Start Date End Date Yvan aCrtwright MD [address] [place] [address] PCP - General Family Practice 09/25/14 documented as of this encounter
--- OUTSIDE RECORDS SUMMARY | 2024-12-15 22:51 | XMS_ITS | Encounter Summary ---
Author Organization [facility] Address [address] [place] [address] Care Team Providers Care Sign Poster Name Role Phone Yvan Cartwright MD Primary Care Provider Encounter Details Date Type Department Care Team (Latest Contact Info) Description 02/24/2007 Outpatient Historical [facility] Medicine [place] [address] [place] [phone] Christopher Whitley, PARTS DATA WRITER [address] [place], [place] [phone] Sciatica (Primary Dx); Lumbago Social History Tobacco Use Types Packs/Day Years Used Date Smoking Tobacco: Never Assessed Comments Unknown Sex and Gender Information Value Date Recorded Sex Assigned at Not on file Legal Sex Female 3:51 AM PROJECT MANAGER PROCESS DEVELOPMENT Gender Identity Not on file Sexual Orientation Not on file documented as of this encounter Plan of Treatment Not on file documented as of this encounter Visit Diagnoses Diagnosis Sciatica- Primary Lumbago documented in this encounter Care Teams Sign Poster Relationship Specialty Start Date End Date Yvan Cartwright MD [address] [place] [phone] PCP - General Family Practice 09/25/14 documented as of this encounter
--- OUTSIDE RECORDS SUMMARY | 2024-12-15 22:51 | XMS_ITS | Encounter Summary ---
Author Organization [facility] Address [address] [place] [address] Care Team Providers Care Audio Visual Technician Name Role Phone Yvan Cartwright MD Primary Care Provider Encounter Details Date Type Department Care Team (Late st Contact Info) Description 05/05/2007 Outpatient [facility] [address] [place] [address] Christopher Whitley, CASIE [address], [place] [address] Argentina Cifuentes MD [address] [place] [phone] Social History Tobacco Use Types Packs/Day Years Used Date Smoking Tobacco: Never Assessed Comments Unknown Sex and Gender Information Value Date Recorded Sex Assigned at Not on file Legal Sex Female 3:51 AM FEED WEIGHER Gender Identity Not on file Sexual Orientation Not on file documented as of this encounter Plan of Treatment Not on file documented as of this encounter Procedures Procedure Name Priority Date/Time Associated Diagnosis Comments MAMMO SCREENING BILAT Routine 05/11/2007 12:54 PM FEED WEIGHER MAMMO SCRN TO DIAG BILAT Routine 05/11/2007 12:53 PM FEED WEIGHER documented in this encounter Results * MAMMO SCREENING BILAT (05/11/2007 12:54 PM FEED WEIGHER) Anatomical Region Laterality Modality Breast Bilateral Other Narrative 05/11/2007 12:54 PM FEED WEIGHER Report Available in [facility] Procedure Note 05/06/2008 Report Available in [facility] us Argentina Cifuentes MD MAMMO ORDERABLES Final Result * MAMMO SCRN TO DIAG BILAT (05/11/2007 12:53 PM FEED WEIGHER) Anatomical Region Laterality Modality Breast Other Narrative 05/11/2007 12:53 PM FEED WEIGHER Report Available in [facility] Procedure Note 05/06/2008 Report Available in [facility] us Argentina Cifuentes MD MAMMO ORDERABLES Final Result documented in this encounter Visit Diagnoses Not on filedocumented in this encounter Care Teams Audio Visual Technician Relationship Specialty Start Date End Date Yvan Cartwright MD [address] [place] [address] PCP - General Family Practice 09/25/14 documented as of this encounter
--- OUTSIDE RECORDS SUMMARY | 2024-12-15 22:51 | XMS_ITS | Encounter Summary ---
Author Organization [facility] Address [address] [place] [address] Care Team Providers Care Florist Name Role Phone Yvan Cartwright MD Primary Care Provider Encounter Details Date Type Department Care Team (Late st Contact Info) Description 07/18/2003 Outpatient Historical [facility] Urology- [address] Entrance B, 3rd [place] [phone] Theodore Narayan MD NO ADDRESS ON FILE URINARY FREQUENCY (Primary Dx) Social History Tobacco Use Types Packs/Day Years Used Date Smoking Tobacco: Never Assessed Comments Unknown Sex and Gender Information Value Date Recorded Sex Assigned at Not on file Legal Sex Female 3:51 AM DIRECTOR OF BUSINESS CONTINUITY Gender Identity Not on file Sexual Orientation Not on file documented as of this encounter Plan of Treatment Not on file documented as of this encounter Visit Diagnoses Diagnosis Urinary frequency- Primary documented in this encounter Care Teams Florist Relationship Specialty Start Date End Date Yvan Cartwright MD [address] [place] [address] PCP - General Family Practice 09/25/14 documented as of this encounter
--- OUTSIDE RECORDS SUMMARY | 2024-12-15 22:51 | XMS_ITS | Encounter Summary ---
Author Organization [facility] Address [address] [place] [address] Care Team Providers Care Lung Gun Operator Name Role Phone Yvan Cartwright MD Primary Care Provider [phone] Encounter Details Date Type Department Care Team (Late st Contact Info) Description 07/31/2007 Outpatient Historical [facility] Pain Management Procedures [address] 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 No report expected. Procedure Note 04/14/2008 Finalized by interface cleanup utility. No report expected. us Denis Baer DIAGNOSTIC IMAGING ORDERABLES Fi nal Result documented in this encounter Visit Diagnoses Not on filedocumented in this encounter Care Teams Lung Gun Operator Relationship Specialty Start Date End Date Yvan Cartwright MD [address] [place] [address] PCP - General Family Practice 09/25/14 documented as of this encounter
--- OUTSIDE RECORDS SUMMARY | 2024-12-15 22:51 | XMS_ITS | Encounter Summary ---
Author Organization [facility] Address [address] [place] [address] Care Team Providers Care Canvas Shrinker Name Role Phone Yvan Cartwright MD Primary Care Provider [phone] Encounter Details Date Type Department Care Team (Latest Contact Info) Description 07/17/2007 Outpatient [facility] [address] [address] Shailesh Abbasi MD [address] [place] [address] Spinal Stenosis of Lumbar Region; Lumbago; Pain in Soft Tissues of Limb; Lumbosacral Spondylosis without Myelopathy Social History Tobacco Use Types Packs/Day Years Used Date Smoking Tobacco: Never Assessed Comments Unknown Sex and Gender Information Value Date Recorded Sex Assigned at Not on file 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
--- OUTSIDE RECORDS SUMMARY | 2024-12-15 22:51 | XMS_ITS | Encounter Summary ---
Author Organization [facility] Address [address] [place] [address] Care Team Providers Care Seal Delivery Vehicle Team Technician Name Role Phone Yvan Cartwright MD Primary Care Provider [phone] Encounter Details Date Type Department Care Team (Late st Contact Info) Description 11/26/2003 Outpatient Historical [facility] Imaging [place] 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
--- OUTSIDE RECORDS SUMMARY | 2024-12-15 22:51 | XMS_ITS | Encounter Summary ---
Author Organization [facility] Address [address] [place] [address] Care Team Providers Care Administrative Support Assistant Name Role Phone Yvan Cartwright MD Primary Care Provider Encounter Details Date Type Department Care Team (Latest Contact Info) Description 09/10/2005 Outpatient Historical [facility] Medicine [place] [address] [place] [phone] Christopher Whitley, CASIE [address] [place], [place] [address] Other Specified Temporomandibular Joint Disorders (Primary Dx); Unspecified Labyrinthitis Social History Tobacco Use Types Packs/Day Years Used Date Smoking Tobacco: Never Assessed Comments Unknown Sex and Gender Information Value Date Recorded Sex Assigned at Not on file 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
--- OUTSIDE RECORDS SUMMARY | 2024-12-15 22:51 | XMS_ITS | Encounter Summary ---
Author Organization [facility] Address [address] [place] [address] Care Team Providers Care Car Conditioner Name Role Phone Yvan Cartwright MD Primary Care Provider Encounter Details Date Type Department Care Team (Latest Contact Info) Description 07/17/2003 Outpatient Historical [facility] Medicine [place] [address] [address] Ynes Garcia MD [address] [place] [address] HYPOTHYROIDISM NOS (Primary Dx) Social History Tobacco Use Types Packs/Day Years Used Date Smoking Tobacco: Never Assessed Comments Unknown Sex and Gender Information Value Date Recorded Sex Assigned at Not on file 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
--- OUTSIDE RECORDS SUMMARY | 2024-12-15 22:51 | XMS_ITS | Encounter Summary ---
Author Organization [facility] Address [address] [place] [address] Care Team Providers Care Residential Worker Name Role Phone Yvan Cartwright MD Primary Care Provider [phone] Encounter Details Date Type Department Care Team (Latest Contact Info) Description 11/13/2003 Outpatient Historical [facility] Medicine [place] [address] [place] [phone] Argentina Cifuentes MD [address] [place] [address] CRAMP IN LIMB (Primary Dx); JOINT PAIN-SHLDER Social History Tobacco Use Types Packs/Day Years Used Date Smoking Tobacco: Never Assessed Comments Unknown Sex and Gender Information Value Date Recorded Sex Assigned at Not on file 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
--- OUTSIDE RECORDS SUMMARY | 2024-12-15 22:51 | XMS_ITS | Encounter Summary ---
Author Organization [facility] Address [address] [place] [address] Care Team Providers Care Sales Team Recruiter Name Role Phone Yvan Cartwright MD Primary Care Provider [phone] Encounter Details Date Type Department Care Team (Late st Contact Info) Description 03/15/2007 Outpatient Historical [facility] Medicine [address] [address] Social History Tobacco Use Types Packs/Day Years Used Date Smoking Tobacco: Never Assessed Comments Unknown Sex and Gender Information Value Date Recorded Sex Assigned at Not on file 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
--- OUTSIDE RECORDS SUMMARY | 2024-12-15 22:51 | XMS_ITS | Encounter Summary ---
Author Organization [facility] Address [address] [place] [address] Care Team Providers Care Hand Reamer Name Role Phone Yvan Cartwright MD Primary Care Provider Encounter Details Date Type Department Care Team (Latest Contact Info) Description 07/24/2003 Outpatient Historical [facility] Imaging Services [address] [place] [phone] Yvan Cartrwight MD [address] [place] [address] DIZZINESS AND GIDDINESS (Primary Dx) Social History Tobacco Use Types Packs/Day Years Used Date Smoking Tobacco: Never Assessed Comments Unknown Sex and Gender Information Value Date Recorded Sex Assigned at Not on file 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
--- OUTSIDE RECORDS SUMMARY | 2024-12-15 22:52 | XMS_ITS | Encounter Summary ---
Author Organization [facility] Address [address] [place] [address] Care Team Providers Care Portable Grinding Machine Operator Name Role Phone Charles Cartwright DO Primary Care Provider Reason for Referral * Home Health (Routine) - Closed Specialty Diagnoses / Procedures Referred By Last t Referred To Contact Diagnoses Lumbar radicular pain Sacroiliac joint pain Lumbosacral spondylosis without myelopathy Primary osteoarthritis of right knee S/P total knee arthroplasty, right Chronic pain of left knee Charles Cartwright DO [address] [place] [phone] Phone: tel: fax: [address] [address] Phone: tel: fax: Referral ID Status Reason Start Date Expiration Date Visits Re quested Visits Authorized [id number] Closed 09/05/2024 09/05/2025 1 1 Reason for Visit * Reason Comments Question Encounter Details Date Type Department Care Team (Late st Contact Info) Description 09/05/2024 Telephone [facility] [address] [place] [phone] Charles Cartwright DO [address] [place] [phone] Question Social History Tobacco Use Types Packs/Day Years Used Date Smoking Tobacco: Former Cigarettes Q uit: 04/04/1995 Smokeless Tobacco: Never Alcohol Use Standard Drinks/Week Comments Not Currently 0 (1 standard drink = 0.6 oz pur e alcohol) Feeling Safe Answer Date Recorded Are you in a relationship wi th someone who hurts you emotionally and/or physically? No 11/07/2023 Comments No Sex and Gender Information Value Date Recorded Sex Assigned at Not on file Legal Sex Female 2:30 AM NET C DEVELOPER Gender Identity Not on file Sexual Orientation Not on file documented as of this encounter Miscellaneous Notes * Telephone Encounter - Kiera Edge - 09/06/2024 11:53 AM CDT Referral and last ov notes faxed to [facility] as requested by Nisha. * Telephone Encounter - Nisha Roldan LPN - 09/05/2024 12:50 PM CDT 09/05/2024 12:50 PM Returned call and spoke with Naye on PHI. Discussed Dr. Wakefield message. Voiced understanding. Nisha PAN * Telephone Encounter - Charles Cartwright DO - 09/05/2024 12:35 PM CDT Okay to place referral. Patient has visit on 09/10/2024 she must keep this appointment for home health to be approved visit must be within 30 days of order. * Telephone Encounter - Nisha Roldan LPN - 09/05/2024 9:43 AM CDT 09/05/2024 9:43 AM Returned call and spoke with Naye on PHI. Discussed that patient broke her hip on 08/11 and went [place] [facility] was [place]12 and the patient went to [facility] on 08/16. Called [facility] [place] they will be faxing. Nisha PAN * Telephone Encounter - Barrios, Kunal Lima - 09/05/2024 9:22 AM CDT Copied from [facility] #[id number]. Topic: Patient or Caregiver Communication Request >> Sep 05, 2024 9:20 AM Kunal Bhardwaj wrote: Patient or Caregiver requesting that a message be sent to Care Team Caller: Naye- daughter on phi Patient/Caregiver Callback Number: [phone] Call Notes: wanting a referral for home health, as she is at [facility] and is about to be discharged tomorrow, but is needing a referral to start home health. [facility] documented in this encounter Plan of Treatment Upcoming Encounters Date Type Department Care Team (Late st Contact Info) Description 02/08/2025 1:20 PM NET C DEVELOPER Office Visit [facility] [address] [phone] Charles Cartwright DO [address] [phone] Scheduled Referrals Name Type Priority Associated Diagnoses Orde r Schedule AMB REFERRAL TO HOME CARE Outpatient Referral Routine Lumbar radicular pain Sacroiliac joint pain Lumbosacral spondylosis without myelopathy Primary osteoarthritis of right knee S/P total knee arthroplasty, right Chronic pain of left knee Ordered: 09/05/2024 documented as of this encounter Visit Diagnoses Diagnosis Lumbar radicular pain- Primary Thoracic or lumbosacral neuritis or radiculitis, unspecified Sacroiliac joint pain Disorders of sacrum Lumbosacral spondylosis without myelopathy Primary osteoarthritis of right knee Primary localized osteoarthrosis, lower leg S/P total knee arthroplasty, right Chronic pain of left knee Pain in joint, lower leg documented in this encounter Additional Health Concerns Assessment Noted Time PHQ-9 Depression Total Score: 3 08/01/19 25 11:00 AM CDT documented as of this encounter Care Teams Portable Grinding Machine Operator Relationship Specialty Start Date End Date Charles Cartwright DO [address] [place] [address] PCP - General Family Practice 04/09/21 documented as of this encounter
--- OUTSIDE RECORDS SUMMARY | 2024-12-15 22:52 | XMS_ITS | Encounter Summary ---
Author Organization [facility] Address [address] [place] [address] Care Team Providers Care Athletics Director Name Role Phone Yvan Cartwright MD Primary Care Provider [phone] Encounter Details Date Type Department Care Team (Late st Contact Info) Description 08/09/2007 Outpatient Historical [facility] [address] [place] [phone] Denis Baer Social History Tobacco Use Types Packs/Day Years Used Date Smoking Tobacco: Never Assessed Comments Unknown Sex and Gender Information Value Date Recorded Sex Assigned at Not on file 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
--- OUTSIDE RECORDS SUMMARY | 2024-12-15 22:52 | XMS_ITS | Encounter Summary ---
Author Organization [facility] Address [address] [place] [address] Care Team Providers Care Dampproofer Name Role Phone Yvan Cartwright MD Primary Care Provider [phone] Encounter Details Date Type Department Care Team (Late st Contact Info) Description 07/09/2019 Ancillary Orders [facility] Orthopedics - Orthopedic 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 No / Unsure 06/26/2019 9:31 AM CDT documented as of this encounter Plan of Treatment Not on file documented as of this encounter Results * XR PRIOR STUDY (06/19/2019 12:00 PM CDT) Narrative 07/09/2019 2:59 PM CDT This exam was auto finalized to allow images to be scanned to PACS. External Provider [facility] DIAGNOSTIC IMAGING ORDERAB LES Final Result documented in this encounter Visit Diagnoses Diagnosis Pain Generalized pain Pain Generalized pain documented in this encounter Additional Health Concerns Assessment Noted Time PHQ-9 Depression Total Score: 1 04/07/19 19 2:00 PM BEAN SNAPPER documented as of this encounter Care Teams Dampproofer Relationship Specialty Start Date End Date Yvan Cartwright MD [address], [place] [address] PCP - General Family Practice 09/25/14 documented as of this encounter
--- OUTSIDE RECORDS SUMMARY | 2024-12-15 22:52 | XMS_ITS | Encounter Summary ---
Author Organization [facility] Address [address] [place] [address] Care Team Providers Care Lithographic Plate Maker Apprentice Name Role Phone Yvan Cartwright MD Primary Care Provider [phone] Reason for Referral * Radiology Services (Routine) - Closed Specialty Diagnoses / Procedures Referred By Contac t Referred To Contact Radiology Diagnoses S/P TAVR (transcatheter aortic valve replacement) Procedures ECHOCARDIOGRAM W/ CONTRAST AGENT ECHO COMPLETE Cornelius Abdullahi MD Phone: tel: fax: [facility] [address] [place] [address] Phone: tel: fax: Referral ID Status Reason Start Date Expiration Date Visits Requested Visits Authorized [id number] Closed Interventional Scheduling (SGF) 04/28/2018 05/29/2019 1 1 ARE ANALYST Encounter Details Date Type Department Care Team (Late st Contact Info) Description 06/05/2018 Ancillary Orders [facility] Cardiology- [place] [address] [place] [address] Cornelius Abdullahi MD [address] [place] [address] S/P TAVR (transcatheter aortic valve replacement) Social History Tobacco Use Types Packs/Day Years Used Date Smoking Tobacco: Former Cigarettes 2.5 30 0 04/04/1965 - 04/04/1995 Smokeless Tobacco: Never Alcohol Use Standard Drinks/Week Comments Yes 0 (1 standard drink = 0.6 oz pur e alcohol) occasionally Comments No Sex and Gender Information Value Date Recorded Sex Assigned at Not on file Legal Sex Female 3:51 AM MALWARE ANALYST Gender Identity Not on file Sexual Orientation Not on file Occupation Industry Job Start Date Job End Date Not on file Not on file Not on file Not on file documented as of this encounter Plan of Treatment Not on file documented as of this encounter Results * ECHOCARDIOGRAM W/ CONTRAST AGENT (06/05/2018 3:07 PM MALWARE ANALYST) EJECTION FRACTION INTERFACE SYSTEM 06/05/2018 1:52 PM [facility] Narrative INTERFACE SYSTEM - 06/05/2018 4:28 PM [facility] Echocardiography-[address] [place] [address] Transthoracic Echocardiography Patient: Jean-Claude Study ECHO COMPLETE Wicho J ID: Gender: F : 1935 Age: 82 Room: Study 06/05/2018 Pt Outpatient Date: Status: Study 01:52:02 PM CSN #: [id number] Time: Ordering:Cornelius Abdullahi Interpreting:Venkatesh Perez Aluminum Pool Installer: Neisha Son [facility] Indications and History: 30 day S/P TAVR. CAD. Labs, prior tests, procedures, and surgery: Echocardiography (04/29/2018). Catheterization with coronary intervention (05/01/2018). TAVR procedure (04/29/2018). Valve surgery (2011). Aortic valve replacement. Valve surgery (04/29/2018). Aortic valve replacement with a 2.6cm Medtronic Evolut R bioprosthetic valve. Summary and Conclusion: - Left ventricle: The cavity size was normal. There was mild focal basal hypertrophy of the septum. Systolic function was normal. The visually estimated ejection fraction was in the range of 55% to 60%. Regional wall motion difficult to determine but improved with echo contrast. Interventricular septum shows dyssynergy, consistent with previous thoracotomy, conduction delay or RV pacing. Findings consistent with left ventricular diastolic dysfunction. - Right ventricle: The cavity size was normal. Systolic function was normal. Systolic pressure was not obtained. - Aortic valve: Aortic transcatheter valve present No significant regurgitation. Mean gradient (S): 5mm Hg. - Mitral valve: Calcified annulus. mildly thickened, mildly calcifiedleaflets. Mild regurgitation. Comparison: Compared to the previous study, LV systolic function and mitral regurgitation appear improved. Procedure information: Study status: Routine. Procedure: Initial setup. Intravenous access was obtained. Transthoracic echocardiography. Image quality was adequate. The study was technically difficult. Scanning was performed from the parasternal, apical, subcostal, and suprasternal notch acoustic windows. Intravenous contrast (Definity) was administered to opacify the LV. There were no complications. There were no contrast reactions. Patient was monitored per protocol. Study components: M-mode, 2D, complete spectral Doppler, and color Doppler. Height: 157.5cm. Height: 62in. Weight: 61.2kg. Weight: 134.7lb. BMI: 24.7kg/m\S\2. BSA: 1.65m\S\2. Blood pressure: 114/52 Study date: 06/05/2018. Study time: 01:52 PM. Location: Echo laboratory. Cardiac Anatomy: LEFT VENTRICLE: The cavity size was normal. There was mild focal basal hypertrophy of the septum. Systolic function was normal. The visually estimated ejection fraction was in the range of 55% to 60%. Regional wall motion difficult to determine but improved with echo contrast. No diagnostic regional wall motion abnormality identified. Interventricular septum shows dyssynergy, consistent with previous thoracotomy, conduction delay or RV pacing. Findings consistent with left ventricular diastolic dysfunction. RIGHT VENTRICLE: The cavity size was normal. Systolic function was normal. Systolic pressure was not obtained. LEFT ATRIUM: The atrium was at the upper limits of normal in size. RIGHT ATRIUM: The atrium was normal in size. ATRIAL SEPTUM: No obvious PFO or ASD identified by 2D imaging and color Doppler. AORTIC VALVE: Not well visualized. Aortic transcatheter valve present Doppler: There was no stenosis. No significant regurgitation. VTI ratio of LVOT to aortic valve: 0.9. Valve area (VTI): 2.92cm\S\2. Indexed valve area (VTI): 1.77cm\S\2/m\S\2. Peak velocity ratio of LVOT to aortic valve: 0.84. Valve area (Vmax): 2.71cm\S\2. Indexed valve area (Vmax): 1.65cm\S\2/m\S\2. Mean gradient (S): 5mm Hg. Peak gradient (S): 10mm Hg. MITRAL VALVE: Not well visualized. Calcified annulus. mildly thickened, mildly calcifiedleaflets. Mobility was not restricted. No echocardiographic evidence for prolapse. Doppler: There was no evidence for stenosis. Mild regurgitation. Valve area by pressure half-time: 3.75cm\S\2. Indexed valve area by pressure half-time: 2.28cm\S\2/m\S\2. Peak gradient (D): 3mm Hg. TRICUSPID VALVE: Not well visualized. Structurally normal valve. Mobility was not restricted. Doppler: There was no evidence for stenosis. Trivial regurgitation. PULMONIC VALVE: Not well visualized. The valve appears to be grossly normal. Doppler: There was no evidence for stenosis. No significant regurgitation. PERICARDIUM: There was no pericardial effusion. AORTA: Aortic root: The aortic root was normal in size. Aortic arch: The aortic arch was normal in size. SYSTEMIC VEINS: Inferior vena cava: The vessel was normal in size. INTRACARDIAC MASS THROMBUS: No apparent intracavitary masses or thrombi detected. 2D measurements Doppler measurements Left ventricle Left ventricle LVID ED, PLAX 4.7 cm IVRT 94 ms LVID ES, PLAX 2.8 cm E', lat zaida, 5 cm/sec FS, 39 % TDI endocardial, E/e', lat 16 PLAX zaida, TDI FS, PLAX chord 39 % E', med zaida, 4 cm/sec LVPW, ED 0.8 cm TDI IVS/LVPW ratio, 1.26 E/e', med 20 ED zaida, TDI Vol, ED 100 ml E', avg, TDI 4.5 cm/sec Vol, ES 31 ml E/e', avg, 18 Qs 6 L/min TDI Vol/bsa, ED 61 ml/m\S\2 LVOT Vol/bsa, ES 19 ml/m\S\2 Peak carlos, S 132.98 cm/sec Qs/bsa 3.6 L/(min-m\S\2) VTI, S 23.8 cm Vol, ES, 1-p 50 ml Peak 7 mm Hg A2C gradient, S Stroke vol, 1-p 69 ml Mean 3 mm Hg A2C gradient, S EF, 1-p A4C 58 % Cardiac 6.8 L/min SV, 1-p A4C 64 ml output (Qs) SV/bsa, 1-p A4C 39 ml/m\S\2 Cardiac index 4.1 L/(min-m\S\2) SV, 2-p 58 ml (Qs/bsa) SV/bsa, 2-p 35.4 ml/m\S\2 Aortic valve Ventricular septum Peak carlos, S 158.35 cm/sec IVS, ED 1.0 cm Mean carlos, S 100.78 cm/sec LVOT VTI, S 26.3 cm Diam, S 2.0 cm Mean 5 mm Hg Area 3 cm\S\2 gradient, S Left atrium Peak 10 mm Hg SI dim, A4C 5.5 cm gradient, S Vol, ES, 1-p 40 ml VTI ratio 0.9 A4C LVOT/AV Vol/bsa, ES, 24 ml/m\S\2 Area, VTI 2.92 cm\S\2 1-p A4C Area/bsa, VTI 1.77 cm\S\2/m\S\2 Vol, ES, 1-p 60 ml Peak carlos 0.84 A2C ratio, Vol/bsa, ES, 36 ml/m\S\2 LVOT/AV 1-p A2C Area, Vmax 2.71 cm\S\2 Vol, ES, 2-p 51 ml Area/bsa, 1.65 cm\S\2/m\S\2 Vol/bsa, ES, 31 ml/m\S\2 Vmax 2-p Mitral valve Right atrium Peak E carlos 79.44 cm/sec SI dim, ES, A4C 5.4 cm Peak A carlos 138.72 cm/sec Deceleration 202 ms M-mode measurements time Left ventricle Pressure 59 ms Vol ED, 100 ml half-time Teichholz Peak 3 mm Hg EF, Teichholz 69 % gradient, D Vol/bsa, ED, 61 ml/m\S\2 Peak E/A 0.57 Teichholz ratio Area (PHT) 3.75 cm\S\2 Area/bsa 2.28 cm\S\2/m\S\2 (PHT) Other echo measurements Other [facility] are accredited with the [facility] Acc[facility] - Echocardiography. Prepared and Electronically Authenticated Venkatesh Perez Confirmed 06/05/2018 16:28 Procedure Note Venkatesh Perez MD - 06/05/2018 [facility] [place] [address] Transthoracic Echocardiography Patient: Jean-Claude Study ECHO COMPLETE Wicho Orosco ID: Gender: F : 1935 Age: 82 Room: Study 06/05/2018 Pt Outpatient Date: Status: Study 01:52:02 PM [facility] #: [id number] Time: Ordering:Cornelius Abdullahi Interpreting:Venkatesh Perez Aluminum Pool Installer: Neisha Son [facility] Indications and History: 30 day S/P TAVR. CAD. Labs, prior tests, procedures, and surgery: Echocardiography (04/29/2018). Catheterization with coronary intervention (05/01/2018). TAVR procedure (04/29/2018). Valve surgery (2012). Aortic valve replacement. Valve surgery (04/29/2018). Aortic valve replacement with a 2.6cm Medtronic Evolut R bioprosthetic valve. Summary and Conclusion: - Left ventricle: The cavity size was normal. There was mild focal basal hypertrophy of the septum. Systolic function was normal. The visually estimated ejection fraction was in the range of 55% to 60%. Regional wall motion difficult to determine but improved with echo contrast. Interventricular septum shows dyssynergy, consistent with previous thoracotomy, conduction delay or RV pacing. Findings consistent with left ventricular diastolic dysfunction. - Right ventricle: The cavity size was normal. Systolic function was normal. Systolic pressure was not obtained. - Aortic valve: Aortic transcatheter valve present No significant regurgitation. Mean gradient (S): 5mm Hg. - Mitral valve: Calcified annulus. mildly thickened, mildly calcifiedleaflets. Mild regurgitation. Comparison: Compared to the previous study, LV systolic function and mitral regurgitation appear improved. Procedure information: Study status: Routine. Procedure: Initial setup. Intravenous access was obtained. Transthoracic echocardiography. Image quality was adequate. The study was technically difficult. Scanning was performed from the parasternal, apical, subcostal, and suprasternal notch acoustic windows. Intravenous contrast (Definity) was administered to opacify the LV. There were no complications. There were no contrast reactions. Patient was monitored per protocol. Study components: M-mode, 2D, complete spectral Doppler, and color Doppler. Height: 157.5cm. Height: 62in. Weight: 61.2kg. Weight: 134.7lb. BMI: 24.7kg/m\S\2. BSA: 1.65m\S\2. Blood pressure: 114/52 Study date: 06/05/2018. Study time: 01:52 PM. Location: Echo laboratory. Cardiac Anatomy: LEFT VENTRICLE: The cavity size was normal. There was mild focal basal hypertrophy of the septum. Systolic function was normal. The visually estimated ejection fraction was in the range of 55% to 60%. Regional wall motion difficult to determine but improved with echo contrast. No diagnostic regional wall motion abnormality identified. Interventricular septum shows dyssynergy, consistent with previous thoracotomy, conduction delay or RV pacing. Findings consistent with left ventricular diastolic dysfunction. RIGHT VENTRICLE: The cavity size was normal. Systolic function was normal. Systolic pressure was not obtained. LEFT ATRIUM: The atrium was at the upper limits of normal in size. RIGHT ATRIUM: The atrium was normal in size. ATRIAL SEPTUM: No obvious PFO or ASD identified by 2D imaging and color Doppler. AORTIC VALVE: Not well visualized. Aortic transcatheter valve present Doppler: There was no stenosis. No significant regurgitation. VTI ratio of LVOT to aortic valve: 0.9. Valve area (VTI): 2.92cm\S\2. Indexed valve area (VTI): 1.77cm\S\2/m\S\2. Peak velocity ratio of LVOT to aortic valve: 0.84. Valve area (Vmax): 2.71cm\S\2. Indexed valve area (Vmax): 1.65cm\S\2/m\S\2. Meangradient (S): 5mm Hg. Peak gradient (S): 10mm Hg. MITRAL VALVE: Not well visualized. Calcified annulus. mildly thickened, mildly calcifiedleaflets. Mobility was not restricted. No echocardiographic evidence for prolapse. Doppler: There was no evidence for stenosis. Mild regurgitation. Valve area by pressure half-time: 3.75cm\S\2. Indexed valve area by pressure half-time: 2.28cm\S\2/m\S\2. Peak gradient (D): 3mm Hg. TRICUSPID VALVE: Not well visualized. Structurally normal valve. Mobility was not restricted. Doppler: There was no evidence for stenosis. Trivial regurgitation. PULMONIC VALVE: Not well visualized. The valve appears to be grossly normal. Doppler: There was no evidence for stenosis. No significant regurgitation. PERICARDIUM: There was no pericardial effusion. AORTA: Aortic root: The aortic root was normal in size. Aortic arch: The aortic arch was normal in size. SYSTEMIC VEINS: Inferior vena cava: The vessel was normal in size. INTRACARDIAC MASS THROMBUS: No apparent intracavitary masses or thrombi detected. 2D measurements Doppler measurements Left ventricle Left ventricle LVID ED, PLAX 4.7 cm IVRT 94 ms LVID ES, PLAX 2.8 cm E', lat zaida, 5 cm/sec FS, 39 % TDI endocardial, E/e', lat 16 PLAX zaida, TDI FS, PLAX chord 39 % E', med zaida, 4 cm/sec LVPW, ED 0.8 cm TDI IVS/LVPW ratio, 1.26 E/e', med 20 ED zaida, TDI Vol, ED 100 ml E', avg, TDI 4.5 cm/sec Vol, ES 31 ml E/e', avg, 18 Qs 6 L/min TDI Vol/bsa, ED 61 ml/m\S\2 LVOT Vol/bsa, ES 19 ml/m\S\2 Peak carlos, S 132.98 cm/sec Qs/bsa 3.6 L/(min-m\S\2) VTI, S 23.8 cm Vol, ES, 1-p 50 ml Peak 7 mm Hg A2C gradient, S Stroke vol, 1-p 69 ml Mean 3 mm Hg A2C gradient, S EF, 1-p A4C 58 % Cardiac 6.8 L/min SV, 1-p A4C 64 ml output (Qs) SV/bsa, 1-p A4C 39 ml/m\S\2 Cardiac index 4.1 L/(min-m\S\2) SV, 2-p 58 ml (Qs/bsa) SV/bsa, 2-p 35.4 ml/m\S\2 Aortic valve Ventricular septum Peak carlos, S 158.35 cm/sec IVS, ED 1.0 cm Mean carlos, S 100.78 cm/sec LVOT VTI, S 26.3 cm Diam, S 2.0 cm Mean 5 mm Hg Area 3 cm\S\2 gradient, S Left atrium Peak 10 mm Hg SI dim, A4C 5.5 cm gradient, S Vol, ES, 1-p 40 ml VTI ratio 0.9 A4C LVOT/AV Vol/bsa, ES, 24 ml/m\S\2 Area, VTI 2.92 cm\S\2 1-p A4C Area/bsa, VTI 1.77 cm\S\2/m\S\2 Vol, ES, 1-p 60 ml Peak carlos 0.84 A2C ratio, Vol/bsa, ES, 36 ml/m\S\2 LVOT/AV 1-p A2C Area, Vmax 2.71 cm\S\2 Vol, ES, 2-p 51 ml Area/bsa, 1.65 cm\S\2/m\S\2 Vol/bsa, ES, 31 ml/m\S\2 Vmax 2-p Mitral valve Right atrium Peak E carlos 79.44 cm/sec SI dim, ES, A4C 5.4 cm Peak A carlos 138.72 cm/sec Deceleration 202 ms M-mode measurements time Left ventricle Pressure 59 ms Vol ED, 100 ml half-time Teichholz Peak 3 mm Hg EF, Teichholz 69 % gradient, D Vol/bsa, ED, 61 ml/m\S\2 Peak E/A 0.57 Teichholz ratio Area (PHT) 3.75 cm\S\2 Area/bsa 2.28 cm\S\2/m\S\2 (PHT) Other echo measurements Other [facility] are accredited with the [facility] Accreditation [facility] - Echocardiography. Prepared and Electronically Authenticated Venkatesh Perez Confirmed 06/05/2018 16:28 us Cornelius Abdullahi MD ORDERABLES Final Result Performing Organization Address City/State/[facility] Co ct Phone Number INTERFACE SYSTEM Refer to clinic/hospital department documented in this encounter Visit Diagnoses Diagnosis S/P TAVR (transcatheter aortic valve replacement) S/P TAVR (transcatheter aortic valve replacement) documented in this encounter Additional Health Concerns Assessment Noted Time PHQ-9 Depression Total Score: 1 04/07/19 19 2:00 PM MALWARE ANALYST documented as of this encounter Care Teams Lithographic Plate Maker Apprentice Relationship Specialty Start Date End Date Yvan Cartwright MD [address] [place] [address] PCP - General Family Practice 09/25/14 documented as of this encounter
--- OUTSIDE RECORDS SUMMARY | 2024-12-15 22:52 | XMS_ITS | Encounter Summary ---
Author Organization [facility] Address [address] [place] [address] Care Team Providers Care Ethylene Oxide Panelboard Operator Name Role Phone Yvan Cartwright MD Primary Care Provider [phone] Encounter Details Date Type Department Care Team (Latest Contact Info) Description 01/24/2008 Outpatient Historical [facility] Pain Management Procedures [address] [place] [id number] Denis Baer Personal History of Allergy to Narcotic Agent; Personal History of Allergy to Penicillin Social History Tobacco Use Types Packs/Day Years Used Date Smoking Tobacco: Never Assessed Comments No Sex and Gender Information Value Date Recorded Sex Assigned at Not on file Legal Sex Female 3:51 AM COMMUNITY SERVICE OFFICER COORDINATOR Gender Identity Not on file Sexual Orientation Not on file documented as of this encounter Plan of Treatment Not on file documented as of this encounter Procedures Procedure Name Priority Date/Time Associated Diagnosis Comments XR FLUORO GREATER THAN 1 HOUR Routine 01/25/2008 9:36 AM CDT documented in this encounter Results * XR FLUORO > 1 HOUR (01/25/2008 9:36 AM CDT) Anatomical Region Laterality Modality Other 01/25/2008 9:36 AM CDT Narrative 01/25/2008 9:36 AM CDT Finalized by interface cleanup utility. No report expected. Procedure Note 04/14/2008 Finalized by interface cleanup utility. No report expected. us Denis Baer DIAGNOSTIC IMAGING ORDERABLES Fi nal Result documented in this encounter Visit Diagnoses Diagnosis Personal history of allergy to narcotic agent Personal history of allergy to penicillin documented in this encounter Care Teams Ethylene Oxide Panelboard Operator Relationship Specialty Start Date End Date Yvan Cartwright MD [address], [place] [address] PCP - General Family Practice 09/25/14 documented as of this encounter
--- OUTSIDE RECORDS SUMMARY | 2024-12-15 22:52 | XMS_ITS | Encounter Summary ---
Author Organization [facility] Address [address] [place] [address] Care Team Providers Care Supervisory Investigative Specialist Name Role Phone Yvan Cartwright MD Primary Care Provider [phone] Encounter Details Date Type Department Care Team (Late st Contact Info) Description 08/04/2007 Outpatient Historical [facility] Pain Management Procedures [address] [place] [id number] Denis Baer Social History Tobacco Use Types Packs/Day Years Used Date Smoking Tobacco: Never Assessed Comments Unknown Sex and Gender Information Value Date Recorded Sex Assigned at Not on file Legal Sex Female 3:51 AM EKG MANAGER Gender Identity Not on file Sexual Orientation Not on file documented as of this encounter Plan of Treatment Not on file documented as of this encounter Procedures Procedure Name Priority Date/Time Associated Diagnosis Comments XR FLUORO GREATER THAN 1 HOUR Routine 08/09/2007 2:11 PM CDT documented in this encounter Results * XR FLUORO > 1 HOUR (08/09/2007 2:11 PM CDT) Anatomical Region Laterality Modality Other 08/09/2007 2:11 PM CDT Narrative 08/09/2007 2:12 PM CDT Finalized by interface [employer] utility. No report expected. Procedure Note 04/14/2008 Finalized by interface cleanup utility. No report expected. us Denis Baer DIAGNOSTIC IMAGING ORDERABLES Fi nal Result documented in this encounter Visit Diagnoses Not on filedocumented in this encounter Care Teams Supervisory Investigative Specialist Relationship Specialty Start Date End Date Yvan Cartwright MD [address] [place] [address] PCP - General Family Practice 09/25/14 documented as of this encounter
--- OUTSIDE RECORDS SUMMARY | 2024-12-15 22:52 | XMS_ITS | Encounter Summary ---
Author Organization [facility] Address [address] [place] [address] Care Team Providers Care Main Line Station Engineer Name Role Phone Yvan Cartwright MD Primary Care Provider [phone] Encounter Details Date Type Department Care Team (Latest Contact Info) Description 08/15/2007 Outpatient [facility] [address] [address] Shailesh Abbasi MD [address] [place] [address] Spinal Stenosis of Lumbar Region; Degeneration of Lumbar or Lumbosacral Intervertebral Disc Social History Tobacco Use Types Packs/Day Years Used Date Smoking Tobacco: Never Assessed Comments Unknown Sex and Gender Information Value Date Recorded Sex Assigned at Not on file Legal Sex Female 3:51 AM DYNAMOMETER TESTER Gender Identity Not on file Sexual Orientation Not on file documented as of this encounter Plan of Treatment Not on file documented as of this encounter Visit Diagnoses Diagnosis Spinal stenosis, lumbar region, 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
--- OUTSIDE RECORDS SUMMARY | 2024-12-15 22:52 | XMS_ITS | Encounter Summary ---
Author Organization [facility] Address [address] [place] [address] Care Team Providers Care Waiter/Waitress Name Role Phone Yvan Cartwright MD Primary Care Provider [phone] Encounter Details Date Type Department Care Team (Late st Contact Info) Description 08/17/[address] [facility] DEFAULT DEPARTMENT Shailesh Abbasi MD [address] [place] [address] Social History Tobacco Use Types Packs/Day Years Used Date Smoking Tobacco: Never Assessed Comments Unknown Sex and Gender Information Value Date Recorded Sex Assigned at Not on file Legal Sex Female 3:51 AM INVESTIGATOR CASH SHORTAGE Gender Identity Not on file Sexual Orientation Not on file documented as of this encounter Plan of Treatment Not on file documented as of this encounter Visit Diagnoses Not on filedocumented in this encounter Care Teams Waiter/Waitress Relationship Specialty Start Date End Date Yvan Cartwright MD [address] [place] [phone] PCP - General Family Practice 09/25/14 documented as of this encounter
--- OUTSIDE RECORDS SUMMARY | 2024-12-15 22:52 | XMS_ITS | Encounter Summary ---
Author Organization [facility] Address [address] [place] [address] Care Team Providers Care Shearer Screen Measurer And Trimmer Name Role Phone vYan Cartwright MD Primary Care Provider [phone] Reason for Referral * Radiology Services (Routine) - Closed Specialty Diagnoses / Procedures Referred By Last vasques Referred To Contact Radiology Diagnoses Aortic stenosis, severe S/P AVR Procedures ECHOCARDIOGRAM W/ CONTRAST AGENT ECHO COMPLETE Tri Quezada ANP [facility] [address] [place] [address] Phone: tel: fax: Referral ID Status Reason Start Date Expiration Date V isits Requested Visits Authorized [id number] Closed [facility] TO SCHEDULE (SGF) 01/16/2018 02/16/2019 1 1 Encounter Details Date Type Department Care Team (Late st Contact Info) Description 02/02/2018 Ancillary Orders [facility] Cardiology- [place] [address] [place] [address] Tri Quezada ANP NO ADDRESS ON FILE Aortic stenosis, severe; S/P AVR Social History Tobacco Use Types Packs/Day Years Used Date Smoking Tobacco: Former Cigarettes 2.5 30 0 04/04/1965 - 04/04/1995 Smokeless Tobacco: Never Alcohol Use Standard Drinks/Week Comments Yes 0 (1 standard drink = 0.6 oz pur e alcohol) occasionally Comments No Sex and Gender Information Value Date Recorded Sex Assigned at Not on file 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 Gender Identity Not on file Sexual Orientation Not on file Occupation Industry Job Start Date Job End Date Not on file Not on file Not on file Not on file documented as of this encounter Plan of Treatment Not on file documented as of this encounter Results * ECHOCARDIOGRAM W/ CONTRAST AGENT (02/02/2018 1:53 PM CDT) EJECTION FRACTION 65 INTERFACE SYSTEM 02/02/2018 12:3 1 PM CDT Narrative INTERFACE SYSTEM - 02/07/2018 2:00 PM [facility] Echocardiography-[address] [place] [address] Transthoracic Echocardiography Patient: Jean-Claude Study ECHO COMPLETE Wicho J ID: Gender: Joslyn : 1935 Age: 82 Room: Study 02/02/2018 Pt Outpatient Date: Status: Study 12:31:02 PM [facility] #: [id number] Time: Ordering:Tri Quezada Interpreting:Abbie Sr DO De Icer Element Winder: Marta Burton [facility] Indications and History: . AVR. Labs, prior tests, procedures, and surgery: Valve surgery. Aortic valve replacement with a prosthetic valve. Summary and Conclusion: - Left ventricle: Not well visualized. The cavity size was normal. Wall thickness was normal. Systolic function was normal. The left ventricular ejection fraction was 65%. The visually estimated ejection fraction was in the range of 60% to 65%. No diagnostic regional wall motion abnormality identified. Doppler parameters are consistent with abnormal left ventricular relaxation (grade 1 diastolic dysfunction). - Right ventricle: The cavity size was normal. Systolic function was normal. Systolic pressure was within the normal range. - Aortic valve: There is a prosthetic valve by history. Recommendations: Technically difficult study. Valves are not well visualized. No significant regurgitation. Recommend MARÍA, if clinically inidcated. Procedure information: Comparison was made to the study of 10/03/2014. Study status: Routine. Procedure: Contrast study performed to evaluate left ventricular endocardial borders due to suboptimal non-contrast images. Transthoracic echocardiography. Image quality was adequate. The study was technically difficult due to poor acoustic window availability. Scanning was performed from the parasternal, apical, subcostal, and suprasternal notch acoustic windows. Intravenous contrast (Definity) was administered. There were no contrast reactions. Study components: M-mode, 2D, complete spectral Doppler, and color Doppler. Height: 157.5cm. Height: 62in. Weight: 61.7kg. Weight: 135.7lb. BMI: 24.9kg/m\S\2. BSA: 1.65m\S\2. Blood pressure: 142/84 Study date: 02/02/2018. Study time: 12:31 PM. Location: Echo laboratory. Cardiac Anatomy: LEFT VENTRICLE: Contrast study performed to evaluate left ventricular endocardial borders due to suboptimal non-contrast images. Not well visualized. The cavity size was normal. Wall thickness was normal. Systolic function was normal. The left ventricular ejection fraction was 65%. The visually estimated ejection fraction was in the range of 60% to 65%. No diagnostic regional wall motion abnormality identified. Doppler parameters are consistent with abnormal left ventricular relaxation (grade 1 diastolic dysfunction). RIGHT VENTRICLE: The cavity size was normal. Systolic function was normal. Systolic pressure was within the normal range. LEFT ATRIUM: The atrium was normal in size. RIGHT ATRIUM: The atrium was normal in size. ATRIAL SEPTUM: No obvious PFO or ASD identified by 2D imaging and color Doppler. AORTIC VALVE: Not well visualized. Probably trileaflet; normal thickness leaflets. There is a prosthetic valve by history. Mobility was not restricted. Doppler: There was no stenosis. No significant regurgitation. VTI ratio of LVOT to aortic valve: 0.66. Peak velocity ratio of LVOT to aortic valve: 0.84. Mean gradient (S): 1mm Hg. Peak gradient (S): 2mm Hg. MITRAL VALVE: Not well visualized. Structurally normal valve. Mobility was not restricted. No echocardiographic evidence for prolapse. Doppler: There was no evidence for stenosis. No significant regurgitation. Valve area by pressure half-time: 3.32cm\S\2. Indexed valve area by pressure half-time: 2.01cm\S\2/m\S\2. Peak gradient (D): 3mm Hg. TRICUSPID VALVE: Not well visualized. Structurally normal valve. Mobility was not restricted. Doppler: There was no evidence for stenosis. No significant regurgitation. Peak gradient (D): 27mm Hg. PULMONIC VALVE: Not well visualized. The valve [...] measurements Left ventricle Left ventricle LVID ED, 3.1 cm IVRT 108 ms PLAX E/e', lat zaida, 15 LVID ES, 1.8 cm TDI PLAX LVOT FS, 42 % Peak carlos, S 65.71 cm/sec endocardial VTI, S 10.3 cm , PLAX Peak gradient, S 2 mm Hg FS, PLAX 42 % Mean gradient, S 1 mm Hg chord Aortic valve LVPW, ED 0.7 cm Peak carlos, S 78.13 cm/sec IVS/LVPW 0.94 Mean carlos, S 46.32 cm/sec ratio, ED VTI, S 15.7 cm Vol, ED 38 ml Mean gradient, S 1 mm Hg Vol, ES 10 ml Peak gradient, S 2 mm Hg EF 74 % VTI ratio 0.66 Qs 2.5 L/min LVOT/AV Vol/bsa, ED 23 ml/m\S\2 Peak carlos ratio, 0.84 Vol/bsa, ES 6 ml/m\S\2 LVOT/AV Qs/bsa 1.5 L/(min-m\S\2) Mitral valve Stroke vol, 28 ml Peak E carlos 85.26 cm/sec 1-p A2C Peak A carlos 111.86 cm/sec SV, 1-p A4C 24 ml Deceleration 229 ms SV/bsa, 1-p 15 ml/m\S\2 time A4C Pressure 66 ms Ventricular septum half-time IVS, ED 0.7 cm Peak gradient, D 3 mm Hg IVS, ES 0.7 cm Peak E/A ratio 0.76 Septal 0 % Area (PHT) 3.32 cm\S\2 thickening Area/bsa (PHT) 2.01 cm\S\2/m\S\2 Left atrium Pulmonary arteries AP dim 2.2 cm Pressure, S 30 mm Hg AP dim 1.4 cm/m\S\2 Tricuspid valve index Peak gradient, D 27 mm Hg Regurg peak carlos 261.9 cm/sec 2D reconstructed M-mode Peak RV-RA 27 mm Hg measurements gradient, S Left ventricle LV ejection 74 % [facility] Left ventricle Vol ED, 38 ml Teichholz EF, 74 % Teichholz Vol/bsa, 23 ml/m\S\2 ED, Teichholz [facility] Echo Labs are accredited with the Intersocietal Accreditation Commission - Echocardiography. Prepared and Electronically Authenticated Abbie Sr DO Confirmed 02/07/2018 14:00 Procedure Note Abbie Sr DO - 02/07/2018 [facility] Echocardiography-[place] [address] [place] [address] [place] [id number] Transthoracic Echocardiography Patient: Jean-Claude Study ECHO COMPLETE Wicho J ID: Gender: F : 1935 Age: 82 Room: Study 02/02/2018 Pt Outpatient Date: Status: Study 12:31:02 PM CSN #: [id number] Time: Ordering:Tri Quezada Interpreting:Abbie Sr DO De Icer Element Winder: Marta Burton [facility] Indications and History: . AVR. Labs, prior tests, procedures, and surgery: Valve surgery. Aortic valve replacement with a prosthetic valve. Summary and Conclusion: - Left ventricle: Not well visualized. The cavity size was normal. Wall thickness was normal. Systolic function was normal. The left ventricular ejection fraction was 65%. The visually estimated ejection fraction was in the range of 60% to 65%. No diagnostic regional wall motion abnormality identified. Doppler parameters are consistent with abnormal left ventricular relaxation (grade 1 diastolic dysfunction). - Right ventricle: The cavity size was normal. Systolic function was normal. Systolic pressure was within the normal range. - Aortic valve: There is a prosthetic valve by history. Recommendations: Technically difficult study. Valves are not well visualized. No significant regurgitation. Recommend MARÍA, if clinically inidcated. Procedure information: Comparison was made to the study of 10/03/2014. Study status: Routine. Procedure: Contrast study performed to evaluate left ventricular endocardial borders due to suboptimal non-contrast images. Transthoracic echocardiography. Image quality was adequate. The study was technically difficult due to poor acoustic window availability. Scanning was performed from the parasternal, apical, subcostal, and suprasternal notch acoustic windows. Intravenous contrast (Definity) was administered. There were no contrast reactions. Study components: M-mode, 2D, complete spectral Doppler, and color Doppler. Height: 157.5cm. Height: 62in. Weight: 61.7kg. Weight: 135.7lb. BMI: 24.9kg/m\S\2. BSA: 1.65m\S\2. Blood pressure: 142/84 Study date: 02/02/2018. Study time: 12:31 PM. Location: Echo laboratory. Cardiac Anatomy: LEFT VENTRICLE: Contrast study performed to evaluate left ventricular endocardial borders due to suboptimal non-contrast images. Not well visualized. The cavity size was normal. Wall thickness was normal. Systolic function was normal. The left ventricular ejection fraction was 65%. The visually estimated ejection fraction was in the range of 60% to 65%. No diagnostic regional wall motion abnormality identified. Doppler parameters are consistent with abnormal left ventricular relaxation (grade 1 diastolic dysfunction). RIGHT VENTRICLE: The cavity size was normal. Systolic function was normal. Systolic pressure was within the normal range. LEFT ATRIUM: The atrium was normal in size. RIGHT ATRIUM: The atrium was normal in size. ATRIAL SEPTUM: No obvious PFO or ASD identified by 2D imaging and color Doppler. AORTIC VALVE: Not well visualized. Probably trileaflet; normal thickness leaflets. There is a prosthetic valve by history. Mobility was not restricted. Doppler: There was no stenosis. No significant regurgitation. VTI ratio of LVOT to aortic valve: 0.66. Peak velocity ratio of LVOT to aortic valve: 0.84. Mean gradient (S): 1mm Hg. Peak gradient (S): 2mm Hg. MITRAL VALVE: Not well visualized. Structurally normal valve. Mobility was not restricted. No echocardiographic evidence for prolapse. Doppler: There was no evidence for stenosis. No significant regurgitation. Valve area by pressure half-time: 3.32cm\S\2. Indexed valve area by pressure half-time: 2.01cm\S\2/m\S\2. Peak gradient (D): 3mm Hg. TRICUSPID VALVE: Not well visualized. Structurally normal valve. Mobility was not restricted. Doppler: There was no evidence for stenosis. No significant regurgitation. Peak gradient (D): 27mm Hg. PULMONIC VALVE: Not well visualized. The valve [...] measurements Left ventricle Left ventricle LVID ED, 3.1 cm IVRT 108 ms PLAX E/e', lat zaida, 15 LVID ES, 1.8 cm TDI PLAX LVOT FS, 42 % Peak carlos, S 65.71 cm/sec endocardial VTI, S 10.3 cm , PLAX Peak gradient, S 2 mm Hg FS, PLAX 42 % Mean gradient, S 1 mm Hg chord Aortic valve LVPW, ED 0.7 cm Peak carlos, S 78.13 cm/sec IVS/LVPW 0.94 Mean carlos, S 46.32 cm/sec ratio, ED VTI, S 15.7 cm Vol, ED 38 ml Mean gradient, S 1 mm Hg Vol, ES 10 ml Peak gradient, S 2 mm Hg EF 74 % VTI ratio 0.66 Qs 2.5 L/min LVOT/AV Vol/bsa, ED 23 ml/m\S\2 Peak carlos ratio, 0.84 Vol/bsa, ES 6 ml/m\S\2 LVOT/AV Qs/bsa 1.5 L/(min-m\S\2) Mitral valve Stroke vol, 28 ml Peak E carlos 85.26 cm/sec 1-p A2C Peak A carlos 111.86 cm/sec SV, 1-p A4C 24 ml Deceleration 229 ms SV/bsa, 1-p 15 ml/m\S\2 time A4C Pressure 66 ms Ventricular septum half-time IVS, ED 0.7 cm Peak gradient, D 3 mm Hg IVS, ES 0.7 cm Peak E/A ratio 0.76 Septal 0 % Area (PHT) 3.32 cm\S\2 thickening Area/bsa (PHT) 2.01 cm\S\2/m\S\2 Left atrium Pulmonary arteries AP dim 2.2 cm Pressure, S 30 mm Hg AP dim 1.4 cm/m\S\2 Tricuspid valve index Peak gradient, D 27 mm Hg Regurg peak carlos 261.9 cm/sec 2D reconstructed M-mode Peak RV-RA 27 mm Hg measurements gradient, S Left ventricle LV ejection 74 % fraction, Teichholz SMM M-mode measurements Left ventricle Vol ED, 38 ml Teichholz EF, 74 % Teichholz Vol/bsa, 23 ml/m\S\2 ED, Teichholz [facility] Echo Labs are accredited with the Intersocietal Accreditation Commission - Echocardiography. Prepared and Electronically Authenticated Abbie Sr DO Confirmed 02/07/2018 14:00 Tri Quezada [facility] ORDERABLES Final Res ult INTERFACE SYSTEM Refer to clinic/hospital department documented in this encounter Visit Diagnoses Diagnosis Aortic stenosis, severe Aortic valve disorders S/P AVR Heart valve replaced by other means Aortic stenosis, severe Aortic valve disorders S/P AVR Heart valve replaced by other means documented in this encounter Additional Health Concerns Assessment Noted Time PHQ-9 Depression Total Score: 1 06/29/19 17 10:00 AM CDT documented as of this encounter Care Teams Shearer Screen Measurer And Trimmer Relationship Specialty Start Date End Date Yvan Cartwright MD [address] [place] [address] PCP - General Family Practice 09/25/14 documented as of this encounter
[2024-12-15 22:53] VITALS: BP 96/55; PULSE 101; RESP 16; TEMP 36.9; O2SAT 98
[2024-12-15 23:14] VITALS: BP 132/60; PULSE 105; RESP 18; O2SAT 94
--- NOTE | 2024-12-15 23:36 | CTR_ITS ---
PROCEDURE INFORMATION: Exam: CTA Abdomen and Pelvis With Contrast Exam date and time: 12/16/2024 12:18 AM Age: 89 years old Clinical indication: Other: Coffee ground emesis/anemia; Prior surgery; Surgery date: 6+ months; Surgery type: Tavr. Bilat marely; Coffee ground emesis with anemia. ; Additional info: Upper gi bleeding TECHNIQUE: Imaging protocol: Computed tomographic angiography of the abdomen and pelvis with contrast. Exam focused on the arteries. 3D rendering (Not supervised by radiologist): MIP and/or 3D reconstructed images were created by the technologist. Radiation optimization: All CT scans at this facility use at least one of these dose optimization techniques: automated exposure control; mA and/or kV adjustment per patient size (includes targeted exams where dose is matched to clinical indication); or iterative reconstruction. Contrast material: OMNI 350; Contrast volume: 100 ml; Contrast route: INTRAVENOUS (IV); COMPARISON: CR XR hip LT 2-3V wo/w pel* [id number] 10/10/2024 10:43 AM RADIATION DOSE METRICS: Total DLP (mGy-cm): 1073.8 FINDINGS: Lungs: Left lower lobe atelectasis noted. Heart: A partially imaged TAVR is noted. Mitral annular calcifications are seen. Coronary arteries: Coronary atherosclerosis is partially imaged. Diaphragm: A medium-sized hiatal hernia is present. Aorta: Moderate atherosclerosis of the abdominal aorta and major vessels is branching present. Celiac trunk and mesenteric arteries: A replaced right hepatic artery arises from the superior mesenteric artery. Renal arteries: No occlusion or significant stenosis. Right iliac arteries: No occlusion or significant stenosis. Left iliac arteries: No occlusion or significant stenosis. Other arteries: Peripheral wedge-shaped areas of hyperenhancement are seen in the liver, favored to represent transient hepatic arterial differences. Liver: 1.8 cm simple fluid attenuating cyst is seen in the left lynda liver. Bile duct dilatation involving the central intrahepatic and extrahepatic ducts. Smooth tapering to the level of the ampulla is noted. No clear biliary obstruction or stricture is noted. Gallbladder and biliary ducts: The gallbladder is surgically absent. Pancreas: Unremarkable. No mass. No ductal dilation. Spleen: Unremarkable. No splenomegaly. Adrenal glands: Unremarkable. No mass. Kidneys and ureters: Unremarkable. No solid mass. No hydronephrosis. Stomach and bowel: No evidence of active contrast extravasation within the GI tract is noted to suggest active hemorrhage. Linear metallic densities in the colon are suggestive of prior endoscopic clipping. A duodenal diverticulum is present. A moderate colonic stool burden is present. Otherwise, the large and small bowel are normal in course and caliber without evidence of wall thickening or obstruction. Appendix: No evidence of appendicitis. Intraperitoneal space: Unremarkable. No free air. No significant fluid collection. Lymph nodes: Unremarkable. No enlarged lymph nodes. Urinary bladder: Unremarkable. No mass. Reproductive: Unremarkable as visualized. Bones/joints: L4 vertebroplasty changes are noted.Grade 1 retrolisthesis of L2-L3. Grade 1 retrolisthesis of L1-L2. Chronic appearing compression deformities of T9, T12, and L4 are noted. 7 mm retropulsion is noted at T12 with moderate spinal canal stenosis. Chronic left rib fracture deformities are present. Chronic right iliac fracture is noted. Bilateral total hip arthroplasties are present. No acute complication is noted. Soft tissues: From calcified soft tissue lesions in the bilateral buttocks, which can be textile machinery sales representative of injection granulomas of prior fat necrosis. Findings appear benign nature. CT/CT angio abdomen pelvis [id number] IMPRESSION: 1. No evidence of active GI hemorrhage. 2. Suggested prior sites of colonic endoscopic clipping. Correlate with patient's procedural history. Otherwise, findings are consistent with indeterminate retained colonic metallic foreign bodies. 3. Intra and extrahepatic bile duct dilatation favored to represent reservoir effect in the post cholecystectomy state. Consider correlation with LFTs/bilirubin. MRCP can be obtained if clinically indicated. 4. Medium sized hiatal hernia. 5. Moderate colonic stool burden. Recommend clinical correlation for constipation. 6. Grade 1 retrolisthesis at L2-L3. 7. Grade 1 retrolisthesis at L1-L2. 8. Chronic spinal compression fracture deformities involving T9, T12, and L4. Moderate spinal canal stenosis at T12. Correlate with patient history/physical exam.
[2024-12-15] MEDS: tranexamic acid 1,000 MG/100 ML PREMIX 600 MG IV (23:56)
[2024-12-15] MEDS: pantoprazole 40 mg SDV 80 MG IVP (23:56)
[2024-12-15 23:58] LABS: Hematocrit 24.6 % (36-47); Hemoglobin 7.50 g/dL (11.27-16.99); Mean Corpuscular HGB Conc 30.5 g/dL (30-55); Mean Corpuscular Hemoglobin 29.4 pg (27-33); Mean Corpuscular Volume 96.5 fl (85-98); Nucleated Red Blood Cells % 0 %; Platelet Count 247 10^3/cmm (157-399); Red Blood Count 2.55 10^6/uL (3.85-5.65); White Blood Count 7.95 10^3/uL (3.29-11.43)
[2024-12-16] VITALS (13 sets, daily range): BP systolic 115–148; BP diastolic 52–74; PULSE 95–113; RESP 16–18; TEMP 36.4–36.8; O2SAT 98–100
[2024-12-16 00:02] LABS: INR 0.98 (0.8-1.2); Prothrombin Time 13.70 SECONDS (12.1-14.9)
[2024-12-16 00:03] LABS: Partial Thromboplastin Time 23.6 SECONDS (23.9-36.7)
[2024-12-16] MEDS: iohexol 350 mg/mL 500 mL Btl (per mL) IV (00:18)
[2024-12-16 00:20] LABS: Lactic Sepsis W/Reflex 2.3 mmol/L (0.5-2.2)
[2024-12-16 00:21] LABS: Alanine Aminotransferase 11 U/L (0-33); Albumin Level 3.5 g/dL (3.5-5.2); Alkaline Phosphatase 68 U/L (35-105); Anion Gap 14.4 (5-19); Aspartate Amino Transferase 13 U/L (0-32); Blood Urea Nitrogen 49 mg/dL (8-23); Calcium 9.2 mg/dL (8.5-10.5); Carbon Dioxide 28 mmol/L (22-29); Chloride 100 mmol/L (98-107); Creatinine Clr Calc Pharmacy 37.5032; Globulin 2.8 g/dL (1.3-4.6); Glucose 162 mg/dL (65-115); Lipase 8 U/L (13-60); Osmolality Calculated 303 mOsm/kg (285-295); Potassium 4.4 mmol/L (3.5-5.1); Sodium 138 mmol/L (136-145); Total Protein 6.3 g/dL (6.6-8.7)
--- NOTE | 2024-12-16 01:49 | W.ED.GIBLEED ---
HPI - GI Bleed General: Chief complaint: GI Bleed Stated complaint: n/v blood Time Seen by Provider: 12/15/24 23:16 History of Present Illness: Patient is an 89-year-old female who presents with acute onset of hematemesis and altered mental status. Per family report, the patient has been feeling unwell since yesterday with symptoms of clamminess, cold sensation, and nausea without vomiting initially. Today, the patient has been described as 'out of it' and generally unwell with persistent nausea. At approximately 21:30 tonight, she experienced an episode of hematemesis described as 'looking like blood.' The patient has a significant history of gastrointestinal bleeding approximately 6 months ago during the winter, which was diagnosed as an intestinal bleed. She required blood transfusions at that time. The patient also received blood transfusions during a hip procedure in August of this year. Family reports the patient has been on blood thinners, and they have been avoiding NSAIDs since her previous GI bleed. The patient appears pale and ill-appearing on presentation, with abdominal pain elicited during examination. Related Data Home Medications ?Medication ?Instructions ?Recorded ?Confirmed albuterol sulfate 90 mcg/actuation 2 puff inhalation Q6H PRN 03/04/22 12/05/24 aerosol inhaler Shortness Of Breath amitriptyline 50 mg tablet 50 mg PO BEDTIME 03/04/22 12/05/24 buspirone 7.5 mg tablet 7.5 mg PO BID 03/04/22 12/05/24 clopidogrel 75 mg tablet 75 mg PO DAILY 03/04/22 12/05/24 Held on 08/15/24. Instructions: Resume on 08/22/24. gabapentin 300 mg capsule 300 mg PO QPM 03/04/22 12/05/24 hydrocodone 5 mg-acetaminophen 325 1 tab PO Q4H PRN Pain 03/04/22 12/05/24 mg tablet ibandronate 150 mg tablet 150 mg PO Q30D 03/04/22 12/05/24 levothyroxine 88 mcg tablet 88 mcg PO QAM 03/04/22 12/05/24 (Euthyrox) mirabegron 25 mg tablet,extended 25 mg PO QPM 03/04/22 12/05/24 release 24 hr (Myrbetriq) nitroglycerin 0.4 mg sublingual 0.4 mg sublingual Q5M PRN Chest 03/04/22 12/05/24 tablet (Nitrostat) Pain ondansetron 4 mg disintegrating 4 mg PO Q8H PRN Nausea And Vomiting 03/04/22 12/05/24 tablet potassium chloride 20 mEq 20 meq PO QAM 03/04/22 12/05/24 tablet,extended release(part/cryst) (Klor-Con M) rimegepant 75 mg disintegrating 75 mg PO DAILY PRN Migraine 03/04/22 12/05/24 tablet (Nurtec ODT) Headache ropinirole 1 mg tablet 1 mg PO BEDTIME PRN nerve pain 03/04/22 12/05/24 Lactobacillus acidophilus 100 mg PO DAILY 08/11/24 12/05/24 (Acidophilus capsule) cholecalciferol (vitamin D3) 1,250 50,000 unit PO Q7D 08/11/24 12/05/24 mcg (50,000 unit) capsule donepezil 5 mg tablet 5 mg PO BEDTIME 08/11/24 12/05/24 erenumab-aooe 140 mg/mL 140 mg SUBCUT .Q30D 08/11/24 12/05/24 subcutaneous auto-injector (Aimovig Autoinjector) ferrous sulfate 325 mg (65 mg 325 mg PO BEDTIME 08/11/24 12/05/24 iron) tablet fexofenadine 180 mg tablet 180 mg PO DAILY 08/11/24 12/05/24 magnesium 250 mg tablet 250 mg PO DAILY 08/11/24 12/05/24 selenium 200 mcg tablet 200 mcg PO DAILY 08/11/24 12/05/24 thiamine HCl (vitamin B1) 50 mg 50 mg PO DAILY 08/11/24 12/05/24 tablet (Vitamin B-1) tizanidine 2 mg tablet 2 mg PO Q12H PRN Muscle Spasm 08/11/24 12/05/24 zinc sulfate 50 mg zinc (220 mg) 50 mg PO BEDTIME 08/11/24 12/05/24 tablet erenumab-aooe 140 mg/mL 140 mg SUBCUT PRN PRN Migraine 08/13/24 12/05/24 subcutaneous auto-injector Headache (Aimovig Autoinjector) Previous Rx's ?Medication ?Instructions ?Recorded citalopram 20 mg tablet 20 mg PO QAM #2 tabs 08/15/24 furosemide 40 mg tablet 40 mg PO BID PRN Swelling #2 tabs 08/15/24 pantoprazole 40 mg tablet,delayed 40 mg PO QAM #60 tabs 08/15/24 release (Protonix) left lateral knee aircraft communicator brace #1 ea 10/31/24 Allergies Allergy/AdvReac Type Severity Reaction Status Date / Time Penicillins Allergy Intermediate ADR-Confusi Verified 12/15/24 22:57 on codeine Allergy ADR-Nausea Verified 12/15/24 22:57 tramadol Allergy ADR-Nausea Verified 12/15/24 22:57 PFS ED PFS: Medical History (Updated 12/16/24 @ 01:51 by Fidencio Carlos DO) Dementia History of lower GI bleeding Hypothyroidism Hypertension Aortic stenosis Surgical History History of hip surgery S/P TAVR (transcatheter aortic valve replacement) Family History Denies family history of CAD (coronary artery disease) Social History Smoking and tobacco/nicotine status: never used tobacco/nicotine Substance/Drug Use: never Physical Exam Const: GENERAL APPEARANCE: cooperative, ill appearing and frail appearing NUTRITIONAL APPEARANCE: thin ORIENTATION/CONSCIOUSNESS: Yes awake and Yes oriented to person; not oriented to time HENMT: COMMON NORMALS: normocephalic, atraumatic and Normal external nose present HEAD & SCALP: normocephalic and atraumatic FACE & SINUS: normal facial exam and face symmetric NOSE: Normal external nose present Eye: COMMON NORMALS: Equal, round and reactive pupils present and EOMs intact bilaterally GENERAL EYE: normal light reflex SCLERA: scleral abnormal Laterality of scleral abnormality: positive bilateral (pale) PUPIL: Yes Equal, round and reactive pupils present DIRECT OPHTHALMOSCOPY: Yes normal light reflex Neck/C-Spine: GENERAL: Yes trachea midline Chest: CHEST: Yes Symmetrical chest wall rise Resp: COMMON NORMALS: normal respiratory effort, No retractions, No use of accessory muscles and clear to auscultation bilaterally AUSCULTATION: clear to auscultation bilaterally Cardio: COMMON NORMALS: regular rate and regular rhythm RATE: regular rate RHYTHM: regular rhythm GI: COMMON NORMALS: Soft to palpation INSPECTION: Yes abdominal distension PALPATION: Yes Soft to palpation and Yes Tenderness to palpation present (GI) (Diffusely) Extremity: COMMON NORMALS: no pedal edema Neuro: UMAIR COMA SCALE: document GCS findings [place] coma scale eye opening: Spontaneous Umair coma scale verbal response: Orientated [place] coma scale motor response: Obey commands [place] coma scale total score: 15 SENSORIUM/ORIENTATION: Yes oriented to person and No oriented to time SENSORY EXAM: Yes extremities (intact) Psych: COMMON NORMALS: speech normal SPEECH: Yes normal speech Skin: COMMON NORMALS: no rashes or lesions noted NARRATIVE SKIN EXAM: pale GENERAL SKIN EXAM: no rashes or lesions noted Course Vital Signs: Vital signs: Vital Signs Temperature 98.3 F 12/16/24 03:57 Pulse Rate 104 H 12/16/24 03:57 Respiratory Rate 18 12/16/24 03:57 Blood Pressure 125/74 12/16/24 03:57 Pulse Oximetry 99 12/16/24 03:57 Oxygen Delivery Me thod Nasal Cannula 12/16/24 01:11 Oxygen Flow Rate 2 12/16/24 01:11 MDM - GI Bleed Medical Decision Making Blood pressures have been in the 100/50-60 range. She remains awake. Saturations are 99% on 2 L. She is afebrile. Hemoglobin however is 7.5 with a BUN of 49 creatinine 1. Evidence of upper GI bleeding. She is given TXA, 1 g. She is also given 80 mg Protonix. She will be placed on a drip. She is crossmatched for 2 units of PRBCs. CTA shows no evidence of active GI hemorrhage. We have no gastroenterology availability here. With hemoglobin being as low as 7.5, she is high risk for continued bleeding and need for intervention. Spoke with [facility]. They are willing to take in transfer. Lab Data 12/15/24 23:31 12/15/24 23:31 Radiology Impressions Abdomen/Pelvis CTA 12/15/24 23:36 IMPRESSION: 1. No evidence of active GI hemorrhage. 2. Suggested prior sites of colonic endoscopic clipping. Correlate with patient's procedural history. Otherwise, findings are consistent with indeterminate retained colonic metallic foreign bodies. 3. Intra and extrahepatic bile duct dilatation favored to represent reservoir effect in the post cholecystectomy state. Consider correlation with LFTs/bilirubin. MRCP can be obtained if clinically indicated. 4. Medium sized hiatal hernia. 5. Moderate colonic stool burden. Recommend clinical correlation for constipation. 6. Grade 1 retrolisthesis at L2-L3. 7. Grade 1 retrolisthesis at L1-L2. 8. Chronic spinal compression fracture deformities involving T9, T12, and L4. Moderate spinal canal stenosis at T12. Correlate with patient history/physical exam. Laboratory Results WBC 7.95 10^3/uL (3.29-11.43) 12/15/24: RBC 2.55 10^6/uL (3.85-5.65) L 12/15/24: Hgb 7.50 g/dL (11.27-16.99) L 12/15/24: Hct 24.6 % (36-47) L 12/15/24: MCV 96.5 fl (85-98) 12/15/24: MCH 29.4 pg (27-33) 12/15/24: MCHC 30.5 g/dL (30-55) 12/15/24: RDW 16.4 % (12.1-15.1) H 12/15/24: Plt Count 247 10^3/cmm (157-399) 12/15/24: MPV 10.2 fL (7.4-10.4) 12/15/24: Neut % (Auto) 86.9 % 12/15/24: Lymph % (Auto) 7.0 % 12/15/24: [place] % (Auto) 5.0 % 12/15/24: Eos % (Auto) 0.1 % 12/15/24: Baso % (Auto) 0.6 % 12/15/24: Neut # (Auto) 6.90 10^3/uL (1.8-7.7) 12/15/24 Lymph # (Auto) 0.6 10^3/uL (0.8-4.8) L 12/15/24: [place] # (Auto) 0.4 10^3/uL (0.2-0.9) 12/15/24 Eos # (Auto) 0.0 10^3/uL (0.0-0.8) 12/15/24 23:31 Baso # (Auto) 0.1 10^3/uL (0.0-0.1) 12/15/24 23: Nucleated RBC % (auto) 0 % 12/15/24 23: Nucleated RBCs # 0.0 /100WBC 12/15/24 23: PT 13.70 SECONDS (12.1-14.9) 12/15/24 23: INR 0.98 (0.8-1.2) 12/15/24 23: APTT 23.6 SECONDS (23.9-36.7) L 12/15/24 23: Sodium 138 mmol/L (136-145) 12/15/24 23: Potassium 4.4 mmol/L (3.5-5.1) 12/15/24 23: Chloride 100 mmol/L (98-107) 12/15/24 23: Carbon Dioxide 28 mmol/L (22-29) 12/15/24 23: Anion Gap 14.4 (5-19) 12/15/24 23:31 BUN 49 mg/dL (8-23) H 12/15/24 23: Creatinine 1.0 mg/dL (0.5-0.9) H 12/15/24 23: GFR Calculation Not Reportable 12/15/24 23: Glucose 162 mg/dL (65-115) H 12/15/24 23: Calculated Osmolality 303 mOsm/kg (285-295) H 12/15/24 23: Lactic Acid 2.3 mmol/L (0.5-2.2) H 12/15/24 23: Calcium 9.2 mg/dL (8.5-10.5) 12/15/24 23: Total Bilirubin 0.2 mg/dL (0.15-1.2) 12/15/24 23: AST 13 U/L (0-32) 12/15/24 23: ALT 11 U/L (0-33) 12/15/24 23: Alkaline Phosphatase 68 U/L (35-105) 12/15/24 23: C-Reactive Protein 3.0 mg/L (0.0-4.9) 12/15/24 23:31 Total Protein 6.3 g/dL (6.6-8.7) L 12/15/24 23:31 Albumin 3.5 g/dL (3.5-5.2) 12/15/24 23:31 Globulin 2.8 g/dL (1.3-4.6) 12/15/24 23:31 Lipase 8 U/L (13-60) L 12/15/24 23:31 Urine Color Yellow (Yellow) 12/16/24 01:30 Urine Appearance Clear (CLEAR) 12/16/24 01:30 Urine pH 5.5 (5-7) 12/16/24 01:30 Ur Specific [place] 1.025 (1.005-1.030) 12/16/24 01:30 Urine Protein Negative (Negative) 12/16/24 01:30 Urine Glucose (UA) Negative (Normal) 12/16/24 01:30 Urine Ketones Negative (Negative) 12/16/24 01:30 Urine Blood Negative (Negative) 12/16/24 01:30 Urine Nitrate Negative (Negative) 12/16/24 01:30 Urine Bilirubin Negative (Negative) 12/16/24 01:30 Urine Urobilinogen 0.2 mg/dL (Negative) 12/16/24 01:30 Ur Leukocyte Esterase Negative (Negative) 12/16/24 01:30 Urine RBC 0-2 /hpf (0-2) 12/16/24 01:30 Urine WBC 0-5 /hpf (0-5) 12/16/24 01:30 Ur Squamous Epith Cells 0-5 /hpf (0-5) 12/16/24 01:30 Amorphous Sediment Not Reportable 12/16/24 01:30 Urine Bacteria None seen /hpf (NONE) 12/16/24 01:30 Hyaline Casts 0.40 /lpf 12/16/24 01:30 Urine Yeast Trace /hpf 12/16/24 01:30 Blood Type O Positive 12/15/24 23:39 Rho(D) Type Rh positive 12/15/24 23:39 Antibody Screen Negative 12/15/24 23:39 Crossmatch See Detail 12/15/24 23:39 All radiology interpretation(s) finalized by discharge Critical Care Time Critical Care Time: Critical Care Time: Yes Total Critical Care Time: 40 Attestation: This case had a high probability of a clinically significant, sudden, or life threatening deterioration of this patient's condition which required my full and direct attention, intervention and personal management. Time is independent of any procedures performed. 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
[2024-12-16 03:07] LABS: Glucose Urine UA Negative (Normal); Nitrate Urine Negative (Negative); Specific Gravity, Urine 1.025 (1.005-1.030)
[2024-12-16 03:09] LABS: Add Urine Microscopic? YES
[2024-12-16 03:25] LABS: UA Slide Review UA Slide Review Perf
--- NOTE | 2024-12-16 05:20 | PC.NURSE ---
BLOOD TRANSFUSION CONTINUED BY EMS
== END 2024-12-16 05:23 | disposition short-term general hospital (02) ==
PROVIDERS: Emergency Provider Emergency Medicine; PCP Family Medicine
DX: K92.2 Gastrointestinal hemorrhage, unspecified (principal); I10 Essential (primary) hypertension
CPT/HCPCS: 36415; 36430; 74174; 80053; 81001; 83605; 83690; 85025; 85610; 85730; 86140; 86850; 86900; 86920; 96374; 96375; 99285; J2470; J7120; J9999; P9016

== ENCOUNTER → 2025-01-09 13:43 | Outpatient (BNVA) | payer MEDICARE, SELFPAY | PROVIDERS: PCP Family Medicine; Visit Provider Student in an Organized Health Care Education/Training Program | DX: Z96.642 Presence of left artificial hip joint (principal) | CPT/HCPCS: 73523; 99213 ==